=== PATIENT | male | born 1945 | race Caucasian/White ===

== ENCOUNTER 2017-01-08 05:03 | Inpatient (IN) | payer MEDICARE ==
[2017-01-08] MEDS ORDERED: ASPIRIN 81 MG PO STA (05:11)
[2017-01-08] MEDS ORDERED: NITROGLYCERIN OINT 1 INCH/GM PACKET TOPICAL STA (05:11)
--- NOTE | 2017-01-08 05:19 | ED ---
General Adult HPI - General Chief complaint: Chest Pain Stated complaint: chest pain Time Seen by Provider: 01/08/17 05:07 Source: patient, family, RN notes reviewed Mode of arrival: EMS Limitations: no limitations - History of Present Illness Initial comments: Patient is a pleasant 71-year-old male presenting to the emergency department complaining of chest discomfort. Onset was a couple of hours ago while asleep. Discomfort felt like pressure with some mild radiation towards the neck. Patient was nauseated earlier. No diaphoresis or dyspnea. No history of similar symptoms previously. Discomfort was severe however is now gone following aspirin and nitroglycerin by EMS. - Related Data Allergies Allergy/AdvReac Type Severity Reaction Status Date / Time No Known Allergies Allergy Verified 01/08/17 05:17 Review of Systems ROS Statement: Those systems with pertinent positive or pertinent negative responses have been documented in the HPI. ROS Other: All systems not noted in ROS Statement are negative. Constitutional: Denies: fever Eyes: Denies: eye pain ENT: Denies: ear pain Respiratory: Denies: cough, dyspnea Cardiovascular: Reports: chest pain Endocrine: Denies: fatigue Gastrointestinal: Reports: nausea. Denies: abdominal pain Genitourinary: Denies: urgency Musculoskeletal: Denies: back pain Skin: Denies: rash Neurological: Denies: weakness Past Medical History Past Medical History: No Reported History Additional Past Medical History / Comment(s): tooth infection. History of Any Multi-Drug Resistant Organisms: None Reported Past Surgical History: Hernia Repair Past Psychological History: No Psychological Hx Reported Smoking Status: Never smoker Past Alcohol Use History: Occasional Past Drug Use History: None Reported General Exam Limitations: no limitations General appearance: alert, in no apparent distress Head exam: Present: atraumatic Eye exam: Present: normal appearance, PERRL ENT exam: Present: normal oropharynx Neck exam: Present: normal inspection Respiratory exam: Present: normal lung sounds bilaterally. Absent: chest wall tenderness Cardiovascular Exam: Present: regular rate, normal rhythm Expanded Peripheral pulses: 2+: Radial (R), Radial (L), Dorsalis Pedis (R), Dorsalis Pedis (L) GI/Abdominal exam: Present: soft. Absent: tenderness Extremities exam: Present: normal inspection. Absent: pedal edema, calf tenderness Neurological exam: Present: alert Psychiatric exam: Present: normal affect, normal mood Skin exam: Present: normal color Course Vital Signs 01/08/17 01/08/17 05:06 06:35 Temperature 97.8 F Pulse Rate 78 78 Respiratory 16 16 Rate Blood Pressure 121/79 127/84 O2 Sat by Pulse 95 98 Oximetry EKG Findings - EKG Comments: EKG Findings:: Normal sinus rhythm 75. NC 160. QRS 80. QT 404. QTC 451. Normal axis. Normal QRS. Normal ST-T. Medical Decision Making - Medical Decision Making Patient reevaluated and resting comfortably in bed. Patient and family updated on results and plan. Case was discussed in detail with Dr. sosa, who will admit for Dr. Santos. - Lab Data Result diagrams: 01/08/17 05:20 01/08/17 05:20 Lab Results 01/08/17 01/08/17 01/08/17 Range/Units 05:20 05:20 05:20 WBC 6.6 (3.8-10.6) k/uL RBC 4.44 (4.30-5.90) m/uL Hgb 14.0 (13.0-17.5) gm/dL Hct 42.1 (39.0-53.0) % MCV 94.7 (80.0-100.0) fL MCH 31.6 (25.0-35.0) pg MCHC 33.4 (31.0-37.0) g/dL RDW 13.5 (11.5-15.5) % Plt Count 185 (150-450) k/uL Neutrophils % 68 % Lymphocytes % 17 % Monocytes % 6 % Eosinophils % 6 % Basophils % 1 % Neutrophils # 4.4 (1.3-7.7) k/uL Lymphocytes # 1.1 (1.0-4.8) k/uL Monocytes # 0.4 (0-1.0) k/uL Eosinophils # 0.4 (0-0.7) k/uL Basophils # 0.0 (0-0.2) k/uL PT (9.0-12.0) sec INR (<1.2) APTT (22.0-30.0) sec Sodium 137 (137-145) mmol/L Potassium 3.9 (3.5-5.1) mmol/L Chloride 104 (98-107) mmol/L Carbon Dioxide 22 (22-30) mmol/L Anion Gap 11 mmol/L BUN 18 (9-20) mg/dL Creatinine 1.10 (0.66-1.25) mg/dL Est GFR (MDRD) Af Amer >60 (>60 ml/min/1.73 sqM) Est GFR (MDRD) Non-Af >60 (>60 ml/min/1.73 sqM) Glucose 118 H (74-99) mg/dL Calcium 9.3 (8.4-10.2) mg/dL Magnesium 2.0 (1.6-2.3) mg/dL Total Bilirubin 0.8 (0.2-1.3) mg/dL AST 24 (17-59) U/L ALT 41 (21-72) U/L Alkaline Phosphatase 78 (38-126) U/L Total Creatine Kinase 24 L (55-170) U/L CK-MB (CK-2) 0.6 (0.0-2.4) ng/mL CK-MB (CK-2) Rel Index 2.5 Troponin I <0.012 (0.000-0.034) ng/mL Total Protein 6.9 (6.3-8.2) g/dL Albumin 3.8 (3.5-5.0) g/dL 01/08/17 Range/Units 05:20 WBC (3.8-10.6) k/uL RBC (4.30-5.90) m/uL Hgb (13.0-17.5) gm/dL Hct (39.0-53.0) % MCV (80.0-100.0) fL MCH (25.0-35.0) pg MCHC (31.0-37.0) g/dL RDW (11.5-15.5) % Plt Count (150-450) k/uL Neutrophils % % Lymphocytes % % Monocytes % % Eosinophils % % Basophils % % Neutrophils # (1.3-7.7) k/uL Lymphocytes # (1.0-4.8) k/uL Monocytes # (0-1.0) k/uL Eosinophils # (0-0.7) k/uL Basophils # (0-0.2) k/uL PT 11.6 (9.0-12.0) sec INR 1.2 H (<1.2) APTT 24.2 (22.0-30.0) sec Sodium (137-145) mmol/L Potassium (3.5-5.1) mmol/L Chloride (98-107) mmol/L Carbon Dioxide (22-30) mmol/L Anion Gap mmol/L BUN (9-20) mg/dL Creatinine (0.66-1.25) mg/dL Est GFR (MDRD) Af Amer (>60 ml/min/1.73 sqM) Est GFR (MDRD) Non-Af (>60 ml/min/1.73 sqM) Glucose (74-99) mg/dL Calcium (8.4-10.2) mg/dL Magnesium (1.6-2.3) mg/dL Total Bilirubin (0.2-1.3) mg/dL AST (17-59) U/L ALT (21-72) U/L Alkaline Phosphatase (38-126) U/L Total Creatine Kinase (55-170) U/L CK-MB (CK-2) (0.0-2.4) ng/mL CK-MB (CK-2) Rel Index Troponin I (0.000-0.034) ng/mL Total Protein (6.3-8.2) g/dL Albumin (3.5-5.0) g/dL - Radiology Data Radiology results: image reviewed (Chest x-ray shows no acute process) Critical Care Time Critical Care Time: Yes Total Critical Care Time: 31 Disposition Clinical Impression: Unstable angina pectoris Disposition: ADMITTED IP TO THIS [facility] Referrals: Leonardo Santos MD [Primary Care Provider] - 1-2 days Decision Time: 06:52
[2017-01-08 05:54] LABS: Basophils % (A) 1 %; CH 32.5; CHCM 34.5; Eosinophils # (A) 0.4 k/uL (0-0.7); Eosinophils % (A) 6 %; HCT 42.1 % (39.0-53.0); HDW 2.51; Luc % (Auto) 3; Lymphocytes # (A) 1.1 k/uL (1.0-4.8); Lymphocytes % (A) 17 %; MCH 31.6 pg (25.0-35.0); MCHC 33.4 g/dL (31.0-37.0); MCV 94.7 fL (80.0-100.0); Mean Platelet Volume 6.8; Monocytes # (A) 0.4 k/uL (0-1.0); Monocytes % (A) 6 %; Neutrophils # (A) 4.4 k/uL (1.3-7.7); Neutrophils % (A) 68 %; RBC 4.44 m/uL (4.30-5.90); RDW 13.5 % (11.5-15.5); WBC 6.6 k/uL (3.8-10.6); WBC (Perox) 6.31
[2017-01-08 06:02] LABS: ALT 41 U/L (21-72); AST 24 U/L (17-59); Alkaline Phosphatase 78 U/L (38-126); Anion Gap 11 mmol/L; Blood Urea Nitrogen 18 mg/dL (9-20); Calcium 9.3 mg/dL (8.4-10.2); Carbon Dioxide 22 mmol/L (22-30); Chloride 104 mmol/L (98-107); Glucose 118 mg/dL (74-99); Non-African American GFR(MDRD) >60 (>60 ml/min/1.73 sqM); Potassium 3.9 mmol/L (3.5-5.1); Sodium 137 mmol/L (137-145); Total Bilirubin 0.8 mg/dL (0.2-1.3); Total Protein 6.9 g/dL (6.3-8.2)
[2017-01-08 06:17] LABS: Creatine Kinase 24 U/L (55-170)
--- NOTE | 2017-01-08 06:17 | XR ---
EXAM: XR Chest, 1 View. CLINICAL HISTORY: Reason: chest pain TECHNIQUE: Frontal view of the chest. COMPARISON: No relevant prior studies available. FINDINGS: Lungs: Unremarkable. No consolidation. Pleural spaces: Unremarkable. No pneumothorax. Heart: Unremarkable. No cardiomegaly. Mediastinum: Unremarkable. Bones: Unremarkable. No acute fracture. IMPRESSION: No evidence of active cardiopulmonary abnormality..
[2017-01-08 06:21] LABS: INR 1.2 (<1.2); Partial Thromboplastin Time 24.2 sec (22.0-30.0); Prothrombin Time 11.6 sec (9.0-12.0)
[2017-01-08 06:30] LABS: Creatine Kinase MB 0.6 ng/mL (0.0-2.4); Troponin I <0.012 ng/mL (0.000-0.034)
[2017-01-08] MEDS ORDERED: HEPARIN SODIUM,PORCINE 5,000 UNIT/ML 1 ML VIAL IV PRN (06:52)
[2017-01-08] MEDS ORDERED: HEPARIN SODIUM,PORCINE 5,000 UNIT/ML 1 ML VIAL IV ONE (06:52)
[2017-01-08] MEDS: HEPARIN SODIUM,PORCINE/D5W PMX 25,000 UNIT in DEXTROSE/WATER 1 500ML.BAG IV SCH (07:28)
--- NOTE | 2017-01-08 12:20 | P.CRDCN ---
History of Present Illness Consult date: 01/08/17 History of present illness: This is 71-year-old gentleman with no Sigmund past medical history has been having intermittent chest discomfort and a gas-like feeling in the chest, mostly at night. Usually he drinks Coke and then he could burp to get relief. However, last night patient had a similar episode that did not go away. Finally patient came to the emergency room. The symptoms are mostly at rest. During the daytime and patient doesn't express any pain. He denies any acid reflux. No history of any previous microinfarction or angina. Patient does smoke a long time ago. No history of hypertension or diabetes. So far his cardiac enzymes are negative. EKG did not reveal any acute changes. We'll follow further cardiac enzyme studies and get an echocardiogram. Patient is also considering have hip surgery. We'll make consider doing a is a dobutamine or Lexiscan stress test to rule out underlying ischemic heart disease Review of Systems As per the chart Past Medical History Past Medical History: No Reported History Additional Past Medical History / Comment(s): Current R hand index finger wound- being tx with ABX. History of Any Multi-Drug Resistant Organisms: None Reported Past Surgical History: Hernia Repair Additional Past Surgical History / Comment(s): L inguinal hernia repair, implanted teeth, colonoscopy-normal Past Anesthesia/Blood Transfusion Reactions: No Reported Reaction Smoking Status: Former smoker - Past Family History Father Family Medical History: Cancer Additional Family Medical History / Comment(s): Father of colon cancer at the age of 48yrs. Mother Family Medical History: Musculoskeletal Disorder, Neurologic Disorder Additional Family Medical History / Comment(s): Mother of complications related to MS at the age of about 68yrs. Medications and Allergies Home Medications Medication Instructions Recorded Confirmed Type Aspirin 325 mg PO ONCE 01/08/17 01/08/17 History Mupirocin Calcium [Bactroban 2% 1 applic TOPICAL TID PRN 01/08/17 01/08/17 History Cream] Sulfamethox-Tmp 800-160Mg [Bactrim 1 tab PO Q12HR 01/08/17 01/08/17 History DS 800-160 mg] guaiFENesin [Mucinex] 1,200 mg PO Q12H PRN 01/08/17 01/08/17 History Allergies Allergy/AdvReac Type Severity Reaction Status Date / Time No Known Allergies Allergy Verified 01/08/17 07:11 Physical Exam Vitals: Vital Signs Temp Pulse Pulse Resp BP BP Pulse Ox 01/08/17 09:00 98.6 F 67 18 120/68 97 01/08/17 08:37 98.9 F 75 18 127/76 97 01/08/17 06:35 78 16 127/84 98 01/08/17 05:06 97.8 F 78 16 121/79 95 Intake and Output 01/07/17 01/08/17 01/08/17 22:59 06:59 14:59 Other: Weight 104.326 kg GENERAL EXAM: Patient is alert and oriented and doesn't appear to be in any acute distress HEENT: Normocephalic. Normal reaction of pupils, equal size, normal range of extraocular motion. No erythema or exudates in the throat. NECK: No masses, no nuchal rigidity. CHEST: No chest wall deformity. LUNGS: Equal air entry with no crackles or wheeze. HEART: S1 and S2 normal with no audible mumurs or gallops. Regular rhythm, femorals equal on both sides.. ABDOMEN: No hepatosplenomegaly, normal bowel sounds, no guarding or rigidity. SKIN: No rashes CENTRAL NERVOUS SYSTEM: No focal deficits. EXTREMITIES: No cyanosis, clubbing or edema. Results 01/08/17 05:20 01/08/17 05:20 Cardiac Enzymes 01/08/17 01/08/17 Range/Units 05:20 05:20 AST 24 (17-59) U/L CK-MB (CK-2) 0.6 (0.0-2.4) ng/mL Troponin I <0.012 (0.000-0.034) ng/mL Coagulation 01/08/17 Range/Units 05:20 PT 11.6 (9.0-12.0) sec APTT 24.2 (22.0-30.0) sec CBC 01/08/17 Range/Units 05:20 WBC 6.6 (3.8-10.6) k/uL RBC 4.44 (4.30-5.90) m/uL Hgb 14.0 (13.0-17.5) gm/dL Hct 42.1 (39.0-53.0) % Plt Count 185 (150-450) k/uL Comprehensive Metabolic Panel 01/08/17 Range/Units 05:20 Sodium 137 (137-145) mmol/L Potassium 3.9 (3.5-5.1) mmol/L Chloride 104 (98-107) mmol/L Carbon Dioxide 22 (22-30) mmol/L BUN 18 (9-20) mg/dL Creatinine 1.10 (0.66-1.25) mg/dL Glucose 118 H (74-99) mg/dL Calcium 9.3 (8.4-10.2) mg/dL AST 24 (17-59) U/L ALT 41 (21-72) U/L Alkaline Phosphatase 78 (38-126) U/L Total Protein 6.9 (6.3-8.2) g/dL Albumin 3.8 (3.5-5.0) g/dL Current Medications Generic Name Dose Route Start Last Admin Trade Name Freq PRN Reason Stop Dose Admin Aspirin 325 mg 01/09/17 09:00 Aspirin PO DAILY [facility] Heparin Sodium (Porcine) 0 unit 01/08/17 06:52 Heparin IV Q6HR PRN Low PTT Protocol Heparin Sodium/Dextrose 25,000 500 mls @ 20 mls/hr 01/08/17 07:00 01/08/17 07 :28 unit/ IV Solution IV 9.586 units/kg/hr .Q24H VENU 20 mls/hr Protocol Administration 9.586 UNITS/KG/HR Nitroglycerin 1 inch 01/08/17 12:00 Nitro-Bid Oint TOPICAL Q6HR [facility] Nitroglycerin 0.4 mg 01/08/17 06:52 Nitrostat SUBLINGUAL Q5M PRN Chest Pain Intake and Output 01/07/17 01/08/17 01/08/17 22:59 06:59 14:59 Other: Weight 104.326 kg 01/08/17 05:20 01/08/17 05:20 EKG Interpretations (text) Sinus rhythm Assessment and Plan (1) Chest pain Status: Acute Plan: Patient doesn't have any significant risk factors, however angina symptoms cannot be excluded. We'll follow his cardiac enzymes studies. If they're negative, may proceed with a dobutamine or Lexiscan stress test and if that test is negative for ischemia, GI pathology and etiology to be considered.
[2017-01-08 13:09] LABS: Creatine Kinase MB 0.9 ng/mL (0.0-2.4)
[2017-01-08 13:23] LABS: Troponin I 0.045 ng/mL (0.000-0.034)
[2017-01-08] MEDS ORDERED: SODIUM CHLORIDE 0.9% 1,000 ML in EMPTY BAG 1 BAG IV ONE (13:49)
[2017-01-08] MEDS ORDERED: ALPRAZolam 0.5 MG TAB PO PRN (13:49)
[2017-01-08] MEDS ORDERED: ATORVASTATIN 80 MG TAB PO STA (13:49)
[2017-01-08] MEDS ORDERED: ALPRAZolam 0.25 MG TAB PO PRN (13:49)
--- NOTE | 2017-01-08 14:26 | P.HPIM ---
History of Present Illness H&P Date: 01/08/17 Chief Complaint: Chest pain History of presenting complaint: This is a very pleasant 71-year-old patient of Dr. Santos. Patient's only significant history is that of arthritis especially of the left hip pending surgery. Patient woke up with chest pain from sleep and was a heavy sensation in the chest there was no shortness of breath no perspiration or dizziness though patient really felt tired and rundown. Concerned and this is a cardiac event she decided to come and admitted for unstable angina. Denies any prior cardiac history. Patient otherwise rather fairly active. GEN.: Tired EYES: None HEENT: None NECK: None RESPIRATORY: None CARDIOVASCULAR: As above GASTROINTESTINAL: None GENITOURINARY: None MUSCULOSKELETAL: Pain in the joints patient left hip LYMPHATICS: None HEMATOLOGICAL: None PSYCHIATRY: None NEUROLOGICAL: None Past medical history: Arthritis left hip, being treated for right index finger infection with Bactrim by his PCP Past surgical history: Left inguinal hernia repair Home medications: Reviewed in the computer including ciprofloxacin ALLERGIES: None Social history does smoke in the remote past. Alcohol occasionally. 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 . VITAL SIGNS: 97.8, 78, 16, 121/79, 95% room air GENERAL: Average built, laying in a bed to a bit anxious appearing. EYES: Pupils equal. Conjunctiva normal. HEENT: External appearance of nose and ears normal, oral cavity grossly normal. NECK: JVD not raised; masses not palpable. HEART: First and second heart sounds are normal; no edema. LUNGS: Respiratory rate normal; clear to auscultation. ABDOMEN: Soft, nontender, liver spleen not palpable, no masses palpable. LYMPHATICS: No lymph nodes palpable in the axilla and neck. PSYCH: Alert and oriented x3; mood and affect normal. NEUROLOGICAL: Cranial nerves grossly intact; no facial asymmetry, power and sensation grossly intact. Extremities: Dressing over the right index finger Investigations: Troponin less than 0.012, 0.045 EKG normal sinus rhythm Assessment: -Acute coronary syndrome, with troponin started to go up with the cardiac sounding presentation. -Obesity BMI 33.0 -Primary osteoarthritis of left hip pending outpatient surgery -Acute cellulitis of the right index finger proximal part being treated with ciprofloxacin from outpatient -IV heparin monitoring Plan: Patient is on aspirin IV heparin Nitropaste. Collagen was consulted. I spoke to the patient and questions were answered. Past Medical History Past Medical History: No Reported History Additional Past Medical History / Comment(s): Current R hand index finger wound- being tx with ABX. History of Any Multi-Drug Resistant Organisms: None Reported Past Surgical History: Hernia Repair Additional Past Surgical History / Comment(s): L inguinal hernia repair, implanted teeth, colonoscopy-normal Past Anesthesia/Blood Transfusion Reactions: No Reported Reaction Smoking Status: Former smoker - Past Family History Father Family Medical History: Cancer Additional Family Medical History / Comment(s): Father of colon cancer at the age of 48yrs. Mother Family Medical History: Musculoskeletal Disorder, Neurologic Disorder Additional Family Medical History / Comment(s): Mother of complications related to MS at the age of about 68yrs. Medications and Allergies Home Medications Medication Instructions Recorded Confirmed Type Aspirin 325 mg PO ONCE 01/08/17 01/08/17 History Ciprofloxacin HCl [Cipro] 500 mg PO Q12HR 01/08/17 01/08/17 History Mupirocin Calcium [Bactroban 2% 1 applic TOPICAL TID PRN 01/08/17 01/08/17 History Cream] guaiFENesin [Mucinex] 1,200 mg PO Q12H PRN 01/08/17 01/08/17 History Allergies Allergy/AdvReac Type Severity Reaction Status Date / Time No Known Allergies Allergy Verified 01/08/17 07:11 Results CBC & Chem 7: 01/08/17 05:20 01/08/17 05:20
[2017-01-08] MEDS: NITROGLYCERIN OINT 1 INCH/GM PACKET TOPICAL SCH ×2 (15:43→17:55)
[2017-01-08 18:29] LABS: Creatine Kinase MB 0.7 ng/mL (0.0-2.4)
[2017-01-08 18:36] LABS: Troponin I 0.047 ng/mL (0.000-0.034)
[2017-01-08] MEDS: NITROGLYCERIN SL TABS 0.4 MG TAB SUBLINGUAL PRN ×2 (19:46→20:03)
[2017-01-09] MEDS ORDERED: ATORVASTATIN 80 MG TAB PO ONE (05:00)
[2017-01-09 06:41] LABS: Mean Platelet Volume 6.9
[2017-01-09] MEDS: NITROGLYCERIN OINT 1 INCH/GM PACKET TOPICAL SCH ×4 (07:28→17:25)
[2017-01-09] MEDS: ASPIRIN 325 MG TAB PO SCH (07:32)
[2017-01-09] MEDS: HEPARIN SODIUM,PORCINE/D5W PMX 25,000 UNIT in DEXTROSE/WATER 1 500ML.BAG IV SCH ×2 (07:43→14:18)
[2017-01-09 08:27] LABS: Cholesterol 153 mg/dL (<200); HDL Cholesterol 33 mg/dL (40-60)
[2017-01-09] MEDS ORDERED: IV FLUID CONTINUATION 1,000 ML IV ONE (09:31)
[2017-01-09] MEDS ORDERED: fentaNYL (PF) 50 MCG/ML 2 ML AMP ONE (09:39)
[2017-01-09] MEDS ORDERED: LIDOCAINE 2% INJ 20 MG/ML (20 ML MDV) ONE (09:39)
[2017-01-09] MEDS ORDERED: MIDAZOLAM 2 MG/2 ML VIAL ONE (09:39)
[2017-01-09] MEDS ORDERED: VERAPAMIL 2.5 MG/ML 2 ML AMP ONE (09:39)
[2017-01-09] MEDS ORDERED: fentaNYL (PF) 50 MCG/ML 2 ML AMP IV ONE (09:43)
[2017-01-09] MEDS ORDERED: LIDOCAINE 2% INJ 20 MG/ML SQ ONE (09:44)
[2017-01-09] MEDS ORDERED: MIDAZOLAM 2 MG/2 ML VIAL IV ONE (09:44)
[2017-01-09] MEDS: VERAPAMIL SYRINGE (5 MG/10 ML) INTRAARTER ONE ×2 (09:47→10:02)
[2017-01-09] MEDS ORDERED: HEPARIN SODIUM 1,000 UN/ML (10ML VL) ONE (09:48)
[2017-01-09] MEDS ORDERED: NITROGLYCERIN 1000MCG/10ML SYRINGE INTRACORON ONE (09:56)
[2017-01-09] MEDS ORDERED: IOHEXOL 350 MG/ML 125ML BOTTLE INJ ONE (10:27)
--- NOTE | 2017-01-09 10:29 | P.PCN ---
Date of Procedure: 01/09/17 Preoperative Diagnosis: Unstable angina Postoperative Diagnosis: Triple-vessel disease Procedure(s) Performed: Left heart catheterization without left ventriculography Implants: Indications for Procedure: Operative Findings: Description of Procedure: HISTORY: Mr. Watters is a 71-year-old gentleman with no significant past medical history was admitted to the hospital with complaints of recurrent chest pain. His cardiac enzymes showed positive troponins. His EKGs were negative. Patient is advised to have a cardiac catheterization for definitive diagnosis. Patient and family were explained the risks and benefits of the procedure. CONSENT:I have discussed the risks, benefits and alternative therapies for the above-mentioned procedure and for both sedation/analgesia as well as necessary blood product administration, if indicated, as they pertain to this patient. The patient has indicated understanding and acceptance of the risks and procedures discussed. PROCEDURE: Patient was brought to the lab in a fasting state. Patient was given conscious IV sedation. The right wrist area is infiltrated with lidocaine and right radial artery was entered using Seldinger technique. A 6- Salvadorean catheter was left in place and selective coronary arteriography was performed. Patient tolerated the procedure well. We're waiting for Dr. Snow to evaluate the patient for possible intervention. If no intervention is planned, TR band was applied for hemostasis. No immediate complications were noted . Conscious Sedation: Versed 1 mg Fentanyl 50 g Duration 25 minutes HEMODYNAMICS: The aortic pressure is 130/70 SELECTIVE CORONARY ARTERIOGRAPHY: LEFT MAIN: Normal length and patent THE LEFT ANTERIOR DESCENDING CORONARY ARTERY: . This is a good caliber vessel with about 70% stenosis in the proximal portion. The diagonal branch about 80% stenosis. The distal LAD is free of any Sigmund occlusive disease THE LEFT CIRCUMFLEX AND IS CORONARY ARTERY: This is a good caliber vessel with about 50% ostial stenosis. The OM branch has about 70- 80% stenosis THE RIGHT CORONARY ARTERY: . This is a good caliber vessel with about 70-80% stenosis in the proximal portion LEFT VENTRICULOGRAPHY: . Not performed FINAL IMPRESSION: . Triple-vessel disease with critical lesion involving the RCA, OM branch and also moderate to severe disease in the LAD PLAN: Urgent aorto coronary bypass surgery. Films are reviewed with her doctor some and PROGNOSIS: Fair
[2017-01-09] MEDS ORDERED: RX INFO: IV CONTRAST WAS GIVEN 1 EACH MISC MISCELLANE PRN (10:37)
[2017-01-09] MEDS ORDERED: ATORVASTATIN 80 MG TAB PO SCH (11:23)
[2017-01-09] MEDS: SODIUM CHLORIDE 0.9% 1,000 ML IV SCH (12:14)
--- NOTE | 2017-01-09 12:45 | P.PN ---
<Yesi Jeffers - Last Filed: 01/09/17 11:57> Progress Note - Text DATE OF SERVICE: 01/09/2017 PRESENTING COMPLAINT: Chest pain INTERVAL HISTORY: 71-year-old male who woke up with chest pain associated heaviness no shortness of breath perspiration or dizziness although felt tired and rundown. First troponins, negative. Tentatively planning stress test and an echo. 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 Surgery is tentatively scheduled for Wednesday. Sitting up the bedside, eating his lunch, Pressure device noted to right radial artery. General questions answered. REVIEW OF SYSTEMS: Done for constitutional ,cardiovascular, GI, pulmonary with relevant findings as above. CURRENT MEDICATIONS Xanax, aspirin, Lipitor, heparin, Lopressor. PHYSICAL EXAM VITAL SIGNS: Temperature 97.0 pulse 63 respiratory rate 18 blood pressure 118/78 oxygen saturation 90% on 2 L. GENERAL APPEARANCE: Sitting up at the bedside, not in distress. EYES: Pupils equal. Conjunctiva normal. NECK: JVD not raised. Mass not palpable. RESPIRATORY: Respiratory effort normal. Lungs clear to auscultation. CARDIOVASCULAR: First and second sounds normal. No edema. Right radial pressure device noted, no bleeding no swelling. ABDOMEN: Soft. Liver and spleen not palpable. No tenderness. No mass palpable. PSYCHIATRY: Alert and oriented x3. Mood and affect normal. INVESTIGATIONS: Triglyceride 87, cholesterol 153, LDL cholesterol 103, HDL 33. ASSESSMENT: -Acute coronary syndrome, positive troponin. Status post cardiac catheterization, found to have triple-vessel disease and tenderness surgery scheduled for Wednesday -Obesity BMI 33.0 -Primary osteoarthritis of left hip pending outpatient surgery -Acute cellulitis of the right index finger proximal part being treated with ciprofloxacin from outpatient -IV heparin monitoring PLAN: Preop planning for surgery tentatively scheduled for Wednesday. Continue current medication and treatment plan. Plan of care discussed with the patient at the bedside questions answered, Patient in agreement with the plan TMR TEACHER statement: Patient was seen and examined by nurse practitioner Yesi Jeffers and all elements of the case discussed with attending Dr. Lundberg <Juan Antonio Lundberg - Last Filed: 01/09/17 17:31> Progress Note - Text Attending note. Date of service-01/09/2017 This patient was seen and examined by me . Discussed the patient with my nurse practitioner Ms. Jeffers. Admitted to possibly acute non-Q wave [place]. Had a cardiac cath this morning out of for the chest pain showing triple-vessel disease. Seen by Dr. Sales now with surgery scheduled for Wednesday. On examination: Lungs-clear, cardiovascular first seconds are normal Investigations: Cardiac cath results noted. Assessment and plan: Acute non-Q-wave myocardial infarction with cardiac cath showing triple-vessel coronary artery disease. IV heparin monitoring. Care discussed with patient and family the bedside. Continue current medication. Await bypass.
[2017-01-09] MEDS ORDERED: MD COMMUNICATION TO PHARMACY 1 EACH MISC PO ONE ×2 (13:57)
--- NOTE | 2017-01-09 14:12 | ECHOF ---
Referral Reason:PRE OP MEASUREMENTS -------- HEIGHT: 180.3 cm WEIGHT: 108.9 kg BP: 118/78 IVSd: 1.6 cm (0.6 - 1.1) LVIDd: 3.8 cm (3.9 - 5.3) LVPWd: 1.4 cm (0.6 - 1.1) IVSs: 2.2 cm LVIDs: 2.7 cm LVPWs: 1.8 cm Ao Diam: 3.1 cm (2.0 - 3.7) AV Cusp: 1.9 cm (1.5 - 2.6) LA Diam: 3.5 cm (2.7 - 3.8) MV EXCURSION: 17.354 mm (> 18.000) MV EF SLOPE: 85 mm/s (70 - 150) EPSS: 0.5 cm MV E Nestor: 0.73 m/s MV DecT: 197 ms MV A Nestor: 0.83 m/s MV E/A Ratio: 0.88 RAP: 5.00 mmHg RVSP: 29.09 mmHg FINDINGS -------- Sinus rhythm. This was a technically good study. There is moderate concentric left ventricular hypertrophy. Overall left ventricular systolic function is normal with, an EF between 55 - 60 %. The right ventricle is normal in size and function. The left atrium is normal in size. The right atrium is normal in size. The aortic valve is trileaflet, and appears structurally normal. No aortic stenosis or regurgitation. There is trace mitral regurgitation. Trace tricuspid regurgitation present. The right ventricular systolic pressure, as measured by Doppler, is 29.09mmHg. Pulmonic valve appears structurally normal. The aortic root size is normal. The pericardium is normal. CONCLUSIONS -------- 1. Sinus rhythm. 2. Trace tricuspid regurgitation present. 3. The right ventricular systolic pressure, as measured by Doppler, is 29.09mmHg. 4. Pulmonic valve appears structurally normal. 5. The aortic root size is normal. 6. The pericardium is normal. 7. This was a technically good study. 8. There is moderate concentric left ventricular hypertrophy. 9. Overall left ventricular systolic function is normal with, an EF between 55 - 60 %. 10. The right ventricle is normal in size and function. 11. The left atrium is normal in size. 12. The right atrium is normal in size. 13. The aortic valve is trileaflet, and appears structurally normal. No aortic stenosis or regurgitation. 14. There is trace mitral regurgitation. EAR MUFF ASSEMBLER: Kayla Escobar RDCS
[2017-01-09] MEDS: METOPROLOL TARTRATE 25 MG TAB PO SCH ×2 (14:17→21:24)
--- NOTE | 2017-01-09 14:54 | P.GSCN ---
History of Present Illness Consult date: 01/09/17 Reason for Consult: Non-STEMI, coronary artery disease. Requesting physician: Apurva Sher History of present illness: This is 71-year-old gentleman who is followed by Dr. Leonardo Santos on an outpatient basis. He has a past medical history consistent with osteoarthritis to his left hip, recent bee stings to his right lower leg, and infection to his right index finger and a history of an infection to his right leg and left shoulder area. On 01/08/2017 the patient was woken up from a sleep around 3:00 in the morning with complaints of chest pain and nausea. He denies any complaints of shortness of breath or diaphoresis at that time. The pain was radiating to his neck. He tried to relieve the pain by drinking a can of Coke as he thought the pain was associated with gas. EMS was called around 4 AM and the patient was brought via EMS to the emergency department here at [facility]. The patient reports a history of similar chest pain about 20 years ago and was ruled out for myocardial infarction in [place] at that time. The patient did have serial troponins drawn 3 and 2 of the troponins were elevated as high as 0.045 and 0.047. He also underwent a 12-lead EKG which did not show any significant acute changes. He was subsequently seen by Dr. Sher from cardiology and a heart catheterization was recommended. Patient subsequently underwent a heart catheterization which demonstrated a 70- 80% stenosis to his proximal left anterior descending coronary artery, and 80% stenosis to a diagonal branch, a 50% stenosis to his ostial circumflex coronary artery, a 70-80% stenosis to his obtuse marginal branch, and a 70-80% stenosis to his proximal portion of his right coronary artery. Patient also underwent a 2-D echocardiogram which showed trace tricuspid valve regurgitation, trace mitral valve regurgitation, moderate concentric left ventricular hypertrophy, and an overall left ventricular systolic function to be normal with an ejection fraction between 55 and 60%. Due to the patient's admitting symptoms, positive troponins and heart catheterization results Dr. Truong Sales from cardiothoracic surgery was asked to evaluate the patient for possible coronary artery bypass grafting surgery. Review of Systems A 14 point review of systems was completed and was negative except as mentioned in the HPI. Past Medical History Past Medical History: Hyperlipidemia, Osteoarthritis (OA) (He was scheduled for a left hip replacement by Dr. Borges on 01/25/2017. ) Additional Past Medical History / Comment(s): Current right hand index finger wound-being tx with ciprofloxacin. History of recent multiple bee stings to his right lower leg. History of Any Multi-Drug Resistant Organisms: None Reported Past Surgical History: Hernia Repair Additional Past Surgical History / Comment(s): L inguinal hernia repair, implanted teeth, colonoscopy-normal Past Anesthesia/Blood Transfusion Reactions: No Reported Reaction Smoking Status: Former smoker (Quit smoking in the 1980s, he smoked for 15 years 1 pack per day.) Past Alcohol Use History: Occasional (He reports that he drinks about 7-8 beers per week.) Past Drug Use History: None Reported - Past Family History Father Family Medical History: Cancer Additional Family Medical History / Comment(s): Father of colon cancer at the age of 48yrs. Mother Family Medical History: Musculoskeletal Disorder, Neurologic Disorder Additional Family Medical History / Comment(s): Mother of complications related to MS at the age of about 68yrs. Brother(s) Family Medical History: CVA/TIA, Hypertension Additional Family Medical History / Comment(s): He has 4 brothers one of which has had a CVA/hypertension. Sister(s) Family Medical History: No Reported History Son(s) Family Medical History: Osteoarthritis (OA) (He has 2 sons 1 of which has had a hip replacement.) Medications and Allergies Home Medications Medication Instructions Recorded Confirmed Type Aspirin 325 mg PO ONCE 01/08/17 01/08/17 History Ciprofloxacin HCl [Cipro] 500 mg PO Q12HR 01/08/17 01/08/17 History Mupirocin Calcium [Bactroban 2% 1 applic TOPICAL TID PRN 01/08/17 01/08/17 History Cream] guaiFENesin [Mucinex] 1,200 mg PO Q12H PRN 01/08/17 01/08/17 History Allergies Allergy/AdvReac Type Severity Reaction Status Date / Time No Known Allergies Allergy Verified 01/08/17 07:11 Surgical - Exam Vital Signs Temp Pulse Resp BP Pulse Ox 97.8 F 78 16 121/79 95 01/08/17 05:06 01/08/17 05:06 01/08/17 05:06 01/08/17 05:06 01/08/17 05:06 - General well developed, well nourished, no distress, no pain, obese - Eyes PERRL, normal ocular movement - ENT normal pinna, normal nares, normal mucosa, no hearing loss, no congestion - Neck No lymphadenopathy. no masses, no bruits, trachea midline, no venous distension - Respiratory Lungs are essentially clear throughout. Respirations are symmetrical and unlabored. - Cardiovascular Regular rhythm and rate. S1 and S2 present, negative for S3, gallop or murmur. No edema present. Remote telemetry showing normal sinus rhythm heart rate 76. - Abdomen No guarding, no organomegaly. Abdomen: soft, non tender, bowel sounds (Positive palpable abdominal quadrants.) - Genitourinary Deferred - Rectum Deferred - Integumentary Opened wound to his right hand index finger. Dry scabbed areas to his right lower anterior leg post bee stings. no rash, no growths, no abnormal pigmentation - Neurologic normal coordination, normal sensation - Musculoskeletal normal gait, normal posture - Psychiatric oriented to time, oriented to person, oriented to place, speech is normal, memory intact Results - Labs 01/09/17 06:15 01/08/17 05:20 Abnormal Lab Results - Last 24 Hours (Table) 01/08/17 01/08/17 01/09/17 Range/Units 17:38 20:25 00:38 APTT 37.5 H 45.0 H (22.0-30.0) sec Total Creatine Kinase 25 L (55-170) U/L Troponin I 0.047 H* (0.000-0.034) ng/mL LDL Cholesterol, Calc (0-99) mg/dL HDL Cholesterol (40-60) mg/dL 01/09/17 Range/Units 06:15 APTT (22.0-30.0) sec Total Creatine Kinase (55-170) U/L Troponin I (0.000-0.034) ng/mL LDL Cholesterol, Calc 103 H (0-99) mg/dL HDL Cholesterol 33 L (40-60) mg/dL Diabetes panel 01/09/17 Range/Units 06:15 Triglycerides 87 (<150) mg/dL HDL Cholesterol 33 L (40-60) mg/dL - Imaging Comments: 2-D echocardiogram report reviewed and video reviewed, heart catheterization report and films reviewed with Dr. Sales. Chest x-ray: report reviewed, image reviewed Assessment and Plan (1) Non-STEMI (non-ST elevated myocardial infarction) Status: Acute (2) Elevated troponin I measurement Status: Acute (3) Coronary artery disease Status: Acute (4) Hyperlipidemia Status: Acute (5) Open wound of right hand Status: Acute (6) Chest pain Status: Acute (7) Unstable angina pectoris Status: Acute Plan: The patient was seen and examined with Dr. Sales. His chart and diagnostics were reviewed with Dr. Sales. Preoperative testing was initiated. Preoperative teaching was initiated and all questions answered. STS database risk score was discussed with the patient by Dr. Sales. The patient will be scheduled for coronary artery bypass grafting surgery 3-4 vessels with BROWN, endoscopic vein harvesting, intraoperative transesophageal echocardiogram, and epi-aortic scanning for 01/12/[address] Reza. Thank you Dr. Sher for the consult and we look forward to working with you in the care of your patient. Time with Patient: Greater than 30
[2017-01-09 15:55] LABS: INR 1.2 (<1.2); Prothrombin Time 12.3 sec (9.0-12.0)
[2017-01-09 16:00] LABS: Basophils % (A) 1 %; CH 31.4; Eosinophils # (A) 0.3 k/uL (0-0.7); Eosinophils % (A) 5 %; HCT 38.5 % (39.0-53.0); HDW 2.54; HGB 12.9 gm/dL (13.0-17.5); Luc # (Auto) 0.14; Luc % (Auto) 2; Lymphocytes # (A) 1.1 k/uL (1.0-4.8); Lymphocytes % (A) 19 %; MCH 31.1 pg (25.0-35.0); MCHC 33.6 g/dL (31.0-37.0); MCV 92.7 fL (80.0-100.0); Mean Platelet Volume 6.3; Monocytes # (A) 0.4 k/uL (0-1.0); Monocytes % (A) 7 %; Neutrophils % (A) 67 %; RBC 4.15 m/uL (4.30-5.90); RDW 12.7 % (11.5-15.5); WBC 5.9 k/uL (3.8-10.6); WBC (Perox) 5.95
[2017-01-09 16:01] LABS: ALT 46 U/L (21-72); AST 24 U/L (17-59); Alkaline Phosphatase 77 U/L (38-126); Anion Gap 8 mmol/L; Blood Urea Nitrogen 13 mg/dL (9-20); Calcium 8.9 mg/dL (8.4-10.2); Carbon Dioxide 27 mmol/L (22-30); Chloride 103 mmol/L (98-107); Glucose 110 mg/dL (74-99); Magnesium 2.2 mg/dL (1.6-2.3); Non-African American GFR(MDRD) >60 (>60 ml/min/1.73 sqM); Potassium 4.1 mmol/L (3.5-5.1); Sodium 138 mmol/L (137-145); Total Bilirubin 0.6 mg/dL (0.2-1.3); Total Protein 6.6 g/dL (6.3-8.2)
--- NOTE | 2017-01-09 17:14 | US ---
EXAMINATION TYPE: US carotid duplex BILAT DATE OF EXAM: 01/09/2017 COMPARISON: NONE CLINICAL HISTORY: PreOp Cardiac Surgery. EXAM MEASUREMENTS: RIGHT: Peak Systolic Velocity (PSV) cm/sec ----- Right CCA: 69.1 ----- Right ICA: 61.2 ----- Right ECA: 88.6 ICA/CCA ratio: 0.9 RIGHT: End Diastole cm/sec ----- Right CCA: 27.4 ----- Right ICA: 30.4 ----- Right ECA: 13.4 LEFT: Peak Systolic Velocity (PSV) cm/sec ----- Left CCA: 53.7 ----- Left ICA: 75.2 ----- Left ECA: 65.9 ICA/CCA ratio: 1.4 LEFT: End Diastole cm/sec ----- Left CCA: 18.3 ----- Left ICA: 40.9 ----- Left ECA: 10.7 VERTEBRALS (direction of flow): Right Vertebral: Antegrade Left Vertebral: Antegrade Mild plaque, no significant velocity elevations. Some intimal thickening is evident. IMPRESSION: 1. No significant flow-limiting stenosis. Criteria for Assigning % of Stenosis / Diameter reduction (Estimation based on the indirect measurements of the internal carotid artery velocities (ICA PSV). 1. Normal (no stenosis)=ICA PSV < 125 cm/s: ratio < 2.0: ICA EDV<40 cm/s. 2. Less than 50% stenosis=ICA PSV < 125 cm/s: ratio < 2.0: ICA EDV<40 cm/s. 3. 50 to 69% stenosis=ICA PSV of 125 to 230 cm/s: ration 2.0 ? 4.0: ICA EDV 40-100 cm/s. 4. Greater than 70% stenosis to near occlusion= ICA PSV > 230 cm/s: ratio > 4.0: ICA EDV > 100 cm/s. 5. Near occlusion= ICA PSV velocities may be low or undetectable: variable ratio and ICA EDV. 6. Total occlusion=unable to detect flow.
[2017-01-09 17:17] LABS: Hepatitis B Surface Ag Index 0.05
[2017-01-09 17:23] LABS: Hepatitis B Core IgM Index 0.01
[2017-01-09 17:35] LABS: Hepatitis C Virus IgG Ab Negative (Negative); Hepatitis C Virus IgG Index 0.04
[2017-01-09] MEDS: MUPIROCIN 2% OINT 22 GM TUBE NASAL SCH (21:39)
[2017-01-09 21:53] LABS: Hemoglobin A1C 5.8 % (4.2-6.1)
[2017-01-10 02:53] LABS: Appearance,Urine Clear (Clear); Bilirubin,Urine Negative (Negative); Glucose,Urine (UA) Negative (Negative); Ketones,Urine Negative (Negative); Leukocyte Esterase,Urine Negative (Negative); Nitrite,Urine Negative (Negative); PH, Urine 5.5 (5.0-8.0); Protein,Urine Negative (Negative); Specific Gravity,Urine 1.011 (1.001-1.035); UA Billing (MACRO vs. MICRO) CHEM; Urobilinogen,Urine <2.0 mg/dL (<2.0)
[2017-01-10 06:46] LABS: Basophils % (A) 1 %; CH 31.9; CHCM 33.5; Eosinophils # (A) 0.3 k/uL (0-0.7); Eosinophils % (A) 5 %; HDW 2.52; HGB 12.3 gm/dL (13.0-17.5); Luc # (Auto) 0.13; Luc % (Auto) 2; Lymphocytes # (A) 1.1 k/uL (1.0-4.8); Lymphocytes % (A) 17 %; MCH 30.9 pg (25.0-35.0); MCHC 32.3 g/dL (31.0-37.0); MCV 95.7 fL (80.0-100.0); Mean Platelet Volume 6.9; Monocytes # (A) 0.4 k/uL (0-1.0); Monocytes % (A) 6 %; Neutrophils # (A) 4.7 k/uL (1.3-7.7); Neutrophils % (A) 71 %; RBC 3.98 m/uL (4.30-5.90); RDW 13.2 % (11.5-15.5); WBC 6.6 k/uL (3.8-10.6); WBC (Perox) 7.29
[2017-01-10] MEDS: SODIUM CHLORIDE 0.9% 1,000 ML IV SCH ×2 (07:07→13:34)
[2017-01-10 07:39] LABS: Anion Gap 8 mmol/L; Blood Urea Nitrogen 12 mg/dL (9-20); Calcium 8.9 mg/dL (8.4-10.2); Carbon Dioxide 25 mmol/L (22-30); Chloride 106 mmol/L (98-107); Glucose 108 mg/dL (74-99); Non-African American GFR(MDRD) >60 (>60 ml/min/1.73 sqM); Potassium 4.3 mmol/L (3.5-5.1); Sodium 139 mmol/L (137-145)
[2017-01-10] MEDS: NITROGLYCERIN OINT 1 INCH/GM PACKET TOPICAL SCH ×2 (07:53)
[2017-01-10] MEDS: ASPIRIN 325 MG TAB PO SCH (07:54)
[2017-01-10] MEDS: MUPIROCIN 2% OINT 22 GM TUBE NASAL SCH ×2 (07:54→22:54)
[2017-01-10] MEDS: METOPROLOL TARTRATE 25 MG TAB PO SCH (07:54)
[2017-01-10] MEDS: ATORVASTATIN 80 MG TAB PO SCH (07:54)
[2017-01-10] MEDS: NITROGLYCERIN SL TABS 0.4 MG TAB SUBLINGUAL PRN ×2 (07:55→08:06)
[2017-01-10] MEDS: NITROGLYCERIN-D5W PMX 50 MG in DEXTROSE/WATER 1 250ML.BAG IV SCH (08:40)
[2017-01-10] MEDS: METOPROLOL TARTRATE 50 MG TAB PO SCH ×2 (09:18→22:53)
[2017-01-10] MEDS: ACETAMINOPHEN TAB 325 MG TAB PO PRN (09:18)
--- NOTE | 2017-01-10 09:51 | P.PN ---
Subjective Principal diagnosis: Non-STEMI this admission, coronary artery disease, unstable angina, hyperlipidemia, open wound of the right hand index finger. This is 71-year-old gentleman who is followed by Dr. Leonardo Santos on an outpatient basis. He has a past medical history consistent with osteoarthritis to his left hip, recent bee stings to his right lower leg, and infection to his right index finger and a history of an infection to his right leg and left shoulder area. On 01/08/2017 the patient was woken up from a sleep around 3:00 in the morning with complaints of chest pain and nausea. He denies any complaints of shortness of breath or diaphoresis at that time. The pain was radiating to his neck. He tried to relieve the pain by drinking a can of Coke as he thought the pain was associated with gas. EMS was called around 4 AM and the patient was brought via EMS to the emergency department here at [facility]. The patient reports a history of similar chest pain about 20 years ago and was ruled out for myocardial infarction in [place] at that time. The patient did have serial troponins drawn 3 and 2 of the troponins were elevated as high as 0.045 and 0.047. He also underwent a 12-lead EKG which did not show any significant acute changes. He was subsequently seen by Dr. Sher from cardiology and a heart catheterization was recommended. Patient subsequently underwent a heart catheterization which demonstrated a 70- 80% stenosis to his proximal left anterior descending coronary artery, and 80% stenosis to a diagonal branch, a 50% stenosis to his ostial circumflex coronary artery, a 70-80% stenosis to his obtuse marginal branch, and a 70-80% stenosis to his proximal portion of his right coronary artery. Patient also underwent a 2-D echocardiogram which showed trace tricuspid valve regurgitation, trace mitral valve regurgitation, moderate concentric left ventricular hypertrophy, and an overall left ventricular systolic function to be normal with an ejection fraction between 55 and 60%. Due to the patient's admitting symptoms, positive troponins and heart catheterization results Dr. Truong Sales from cardiothoracic surgery was asked to evaluate the patient for possible coronary artery bypass grafting surgery. The patient is scheduled for open heart surgery CABG 3-4 vessels, with BROWN, endoscopic vein harvest, intraoperative transesophageal echocardiogram and epi- aortic scanning on 01/12/2017. The patient is sitting up on the edge of his bed and had complaints of chest pain which was radiating to his neck and right shoulder. He rated his pain 8 out of 10 on the pain scale and is diaphoretic. He has received 3 sublingual nitroglycerin and a fresh nitro paste patch. He was placed on oxygen 2 L nasal cannula. Since the nitroglycerin and oxygen he currently reports that his pain is 3 out of 10 on the pain scale. A 12-lead EKG was completed which did not demonstrate any ST changes. Objective - Vital Signs Vital signs: Vital Signs Temp 97.0 F L 01/10/17 08:18 Pulse 80 01/10/17 08:18 Resp 20 01/10/17 08:18 BP 142/88 01/10/17 08:18 Pulse Ox 98 01/10/17 08:18 Intake & Output 01/09/17 01/10/17 01/10/17 18:59 06:59 18:59 Intake Total 311 242.198 240 Output Total 850 400 Balance -539 -157.802 240 Weight 109.9 kg Intake: IV 75 Intake, IV Titration 242.198 Amount Heparin Sodium,Porcine/ 242.198 D5w Pmx 25,000 unit In Dextrose/Water 1 500ml. bag @ 9.586 UNITS/KG/HR 20 mls/hr IV .Q24H [facility] Rx #:[id number] Oral 236 240 Output: Urine 850 400 Other: Voiding Method Toilet Toilet Toilet # Voids 2 1 - Constitutional General appearance: Present: cooperative, mild distress (chest pain 3 out of 10 on the pain scale.), obese - EENT Eyes: Present: PERRLA, normal appearance ENT: Present: hearing grossly normal - Neck Details: No JVD, no lymphadenopathy. - Respiratory Details: Essentially clear throughout, diminished to his bilateral bases. Respirations are symmetrical and unlabored. Oxygen saturations are 100% on 2 L nasal cannula. He is achieving 2250 mL on his incentive spirometry. Bedside FEV1 was completed yesterday actual was 2.27/predicted was 3.30, 69% of predicted. - Cardiovascular Details: Regular rhythm and rate. S1 and S2 present, negative for S3, gallop or murmur. No edema present. Remote telemetry showing normal sinus rhythm heart rate 77. Sequential compression devices in place to his bilateral lower extremities. - Gastrointestinal Gastrointestinal Comment(s): Abdomen is soft, nontender, and nondistended. Active bowel sounds all 4 abdominal quadrants. - Genitourinary Genitourinary Comment(s): Urine output adequate, clear yellow urine. - Integumentary Integumentary Comment(s): Diaphoretic. Integumentary: Present: normal turgor - Neurologic Neurologic Comment(s): No focal deficits. Neurologic: Present: CNII-XII intact - Musculoskeletal Musculoskeletal: Present: strength equal bilaterally - Psychiatric Psychiatric: Present: A&O x's 3, appropriate affect, intact judgment & insight - Allied health notes Allied health notes reviewed: nursing - Labs CBC & Chem 7: 01/10/17 06:09 01/10/17 06:09 Labs: Abnormal Lab Results - Last 24 Hours (Table) 01/09/17 01/09/17 01/09/17 Range/Units 15:18 15:18 15:18 RBC 4.15 L (4.30-5.90) m/uL Hgb 12.9 L (13.0-17.5) gm/dL Hct 38.5 L (39.0-53.0) % PT 12.3 H (9.0-12.0) sec INR 1.2 H (<1.2) APTT (22.0-30.0) sec Glucose 110 H (74-99) mg/dL Crossmatch 01/09/17 01/09/17 01/10/17 Range/Units 15:18 20:28 06:09 RBC 3.98 L (4.30-5.90) m/uL Hgb 12.3 L (13.0-17.5) gm/dL Hct 38.0 L (39.0-53.0) % PT (9.0-12.0) sec INR (<1.2) APTT 42.3 H (22.0-30.0) sec Glucose (74-99) mg/dL Crossmatch See Detail 01/10/17 01/10/17 Range/Units 06:09 06:57 RBC (4.30-5.90) m/uL Hgb (13.0-17.5) gm/dL Hct (39.0-53.0) % PT (9.0-12.0) sec INR (<1.2) APTT 55.7 H (22.0-30.0) sec Glucose 108 H (74-99) mg/dL Crossmatch - Imaging and Cardiology Venous US: report reviewed (Carotid duplex study report reviewed.), image reviewed Assessment and Plan (1) Non-STEMI (non-ST elevated myocardial infarction) Status: Acute (2) Elevated troponin I measurement Status: Acute (3) Coronary artery disease Status: Acute (4) Hyperlipidemia Status: Acute (5) Open wound of right hand Status: Acute (6) Chest pain Status: Acute (7) Unstable angina pectoris Status: Acute Plan: 1. We will increase his metoprolol to 50 mg by mouth twice a day. 2. We will obtain radial artery studies. 3. Cardiology management per 's recommendations. 4. Medical management per Dr. Lundberg's recommendations. 5. Preoperative teaching reinforcement patient, all questions answered. 6. GI and DVT. Prophylaxis. 7. Encourage use of his incentive spirometry every hour while awake as tolerated. 8. He is scheduled for coronary artery bypass grafting surgery with BROWN, endoscopic vein harvest, intraoperative transesophageal echocardiogram and epi- aortic scanning on 01/12/2017. Time with Patient: Greater than 30
--- NOTE | 2017-01-10 11:11 | P.CNPUL ---
History of Present Illness Consult date: 01/10/17 Reason for consult: other Chief complaint: Anticipated bypass surgery History of present illness: Consult dated 01/10/2017 This is a 71-year-old male who presented to the emergency department complaining of chest discomfort. The patient apparently also had a pressure- like sensation which radiated up towards his neck. He had some nausea. No diaphoresis. No shortness of breath. He's had previous similar situations. The patient tells me he was evaluated by cardiology had a catheterization was found have coronary artery disease and apparently Dr. Reza is planning to do bypass surgery on Wednesday. The patient has no known history of any lung disease. He did have spirometry. Not been able to yet to find it. He did smoke for about 15 years at less than one pack a day. It's unlikely that that was his true smoking history, that he would have substantial chronic lung disease. Still waiting though to see the spirometry myself. He has no known ALLERGIES. He apparently has no past medical history. He did have a hernia repair in the past. He apparently was on no medications at home on a regular basis. Review of Systems A 12 point review of system is now negative. He's not having any additional chest pain or chest discomfort at this time. Past Medical History Past Medical History: Hyperlipidemia, Osteoarthritis (OA) (He was scheduled for a left hip replacement by Dr. Borges on 01/25/2017. ) Additional Past Medical History / Comment(s): Current right hand index finger wound-being tx with ciprofloxacin. History of recent multiple bee stings to his right lower leg. History of Any Multi-Drug Resistant Organisms: None Reported Past Surgical History: Hernia Repair Additional Past Surgical History / Comment(s): L inguinal hernia repair, implanted teeth, colonoscopy-normal Past Anesthesia/Blood Transfusion Reactions: No Reported Reaction Smoking Status: Former smoker (Quit smoking in the 1980s, he smoked for 15 years 1 pack per day.) Past Alcohol Use History: Occasional (He reports that he drinks about 7-8 beers per week.) Past Drug Use History: None Reported - Past Family History Father Family Medical History: Cancer Additional Family Medical History / Comment(s): Father of colon cancer at the age of 48yrs. Mother Family Medical History: Musculoskeletal Disorder, Neurologic Disorder Additional Family Medical History / Comment(s): Mother of complications related to MS at the age of about 68yrs. Brother(s) Family Medical History: CVA/TIA, Hypertension Additional Family Medical History / Comment(s): He has 4 brothers one of which has had a CVA/hypertension. Sister(s) Family Medical History: No Reported History Son(s) Family Medical History: Osteoarthritis (OA) (He has 2 sons 1 of which has had a hip replacement.) Medications and Allergies Home Medications Medication Instructions Recorded Confirmed Type Aspirin 325 mg PO ONCE 01/08/17 01/08/17 History Ciprofloxacin HCl [Cipro] 500 mg PO Q12HR 01/08/17 01/08/17 History Mupirocin Calcium [Bactroban 2% 1 applic TOPICAL TID PRN 01/08/17 01/08/17 History Cream] guaiFENesin [Mucinex] 1,200 mg PO Q12H PRN 01/08/17 01/08/17 History Allergies Allergy/AdvReac Type Severity Reaction Status Date / Time No Known Allergies Allergy Verified 01/08/17 07:11 Physical Exam Osteopathic Statement: *. No significant issues noted on an osteopathic structural exam other than those noted in the History and Physical/Consult. Vitals: Vital Signs Temp Pulse Resp BP Pulse Ox 01/10/17 08:18 97.0 F L 80 20 142/88 98 01/10/17 08:16 80 24 120/65 98 01/10/17 08:14 20 142/72 98 01/10/17 08:07 22 136/68 98 01/10/17 08:00 88 26 H 130/72 98 01/10/17 07:55 88 26 H 170/91 98 01/10/17 04:00 97.1 F L 65 18 113/71 65 L 01/10/17 00:00 97.9 F 65 18 113/64 95 01/09/17 23:00 97.1 F L 65 18 113/64 95 01/09/17 20:00 97.0 F L 71 18 128/61 94 L 01/09/17 16:00 97.1 F L 71 18 113/69 99 01/09/17 14:22 97.0 F L 74 18 127/67 98 01/09/17 13:22 97.1 F L 74 18 127/67 98 01/09/17 12:22 70 18 133/76 99 01/09/17 11:52 97.0 F L 68 18 119/69 98 01/09/17 11:29 97.0 F L 64 18 123/74 97 01/09/17 11:28 64 18 01/09/17 11:22 97.0 F L 64 18 123/74 98 01/09/17 11:07 97.1 F L 65 18 118/73 98 Intake and Output 01/09/17 01/10/17 01/10/17 22:59 06:59 14:59 Intake Total 478.198 240 Output Total 400 Balance 478.198 -400 240 Intake: Intake, IV Titration 242.198 Amount Heparin Sodium,Porcine/ 242.198 D5w Pmx 25,000 unit In Dextrose/Water 1 500ml. bag @ 9.586 UNITS/KG/HR 20 mls/hr IV .Q24H [facility] Rx #:[id number] Oral 236 240 Output: Urine 400 Other: Voiding Method Toilet Toilet Toilet # Voids 1 Weight 109.9 kg No acute distress, oriented 3. HEENT examination is grossly unremarkable. Mucous membranes are moist. No oral lesions. Neck supple. Full range of motion. No adenopathy or thyromegaly. Neck veins are flat. Cardiovascular examination reveals regular rhythm rate. S3-S4 or murmur. Lungs reveal clear breath sounds throughout. No wheezes or rhonchi. No crackles. Breath sounds are equal bilaterally. Abdomen soft bowel sounds are heard. No masses or tenderness.. Extremities are intact. Skin is without Rash. Neurologic examination is nonfocal. Results - Laboratory Findings CBC and BMP: 01/10/17 06:09 01/10/17 06:09 PT/INR, D-dimer PT 12.3 sec (9.0-12.0) H 01/09/17 15:18 INR 1.2 (<1.2) H 01/09/17 15:18 Abnormal lab findings: Abnormal Labs 01/08/17 01/08/17 01/08/17 05:20 05:20 05:20 RBC Hgb Hct PT INR 1.2 H APTT Glucose 118 H Total Creatine Kinase 24 L Troponin I LDL Cholesterol, Calc HDL Cholesterol Crossmatch 01/08/17 01/08/17 01/08/17 12:12 12:12 17:38 RBC Hgb Hct PT INR APTT 30.9 H Glucose Total Creatine Kinase 26 L 25 L Troponin I 0.045 H* 0.047 H* LDL Cholesterol, Calc HDL Cholesterol Crossmatch 01/08/17 01/09/17 01/09/17 20:25 00:38 06:15 RBC Hgb Hct PT INR APTT 37.5 H 45.0 H Glucose Total Creatine Kinase Troponin I LDL Cholesterol, Calc 103 H HDL Cholesterol 33 L Crossmatch 01/09/17 01/09/17 01/09/17 15:18 15:18 15:18 RBC 4.15 L Hgb 12.9 L Hct 38.5 L PT 12.3 H INR 1.2 H APTT Glucose 110 H Total Creatine Kinase Troponin I LDL Cholesterol, Calc HDL Cholesterol Crossmatch 01/09/17 01/09/17 01/10/17 15:18 20:28 06:09 RBC 3.98 L Hgb 12.3 L Hct 38.0 L PT INR APTT 42.3 H Glucose Total Creatine Kinase Troponin I LDL Cholesterol, Calc HDL Cholesterol Crossmatch See Detail 01/10/17 01/10/17 06:09 06:57 RBC Hgb Hct PT INR APTT 55.7 H Glucose 108 H Total Creatine Kinase Troponin I LDL Cholesterol, Calc HDL Cholesterol Crossmatch - Diagnostic Findings Chest x-ray: image reviewed (Labs x-rays a medications are all reviewed.) Assessment and Plan (1) Chest pain Status: Acute (2) Coronary artery disease Status: Acute (3) Elevated troponin I measurement Status: Acute (4) Hyperlipidemia Status: Acute (5) Non-STEMI (non-ST elevated myocardial infarction) Status: Acute (6) Unstable angina pectoris Status: Acute Plan: Plan dated 01/10/2017 The patient spirometry will be retrieved. Additional recommendations suggestions are forthcoming. We'll continue to follow closely. Anticipate surgery on Wednesday by Dr. Reaz. My partner Dr. Calderon will be main line station engineer this next week. He will end up seeing the patient. Time with Patient: Greater than 30
--- NOTE | 2017-01-10 11:34 | P.PN ---
Subjective Patient is doing well from a cardiac standpoint. He has not had any chest discomfort today. No dizziness lightheadedness He is afebrile 97F, pulse rate in the 80s, normal respirations, blood pressure 120/65 mmHg Breath sounds are reduced bilaterally no rhonchi no crackles Heart sounds S1 and S2 are soft no murmurs no gallops Abdomen is soft nontender Extremities are warm, no lower extremity edema Impression Tube was coronary artery disease awaiting coronary artery bypass grafting on Wednesday Plan Continue current medications and follow CT surgery plan Objective - Vital Signs Vital signs: Vital Signs Temp 97.0 F L 01/10/17 08:18 Pulse 80 01/10/17 08:18 Resp 20 01/10/17 08:18 BP 142/88 01/10/17 08:18 Pulse Ox 98 01/10/17 08:18 Intake & Output 01/09/17 01/10/17 01/10/17 18:59 06:59 18:59 Intake Total 311 242.198 240 Output Total 850 400 Balance -539 -157.802 240 Weight 109.9 kg Intake: IV 75 Intake, IV Titration 242.198 Amount Heparin Sodium,Porcine/ 242.198 D5w Pmx 25,000 unit In Dextrose/Water 1 500ml. bag @ 9.586 UNITS/KG/HR 20 mls/hr IV .Q24H [facility] Rx #:[id number] Oral 236 240 Output: Urine 850 400 Other: Voiding Method Toilet Toilet Toilet # Voids 2 1 - Labs CBC & Chem 7: 01/10/17 06:09 01/10/17 06:09 Labs: Abnormal Lab Results - Last 24 Hours (Table) 01/09/17 01/09/17 01/09/17 Range/Units 15:18 15:18 15:18 RBC 4.15 L (4.30-5.90) m/uL Hgb 12.9 L (13.0-17.5) gm/dL Hct 38.5 L (39.0-53.0) % PT 12.3 H (9.0-12.0) sec INR 1.2 H (<1.2) APTT (22.0-30.0) sec Glucose 110 H (74-99) mg/dL Crossmatch 01/09/17 01/09/17 01/10/17 Range/Units 15:18 20:28 06:09 RBC 3.98 L (4.30-5.90) m/uL Hgb 12.3 L (13.0-17.5) gm/dL Hct 38.0 L (39.0-53.0) % PT (9.0-12.0) sec INR (<1.2) APTT 42.3 H (22.0-30.0) sec Glucose (74-99) mg/dL Crossmatch See Detail 01/10/17 01/10/17 Range/Units 06:09 06:57 RBC (4.30-5.90) m/uL Hgb (13.0-17.5) gm/dL Hct (39.0-53.0) % PT (9.0-12.0) sec INR (<1.2) APTT 55.7 H (22.0-30.0) sec Glucose 108 H (74-99) mg/dL Crossmatch
--- NOTE | 2017-01-10 15:42 | P.PN ---
<Yesi Jeffers - Last Filed: 01/10/17 15:25> Progress Note - Text DATE OF SERVICE: 01/10/2017 PRESENTING COMPLAINT: Chest pain INTERVAL HISTORY: 71-year-old male who woke up with chest pain associated heaviness no shortness of breath perspiration or dizziness although felt tired and rundown. First troponins, negative. Subsequent troponins positive, secondary episode of chest pain, taken to the cardiac Clerical Assistant, found to have triple-vessel disease. 01/10/2017: Patient seen in follow-up, had another episode of chest pain today, nitro drip started. No chest pain at this time, nitro drip continues. Preop testing continues, patient will tentatively be scheduled for coronary artery bypass grafting surgery on Wednesday. Sitting up at the bedside, anxious appearing, voiced concerns about surgery, states he is afraid. Reassurance provided. Patient's tolerating his diet, ambulatory in the room and [facility] ways, last BM . 01/09/2017: Patient had an episode of chest pain overnight, troponins positive, was taken to the clinical lab technologist this morning, found to have triple-vessel disease. Surgery is tentatively scheduled for Wednesday. Sitting up the bedside, eating his lunch, Pressure device noted to right radial artery. General questions answered. REVIEW OF SYSTEMS: Done for constitutional ,cardiovascular, GI, pulmonary with relevant findings as above. CURRENT MEDICATIONS Xanax, aspirin, Lipitor, heparin, Lopressor, nitroglycerin drip PHYSICAL EXAM VITAL SIGNS: Temperature 97.0, pulse 80, respirations 20, blood pressure 142/88, oxygen saturation 98% on 2 L. GENERAL APPEARANCE: Sitting up at the bedside, anxious appearing. EYES: Pupils equal. Conjunctiva normal. NECK: JVD not raised. Mass not palpable. RESPIRATORY: Respiratory effort normal. Lungs clear to auscultation. CARDIOVASCULAR: First and second sounds normal. No edema. Right radial pressure device noted, no bleeding no swelling. ABDOMEN: Soft. Liver and spleen not palpable. No tenderness. No mass palpable. PSYCHIATRY: Alert and oriented x3. Mood and affect normal. INVESTIGATIONS: White blood cell count 6.6, hemoglobin 12.3, ASSESSMENT: -Acute on Q wave myocardial infarction with cardiac cath showing triple-vessel coronary artery disease. -Obesity BMI 33.0 -Primary osteoarthritis of left hip pending outpatient surgery -Acute cellulitis of the right index finger proximal part being treated with ciprofloxacin from outpatient -IV heparin monitoring PLAN: Scheduled for coronary artery bypass grafting on Wednesday, preop testing continues along with preop education by cardiothoracic surgery. Nitroglycerin drip initiated today for chest pain. Cardiology, pulmonology, and cardiothoracic surgery continue to follow this patient closely, we will continue with current medication and treatment plan. Plan of care discussed with the patient the bedside and he is in agreement. SUEDING MACHINE TENDER statement: Patient was seen and examined by nurse practitioner Yesi Jeffers and all elements of the case discussed with attending Dr. Lundberg <Juan Antonio Lundberg - Last Filed: 01/10/17 17:25> Progress Note - Text Attending note. Date of service-01/10/2017 This patient was seen and examined by me . Discussed the patient with my nurse practitioner Ms. Jeffers. Admitted with acute non-Q wave DC cardiac at showing triple-vessel disease pending bypass on coming Wednesday. Had more episodes of chest pain for which she is not IV nitroglycerin. On examination: Lungs-clear, cardiovascular first seconds are normal Investigations: Assessment and plan: Coronary artery disease with triple-vessel disease pending cardiac bypass including post-DC angina currently and IV nitro drip Continue with IV heparin and IV nitro drip. Care discussed with the patient and at the bedside
[2017-01-10] MEDS: HEPARIN SODIUM,PORCINE/D5W PMX 25,000 UNIT in DEXTROSE/WATER 1 500ML.BAG IV SCH (16:34)
[2017-01-11] MEDS: HEPARIN SODIUM,PORCINE/D5W PMX 25,000 UNIT in DEXTROSE/WATER 1 500ML.BAG IV SCH (04:46)
[2017-01-11] MEDS: SODIUM CHLORIDE 0.9% 1,000 ML IV SCH ×2 (06:57→16:36)
[2017-01-11 07:05] LABS: Basophils % (A) 0 %; CH 31.1; CHCM 33.5; Eosinophils # (A) 0.3 k/uL (0-0.7); Eosinophils % (A) 3 %; HCT 33.6 % (39.0-53.0); HDW 2.56; HGB 11.5 gm/dL (13.0-17.5); Luc # (Auto) 0.14; Luc % (Auto) 2; Lymphocytes # (A) 1.1 k/uL (1.0-4.8); Lymphocytes % (A) 13 %; MCH 31.7 pg (25.0-35.0); MCHC 34.1 g/dL (31.0-37.0); Mean Platelet Volume 6.5; Monocytes # (A) 0.4 k/uL (0-1.0); Monocytes % (A) 5 %; Neutrophils # (A) 6.4 k/uL (1.3-7.7); Neutrophils % (A) 78 %; RBC 3.62 m/uL (4.30-5.90); RDW 12.6 % (11.5-15.5); WBC 8.3 k/uL (3.8-10.6); WBC (Perox) 8.97
--- NOTE | 2017-01-11 07:59 | P.PN ---
<GiovannaKayla Main - Last Filed: 01/11/17 07:51> Subjective Principal diagnosis: Symptomatic coronary artery disease, non-STEMI. Hyperlipidemia. Osteoarthritis. Current right hand index finger wound. Previous tobacco dependence. The patient is currently sitting up in bed in no acute distress. Denies chest pain, shortness of breath. He anticipates bypass surgery tomorrow, no new questions at this time. Objective - Vital Signs Vital signs: Vital Signs Temp 98.2 F 01/11/17 04:00 Pulse 64 01/11/17 04:00 Resp 18 01/11/17 04:00 BP 131/59 01/11/17 04:00 Pulse Ox 96 01/11/17 04:00 Intake & Output 01/10/17 01/11/17 01/11/17 18:59 06:59 18:59 Intake Total 1694 1700 Output Total 850 2100 Balance 844 -400 Weight 109.2 kg Intake: Intake, IV Titration 918 1400 Amount Heparin Sodium,Porcine/ 500 D5w Pmx 25,000 unit In Dextrose/Water 1 500ml. bag @ 9.586 UNITS/KG/HR 20 mls/hr IV .Q24H [facility] Rx #:[id number] Nitroglycerin-D5w Pmx 50 18 0 mg In Dextrose/Water 1 250ml.bag @ 5 MCG/MIN 1.5 mls/hr IV .Q24H [facility] Rx#: [id number] Sodium Chloride 0.9% 1, 900 900 000 ml @ 75 mls/hr IV . [id number] [facility] Rx#:[id number] Oral 776 300 Output: Urine 850 2100 Other: Voiding Method Toilet Toilet # Voids 2 450 # Bowel Movements 1 1 - Constitutional General appearance: Present: cooperative, no acute distress - Respiratory Details: Lungs sounds diminished bilaterally. Respirations even, nonlabored. Currently on 2 L nasal cannula with oxygen saturation 96%. Effective cough. - Cardiovascular Details: S1, S2 present. Regular rate and rhythm, normal sinus rhythm on telemetry. Palpable pulses bilaterally. No edema present. - Gastrointestinal Gastrointestinal Comment(s): Abdomen soft, nontender, nondistended. Active bowel sounds 4 quadrants. Tolerating diet. - Genitourinary Genitourinary Comment(s): Continues to void clear, yellow urine. - Musculoskeletal Musculoskeletal: Present: gait normal, strength equal bilaterally - Psychiatric Psychiatric: Present: A&O x's 3, appropriate affect, intact judgment & insight - Allied health notes Allied health notes reviewed: nursing - Labs CBC & Chem 7: 01/11/17 06:40 01/10/17 06:09 Labs: Abnormal Lab Results - Last 24 Hours (Table) 01/11/17 01/11/17 Range/Units 06:40 06:40 RBC 3.62 L (4.30-5.90) m/uL Hgb 11.5 L (13.0-17.5) gm/dL Hct 33.6 L (39.0-53.0) % APTT 73.3 H (22.0-30.0) sec Microbiology - Last 24 Hours (Table) 01/10/17 02:38 Urine Culture - Preliminary Urine,Clean Catch - Imaging and Cardiology Chest x-ray: report reviewed, image reviewed Assessment and Plan (1) Osteoarthritis Status: Acute (2) Tobacco dependence in remission Status: Acute (3) Chest pain Status: Acute (4) Coronary artery disease Status: Acute (5) Hyperlipidemia Status: Acute (6) Non-STEMI (non-ST elevated myocardial infarction) Status: Acute (7) Open wound of right hand Status: Acute Plan: 1. Continue aspirin, Lipitor, beta mariaa, heparin drip, nitro drip. 2. Encourage incentive spirometer use. 3. Preoperative teaching continues. No new questions at this time. 4. Medical management per primary care service. 5. Anticipate coronary artery bypass graft surgery tomorrow morning. 6. More recommendations as patient progresses. Time with Patient: Greater than 30 <Parker Reza - Last Filed: 01/13/17 10:09> Objective - Vital Signs Vital signs: Vital Signs Temp 97.6 F 01/12/17 06:38 Pulse 83 01/13/17 10:00 Resp 27 H 01/13/17 10:00 BP 109/68 01/12/17 06:38 Pulse Ox 92 L 01/13/17 10:00 Intake & Output 01/12/17 01/13/17 01/13/17 18:59 06:59 18:59 Intake Total 8526.129 7949.265 299.5 Output Total 1625 1019 190 Balance -575.291 268.265 109.5 Weight 115.3 kg Intake: IV 984.5 1226.0 299.5 ACETAMINOPHEN IV (For NPO 100 100 ) 1,000 mg In Empty Bag 1 bag @ 400 mls/hr IVPB Q6HR [facility] Rx#:[id number] Albumin Human 5% 500 ml 500 In Empty Bag 1 bag @ 250 mls/hr IVPB ONCE PRN Rx#: [id number] Cardiac Output 40 300 30 Lactated Ringers 1,000 ml 150 600 150 @ 50 mls/hr IV .Q20H [facility] Rx#:[id number] Nitroglycerin-D5w Pmx 50 4.5 18.0 10.5 mg In Dextrose/Water 1 250ml.bag @ 5 MCG/MIN 1.5 mls/hr IV .Q24H PRN Rx#: [id number] Pressure Bag 27 108 9 ceFAZolin 2 gm In Sodium 100 100 100 Chloride 0.9% 100 ml @ 100 mls/hr IVPB Q8HR [facility]U Rx#:[id number] Intake, IV Titration 65.209 61.265 Amount Insulin Regular 100 unit 0.625 0.567 In Sodium Chloride 0.9% 100 ml @ Per Protocol IV .Q0M [facility] Rx#:[id number] Propofol 1,000 mg In 100 64.584 60.698 ml @ Titrate IV .Q0M [facility]U Rx#:[id number] Output: Chest Tube Drainage 151 241 30 Bilateral Mediastinal 121 178 25 Left Lateral Chest 30 63 5 Gastric Drainage 230 Urine 774 548 160 Stool 0 Estimated Blood Loss 700 Other: Voiding Method Indwelling Catheter Indwelling Catheter Indwelling Catheter ABP, PAP, CO, CI - Last Documented Arterial Blood Pressure 129/57 Pulmonary Artery Pressure 29/15 Cardiac Output 6.4 Cardiac Index 2.3 - Labs CBC & Chem 7: 01/13/17 04:32 01/13/17 04:32 Labs: Abnormal Lab Results - Last 24 Hours (Table) 01/09/17 01/12/17 01/12/17 Range/Units 15:18 08:40 10:16 RBC (4.30-5.90) m/uL Hgb (13.0-17.5) gm/dL Hct (39.0-53.0) % Plt Count (150-450) k/uL Lymphocytes # (1.0-4.8) k/uL PT (9.0-12.0) sec INR (<1.2) ABG pH (7.35-7.45) ABG pCO2 (35-45) mmHg ABG pO2 199 H (83-108) mmHg ABG HCO3 (21-25) mmol/L ABG Total CO2 25 H (19-24) mmol/L ABG O2 Saturation 99.7 H (94-97) % ABG Hematocrit 33 L (34.0-46.0) % ABG Potassium (3.4-4.5) mmol/L Sodium (137-145) mmol/L Glucose (74-99) mg/dL POC Glucose (mg/dL) 108 H (75-99) mg/dL Calcium (8.4-10.2) mg/dL Magnesium (1.6-2.3) mg/dL Total Protein (6.3-8.2) g/dL Albumin (3.5-5.0) g/dL Arterial Blood Potassium (3.4-4.5) mmol/L Crossmatch See Detail 01/12/17 01/12/17 01/12/17 Range/Units 10:16 11:13 11:13 RBC (4.30-5.90) m/uL Hgb (13.0-17.5) gm/dL Hct (39.0-53.0) % Plt Count (150-450) k/uL Lymphocytes # (1.0-4.8) k/uL PT (9.0-12.0) sec INR (<1.2) ABG pH (7.35-7.45) ABG pCO2 (35-45) mmHg ABG pO2 180 H 308 H (83-108) mmHg ABG HCO3 (21-25) mmol/L ABG Total CO2 25 H 27 H (19-24) mmol/L ABG O2 Saturation 99.6 H 99.9 H (94-97) % ABG Hematocrit 31 L 25 L (34.0-46.0) % ABG Potassium (3.4-4.5) mmol/L Sodium (137-145) mmol/L Glucose (74-99) mg/dL POC Glucose (mg/dL) 175 H (75-99) mg/dL Calcium (8.4-10.2) mg/dL Magnesium (1.6-2.3) mg/dL Total Protein (6.3-8.2) g/dL Albumin (3.5-5.0) g/dL Arterial Blood Potassium (3.4-4.5) mmol/L Crossmatch 01/12/17 01/12/17 01/12/17 Range/Units 11:44 11:45 12:17 RBC (4.30-5.90) m/uL Hgb (13.0-17.5) gm/dL Hct (39.0-53.0) % Plt Count (150-450) k/uL Lymphocytes # (1.0-4.8) k/uL PT (9.0-12.0) sec INR (<1.2) ABG pH 7.34 L (7.35-7.45) ABG pCO2 49 H (35-45) mmHg ABG pO2 210 H (83-108) mmHg ABG HCO3 26 H (21-25) mmol/L ABG Total CO2 28 H (19-24) mmol/L ABG O2 Saturation 99.7 H (94-97) % ABG Hematocrit 29 L (34.0-46.0) % ABG Potassium 5.0 H (3.4-4.5) mmol/L Sodium (137-145) mmol/L Glucose (74-99) mg/dL POC Glucose (mg/dL) 177 H 208 H (75-99) mg/dL Calcium (8.4-10.2) mg/dL Magnesium (1.6-2.3) mg/dL Total Protein (6.3-8.2) g/dL Albumin (3.5-5.0) g/dL Arterial Blood Potassium 5.0 H (3.4-4.5) mmol/L Crossmatch 01/12/17 01/12/17 01/12/17 Range/Units 12:17 12:53 12:53 RBC (4.30-5.90) m/uL Hgb (13.0-17.5) gm/dL Hct (39.0-53.0) % Plt Count (150-450) k/uL Lymphocytes # (1.0-4.8) k/uL PT (9.0-12.0) sec INR (<1.2) ABG pH 7.33 L (7.35-7.45) ABG pCO2 49 H (35-45) mmHg ABG pO2 249 H 275 H (83-108) mmHg ABG HCO3 (21-25) mmol/L ABG Total CO2 27 H 27 H (19-24) mmol/L ABG O2 Saturation 99.8 H 99.9 H (94-97) % ABG Hematocrit 31 L 31 L (34.0-46.0) % ABG Potassium 5.1 H 5.2 H (3.4-4.5) mmol/L Sodium (137-145) mmol/L Glucose (74-99) mg/dL POC Glucose (mg/dL) 224 H (75-99) mg/dL Calcium (8.4-10.2) mg/dL Magnesium (1.6-2.3) mg/dL Total Protein (6.3-8.2) g/dL Albumin (3.5-5.0) g/dL Arterial Blood Potassium 5.1 H 5.2 H (3.4-4.5) mmol/L Crossmatch 01/12/17 01/12/17 01/12/17 Range/Units 13:23 13:24 14:26 RBC (4.30-5.90) m/uL Hgb (13.0-17.5) gm/dL Hct (39.0-53.0) % Plt Count (150-450) k/uL Lymphocytes # (1.0-4.8) k/uL PT (9.0-12.0) sec INR (<1.2) ABG pH 7.32 L (7.35-7.45) ABG pCO2 50 H (35-45) mmHg ABG pO2 274 H (83-108) mmHg ABG HCO3 (21-25) mmol/L ABG Total CO2 27 H (19-24) mmol/L ABG O2 Saturation 99.9 H (94-97) % ABG Hematocrit 29 L (34.0-46.0) % ABG Potassium 4.9 H (3.4-4.5) mmol/L Sodium (137-145) mmol/L Glucose (74-99) mg/dL POC Glucose (mg/dL) 213 H 164 H (75-99) mg/dL Calcium (8.4-10.2) mg/dL Magnesium (1.6-2.3) mg/dL Total Protein (6.3-8.2) g/dL Albumin (3.5-5.0) g/dL Arterial Blood Potassium 4.9 H (3.4-4.5) mmol/L Crossmatch 01/12/17 01/12/17 01/12/17 Range/Units 14:26 15:49 16:00 RBC 2.84 L (4.30-5.90) m/uL Hgb 9.1 L D (13.0-17.5) gm/dL Hct 27.5 L (39.0-53.0) % Plt Count 102 L (150-450) k/uL Lymphocytes # (1.0-4.8) k/uL PT (9.0-12.0) sec INR (<1.2) ABG pH (7.35-7.45) ABG pCO2 (35-45) mmHg ABG pO2 (83-108) mmHg ABG HCO3 (21-25) mmol/L ABG Total CO2 (19-24) mmol/L ABG O2 Saturation 98.3 H (94-97) % ABG Hematocrit 33 L (34.0-46.0) % ABG Potassium (3.4-4.5) mmol/L Sodium (137-145) mmol/L Glucose (74-99) mg/dL POC Glucose (mg/dL) 123 H (75-99) mg/dL Calcium (8.4-10.2) mg/dL Magnesium (1.6-2.3) mg/dL Total Protein (6.3-8.2) g/dL Albumin (3.5-5.0) g/dL Arterial Blood Potassium (3.4-4.5) mmol/L Crossmatch 01/12/17 01/12/17 01/12/17 Range/Units 16:00 16:00 16:07 RBC (4.30-5.90) m/uL Hgb (13.0-17.5) gm/dL Hct (39.0-53.0) % Plt Count (150-450) k/uL Lymphocytes # (1.0-4.8) k/uL PT 13.2 H (9.0-12.0) sec INR 1.3 H (<1.2) ABG pH (7.35-7.45) ABG pCO2 46 H (35-45) mmHg ABG pO2 244 H (83-108) mmHg ABG HCO3 (21-25) mmol/L ABG Total CO2 26 H (19-24) mmol/L ABG O2 Saturation 100.0 H (94-97) % ABG Hematocrit (34.0-46.0) % ABG Potassium (3.4-4.5) mmol/L Sodium (137-145) mmol/L Glucose 109 H (74-99) mg/dL POC Glucose (mg/dL) (75-99) mg/dL Calcium 8.1 L (8.4-10.2) mg/dL Magnesium 2.6 H (1.6-2.3) mg/dL Total Protein 4.9 L (6.3-8.2) g/dL Albumin 2.7 L (3.5-5.0) g/dL Arterial Blood Potassium (3.4-4.5) mmol/L Crossmatch 01/12/17 01/12/17 01/12/17 Range/Units 16:28 17:10 18:12 RBC (4.30-5.90) m/uL Hgb (13.0-17.5) gm/dL Hct (39.0-53.0) % Plt Count (150-450) k/uL Lymphocytes # (1.0-4.8) k/uL PT (9.0-12.0) sec INR (<1.2) ABG pH (7.35-7.45) ABG pCO2 (35-45) mmHg ABG pO2 (83-108) mmHg ABG HCO3 (21-25) mmol/L ABG Total CO2 (19-24) mmol/L ABG O2 Saturation (94-97) % ABG Hematocrit (34.0-46.0) % ABG Potassium (3.4-4.5) mmol/L Sodium (137-145) mmol/L Glucose (74-99) mg/dL POC Glucose (mg/dL) 119 H 113 H 107 H (75-99) mg/dL Calcium (8.4-10.2) mg/dL Magnesium (1.6-2.3) mg/dL Total Protein (6.3-8.2) g/dL Albumin (3.5-5.0) g/dL Arterial Blood Potassium (3.4-4.5) mmol/L Crossmatch 01/12/17 01/12/17 01/12/17 Range/Units 18:15 19:05 20:13 RBC 3.05 L (4.30-5.90) m/uL Hgb 9.5 L (13.0-17.5) gm/dL Hct 29.4 L (39.0-53.0) % Plt Count 113 L (150-450) k/uL Lymphocytes # (1.0-4.8) k/uL PT (9.0-12.0) sec INR (<1.2) ABG pH (7.35-7.45) ABG pCO2 (35-45) mmHg ABG pO2 (83-108) mmHg ABG HCO3 (21-25) mmol/L ABG Total CO2 (19-24) mmol/L ABG O2 Saturation (94-97) % ABG Hematocrit (34.0-46.0) % ABG Potassium (3.4-4.5) mmol/L Sodium (137-145) mmol/L Glucose (74-99) mg/dL POC Glucose (mg/dL) 103 H 108 H (75-99) mg/dL Calcium (8.4-10.2) mg/dL Magnesium (1.6-2.3) mg/dL Total Protein (6.3-8.2) g/dL Albumin (3.5-5.0) g/dL Arterial Blood Potassium (3.4-4.5) mmol/L Crossmatch 01/12/17 01/12/17 01/12/17 Range/Units 20:55 20:55 20:55 RBC 2.52 L (4.30-5.90) m/uL Hgb 7.9 L D (13.0-17.5) gm/dL Hct 23.5 L (39.0-53.0) % Plt Count 97 L (150-450) k/uL Lymphocytes # 0.8 L (1.0-4.8) k/uL PT 12.5 H (9.0-12.0) sec INR 1.3 H (<1.2) ABG pH (7.35-7.45) ABG pCO2 (35-45) mmHg ABG pO2 (83-108) mmHg ABG HCO3 (21-25) mmol/L ABG Total CO2 (19-24) mmol/L ABG O2 Saturation (94-97) % ABG Hematocrit (34.0-46.0) % ABG Potassium (3.4-4.5) mmol/L Sodium 136 L (137-145) mmol/L Glucose (74-99) mg/dL POC Glucose (mg/dL) (75-99) mg/dL Calcium 8.1 L (8.4-10.2) mg/dL Magnesium (1.6-2.3) mg/dL Total Protein 5.3 L (6.3-8.2) g/dL Albumin 2.9 L (3.5-5.0) g/dL Arterial Blood Potassium (3.4-4.5) mmol/L Crossmatch 01/12/17 01/12/17 01/13/17 Range/Units 20:56 22:01 00:06 RBC (4.30-5.90) m/uL Hgb (13.0-17.5) gm/dL Hct (39.0-53.0) % Plt Count (150-450) k/uL Lymphocytes # (1.0-4.8) k/uL PT (9.0-12.0) sec INR (<1.2) ABG pH (7.35-7.45) ABG pCO2 (35-45) mmHg ABG pO2 (83-108) mmHg ABG HCO3 (21-25) mmol/L ABG Total CO2 (19-24) mmol/L ABG O2 Saturation (94-97) % ABG Hematocrit (34.0-46.0) % ABG Potassium (3.4-4.5) mmol/L Sodium (137-145) mmol/L Glucose (74-99) mg/dL POC Glucose (mg/dL) 102 H 113 H 104 H (75-99) mg/dL Calcium (8.4-10.2) mg/dL Magnesium (1.6-2.3) mg/dL Total Protein (6.3-8.2) g/dL Albumin (3.5-5.0) g/dL Arterial Blood Potassium (3.4-4.5) mmol/L Crossmatch 01/13/17 01/13/17 01/13/17 Range/Units 01:29 02:01 03:07 RBC (4.30-5.90) m/uL Hgb (13.0-17.5) gm/dL Hct (39.0-53.0) % Plt Count (150-450) k/uL Lymphocytes # (1.0-4.8) k/uL PT (9.0-12.0) sec INR (<1.2) ABG pH (7.35-7.45) ABG pCO2 (35-45) mmHg ABG pO2 (83-108) mmHg ABG HCO3 (21-25) mmol/L ABG Total CO2 (19-24) mmol/L ABG O2 Saturation (94-97) % ABG Hematocrit (34.0-46.0) % ABG Potassium (3.4-4.5) mmol/L Sodium (137-145) mmol/L Glucose (74-99) mg/dL POC Glucose (mg/dL) 118 H 128 H 129 H (75-99) mg/dL Calcium (8.4-10.2) mg/dL Magnesium (1.6-2.3) mg/dL Total Protein (6.3-8.2) g/dL Albumin (3.5-5.0) g/dL Arterial Blood Potassium (3.4-4.5) mmol/L Crossmatch 01/13/17 01/13/17 01/13/17 Range/Units 03:56 04:32 04:32 RBC 2.89 L (4.30-5.90) m/uL Hgb 9.0 L (13.0-17.5) gm/dL Hct 26.8 L (39.0-53.0) % Plt Count 124 L (150-450) k/uL Lymphocytes # (1.0-4.8) k/uL PT (9.0-12.0) sec INR (<1.2) ABG pH (7.35-7.45) ABG pCO2 (35-45) mmHg ABG pO2 (83-108) mmHg ABG HCO3 (21-25) mmol/L ABG Total CO2 (19-24) mmol/L ABG O2 Saturation (94-97) % ABG Hematocrit (34.0-46.0) % ABG Potassium (3.4-4.5) mmol/L Sodium (137-145) mmol/L Glucose 120 H (74-99) mg/dL POC Glucose (mg/dL) 131 H (75-99) mg/dL Calcium 7.9 L (8.4-10.2) mg/dL Magnesium (1.6-2.3) mg/dL Total Protein 5.1 L (6.3-8.2) g/dL Albumin 2.8 L (3.5-5.0) g/dL Arterial Blood Potassium (3.4-4.5) mmol/L Crossmatch 01/13/17 01/13/17 01/13/17 Range/Units 04:32 04:35 05:49 RBC (4.30-5.90) m/uL Hgb (13.0-17.5) gm/dL Hct (39.0-53.0) % Plt Count (150-450) k/uL Lymphocytes # (1.0-4.8) k/uL PT 13.1 H (9.0-12.0) sec INR 1.3 H (<1.2) ABG pH (7.35-7.45) ABG pCO2 (35-45) mmHg ABG pO2 73 L (83-108) mmHg ABG HCO3 (21-25) mmol/L ABG Total CO2 (19-24) mmol/L ABG O2 Saturation (94-97) % ABG Hematocrit (34.0-46.0) % ABG Potassium (3.4-4.5) mmol/L Sodium (137-145) mmol/L Glucose (74-99) mg/dL POC Glucose (mg/dL) 129 H (75-99) mg/dL Calcium (8.4-10.2) mg/dL Magnesium (1.6-2.3) mg/dL Total Protein (6.3-8.2) g/dL Albumin (3.5-5.0) g/dL Arterial Blood Potassium (3.4-4.5) mmol/L Crossmatch 01/13/17 01/13/17 01/13/17 Range/Units 07:04 07:55 08:28 RBC (4.30-5.90) m/uL Hgb (13.0-17.5) gm/dL Hct (39.0-53.0) % Plt Count (150-450) k/uL Lymphocytes # (1.0-4.8) k/uL PT (9.0-12.0) sec INR (<1.2) ABG pH (7.35-7.45) ABG pCO2 (35-45) mmHg ABG pO2 65 L (83-108) mmHg ABG HCO3 (21-25) mmol/L ABG Total CO2 (19-24) mmol/L ABG O2 Saturation (94-97) % ABG Hematocrit (34.0-46.0) % ABG Potassium (3.4-4.5) mmol/L Sodium (137-145) mmol/L Glucose (74-99) mg/dL POC Glucose (mg/dL) 122 H 126 H (75-99) mg/dL Calcium (8.4-10.2) mg/dL Magnesium (1.6-2.3) mg/dL Total Protein (6.3-8.2) g/dL Albumin (3.5-5.0) g/dL Arterial Blood Potassium (3.4-4.5) mmol/L Crossmatch 01/13/17 Range/Units 08:51 RBC (4.30-5.90) m/uL Hgb (13.0-17.5) gm/dL Hct (39.0-53.0) % Plt Count (150-450) k/uL Lymphocytes # (1.0-4.8) k/uL PT (9.0-12.0) sec INR (<1.2) ABG pH (7.35-7.45) ABG pCO2 (35-45) mmHg ABG pO2 (83-108) mmHg ABG HCO3 (21-25) mmol/L ABG Total CO2 (19-24) mmol/L ABG O2 Saturation (94-97) % ABG Hematocrit (34.0-46.0) % ABG Potassium (3.4-4.5) mmol/L Sodium (137-145) mmol/L Glucose (74-99) mg/dL POC Glucose (mg/dL) 125 H (75-99) mg/dL Calcium (8.4-10.2) mg/dL Magnesium (1.6-2.3) mg/dL Total Protein (6.3-8.2) g/dL Albumin (3.5-5.0) g/dL Arterial Blood Potassium (3.4-4.5) mmol/L Crossmatch Assessment and Plan Plan: The patient was seen and examined. I agree with the above assessment and plan. He is currently pain free on both IV heparin and IV nitro glycerin. The risks , benefits, and alternatives to coronary artery bypass surgery were discussed with the patient. All of his questions were answered. We will plan on performing his surgery tomorrow.
[2017-01-11] MEDS: ASPIRIN 325 MG TAB PO SCH (08:03)
[2017-01-11] MEDS: MUPIROCIN 2% OINT 22 GM TUBE NASAL SCH ×2 (08:03→22:00)
[2017-01-11] MEDS: NITROGLYCERIN-D5W PMX 50 MG in DEXTROSE/WATER 1 250ML.BAG IV SCH (08:04)
[2017-01-11] MEDS: ATORVASTATIN 80 MG TAB PO SCH (08:04)
[2017-01-11] MEDS: METOPROLOL TARTRATE 50 MG TAB PO SCH ×2 (08:04→22:00)
[2017-01-11] MEDS: ACETAMINOPHEN TAB 325 MG TAB PO PRN ×2 (08:05→22:04)
[2017-01-11 08:09] LABS: Anion Gap 8 mmol/L; Blood Urea Nitrogen 8 mg/dL (9-20); Calcium 8.5 mg/dL (8.4-10.2); Carbon Dioxide 24 mmol/L (22-30); Chloride 106 mmol/L (98-107); Glucose 108 mg/dL (74-99); Non-African American GFR(MDRD) >60 (>60 ml/min/1.73 sqM); Sodium 138 mmol/L (137-145)
--- NOTE | 2017-01-11 12:19 | P.PN ---
Subjective Principal diagnosis: CAD This is a 71-year-old gentleman who has a history of nicotine dependence in the past, no hypertension, no diabetes, no hyperlipidemia. Presented to the hospital with symptoms of chest discomfort. He was noted to have a mild rise in his troponins and for this reason was advised to undergo cardiac catheterization by Dr. Sher. Cardiac catheterization was performed which revealed triple vessel coronary artery disease with a critical lesion involving the RCA, OM branch, and moderate to severe disease in the LAD. He was seen by cardiothoracic surgery and is scheduled to undergo coronary artery bypass grafting surgery tomorrow. He was seen and examined this morning , denies any chest pain or difficulty in breathing. Up ambulating without any difficulty. Objective - Vital Signs Vital signs: Vital Signs Temp 98.1 F 01/11/17 08:00 Pulse 77 01/11/17 08:00 Resp 16 01/11/17 08:00 BP 116/64 01/11/17 08:00 Pulse Ox 95 01/11/17 08:00 Intake & Output 01/10/17 01/11/17 01/11/17 18:59 06:59 18:59 Intake Total 1694 1700 21.417 Output Total 850 2100 Balance 844 -400 21.417 Weight 109.2 kg Intake: Intake, IV Titration 918 1400 21.417 Amount Heparin Sodium,Porcine/ 500 D5w Pmx 25,000 unit In Dextrose/Water 1 500ml. bag @ 9.586 UNITS/KG/HR 20 mls/hr IV .Q24H VENU Rx #:[id number] Nitroglycerin-D5w Pmx 50 18 0 21.417 mg In Dextrose/Water 1 250ml.bag @ 5 MCG/MIN 1.5 mls/hr IV .Q24H VENU Rx#: [id number] Sodium Chloride 0.9% 1, 900 900 000 ml @ 75 mls/hr IV . [id number] VENU Rx#:[id number] Oral 776 300 Output: Urine 850 2100 Other: Voiding Method Toilet Toilet # Voids 2 450 # Bowel Movements 1 1 - Exam PHYSICAL EXAMINATION: HEENT: Head is atraumatic, normocephalic. Pupils equal, round. Neck is supple. There is no elevated jugular venous pressure. HEART EXAMINATION: Heart S1, S2 normal. No murmur or gallop heard. CHEST EXAMINATION: Lungs are clear to auscultation and precussion. No chest wall tenderness is noted on palpation or with deep breathing. ABDOMEN: Soft, nontender. Bowel sounds are heard. No organomegaly noted. EXTREMITIES: 2+ peripheral pulses with no evidence of peripheral edema and no calf tenderness noted. NEUROLOGIC patient is awake, alert and oriented -3. . - Labs CBC & Chem 7: 01/11/17 06:40 01/11/17 06:40 Labs: Abnormal Lab Results - Last 24 Hours (Table) 01/11/17 01/11/17 01/11/17 Range/Units 06:40 06:40 06:40 RBC 3.62 L (4.30-5.90) m/uL Hgb 11.5 L (13.0-17.5) gm/dL Hct 33.6 L (39.0-53.0) % APTT 73.3 H (22.0-30.0) sec BUN 8 L (9-20) mg/dL Glucose 108 H (74-99) mg/dL Microbiology - Last 24 Hours (Table) 01/10/17 02:38 Urine Culture - Preliminary Urine,Clean Catch Assessment and Plan (1) Triple vessel coronary artery disease Status: Acute (2) S/P cardiac cath Status: Acute (3) Chest pain Status: Acute (4) Coronary artery disease Status: Acute (5) Hyperlipidemia Status: Acute (6) Tobacco dependence in remission Status: Acute Plan: From cardiology's perspective, we'll continue with current medications. Patient is scheduled for coronary artery bypass grafting surgery tomorrow. DNP note has been reviewed, I agree with a documented findings and plan of care. Patient was seen and examined.
--- NOTE | 2017-01-11 15:45 | P.PN ---
Subjective This is a 71-year-old male who presented to the emergency department complaining of chest discomfort. The patient apparently also had a pressure- like sensation which radiated up towards his neck. He had some nausea. No diaphoresis. No shortness of breath. He's had previous similar situations. The patient tells me he was evaluated by cardiology had a catheterization was found have coronary artery disease and apparently Dr. Reza is planning to do bypass surgery on Wednesday. The patient has no known history of any lung disease. He did have spirometry. Not been able to yet to find it. He did smoke for about 15 years at less than one pack a day. It's unlikely that that was his true smoking history, that he would have substantial chronic lung disease. Still waiting though to see the spirometry myself. He has no known ALLERGIES. He apparently has no past medical history. He did have a hernia repair in the past. He apparently was on no medications at home on a regular basis. On 01/11/2017 the patient is resting comfortably in bed. No chest pain. No shortness of breath. No angina. Hemodynamically stable. The patient is awaiting cardiac bypass surgery to be done tomorrow. Meanwhile, he tells me that he is a nonsmoker. No respiratory distress at all prior to this cardiac event. He was able to climb a flight of stairs without any major difficulties. He does not utilize any form of respiratory medications or inhalers on outpatient basis. Most of any childhood asthma. No DVT. No pulmonate Confucianism. No sleep apnea. The chest x-ray showed no evidence of any cardiopulmonary abnormalities. Objective - Vital Signs Vital signs: Vital Signs Temp 98.1 F 01/11/17 08:00 Pulse 77 01/11/17 08:00 Resp 16 01/11/17 08:00 BP 116/64 01/11/17 08:00 Pulse Ox 95 01/11/17 08:00 Intake & Output 01/10/17 01/11/17 01/11/17 18:59 06:59 18:59 Intake Total 1694 1700 21.417 Output Total 850 2100 Balance 844 -400 21.417 Weight 109.2 kg Intake: Intake, IV Titration 918 1400 21.417 Amount Heparin Sodium,Porcine/ 500 D5w Pmx 25,000 unit In Dextrose/Water 1 500ml. bag @ 9.586 UNITS/KG/HR 20 mls/hr IV .Q24H VENU Rx #:[id number] Nitroglycerin-D5w Pmx 50 18 0 21.417 mg In Dextrose/Water 1 250ml.bag @ 5 MCG/MIN 1.5 mls/hr IV .Q24H VENU Rx#: [id number] Sodium Chloride 0.9% 1, 900 900 000 ml @ 75 mls/hr IV . [id number] VENU Rx#:[id number] Oral 776 300 Output: Urine 850 2100 Other: Voiding Method Toilet Toilet # Voids 2 450 # Bowel Movements 1 1 - Exam No acute distress, oriented 3. HEENT examination is grossly unremarkable. Mucous membranes are moist. No oral lesions. Neck supple. Full range of motion. No adenopathy or thyromegaly. Neck veins are flat. Cardiovascular examination reveals regular rhythm rate. S3-S4 or murmur. Lungs reveal clear breath sounds throughout. No wheezes or rhonchi. No crackles. Breath sounds are equal bilaterally. Abdomen soft bowel sounds are heard. No masses or tenderness.. Extremities are intact. Skin is without Rash. Neurologic examination is nonfocal. - Labs CBC & Chem 7: 01/11/17 06:40 01/11/17 06:40 Labs: Abnormal Lab Results - Last 24 Hours (Table) 01/11/17 01/11/17 01/11/17 Range/Units 06:40 06:40 06:40 RBC 3.62 L (4.30-5.90) m/uL Hgb 11.5 L (13.0-17.5) gm/dL Hct 33.6 L (39.0-53.0) % APTT 73.3 H (22.0-30.0) sec BUN 8 L (9-20) mg/dL Glucose 108 H (74-99) mg/dL Microbiology - Last 24 Hours (Table) 01/10/17 02:38 Urine Culture - Preliminary Urine,Clean Catch Assessment and Plan Plan: Assessment 1 multivessel coronary artery disease, awaiting coronary artery bypass surgery. The patient has triple-vessel disease with critical lesion involving the RCA, OM branch, moderate to severe disease in the LAD. 2 acute non-ST segment elevation myocardial infarction 3 obesity, BMI of 33 4 osteoarthritis 5 hyperlipidemia 6 right index finger infection/wound 7 preserved LV function with a ejection fraction of 55-60% Plan We'll proceed with cardiac bypass surgery in a.m. Encouraged use of incentive spirometer. The patient would have a bedside spirometry to measure his baseline FEV1. Chest x-rays clear. We will monitor this patient's progress and will manage the mechanical ventilator and will attend for any pulmonary needs postop. Meanwhile, the patient is still being treated for a right index finger wound infection no active drainage. The wound itself is improved.
--- NOTE | 2017-01-11 17:10 | P.PN ---
<Yesi Jeffers - Last Filed: 01/11/17 17:01> Progress Note - Text DATE OF SERVICE: 01/11/2017 PRESENTING COMPLAINT: Chest pain HISTORY OF PRESENT ILLNESS: 71-year-old male who woke up with chest pain associated heaviness no shortness of breath perspiration or dizziness although felt tired and rundown. First troponins, negative. Subsequent troponins positive, secondary episode of chest pain, taken to the cardiac [facility], found to have triple-vessel disease. INTERVAL HISTORY: 01/11/2017: Patient seen in follow-up, no further episodes of chest pain nitro drip continues. Preop testing completed coronary artery bypass grafting surgery tomorrow. at the bedside with patient. Patient is anxious appearing, tolerating his diet, ambulatory in the room and [address], utilizing his incentive spirometer. Last BM on 01/10/2017. 01/10/2017: Patient seen in follow-up, had another episode of chest pain today, nitro drip started. No chest pain at this time, nitro drip continues. Preop testing continues, patient will tentatively be scheduled for coronary artery bypass grafting surgery on Wednesday. Sitting up at the bedside, anxious appearing, voiced concerns about surgery, states he is afraid. Reassurance provided. Patient's tolerating his diet, ambulatory in the room and [address], last BM . 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 Surgery is tentatively scheduled for Wednesday. Sitting up the bedside, eating his lunch, Pressure device noted to right radial artery. General questions answered. REVIEW OF SYSTEMS: Done for constitutional ,cardiovascular, GI, pulmonary with relevant findings as above. CURRENT MEDICATIONS Xanax, aspirin, Lipitor, heparin, Lopressor, nitroglycerin drip PHYSICAL EXAM VITAL SIGNS: Temperature 98.0 pulse 78 respiratory rate 16 blood pressure 108/58, oxygen saturation 94% on room air. GENERAL APPEARANCE: Sitting up at the bedside, anxious appearing. EYES: Pupils equal. Conjunctiva normal. NECK: JVD not raised. Mass not palpable. RESPIRATORY: Respiratory effort normal. Lungs clear to auscultation. CARDIOVASCULAR: First and second sounds normal. No edema. Right radial pressure device noted, no bleeding no swelling. ABDOMEN: Soft. Liver and spleen not palpable. No tenderness. No mass palpable. PSYCHIATRY: Alert and oriented x3. Mood and affect somewhat anxious. INVESTIGATIONS: White blood cell count 8.3, hemoglobin 11.5. BUN 8, creatinine 0.80. ASSESSMENT: -Coronary artery disease with triple-vessel disease, including post-FL angina, pending coronary artery bypass grafting -Acute on Q wave myocardial infarction with cardiac cath showing triple-vessel coronary artery disease. -Obesity BMI 33.0 -Primary osteoarthritis of left hip pending outpatient surgery -Acute cellulitis of the right index finger proximal part being treated with ciprofloxacin from outpatient -IV heparin monitoring PLAN: Scheduled for coronary artery bypass grafting on Wednesday, preop education by cardiothoracic surgery. Nitroglycerin drip continues to alleviate chest pain. Cardiology, pulmonology, and cardiothoracic surgery continue to follow this patient closely, we will continue with current medication and treatment plan. Plan of care discussed with the patient the bedside and he is in agreement. UNDRAPED ARTIST MODEL statement: Patient was seen and examined by nurse practitioner Yesi Jeffers and all elements of the case discussed with attending Dr. Lundberg <Juan Antonio Lundberg - Last Filed: 01/12/17 17:30> Progress Note - Text Attending note. Date of service-01/11/2017 This patient was seen and examined by me . Discussed the patient with my nurse practitioner Ms. Jeffers. Pending CABG. Sitting up comfortable On examination: Lungs-fair entry, cardiovascular-first seconds are normal Investigations: Labs noted Assessment and plan: Triple-vessel disease-pending bypass. IV heparin monitoring Discussed with patient.
--- NOTE | 2017-01-11 19:31 | P.CONS ---
History of Present Illness - Reason for Consult Consult date: 01/11/17 - Chief Complaint Recurrent lesion on the right hand. - History of Present Illness This is a pleasant 71-year-old male who presented to Hospital with some atypical chest pain, it was not improving as it had in the past and consequently did present to the emergency center. Cardiac workup was in process and with evidence of positive troponins was taken to the cardiac catheterization lab. The procedure revealed evidence of significant three- vessel coronary artery disease and is being planned for a coronary artery bypass graft procedure. The patient over relates he's been having difficulties with the right hand with a waxing and waning lesion on the proximal phalanx on the dorsum of the hand. It comes and goes. Sometimes lasts for 10-14 days. Then a clears up. One is present it is crusty he has some drainage and it's a bit uncomfortable. He relates that it's burning and itchy at the start and like now it's generally cleared up does not give him any significant difficulties. It does not affect his day-to-day activities. It has not resulted in any fevers chills or rigors or sweats has never had any ascending infection of the arm. Review of Systems 71 yo male no chest pain curently HEENT:Denies headache or acute visual change. Denies sinus or mouth discomforts. Denies neck stiffness or pain. Denies significant oral cavity pain. Denies difficulty on swallowing. Lungs: Denies significant shortness of breath, cough, sputum production, or hemoptysis. Cardiovascular: Denies significant shortness of breath, chest wall pain, orthopnea, dyspnea on exertion, syncope Gastrointestinal:Denies nausea, vomiting, diarrhea, constipation, hematemesis, melena, hematochezia. No no significant change of bowel habit noticed. Musculoskeletal: denies significant myalgias or arthralgias. No new joint swelling. Denies new back pain. Skin: Denies new lesions. Chronic ulcer as per HPI Neuro: Denies headache or visual change. Denies any new onset weakness or difficulty with ambulation. Denies falls or seizures. Psychiatric:Denies anxiety or depression. Endocrine: Denies significant fatigue, denies significant weight loss or weight gain. Past Medical History Past Medical History: Hyperlipidemia, Osteoarthritis (OA) (He was scheduled for a left hip replacement by Dr. Borges on 01/25/2017. ) Additional Past Medical History / Comment(s): Current right hand index finger wound-being tx with ciprofloxacin. History of recent multiple bee stings to his right lower leg. History of Any Multi-Drug Resistant Organisms: None Reported Past Surgical History: Hernia Repair Additional Past Surgical History / Comment(s): L inguinal hernia repair, implanted teeth, colonoscopy-normal Past Anesthesia/Blood Transfusion Reactions: No Reported Reaction Additional Psychological History / Comment(s): . experience in [employer] was in [place]. No recent travel. Smoker stopped 30 years ago. No animal exposure Smoking Status: Former smoker (Quit smoking in the 1980s, he smoked for 15 years 1 pack per day.) Past Alcohol Use History: Occasional (He reports that he drinks about 7-8 beers per week.) Past Drug Use History: None Reported - Past Family History Father Family Medical History: Cancer Additional Family Medical History / Comment(s): Father of colon cancer at the age of 48yrs. Mother Family Medical History: Musculoskeletal Disorder, Neurologic Disorder Additional Family Medical History / Comment(s): Mother of complications related to MS at the age of about 68yrs. Brother(s) Family Medical History: CVA/TIA, Hypertension Additional Family Medical History / Comment(s): He has 4 brothers one of which has had a CVA/hypertension. Sister(s) Family Medical History: No Reported History Son(s) Family Medical History: Osteoarthritis (OA) (He has 2 sons 1 of which has had a hip replacement.) Medications and Allergies Home Medications and Allergies Comment(s): Current Medications Acetaminophen (Tylenol Tab) 650 mg PO Q6HR PRN PRN Reason: Fever and/ or Pain Last Admin: 01/11/17 08:05 Dose: 650 mg Alprazolam (Xanax) 0.25 mg PO Q6HR PRN PRN Reason: Mild Anxiety Alprazolam (Xanax) 0.5 mg PO Q6HR PRN PRN Reason: Moderate Anxiety Aminocaproic Acid (Amicar) 5,000 mg IV ONCE PRN PRN Reason: OPEN HEART Aspirin (Aspirin) 325 mg PO DAILY VENU Stop: 01/11/17 23:59 Last Admin: 01/11/17 08:03 Dose: 325 mg Aspirin (Aspirin) 325 mg PO ONCE ONE Stop: 01/12/17 05:01 Atorvastatin Calcium (Lipitor) 80 mg PO DAILY VENU Stop: 01/11/17 23:59 Last Admin: 01/11/17 08:04 Dose: 80 mg Atorvastatin Calcium (Lipitor) 10 mg PO ONCE ONE Stop: 01/12/17 05:01 Calcium Chloride (Calcium Chloride) 1,000 mg IVP ONCE PRN PRN Reason: OPEN HEART Chlorhexidine Gluconate (Peridex) 15 ml MUCOUS MEM ONCE PRN PRN Reason: OPEN HEART Heparin Sodium (Porcine) (Heparin Sodium (1,000 Unit/Ml)) 10,000 unit IV ONCE PRN PRN Reason: OPEN HEART Heparin Sodium (Porcine) (Heparin) 30,000 unit IV ONCE PRN PRN Reason: OPEN HEART Heparin Sodium (Porcine) (Heparin) 30,000 unit IV ONCE PRN PRN Reason: OPEN HEART Heparin Sodium (Porcine) (Heparin) 30,000 unit IV ONCE PRN PRN Reason: OPEN HEART Heparin Sodium/Dextrose 25,000 (unit/ IV Solution) 500 mls @ 20 mls/hr IV .Q24H VENU; 9.586 UNITS/KG/HR PRN Reason: Protocol Last Admin: 01/11/17 04:46 Dose: 20 units/kg/hr, 41.73 mls/hr Sodium Chloride (Saline 0.9%) 1,000 mls @ 75 mls/hr IV .[id number] [facility] Last Admin: 01/11/17 16:36 Dose: Not Given Albumin Human 50 ml/ IV (Solution) 50 mls @ 100 mls/hr IVPB ONCE PRN PRN Reason: OPEN HEART Albumin Human 50 ml/ IV (Solution) 50 mls @ 100 mls/hr IVPB ONCE PRN PRN Reason: OPEN HEART Albumin Human 500 ml/ IV (Solution) 500 mls @ 250 mls/hr IVPB ONCE PRN PRN Reason: OPEN HEART Albumin Human 500 ml/ IV (Solution) 500 mls @ 250 mls/hr IVPB ONCE PRN PRN Reason: OPEN HEART Albumin Human 500 ml/ IV (Solution) 500 mls @ 250 mls/hr IVPB ONCE PRN PRN Reason: OPEN HEART Albumin Human 500 ml/ IV (Solution) 500 mls @ 250 mls/hr IVPB ONCE PRN PRN Reason: OPEN HEART Albumin Human 500 ml/ IV (Solution) 500 mls @ 250 mls/hr IVPB ONCE PRN PRN Reason: OPEN HEART Albumin Human 500 ml/ IV (Solution) 500 mls @ 250 mls/hr IVPB ONCE PRN PRN Reason: OPEN HEART Aminocaproic Acid 5,000 mg/ (Dextrose/Water) 70 mls @ 200 mls/hr IV ONCE PRN PRN Reason: OPEN HEART Aminocaproic Acid 5,000 mg/ (Dextrose/Water) 70 mls @ 200 mls/hr IV ONCE PRN PRN Reason: OPEN HEART Potassium Chloride 110 meq/Magnesium Sulfate 16 meq/Sodium Bicarbonate 40 ml/ Lidocaine HCl 100 mg/ Dextrose /Water 1,109 mls @ 0 mls/hr IV .Q0M PRN; Per Protocol PRN Reason: OPEN HEART Potassium Chloride 25 meq/Sodium Chloride 27 meq/Magnesium Sulfate 16 meq/ Sodium Bicarbonate 40 ml/Lidocaine HCl 100 mg/ Dextrose /Water 1,073.25 mls @ 0 mls/hr IV .Q0M PRN; Per Protocol PRN Reason: OPEN HEART Cefazolin Sodium 2 gm/ Sodium (Chloride) 30 mls @ 60 mls/hr IVPB ONCE PRN PRN Reason: OPEN HEART Cefazolin Sodium 2,000 mg/ (Sodium Chloride) 30 mls @ 999 mls/hr IVPB ONCE PRN PRN Reason: OPEN HEART Cefazolin Sodium 1,000 mg/ (Sodium Chloride) 1,000 mls @ 999 mls/hr IRRIGATION ONCE PRN PRN Reason: OPEN HEART Clevidipine 25 mg/ IV Solution 50 mls @ 2 mls/hr IV .Q24H PRN; Protocol; 1 MG/ HR PRN Reason: OPEN HEART Heparin Sodium (Porcine) 5,000 (unit/ Sodium Chloride) 501 mls @ 0 mls/hr IV ONCE PRN; As Directed PRN Reason: OPEN HEART Insulin Human Regular 100 unit (/ Sodium Chloride) 101 mls @ 0 mls/hr IV .Q0M PRN; Titrate PRN Reason: OPEN HEART Nitroglycerin/Dextrose 50 mg/ (IV Solution) 250 mls @ 1.5 mls/hr IV .Q24H PRN; Protocol; 5 MCG/MIN PRN Reason: OPEN HEART Norepinephrine Bitartrate (Levophed-0.9% Nacl 4 Mg/250ml Pmx) 4 mg in 250 mls @ 0 mls/hr IV .Q0M PRN; Protocol; Titrate PRN Reason: OPEN HEART Papaverine HCl 360 mg/ Sodium (Chloride) 102 mls @ 0 mls/hr IV ONCE PRN; As Directed PRN Reason: OPEN HEART Phenylephrine HCl 40 mg/ (Sodium Chloride) 254 mls @ 0 mls/hr IV .Q0M PRN; Protocol; Per Protocol PRN Reason: OPEN HEART Propofol (Diprivan) 1,000 mg in 100 mls @ 0 mls/hr IV .Q0M PRN; Protocol; Titrate PRN Reason: OPEN HEART Protamine Sulfate 250 mg/ IV (Solution) 25 mls @ 0 mls/hr IV ONCE PRN; As Directed PRN Reason: OPEN HEART Nitroglycerin/Dextrose 50 mg/ (IV Solution) 250 mls @ 1.5 mls/hr IV .Q24H VENU; 5 MCG/MIN PRN Reason: Protocol Last Admin: 01/11/17 08:04 Dose: 8.33 mcg/min, 2.49 mls/hr Diltiazem HCl 125 mg/ Sodium (Chloride) 125 mls @ 5 mls/hr IV .Q24H ONE PRN Reason: 5 MG/HR Stop: 01/13/17 04:59 Magnesium Sulfate (Magnesium Sulfate Syg) 16.24 meq IV ONCE PRN PRN Reason: OPEN HEART Mannitol (Osmitrol 25%) 12.5 gm IV ONCE PRN PRN Reason: OPEN HEART Mannitol (Osmitrol 25%) 12.5 gm IV ONCE PRN PRN Reason: OPEN HEART Metoprolol Tartrate (Lopressor) 12.5 mg PO ONCE ONE Stop: 01/12/17 05:01 Metoprolol Tartrate (Lopressor) 50 mg PO BID [facility] Stop: 01/11/17 23:59 Last Admin: 01/11/17 08:04 Dose: 50 mg Mupirocin (Bactroban Oint) 1 applic NASAL BID [facility] Stop: 01/14/17 21:01 Last Admin: 01/11/17 08:03 Dose: 1 applic Mupirocin (Bactroban Oint) 1 applic TOPICAL BID [facility] Nitroglycerin (Nitrostat) 0.4 mg SUBLINGUAL Q5M PRN PRN Reason: Chest Pain Last Admin: 01/10/17 08:06 Dose: 0.4 mg Nitroglycerin/Dextrose (Nitro Drip 25 Mg/250 Ml In D5w Pmx) 1 mg IV ONCE PRN PRN Reason: OPEN HEART Phenylephrine HCl (Davon-Synephrine Syringe) 1 mg IV ONCE PRN PRN Reason: OPEN HEART Phenylephrine HCl (Davon-Synephrine Syringe) 1 mg IV ONCE PRN PRN Reason: OPEN HEART Phenylephrine HCl (Davon-Synephrine Syringe) 1 mg IV ONCE PRN PRN Reason: OPEN HEART Phenylephrine HCl (Davon-Synephrine Syringe) 1 mg IV ONCE PRN PRN Reason: OPEN HEART Protamine Sulfate (Protamine Sulfate) 250 mg IV ONCE PRN PRN Reason: OPEN HEART Home Medications Medication Instructions Recorded Confirmed Type Aspirin 325 mg PO ONCE 01/08/17 01/08/17 History Ciprofloxacin HCl [Cipro] 500 mg PO Q12HR 01/08/17 01/08/17 History Mupirocin Calcium [Bactroban 2% 1 applic TOPICAL TID PRN 01/08/17 01/08/17 History Cream] guaiFENesin [Mucinex] 1,200 mg PO Q12H PRN 01/08/17 01/08/17 History Allergies Allergy/AdvReac Type Severity Reaction Status Date / Time No Known Allergies Allergy Verified 01/08/17 07:11 Physical Exam Vitals: Vital Signs Temp Pulse Resp BP Pulse Ox 01/11/17 16:00 97.9 F 76 16 107/57 96 01/11/17 12:00 98 F 78 16 108/58 94 L 01/11/17 08:00 98.1 F 77 16 116/64 95 01/11/17 04:00 98.2 F 64 18 131/59 96 01/11/17 00:00 98.3 F 83 18 131/57 94 L 01/10/17 20:00 98.2 F 82 18 118/58 95 Intake and Output 01/11/17 01/11/17 01/11/17 06:59 14:59 22:59 Intake Total 1700 21.417 125 Output Total 2100 Balance -400 21.417 125 Intake: Intake, IV Titration 1400 21.417 Amount Heparin Sodium,Porcine/ 500 D5w Pmx 25,000 unit In Dextrose/Water 1 500ml. bag @ 9.586 UNITS/KG/HR 20 mls/hr IV .Q24H VENU Rx #:[id number] Nitroglycerin-D5w Pmx 50 0 21.417 mg In Dextrose/Water 1 250ml.bag @ 5 MCG/MIN 1.5 mls/hr IV .Q24H VENU Rx#: [id number] Sodium Chloride 0.9% 1, 900 000 ml @ 75 mls/hr IV . [id number] VENU Rx#:[id number] Oral 300 125 Output: Urine 2100 Other: Voiding Method Toilet # Voids 450 # Bowel Movements 1 Weight 109.2 kg 71 year old male HEENT: Anicteric conjunctiva are pink and moist nasal mucosa grossly intact without significant lesions, there is no thrush. Neck: The neck is supple without significant lymphadenopathy or thyromegaly. Lungs: Good bilateral air entry without significant crackles few whezes. There is no significant bronchial sounds. There is no egophony or dullness. Heart: Regular rate and rhythm with an audible S1-S2, no S3 no S4. There is no significant murmur click or rub, PMI was nondisplaced. Abdomen: Positive bowel sounds soft and nontender without palpable masses or organomegaly. There was no guarding or rebound. Extremities: The upper extremities have excellent pulses they are symmetric, no significant petechiae or telangiectasia. No splinter hemorrhages were noted. The lower extremities are free from significant edema. The peripheral pulses were 2+ and symmetric. Neuro: Awake alert oriented to person place and time. There are no acute new gross focal sensory motor deficits. Results CBC & Chem 7: 01/11/17 06:40 01/11/17 06:40 Labs: Abnormal Lab Results - Last 24 Hours (Table) 01/09/17 01/11/17 01/11/17 Range/Units 15:18 06:40 06:40 RBC 3.62 L (4.30-5.90) m/uL Hgb 11.5 L (13.0-17.5) gm/dL Hct 33.6 L (39.0-53.0) % APTT (22.0-30.0) sec BUN 8 L (9-20) mg/dL Glucose 108 H (74-99) mg/dL Crossmatch See Detail 01/11/17 Range/Units 06:40 RBC (4.30-5.90) m/uL Hgb (13.0-17.5) gm/dL Hct (39.0-53.0) % APTT 73.3 H (22.0-30.0) sec BUN (9-20) mg/dL Glucose (74-99) mg/dL Crossmatch Microbiology - Last 24 Hours (Table) 01/10/17 02:38 Urine Culture - Final Urine,Clean Catch Laboratory Results WBC 8.3 k/uL (3.8-10.6) 01/11/17 06:40 RBC 3.62 m/uL (4.30-5.90) L 01/11/17 06:40 Hgb 11.5 gm/dL (13.0-17.5) L 01/11/17 06:40 Hct 33.6 % (39.0-53.0) L 01/11/17 06:40 MCV 93.0 fL (80.0-100.0) 01/11/17 06:40 MCH 31.7 pg (25.0-35.0) 01/11/17 06:40 MCHC 34.1 g/dL (31.0-37.0) 01/11/17 06:40 RDW 12.6 % (11.5-15.5) 01/11/17 06:40 Plt Count 166 k/uL (150-450) 01/11/17 06:40 Neutrophils % 78 % 01/11/17 06:40 Lymphocytes % 13 % 01/11/17 06:40 Monocytes % 5 % 01/11/17 06:40 Eosinophils % 3 % 01/11/17 06:40 Basophils % 0 % 01/11/17 06:40 Neutrophils # 6.4 k/uL (1.3-7.7) 01/11/17 06:40 Lymphocytes # 1.1 k/uL (1.0-4.8) 01/11/17 06:40 Monocytes # 0.4 k/uL (0-1.0) 01/11/17 06:40 Eosinophils # 0.3 k/uL (0-0.7) 01/11/17 06:40 Basophils # 0.0 k/uL (0-0.2) 01/11/17 06:40 PT 12.3 sec (9.0-12.0) H 01/09/17 15:18 INR 1.2 (<1.2) H 01/09/17 15:18 APTT 73.3 sec (22.0-30.0) H 01/11/17 06:40 Sodium 138 mmol/L (137-145) 01/11/17 06:40 Potassium 4.0 mmol/L (3.5-5.1) 01/11/17 06:40 Chloride 106 mmol/L (98-107) 01/11/17 06:40 Carbon Dioxide 24 mmol/L (22-30) 01/11/17 06:40 Anion Gap 8 mmol/L 01/11/17 06:40 BUN 8 mg/dL (9-20) L 01/11/17 06:40 Creatinine 0.80 mg/dL (0.66-1.25) 01/11/17 06:40 Est GFR (MDRD) Af Amer >60 (>60 ml/min/1.73 sqM) 01/11/17 06:40 Est GFR (MDRD) Non-Af >60 (>60 ml/min/1.73 sqM) 01/11/17 06:40 Glucose 108 mg/dL (74-99) H 01/11/17 06:[address] Glu mg/dL 120 mg/dL 01/09/17 15:18 Hemoglobin A1c 5.8 % (4.2-6.1) 01/09/17 15:18 Calcium 8.5 mg/dL (8.4-10.2) 01/11/17 06:40 Magnesium 2.2 mg/dL (1.6-2.3) 01/09/17 15:18 Total Bilirubin 0.6 mg/dL (0.2-1.3) 01/09/17 15:18 AST 24 U/L (17-59) 01/09/17 15:18 ALT 46 U/L (21-72) 01/09/17 15:18 Alkaline Phosphatase 77 U/L (38-126) 01/09/17 15:18 Total Creatine Kinase 25 U/L (55-170) L 01/08/17 17:38 CK-MB (CK-2) 0.7 ng/mL (0.0-2.4) 01/08/17 17:38 CK-MB (CK-2) Rel Index 2.8 01/08/17 17:38 Troponin I 0.047 ng/mL (0.000-0.034) H* 01/08/17 17:38 NT-Pro-B Natriuret Pep 322 pg/mL 01/09/17 15:18 Total Protein 6.6 g/dL (6.3-8.2) 01/09/17 15:18 Albumin 3.6 g/dL (3.5-5.0) 01/09/17 15:18 Triglycerides 87 mg/dL (<150) 01/09/17 06:15 Cholesterol 153 mg/dL (<200) 01/09/17 06:15 LDL Cholesterol, Calc 103 mg/dL (0-99) H 01/09/17 06:15 HDL Cholesterol 33 mg/dL (40-60) L 01/09/17 06:15 TSH 1.550 mIU/L (0.465-4.680) 01/09/17 15:18 Urine Color Yellow 01/10/17 02:38 Urine Appearance Clear (Clear) 01/10/17 02:38 Urine pH 5.5 (5.0-8.0) 01/10/17 02:38 Ur Specific [place] 1.011 (1.001-1.035) 01/10/17 02:38 Urine Protein Negative (Negative) 01/10/17 02:38 Urine Glucose (UA) Negative (Negative) 01/10/17 02:38 Urine Ketones Negative (Negative) 01/10/17 02:38 Urine Blood Negative (Negative) 01/10/17 02:38 Urine Nitrite Negative (Negative) 01/10/17 02:38 Urine Bilirubin Negative (Negative) 01/10/17 02:38 Urine Urobilinogen <2.0 mg/dL (<2.0) 01/10/17 02:38 Ur Leukocyte Esterase Negative (Negative) 01/10/17 02:38 Hepatitis A IgM Ab NEGATIVE 01/09/17 15:18 Hep Bs Antigen Negative 01/09/17 15:18 Hep B Core IgM Ab NEGATIVE 01/09/17 15:18 Hep C IgG Ab Negative (Negative) 01/09/17 15:18 Blood Type A Positive 01/09/17 15:18 Blood Type Confirm A Positive 01/09/17 20:28 Blood Type Recheck CABO Indicated 08/26/17 15:18 Antibody Screen NEGATIVE 01/09/17 15:18 Crossmatch See Detail 01/09/17 15:18 Transfuse Platelets 01/12/17 01/09/17 15:18 Spec Expiration Date 01/12/17231701/09/17 15:18 Microbiology 01/10/17 02:38 Urine,Clean Catch Urine Culture - Final Assessment and Plan (1) Non-STEMI (non-ST elevated myocardial infarction) Status: Acute (2) Hand dermatitis Narrative/Plan: 71 year old male with hsitory of chest pain which changed in character and so prsented to ER and was admitted. 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 In consequently has been seen by cardiac thoracic surgery will be taken to the operating room for his coronary artery bypass grafting procedure tomorrow. There is evidence of an area of dermatitis on his right hand dorsum. This is coming on over the last multiple months. When it presents it's a bit itchy and burning when it first starts and then becomes crusted and eventually clears up until it recurs. An outpatient culture revealed evidence of Staphylococcus epidermidis. This is a skin colonization and not a pathogen. There is no notation of MRSA. The patient will go for CABG tomorrow with routine antibiotic prophylaxis. Topical therapy to the fingers given. At this point in time given the recurrent nature this could be related to a herpetic lucina, or because of his fair skin nature this could actually be an underlying malignancy as the skin. He may require a biopsy in the future to further evaluate this site. At the next occurrence if a herpes simplex 1 and 2 and varicella-zoster PCR to be obtained from the fluid this would help evaluate for the possibility of herpetic lucina. Status: Acute
[2017-01-11] MEDS: MUPIROCIN 2% OINT 22 GM TUBE TOPICAL SCH (22:00)
[2017-01-12] MEDS ORDERED: DEXTROSE 5% IN WATER 1,000 ML with POTASSIUM CHLORIDE 25 MEQ, SODIUM CHLORIDE 4MEQ/ML V... IV PRN ×6 (05:00)
[2017-01-12] MEDS ORDERED: CALCIUM CHLORIDE 100 MG/ML 10 ML SYRINGE IVP PRN (05:00)
[2017-01-12] MEDS ORDERED: CLEVIDIPINE BUTYRATE 25 MG in EMPTY BAG 1 BAG IV PRN (05:00)
[2017-01-12] MEDS ORDERED: ceFAZolin 2 GM in SODIUM CHLORIDE 0.9% 30 ML IVPB PRN (05:00)
[2017-01-12] MEDS ORDERED: AMINOCAPROIC ACID 5,000 MG in DEXTROSE 5% IN WATER 50 ML IV PRN ×4 (05:00)
[2017-01-12] MEDS ORDERED: CHLORHEXIDINE GLUCONATE 15 ML CUP MUCOUS MEM PRN (05:00)
[2017-01-12] MEDS ORDERED: INSULIN REGULAR 100 UNIT in SODIUM CHLORIDE 0.9% 100 ML IV PRN (05:00)
[2017-01-12] MEDS ORDERED: AMINOCAPROIC ACID 250 MG/ML 20 ML VIAL IV PRN (05:00)
[2017-01-12] MEDS ORDERED: NITROGLYCERIN-D5W PMX 25 MG/250 ML BTL IV PRN (05:00)
[2017-01-12] MEDS ORDERED: METOPROLOL TARTRATE 12.5 MG TAB PO ONE (05:00)
[2017-01-12] MEDS ORDERED: PROTAMINE SULFATE 250 MG in EMPTY BAG 1 BAG IV PRN (05:00)
[2017-01-12] MEDS ORDERED: ceFAZolin 1,000 MG in SODIUM CHLORIDE 0.9% IRRIGATIO 1,000 ML IRRIGATION PRN (05:00)
[2017-01-12] MEDS ORDERED: MAGNESIUM SULFATE SYG 4.06 MEQ/ML SYRINGE IV PRN (05:00)
[2017-01-12] MEDS ORDERED: ATORVASTATIN 10 MG TAB PO ONE (05:00)
[2017-01-12] MEDS ORDERED: ALBUMIN HUMAN 25% 50 ML in EMPTY BAG 1 BAG IVPB PRN (05:00)
[2017-01-12] MEDS ORDERED: NITROGLYCERIN-D5W PMX 50 MG in DEXTROSE/WATER 1 250ML.BAG IV PRN (05:00)
[2017-01-12] MEDS ORDERED: DEXTROSE 5% IN WATER 1,000 ML with POTASSIUM CHLORIDE 110 MEQ, MAGNESIUM SULFATE 16 MEQ... IV PRN ×5 (05:00)
[2017-01-12] MEDS ORDERED: ALBUMIN HUMAN 5% 500 ML in EMPTY BAG 1 BAG IVPB PRN ×6 (05:00)
[2017-01-12] MEDS ORDERED: HEPARIN SODIUM,PORCINE 5,000 UNIT in SODIUM CHLORIDE 0.9% 500 ML IV PRN (05:00)
[2017-01-12] MEDS ORDERED: ceFAZolin 2,000 MG in SODIUM CHLORIDE 0.9% 30 ML IVPB PRN (05:00)
[2017-01-12] MEDS ORDERED: HEPARIN SODIUM 1,000 UN/ML (10ML VL) IV PRN (05:00)
[2017-01-12] MEDS ORDERED: MANNITOL 25% 12.5 GM/50 ML VIAL IV PRN ×2 (05:00)
[2017-01-12] MEDS ORDERED: PROTAMINE SULFATE 10 MG/ML 25 ML VIAL IV PRN (05:00)
[2017-01-12] MEDS ORDERED: ASPIRIN 325 MG TAB PO ONE (05:00)
[2017-01-12] MEDS ORDERED: PAPAVERINE 360 MG in SODIUM CHLORIDE 0.9% 90 ML IV PRN (05:00)
[2017-01-12] MEDS ORDERED: PROPOFOL 1,000 MG/100 ML VIAL IV PRN (05:00)
[2017-01-12] MEDS ORDERED: PHENYLEPHRINE-0.9% NACL SYG 1 MG/10 ML SYRINGE IV PRN ×4 (05:00)
[2017-01-12] MEDS ORDERED: NOREPINEPHRIN 4 MG-0.9% NS PMX 4 MG/250 ML ML IV PRN (05:00)
[2017-01-12] MEDS ORDERED: PHENYLEPHRINE 40 MG in SODIUM CHLORIDE 0.9% 250 ML IV PRN (05:00)
[2017-01-12] MEDS ORDERED: DILTIAZEM 125 MG in SODIUM CHLORIDE 0.9% 100 ML IV ONE (05:00)
[2017-01-12] MEDS: SODIUM CHLORIDE 0.9% 1,000 ML IV SCH (05:12)
[2017-01-12] MEDS ORDERED: IV FLUID CONTINUATION 1,000 ML IV ONE (06:32)
[2017-01-12] MEDS ORDERED: LIDOCAINE 2% SYG (PF) 100 MG/5 ML ONE (08:02)
[2017-01-12] MEDS ORDERED: ELECTROLYTE-R (PH 7.4) 1,000 ML IV.SOLN IV ONE (08:02)
[2017-01-12] MEDS ORDERED: SUCCINYLCHOLINE CHLORIDE 100 MG/5 ML SYR IV ONE (08:02)
[2017-01-12] MEDS ORDERED: SODIUM CHLORIDE 0.9% IRRIG 1,000 ML BTL IRRIGATION ONE (08:02)
[2017-01-12] MEDS ORDERED: PROTAMINE SULFATE 10 MG/ML 25 ML VIAL IV ONE (08:02)
[2017-01-12] MEDS ORDERED: VECURONIUM 10 MG VIAL IV ONE (08:02)
[2017-01-12] MEDS ORDERED: MAGNESIUM SULFATE 4 MEQ/ML 2 ML VIAL ONE (08:02)
[2017-01-12] MEDS ORDERED: CALCIUM CHLORIDE 100 MG/ML 10 ML SYRINGE ONE (08:02)
[2017-01-12] MEDS ORDERED: HEPARIN SODIUM,PORCINE 10,000 UNIT/ML 1 ML VIAL ONE (08:02)
[2017-01-12] MEDS ORDERED: MIDAZOLAM 2 MG/2 ML VIAL ONE (08:02)
[2017-01-12] MEDS ORDERED: PROPOFOL 10 MG/ML 20 ML VIAL IV ONE (08:02)
[2017-01-12] MEDS ORDERED: HEPARIN SODIUM,PORCINE 5,000 UNIT/ML 1 ML VIAL ONE (08:02)
[2017-01-12] MEDS ORDERED: fentaNYL (PF) 50 MCG/ML 2 ML AMP ONE (08:02)
[2017-01-12] MEDS ORDERED: fentaNYL (PF) 50 MCG/ML 50 ML VIAL ONE (08:02)
[2017-01-12] MEDS ORDERED: ALBUMIN HUMAN 5% 500 ML VIAL IVPB ONE (08:02)
[2017-01-12] MEDS ORDERED: PHENYLEPHRINE-0.9% NACL SYG 1 MG/10 ML SYRINGE ONE (08:02)
[2017-01-12 08:57] LABS: Glucose,Whole Blood 108 mg/dL (75-99)
[2017-01-12 10:19] LABS: Glucose,Whole Blood 108 mg/dL (75-99)
[2017-01-12 11:27] LABS: Glucose,Whole Blood 175 mg/dL (75-99)
[2017-01-12] MEDS: NITROGLYCERIN-D5W PMX 50 MG in DEXTROSE/WATER 1 250ML.BAG IV SCH ×2 (11:56→15:40)
[2017-01-12] MEDS: MUPIROCIN 2% OINT 22 GM TUBE NASAL SCH ×2 (11:56→22:03)
[2017-01-12] MEDS: MUPIROCIN 2% OINT 22 GM TUBE TOPICAL SCH (11:56)
[2017-01-12 11:58] LABS: Glucose,Whole Blood 177 mg/dL (75-99)
[2017-01-12 12:30] LABS: Glucose,Whole Blood 208 mg/dL (75-99)
[2017-01-12 12:56] LABS: Glucose,Whole Blood 224 mg/dL (75-99)
[2017-01-12 13:39] LABS: Glucose,Whole Blood 213 mg/dL (75-99)
[2017-01-12 14:27] LABS: Glucose,Whole Blood 164 mg/dL (75-99)
[2017-01-12] MEDS ORDERED: CALCIUM GLUCONATE 2,000 MG in SODIUM CHLORIDE 0.9% 100 ML IVPB PRN (15:03)
[2017-01-12] MEDS ORDERED: INSULIN REGULAR 100 UNIT in SODIUM CHLORIDE 0.9% 100 ML IV SCH (15:03)
[2017-01-12] MEDS ORDERED: BENZOCAINE/MENTHOL LOZENG 1 EACH LOZENGE MUCOUS MEM PRN (15:03)
[2017-01-12] MEDS ORDERED: Potassium Replacement Protocol 1 EACH MISC MISCELLANE PRN (15:03)
[2017-01-12] MEDS ORDERED: METOCLOPRAMIDE 5 MG/ML 2 ML VIAL IVP PRN (15:03)
[2017-01-12] MEDS ORDERED: ALBUMIN HUMAN 5% 250 ML in EMPTY BAG 1 BAG IVPB PRN (15:03)
[2017-01-12] MEDS ORDERED: Phosphorus Replacement Protoco 1 EACH MISC MISCELLANE PRN (15:03)
[2017-01-12] MEDS ORDERED: ONDANSETRON 4 MG/2 ML VIAL IVP PRN (15:03)
[2017-01-12] MEDS ORDERED: Magnesium Replacement Protocol 1 EACH MISC MISCELLANE PRN (15:03)
[2017-01-12] MEDS: LACTATED RINGERS 1,000 ML IV SCH (15:38)
[2017-01-12] MEDS: PROPOFOL 1,000 MG/100 ML VIAL IV SCH ×2 (15:45→22:40)
[2017-01-12 15:51] LABS: Glucose,Whole Blood 123 mg/dL (75-99)
[2017-01-12] MEDS: IPRATROPIUM-ALBUTEROL 3 ML NEB INHALATION SCH ×2 (15:53→20:06)
[2017-01-12] MEDS: ceFAZolin 2 GM in SODIUM CHLORIDE 0.9% 100 ML IVPB SCH (16:13)
[2017-01-12 16:14] LABS: Basophils % (A) 0 %; CH 32.3; CHCM 33.5; Eosinophils # (A) 0.1 k/uL (0-0.7); Eosinophils % (A) 1 %; HCT 27.5 % (39.0-53.0); HDW 2.55; Luc # (Auto) 0.09; Luc % (Auto) 1; Lymphocytes # (A) 1.4 k/uL (1.0-4.8); Lymphocytes % (A) 18 %; MCHC 33.1 g/dL (31.0-37.0); MCV 96.8 fL (80.0-100.0); Mean Platelet Volume 7.4; Monocytes # (A) 0.3 k/uL (0-1.0); Monocytes % (A) 3 %; Neutrophils # (A) 5.9 k/uL (1.3-7.7); Neutrophils % (A) 77 %; RBC 2.84 m/uL (4.30-5.90); RDW 13.5 % (11.5-15.5); WBC 7.7 k/uL (3.8-10.6)
[2017-01-12 16:16] LABS: ABG HCO3 25 mmol/L (21-25); ABG PCO2 46 mmHg (35-45); ABG PH 7.35 (7.35-7.45); ABG PO2 244 mmHg (83-108); ABG TCO2 26 mmol/L (19-24)
[2017-01-12 16:17] LABS: ABG Base Excess -0.4 mmol/L
[2017-01-12 16:20] LABS: HGB 9.1 gm/dL (13.0-17.5)
[2017-01-12 16:22] LABS: INR 1.3 (<1.2); Partial Thromboplastin Time 27.1 sec (22.0-30.0); Prothrombin Time 13.2 sec (9.0-12.0)
[2017-01-12 16:25] LABS: ALT 45 U/L (21-72); AST 35 U/L (17-59); Alkaline Phosphatase 43 U/L (38-126); Anion Gap 6 mmol/L; Blood Urea Nitrogen 9 mg/dL (9-20); Calcium 8.1 mg/dL (8.4-10.2); Carbon Dioxide 26 mmol/L (22-30); Chloride 105 mmol/L (98-107); Glucose 109 mg/dL (74-99); Magnesium 2.6 mg/dL (1.6-2.3); Non-African American GFR(MDRD) >60 (>60 ml/min/1.73 sqM); Potassium 4.3 mmol/L (3.5-5.1); Sodium 137 mmol/L (137-145); Total Bilirubin 0.7 mg/dL (0.2-1.3); Total Protein 4.9 g/dL (6.3-8.2)
[2017-01-12 16:30] LABS: Glucose,Whole Blood 119 mg/dL (75-99)
--- NOTE | 2017-01-12 16:32 | XR ---
EXAMINATION TYPE: XR chest 1V portable DATE OF EXAM: 01/12/2017 COMPARISON: 01/08/2017 HISTORY: Postop cardiac surgery TECHNIQUE: Single frontal view of the chest is obtained. FINDINGS: Scattered multifocal opacities may relate to postoperative atelectasis. Endotracheal tube is seen appropriately placed at the level of the thoracic cord. Intact midline sternotomy clips are s een as well as right [place]Rasheed catheter terminating in the pulmonary outflow tract. Enteric tube is a lso been inserted in the interim with the radiopaque fenestrated portion beyond the [id number] passed the gastroesophageal junction. Left thoracostomy tube terminates in the left upper lobe. C ardiomegaly is again redemonstrated with mediastinal clips. Midline mediastinal drain is seen. IMPRESSION: 1. Postoperative changes from cardiac surgery. 2. Appropriately placed enteric and endotracheal tubes as well as right [place]-Rasheed catheter with multi focal patchy opacities, new from the prior likely representing multifocal atelectasis.
[2017-01-12 16:46] LABS: Ionized Calcium 5.1 mg/dL (4.5-5.3)
--- NOTE | 2017-01-12 16:59 | P.PN ---
Subjective This is a 71-year-old male who presented to the emergency department complaining of chest discomfort. The patient apparently also had a pressure- like sensation which radiated up towards his neck. He had some nausea. No diaphoresis. No shortness of breath. He's had previous similar situations. The patient tells me he was evaluated by cardiology had a catheterization was found have coronary artery disease and apparently Dr. Reza is planning to do bypass surgery on Wednesday. The patient has no known history of any lung disease. He did have spirometry. Not been able to yet to find it. He did smoke for about 15 years at less than one pack a day. It's unlikely that that was his true smoking history, that he would have substantial chronic lung disease. Still waiting though to see the spirometry myself. He has no known ALLERGIES. He apparently has no past medical history. He did have a hernia repair in the past. He apparently was on no medications at home on a regular basis. On 01/11/2017 the patient is resting comfortably in bed. No chest pain. No shortness of breath. No angina. Hemodynamically stable. The patient is awaiting cardiac bypass surgery to be done tomorrow. Meanwhile, he tells me that he is a nonsmoker. No respiratory distress at all prior to this cardiac event. He was able to climb a flight of stairs without any major difficulties. He does not utilize any form of respiratory medications or inhalers on outpatient basis. Most of any childhood asthma. No DVT. No pulmonary embolism. No sleep apnea. The chest x-ray showed no evidence of any cardiopulmonary abnormalities. Seen again today 01/12/2017 in follow-up immediately postoperative following his open-heart surgery performed by Dr. Reza. He received a BROWN to the LAD, saphenous vein grafts to the OM, diagonal and PDA. He remains intubated and on the mechanical ventilator at settings of SIMV of 12, tidal volume 500, FiO2 100 % and PEEP of 5. Her blood gases reveal a pO2 of 244, pCO2 of 46 and a pH of 7.35. Chest x-ray reveals appropriately placed endotracheal and gastric tubes. There is some mild patchy atelectasis. He is sedated on propofol at 25 mcg/kg/ m. He is a nitroglycerin drip at 5 mcg/m, lactated Ringer's at 50 MLS per hour , insulin drip at 0.5 units per hour. He is currently in normal sinus rhythm. He has backup pacing at 80. Current blood pressure running in the 110's over the 50's, PA pressures 30s over the 20s with a mean of 30. Cardiac output 2.4 with cardiac index of 5.4. His sternal dressing is dry and intact. He has mediastinal split chest tubes 2 and a left pleural chest tube with minimal drainage. Urine output is adequate. Objective - Vital Signs Vital signs: Vital Signs Temp 97.6 F 01/12/17 06:38 Pulse 79 01/12/17 06:38 Resp 16 01/12/17 06:38 BP 109/68 01/12/17 06:38 Pulse Ox 95 01/12/17 06:38 Intake & Output 01/11/17 01/12/17 01/12/17 18:59 06:59 18:59 Intake Total 207.317 7337.4 63 Output Total 1100 1240 Balance 146.417 266.4 -1177 Weight 110.4 kg Intake: IV 1366.4 63 Heparin Sodium,Porcine/ 411.4 D5w Pmx 25,000 unit In Dextrose/Water 1 500ml. bag @ 9.586 UNITS/KG/HR 20 mls/hr IV .Q24H VENU Rx #:[id number] Nitroglycerin-D5w Pmx 50 30 mg In Dextrose/Water 1 250ml.bag @ 5 MCG/MIN 1.5 mls/hr IV .Q24H PRN Rx#: [id number] Sodium Chloride 0.9% 1, 900 000 ml @ 75 mls/hr IV . [id number] VENU Rx#:[id number] Intake, IV Titration 21.417 Amount Nitroglycerin-D5w Pmx 50 21.417 mg In Dextrose/Water 1 250ml.bag @ 5 MCG/MIN 1.5 mls/hr IV .Q24H VENU Rx#: [id number] Oral 125 Output: Urine 1100 540 Estimated Blood Loss 700 Other: Voiding Method Urinal # Voids 400 - Exam GENERAL EXAM: Sedated, intubated. HEAD: Normocephalic. EYES: Normal reaction of pupils, equal size. NOSE: Clear with pink turbinates. THROAT: Oral endotracheal and gastric tube secured in place.. NECK: Right-sided [place]-Rasheed catheter in place. No masses, no JVD. CHEST: Sternal dressing dry and intact. Split mediastinal chest tubes in place, left pleural chest tube. LUNGS: Equal air entry with no crackles, wheeze, rhonchi or dullness. CVS: S1 and S2 normal with no audible murmurs, regular rhythm. ABDOMEN: No hepatosplenomegaly, bowel sounds, no guarding or rigidity. SPINE: No scoliosis or deformity SKIN: No rashes CENTRAL NERVOUS SYSTEM: Sedated, intubated. Extremities: There is trace peripheral edema. There is VERO wrapped bilateral lower extremities was sequential compression devices in place. Peripheral pulses are intact. - Labs CBC & Chem 7: 01/12/17 16:00 01/12/17 16:00 Labs: Abnormal Lab Results - Last 24 Hours (Table) 01/09/17 01/11/17 01/12/17 Range/Units 15:18 22:05 08:42 RBC (4.30-5.90) m/uL Hgb (13.0-17.5) gm/dL Hct (39.0-53.0) % Plt Count (150-450) k/uL PT (9.0-12.0) sec INR (<1.2) APTT 62.4 H (22.0-30.0) sec ABG pCO2 (35-45) mmHg ABG pO2 (83-108) mmHg ABG Total CO2 (19-24) mmol/L ABG O2 Saturation (94-97) % Glucose (74-99) mg/dL POC Glucose (mg/dL) 108 H (75-99) mg/dL Calcium (8.4-10.2) mg/dL Magnesium (1.6-2.3) mg/dL Total Protein (6.3-8.2) g/dL Albumin (3.5-5.0) g/dL Crossmatch See Detail 01/12/17 01/12/17 01/12/17 Range/Units 10:16 11:13 11:44 RBC (4.30-5.90) m/uL Hgb (13.0-17.5) gm/dL Hct (39.0-53.0) % Plt Count (150-450) k/uL PT (9.0-12.0) sec INR (<1.2) APTT (22.0-30.0) sec ABG pCO2 (35-45) mmHg ABG pO2 (83-108) mmHg ABG Total CO2 (19-24) mmol/L ABG O2 Saturation (94-97) % Glucose (74-99) mg/dL POC Glucose (mg/dL) 108 H 175 H 177 H (75-99) mg/dL Calcium (8.4-10.2) mg/dL Magnesium (1.6-2.3) mg/dL Total Protein (6.3-8.2) g/dL Albumin (3.5-5.0) g/dL Crossmatch 01/12/17 01/12/17 01/12/17 Range/Units 12:17 12:53 13:24 RBC (4.30-5.90) m/uL Hgb (13.0-17.5) gm/dL Hct (39.0-53.0) % Plt Count (150-450) k/uL PT (9.0-12.0) sec INR (<1.2) APTT (22.0-30.0) sec ABG pCO2 (35-45) mmHg ABG pO2 (83-108) mmHg ABG Total CO2 (19-24) mmol/L ABG O2 Saturation (94-97) % Glucose (74-99) mg/dL POC Glucose (mg/dL) 208 H 224 H 213 H (75-99) mg/dL Calcium (8.4-10.2) mg/dL Magnesium (1.6-2.3) mg/dL Total Protein (6.3-8.2) g/dL Albumin (3.5-5.0) g/dL Crossmatch 01/12/17 01/12/17 01/12/17 Range/Units 14:26 15:49 16:00 RBC 2.84 L (4.30-5.90) m/uL Hgb 9.1 L D (13.0-17.5) gm/dL Hct 27.5 L (39.0-53.0) % Plt Count 102 L (150-450) k/uL PT (9.0-12.0) sec INR (<1.2) APTT (22.0-30.0) sec ABG pCO2 (35-45) mmHg ABG pO2 (83-108) mmHg ABG Total CO2 (19-24) mmol/L ABG O2 Saturation (94-97) % Glucose (74-99) mg/dL POC Glucose (mg/dL) 164 H 123 H (75-99) mg/dL Calcium (8.4-10.2) mg/dL Magnesium (1.6-2.3) mg/dL Total Protein (6.3-8.2) g/dL Albumin (3.5-5.0) g/dL Crossmatch 01/12/17 01/12/17 01/12/17 Range/Units 16:00 16:00 16:07 RBC (4.30-5.90) m/uL Hgb (13.0-17.5) gm/dL Hct (39.0-53.0) % Plt Count (150-450) k/uL PT 13.2 H (9.0-12.0) sec INR 1.3 H (<1.2) APTT (22.0-30.0) sec ABG pCO2 46 H (35-45) mmHg ABG pO2 244 H (83-108) mmHg ABG Total CO2 26 H (19-24) mmol/L ABG O2 Saturation 100.0 H (94-97) % Glucose 109 H (74-99) mg/dL POC Glucose (mg/dL) (75-99) mg/dL Calcium 8.1 L (8.4-10.2) mg/dL Magnesium 2.6 H (1.6-2.3) mg/dL Total Protein 4.9 L (6.3-8.2) g/dL Albumin 2.7 L (3.5-5.0) g/dL Crossmatch Microbiology - Last 24 Hours (Table) 01/10/17 02:38 Urine Culture - Final Urine,Clean Catch Assessment and Plan Plan: Impression: #1 Multiple vessel coronary artery disease status post coronary artery bypass grafting utilizing a BROWN to the LAD, saphenous vein grafts to the OM, diagonal and PDA. This is postoperative day #0. #2 Mechanical ventilatory support as and expected outcome of thoracotomy #3 Acute non-ST segment elevation myocardial infarction. Preserved left ventricular systolic function with estimated ejection fraction 55-60%. #4 Obesity, BMI 33. #5 Osteoarthritis. #6 Hyperlipidemia. #7 Right index finger infection/wound. Plan: The patient was seen and evaluated by Dr. Calderon. His chest x-ray, ABGs and labs were all reviewed. We will continue with the rapid extubation protocol. His FiO2 is dropped to 40%. Will continue with bronchodilators every 4 hours. He remains on cefazolin 2 g every 8 hours. He is on heparin subcutaneous and SCDs for DVT prophylaxis. Protonix for GI prophylaxis. We will repeat his chest x-ray and labs in the a.m. We will continue to follow and make further recommendations based on his clinical status. Critical care time 36 minutes.
[2017-01-12 17:12] LABS: Glucose,Whole Blood 113 mg/dL (75-99)
[2017-01-12] MEDS: CLEVIDIPINE BUTYRATE 25 MG in EMPTY BAG 1 BAG IV SCH (17:55)
[2017-01-12] MEDS: ACETAMINOPHEN IV (For NPO) 1,000 MG in EMPTY BAG 1 BAG IVPB SCH ×2 (18:05→18:43)
[2017-01-12 18:14] LABS: Glucose,Whole Blood 107 mg/dL (75-99)
[2017-01-12 18:24] LABS: Basophils % (A) 0 %; CH 32.3; CHCM 33.7; Eosinophils # (A) 0.1 k/uL (0-0.7); Eosinophils % (A) 1 %; HCT 29.4 % (39.0-53.0); HDW 2.55; HGB 9.5 gm/dL (13.0-17.5); Luc % (Auto) 1; Lymphocytes # (A) 1.2 k/uL (1.0-4.8); Lymphocytes % (A) 17 %; MCHC 32.2 g/dL (31.0-37.0); MCV 96.2 fL (80.0-100.0); Mean Platelet Volume 7.4; Monocytes # (A) 0.3 k/uL (0-1.0); Monocytes % (A) 4 %; Neutrophils # (A) 5.6 k/uL (1.3-7.7); Neutrophils % (A) 77 %; RBC 3.05 m/uL (4.30-5.90); RDW 13.1 % (11.5-15.5); WBC 7.3 k/uL (3.8-10.6); WBC (Perox) 7.19
[2017-01-12 19:25] LABS: Glucose,Whole Blood 103 mg/dL (75-99)
[2017-01-12 20:16] LABS: Glucose,Whole Blood 108 mg/dL (75-99)
--- NOTE | 2017-01-12 20:34 | P.PN ---
Progress Note - Text DATE OF SERVICE: 01/12/2017 PRESENTING COMPLAINT: Chest pain HISTORY OF PRESENT ILLNESS: 71-year-old male who woke up with chest pain associated heaviness no shortness of breath perspiration or dizziness although felt tired and rundown. First troponins, negative. Subsequent troponins positive, secondary episode of chest pain, taken to the cardiac Supply Controller, found to have triple-vessel disease. Now status post coronary artery bypass grafting 4 with a BROWN to the LAD, saphenous vein graft to the OM, diagonal and PDA. INTERVAL HISTORY: 01/12/2017: Patient seen in follow-up in the ICU from open heart surgery, CABG 4 as above. Remains intubated on the mechanical ventilator on assist control volume control rate of 18 tidal volume of 500 FiO2 of 35%. Drips include nitroglycerin at 5 g a minute, lactated Ringer's at 50 mils liters an hour propofol at 35 mcg/kg/min, insulin at 0.5 units per hour, normal sinus rhythm on the monitor, back up pacing at 80. Chest tubes in place with mediastinal split chest tube 2 and a left pleural chest tube both with minimal drainage. Baez catheter in place with urine output beginning to dwindle. 01/11/2017: Patient seen in follow-up, no further episodes of chest pain nitro drip continues. Preop testing completed coronary artery bypass grafting surgery tomorrow. at the bedside with patient. Patient is anxious appearing, tolerating his diet, ambulatory in the room and davison ways, utilizing his incentive spirometer. Last BM on 01/10/2017. 01/10/2017: Patient seen in follow-up, had another episode of chest pain today, nitro drip started. No chest pain at this time, nitro drip continues. Preop testing continues, patient will tentatively be scheduled for coronary artery bypass grafting surgery on Wednesday. Sitting up at the bedside, anxious appearing, voiced concerns about surgery, states he is afraid. Reassurance provided. Patient's tolerating his diet, ambulatory in the room and davison ways, last BM . 01/09/2017: Patient had an episode of chest pain overnight, troponins positive, was taken to the prosthetic lab technician this morning, found to have triple-vessel disease. Surgery is tentatively scheduled for Wednesday. Sitting up the bedside, eating his lunch, Pressure device noted to right radial artery. General questions answered. REVIEW OF SYSTEMS: Unable to complete due to patient's current condition, sedated and intubated. CURRENT MEDICATIONS Calcium chloride, ceftezole, Xanax, clevidipine, diltiazem, heparin, Bactroban nitroglycerin IV, Levophed, phenylephrine, propofol, nitroglycerin PHYSICAL EXAM VITAL SIGNS: Pulse 92, respiratory rate 18, arterial blood pressure 117/61, PA pressures 40/ 27 oxygen saturation 98% on mechanical ventilation and FiO2 of 35% GENERAL APPEARANCE: Lying in the bed, on mechanical ventilation appears comfortable, beginning to wake up EYES: Pupils equal. Conjunctiva normal. NECK: JVD unable to assess Mass not palpable. Right internal jugular pulmonary artery catheter in place, 2 mediastinal chest tubes and a left pleural chest tube in place minimal drainage RESPIRATORY: ET tube in place per chest x-ray. Mechanical ventilation settings as above Lungs clear to auscultation. CARDIOVASCULAR: First and second sounds normal. No edema. ABDOMEN: Soft. Liver and spleen not palpable. No tenderness. No guarding or rigidity No mass palpable. GENITOURINARY: Baez catheter in place during clear yellow urine PSYCHIATRY: Unable to assess patient is currently sedated. INTEGUMENT: Midline chest wall incision with surgical dressing in place INVESTIGATIONS: Hemoglobin 9.5, PT 1.3, arterial blood gas: 7.35/46/244/26. Base excess -4 ASSESSMENT: -Coronary artery disease with triple-vessel disease, including post-NH angina, status post coronary artery bypass grafting 4 -Mechanically assisted ventilation as an expected outcome of thoracotomy secondary to coronary artery bypass grafting surgery -Acute blood loss anemia as expected from open heart surgery -Acute non- Q wave myocardial infarction with cardiac cath showing triple- vessel coronary artery disease. -Obesity BMI 33.0 -Hyperlipidemia -Primary osteoarthritis of left hip pending outpatient surgery -Acute cellulitis of the right index finger proximal part being treated with ciprofloxacin from outpatient PLAN: Patient is on the rapid extubation protocol will continue on bronchodilators and IV antibiotics and heparin subcutaneously for DVT prophylaxis. Protonix for GI prophylaxis. No family at the bedside deferred discussion of the plan of care. We will continue to monitor closely. ROLL FILLER statement: Patient was seen and examined by nurse practitioner Yesi Jeffers and all elements of the case discussed with attending Dr. Lundberg
[2017-01-12 21:03] LABS: Glucose,Whole Blood 102 mg/dL (75-99)
[2017-01-12 21:04] LABS: Basophils % (A) 0 %; CHCM 33.4; Eosinophils # (A) 0.1 k/uL (0-0.7); Eosinophils % (A) 1 %; HCT 23.5 % (39.0-53.0); HDW 2.69; Luc # (Auto) 0.09; Luc % (Auto) 2; Lymphocytes # (A) 0.8 k/uL (1.0-4.8); Lymphocytes % (A) 15 %; MCH 31.3 pg (25.0-35.0); MCHC 33.6 g/dL (31.0-37.0); MCV 93.2 fL (80.0-100.0); Mean Platelet Volume 6.9; Monocytes # (A) 0.2 k/uL (0-1.0); Monocytes % (A) 4 %; Neutrophils % (A) 78 %; RBC 2.52 m/uL (4.30-5.90); RDW 12.7 % (11.5-15.5); WBC 5.1 k/uL (3.8-10.6); WBC (Perox) 4.92
[2017-01-12 21:18] LABS: HGB 7.9 gm/dL (13.0-17.5)
[2017-01-12 21:20] LABS: ALT 51 U/L (21-72); AST 47 U/L (17-59); Alkaline Phosphatase 48 U/L (38-126); Anion Gap 7 mmol/L; Blood Urea Nitrogen 10 mg/dL (9-20); Calcium 8.1 mg/dL (8.4-10.2); Carbon Dioxide 24 mmol/L (22-30); Chloride 105 mmol/L (98-107); Glucose 98 mg/dL (74-99); INR 1.3 (<1.2); Magnesium 2.3 mg/dL (1.6-2.3); Non-African American GFR(MDRD) >60 (>60 ml/min/1.73 sqM); Partial Thromboplastin Time 26.8 sec (22.0-30.0); Potassium 4.6 mmol/L (3.5-5.1); Prothrombin Time 12.5 sec (9.0-12.0); Sodium 136 mmol/L (137-145); Total Bilirubin 0.7 mg/dL (0.2-1.3); Total Protein 5.3 g/dL (6.3-8.2)
[2017-01-12 21:40] LABS: Manual Review Performed; Polychromasia Present
[2017-01-12 21:41] LABS: Ovalocytes Present
[2017-01-12 22:04] LABS: Glucose,Whole Blood 113 mg/dL (75-99)
[2017-01-12] MEDS: HEPARIN SODIUM,PORCINE 5,000 UNIT/ML 1 ML VIAL SQ SCH (22:39)
[2017-01-12 23:05] LABS: Glucose,Whole Blood 95 mg/dL (75-99)
[2017-01-13] MEDS: ceFAZolin 2 GM in SODIUM CHLORIDE 0.9% 100 ML IVPB SCH ×2 (00:03→09:42)
[2017-01-13 00:07] LABS: Glucose,Whole Blood 104 mg/dL (75-99)
[2017-01-13] MEDS: IPRATROPIUM-ALBUTEROL 3 ML NEB INHALATION SCH ×3 (00:08→11:47)
[2017-01-13] MEDS ORDERED: ACETAMINOPHEN IV (For NPO) 1,000 MG in EMPTY BAG 1 BAG IVPB ONE (00:28)
[2017-01-13] MEDS: PROPOFOL 1,000 MG/100 ML VIAL IV SCH (00:29)
[2017-01-13 01:31] LABS: Glucose,Whole Blood 118 mg/dL (75-99)
[2017-01-13 02:02] LABS: Glucose,Whole Blood 128 mg/dL (75-99)
[2017-01-13 03:09] LABS: Glucose,Whole Blood 129 mg/dL (75-99)
[2017-01-13 03:58] LABS: Glucose,Whole Blood 131 mg/dL (75-99)
[2017-01-13 04:46] LABS: Basophils % (A) 0 %; CHCM 33.6; Eosinophils % (A) 0 %; HCT 26.8 % (39.0-53.0); HDW 2.62; Luc % (Auto) 1; Lymphocytes # (A) 1.2 k/uL (1.0-4.8); Lymphocytes % (A) 17 %; MCH 31.3 pg (25.0-35.0); MCHC 33.8 g/dL (31.0-37.0); MCV 92.7 fL (80.0-100.0); Mean Platelet Volume 7.2; Monocytes # (A) 0.3 k/uL (0-1.0); Monocytes % (A) 4 %; Neutrophils # (A) 5.4 k/uL (1.3-7.7); Neutrophils % (A) 78 %; RBC 2.89 m/uL (4.30-5.90); RDW 12.7 % (11.5-15.5); WBC (Perox) 6.93
[2017-01-13 05:05] LABS: ABG Base Excess -0.4 mmol/L; ABG HCO3 24 mmol/L (21-25); ABG PCO2 38 mmHg (35-45); ABG PH 7.41 (7.35-7.45); ABG PO2 73 mmHg (83-108)
[2017-01-13 05:10] LABS: Ionized Calcium 4.7 mg/dL (4.5-5.3)
[2017-01-13 05:19] LABS: ALT 44 U/L (21-72); AST 55 U/L (17-59); Alkaline Phosphatase 48 U/L (38-126); Anion Gap 9 mmol/L; Blood Urea Nitrogen 11 mg/dL (9-20); Calcium 7.9 mg/dL (8.4-10.2); Carbon Dioxide 24 mmol/L (22-30); Chloride 105 mmol/L (98-107); Glucose 120 mg/dL (74-99); Magnesium 2.1 mg/dL (1.6-2.3); Non-African American GFR(MDRD) >60 (>60 ml/min/1.73 sqM); Potassium 4.3 mmol/L (3.5-5.1); Sodium 138 mmol/L (137-145); Total Bilirubin 0.5 mg/dL (0.2-1.3); Total Protein 5.1 g/dL (6.3-8.2)
[2017-01-13 05:25] LABS: INR 1.3 (<1.2); Prothrombin Time 13.1 sec (9.0-12.0)
[2017-01-13 05:50] LABS: Glucose,Whole Blood 129 mg/dL (75-99)
[2017-01-13] MEDS: ACETAMINOPHEN IV (For NPO) 1,000 MG in EMPTY BAG 1 BAG IVPB SCH ×2 (06:06→11:22)
[2017-01-13 07:06] LABS: Glucose,Whole Blood 122 mg/dL (75-99)
--- NOTE | 2017-01-13 07:21 | XR ---
EXAMINATION TYPE: XR chest 1V portable DATE OF EXAM: 01/13/2017 COMPARISON: NONE HISTORY: Postoperative cardiac surgery. TECHNIQUE: Single frontal view of the chest is obtained. FINDINGS: There is improved aeration of both lungs in the interim. Endotracheal tube, [place]-Rasheed cath eter, mediastinal drains, enteric tube, and left thoracostomy tube are unchanged. Postoperative page es of the chest are redemonstrated. Right lung is well aerated with low lung volume. Few patchy opaci ties remain within the left lung most consolidated within the left lower lung along the left ventricu lar border. Costophrenic angles not well demarcated but may relate to overlying soft tissues and low lung volumes. Cardia mediastinal silhouette is unchanged. IMPRESSION: Improved aeration of both lungs, representing resolving multifocal atelectasis, with sta ble lines and tubes.
[2017-01-13 08:02] LABS: Glucose,Whole Blood 126 mg/dL (75-99)
[2017-01-13 08:39] LABS: ABG Base Excess 0.4 mmol/L; ABG HCO3 24 mmol/L (21-25); ABG Hematocrit 33 % (34.0-46.0); ABG Oxygen Saturation 99.7 % (94-97); ABG PCO2 37 mmHg (35-45); ABG PH 7.43 (7.35-7.45); ABG PO2 199 mmHg (83-108); ABG TCO2 25 mmol/L (19-24)
[2017-01-13 08:40] LABS: ABG Base Excess -0.5 mmol/L; ABG HCO3 24 mmol/L (21-25); ABG Hematocrit 31 % (34.0-46.0); ABG Oxygen Saturation 99.6 % (94-97); ABG PCO2 40 mmHg (35-45); ABG PO2 180 mmHg (83-108); ABG TCO2 25 mmol/L (19-24)
[2017-01-13 08:41] LABS: ABG Base Excess 1.6 mmol/L; ABG HCO3 25 mmol/L (21-25); ABG Hematocrit 25 % (34.0-46.0); ABG Oxygen Saturation 99.9 % (94-97); ABG PCO2 38 mmHg (35-45); ABG PH 7.44 (7.35-7.45); ABG PO2 308 mmHg (83-108); ABG TCO2 27 mmol/L (19-24)
[2017-01-13 08:42] LABS: ABG Base Excess 0.6 mmol/L; ABG HCO3 26 mmol/L (21-25); ABG Hematocrit 29 % (34.0-46.0); ABG Oxygen Saturation 99.7 % (94-97); ABG PCO2 49 mmHg (35-45); ABG PH 7.34 (7.35-7.45); ABG PO2 210 mmHg (83-108); ABG TCO2 28 mmol/L (19-24)
[2017-01-13 08:43] LABS: ABG Base Excess 0.2 mmol/L; ABG HCO3 25 mmol/L (21-25); ABG Hematocrit 31 % (34.0-46.0); ABG Oxygen Saturation 99.8 % (94-97); ABG PCO2 45 mmHg (35-45); ABG PH 7.36 (7.35-7.45); ABG PO2 249 mmHg (83-108); ABG TCO2 27 mmol/L (19-24)
[2017-01-13 08:44] LABS: ABG Base Excess -0.3 mmol/L; ABG HCO3 25 mmol/L (21-25); ABG Hematocrit 31 % (34.0-46.0); ABG Oxygen Saturation 99.9 % (94-97); ABG PCO2 49 mmHg (35-45); ABG PH 7.33 (7.35-7.45); ABG PO2 275 mmHg (83-108); ABG TCO2 27 mmol/L (19-24)
[2017-01-13 08:45] LABS: ABG Base Excess -0.7 mmol/L; ABG HCO3 25 mmol/L (21-25); ABG Hematocrit 29 % (34.0-46.0); ABG Oxygen Saturation 99.9 % (94-97); ABG PCO2 50 mmHg (35-45); ABG PH 7.32 (7.35-7.45); ABG PO2 274 mmHg (83-108); ABG TCO2 27 mmol/L (19-24)
[2017-01-13 08:46] LABS: ABG Base Excess -0.2 mmol/L; ABG HCO3 23 mmol/L (21-25); ABG PCO2 35 mmHg (35-45); ABG PH 7.43 (7.35-7.45); ABG PO2 105 mmHg (83-108); ABG TCO2 24 mmol/L (19-24)
[2017-01-13 08:47] LABS: ABG Hematocrit 33 % (34.0-46.0); ABG Oxygen Saturation 98.3 % (94-97)
[2017-01-13 08:53] LABS: Glucose,Whole Blood 125 mg/dL (75-99)
[2017-01-13 09:13] LABS: ABG HCO3 25 mmol/L (21-25); ABG PCO2 37 mmHg (35-45); ABG PH 7.44 (7.35-7.45); ABG PO2 65 mmHg (83-108)
[2017-01-13 09:14] LABS: ABG Oxygen Saturation 95.2 % (94-97)
[2017-01-13] MEDS: HEPARIN SODIUM,PORCINE 5,000 UNIT/ML 1 ML VIAL SQ SCH ×2 (09:27→16:41)
[2017-01-13] MEDS: PANTOPRAZOLE 40 MG/10 ML VIAL IVP SCH (09:30)
[2017-01-13] MEDS: MUPIROCIN 2% OINT 22 GM TUBE NASAL SCH ×2 (09:35→20:26)
[2017-01-13] MEDS: MORPHINE SULFATE 2 MG/ML SYRINGE IVP PRN ×3 (09:40→13:58)
--- NOTE | 2017-01-13 10:44 | P.PN ---
<Prashanth Rae - Last Filed: 01/13/17 10:25> Subjective Principal diagnosis: Non-STEMI this admission, coronary artery disease, unstable angina, hyperlipidemia, dermatitis right hand index finger. POD #1, urgent coronary artery bypass grafting 4, placement of his left internal mammary artery to his mid left anterior descending coronary artery, a reverse greater saphenous vein graft placed to his posterior descending coronary artery, a reverse greater saphenous vein graft placed to his diagonal coronary artery with a sequential T graft off the diagonal bypass placed to his obtuse marginal coronary artery. Sternal plating. Endoscopic vein harvest of his right greater saphenous vein, intraoperative transesophageal echocardiogram and epi-aortic scanning. The patient is awake and alert, remains intubated with mechanical ventilator support. Weaning trial in progress. All sedation is on hold at this time. He is following verbal commands and moving all 4 extremities appropriately. No acute distress. Objective - Vital Signs Vital signs: Vital Signs Temp 97.6 F 01/12/17 06:38 Pulse 83 01/13/17 10:00 Resp 27 H 01/13/17 10:00 BP 109/68 01/12/17 06:38 Pulse Ox 92 L 01/13/17 10:00 Intake & Output 01/12/17 01/13/17 01/13/17 18:59 06:59 18:59 Intake Total 3210.277 4461.265 299.5 Output Total 1625 1019 190 Balance -575.291 268.265 109.5 Weight 115.3 kg Intake: IV 984.5 1226.0 299.5 ACETAMINOPHEN IV (For NPO 100 100 ) 1,000 mg In Empty Bag 1 bag @ 400 mls/hr IVPB Q6HR VENU Rx#:[id number] Albumin Human 5% 500 ml 500 In Empty Bag 1 bag @ 250 mls/hr IVPB ONCE PRN Rx#: [id number] Cardiac Output 40 300 30 Lactated Ringers 1,000 ml 150 600 150 @ 50 mls/hr IV .Q20H VENU Rx#:[id number] Nitroglycerin-D5w Pmx 50 4.5 18.0 10.5 mg In Dextrose/Water 1 250ml.bag @ 5 MCG/MIN 1.5 mls/hr IV .Q24H PRN Rx#: [id number] Pressure Bag 27 108 9 ceFAZolin 2 gm In Sodium 100 100 100 Chloride 0.9% 100 ml @ 100 mls/hr IVPB Q8HR VENU Rx#:[id number] Intake, IV Titration 65.209 61.265 Amount Insulin Regular 100 unit 0.625 0.567 In Sodium Chloride 0.9% 100 ml @ Per Protocol IV .Q0M VENU Rx#:[id number] Propofol 1,000 mg In 100 64.584 60.698 ml @ Titrate IV .Q0M VENU Rx#:[id number] Output: Chest Tube Drainage 151 241 30 Bilateral Mediastinal 121 178 25 Left Lateral Chest 30 63 5 Gastric Drainage 230 Urine 774 548 160 Stool 0 Estimated Blood Loss 700 Other: Voiding Method Indwelling Catheter Indwelling Catheter Indwelling Catheter ABP, PAP, CO, CI - Last Documented Arterial Blood Pressure 129/57 Pulmonary Artery Pressure 29/15 Cardiac Output 6.4 Cardiac Index 2.3 - Constitutional General appearance: Present: cooperative, no acute distress, obese - EENT Eyes: Present: PERRLA, normal appearance ENT: Present: hearing grossly normal - Neck Details: No JVD, no lymphadenopathy. Right IJ Cordis with [place]-Rasheed catheter in place. Current cardiac output is 6.4, cardiac index 2.8, PA pressures are 32/20, CVP is 13. - Respiratory Details: Lungs sounds are essentially clear to his upper lobes, diminished to his bilateral bases. Respirations are symmetrical and and labored with mechanical and later support. Oxygen saturations are 95% with mechanical ventilator support. - Cardiovascular Details: Regular rhythm and rate. S1 and S2 present, negative for S3, gallop or murmur. No edema present. Bedside telemetry showing normal sinus rhythm heart rate 82. Heart hugger in place. Sternum is stable. Duane wraps in place from toes to thighs and sequential compression devices in place to his bilateral lower extremities. - Gastrointestinal Gastrointestinal Comment(s): Abdomen is soft, nontender and nondistended. Positive bowel sounds to all 4 abdominal quadrants. OG tube in place to low intermittent wall suction. - Genitourinary Genitourinary Comment(s): Adequate urine output clear yellow urine. Baez catheter for accurate I&O. - Integumentary Integumentary Comment(s): The sternal incision clean dry and well approximated. No drainage noted. Dermabond dressing dry and intact. Right leg EVH site clean dry and well approximated. No drainage noted. - Neurologic Neurologic Comment(s): No focal deficits. Neurologic: Present: CNII-XII intact - Musculoskeletal Musculoskeletal: Present: strength equal bilaterally - Psychiatric Psychiatric: Present: appropriate affect - Allied health notes Allied health notes reviewed: nursing - Labs CBC & Chem 7: 01/13/17 04:32 01/13/17 04:32 Labs: Abnormal Lab Results - Last 24 Hours (Table) 01/09/17 01/12/17 01/12/17 Range/Units 15:18 08:40 10:16 RBC (4.30-5.90) m/uL Hgb (13.0-17.5) gm/dL Hct (39.0-53.0) % Plt Count (150-450) k/uL Lymphocytes # (1.0-4.8) k/uL PT (9.0-12.0) sec INR (<1.2) ABG pH (7.35-7.45) ABG pCO2 (35-45) mmHg ABG pO2 199 H 180 H (83-108) mmHg ABG HCO3 (21-25) mmol/L ABG Total CO2 25 H 25 H (19-24) mmol/L ABG O2 Saturation 99.7 H 99.6 H (94-97) % ABG Hematocrit 33 L 31 L (34.0-46.0) % ABG Potassium (3.4-4.5) mmol/L Sodium (137-145) mmol/L Glucose (74-99) mg/dL POC Glucose (mg/dL) (75-99) mg/dL Calcium (8.4-10.2) mg/dL Magnesium (1.6-2.3) mg/dL Total Protein (6.3-8.2) g/dL Albumin (3.5-5.0) g/dL Arterial Blood Potassium (3.4-4.5) mmol/L Crossmatch See Detail 01/12/17 01/12/17 01/12/17 Range/Units 11:13 11:13 11:44 RBC (4.30-5.90) m/uL Hgb (13.0-17.5) gm/dL Hct (39.0-53.0) % Plt Count (150-450) k/uL Lymphocytes # (1.0-4.8) k/uL PT (9.0-12.0) sec INR (<1.2) ABG pH (7.35-7.45) ABG pCO2 (35-45) mmHg ABG pO2 308 H (83-108) mmHg ABG HCO3 (21-25) mmol/L ABG Total CO2 27 H (19-24) mmol/L ABG O2 Saturation 99.9 H (94-97) % ABG Hematocrit 25 L (34.0-46.0) % ABG Potassium (3.4-4.5) mmol/L Sodium (137-145) mmol/L Glucose (74-99) mg/dL POC Glucose (mg/dL) 175 H 177 H (75-99) mg/dL Calcium (8.4-10.2) mg/dL Magnesium (1.6-2.3) mg/dL Total Protein (6.3-8.2) g/dL Albumin (3.5-5.0) g/dL Arterial Blood Potassium (3.4-4.5) mmol/L Crossmatch 01/12/17 01/12/17 01/12/17 Range/Units 11:45 12:17 12:17 RBC (4.30-5.90) m/uL Hgb (13.0-17.5) gm/dL Hct (39.0-53.0) % Plt Count (150-450) k/uL Lymphocytes # (1.0-4.8) k/uL PT (9.0-12.0) sec INR (<1.2) ABG pH 7.34 L (7.35-7.45) ABG pCO2 49 H (35-45) mmHg ABG pO2 210 H 249 H (83-108) mmHg ABG HCO3 26 H (21-25) mmol/L ABG Total CO2 28 H 27 H (19-24) mmol/L ABG O2 Saturation 99.7 H 99.8 H (94-97) % ABG Hematocrit 29 L 31 L (34.0-46.0) % ABG Potassium 5.0 H 5.1 H (3.4-4.5) mmol/L Sodium (137-145) mmol/L Glucose (74-99) mg/dL POC Glucose (mg/dL) 208 H (75-99) mg/dL Calcium (8.4-10.2) mg/dL Magnesium (1.6-2.3) mg/dL Total Protein (6.3-8.2) g/dL Albumin (3.5-5.0) g/dL Arterial Blood Potassium 5.0 H 5.1 H (3.4-4.5) mmol/L Crossmatch 01/12/17 01/12/17 01/12/17 Range/Units 12:53 12:53 13:23 RBC (4.30-5.90) m/uL Hgb (13.0-17.5) gm/dL Hct (39.0-53.0) % Plt Count (150-450) k/uL Lymphocytes # (1.0-4.8) k/uL PT (9.0-12.0) sec INR (<1.2) ABG pH 7.33 L 7.32 L (7.35-7.45) ABG pCO2 49 H 50 H (35-45) mmHg ABG pO2 275 H 274 H (83-108) mmHg ABG HCO3 (21-25) mmol/L ABG Total CO2 27 H 27 H (19-24) mmol/L ABG O2 Saturation 99.9 H 99.9 H (94-97) % ABG Hematocrit 31 L 29 L (34.0-46.0) % ABG Potassium 5.2 H 4.9 H (3.4-4.5) mmol/L Sodium (137-145) mmol/L Glucose (74-99) mg/dL POC Glucose (mg/dL) 224 H (75-99) mg/dL Calcium (8.4-10.2) mg/dL Magnesium (1.6-2.3) mg/dL Total Protein (6.3-8.2) g/dL Albumin (3.5-5.0) g/dL Arterial Blood Potassium 5.2 H 4.9 H (3.4-4.5) mmol/L Crossmatch 01/12/17 01/12/17 01/12/17 Range/Units 13:24 14:26 14:26 RBC (4.30-5.90) m/uL Hgb (13.0-17.5) gm/dL Hct (39.0-53.0) % Plt Count (150-450) k/uL Lymphocytes # (1.0-4.8) k/uL PT (9.0-12.0) sec INR (<1.2) ABG pH (7.35-7.45) ABG pCO2 (35-45) mmHg ABG pO2 (83-108) mmHg ABG HCO3 (21-25) mmol/L ABG Total CO2 (19-24) mmol/L ABG O2 Saturation 98.3 H (94-97) % ABG Hematocrit 33 L (34.0-46.0) % ABG Potassium (3.4-4.5) mmol/L Sodium (137-145) mmol/L Glucose (74-99) mg/dL POC Glucose (mg/dL) 213 H 164 H (75-99) mg/dL Calcium (8.4-10.2) mg/dL Magnesium (1.6-2.3) mg/dL Total Protein (6.3-8.2) g/dL Albumin (3.5-5.0) g/dL Arterial Blood Potassium (3.4-4.5) mmol/L Crossmatch 01/12/17 01/12/17 01/12/17 Range/Units 15:49 16:00 16:00 RBC 2.84 L (4.30-5.90) m/uL Hgb 9.1 L D (13.0-17.5) gm/dL Hct 27.5 L (39.0-53.0) % Plt Count 102 L (150-450) k/uL Lymphocytes # (1.0-4.8) k/uL PT (9.0-12.0) sec INR (<1.2) ABG pH (7.35-7.45) ABG pCO2 (35-45) mmHg ABG pO2 (83-108) mmHg ABG HCO3 (21-25) mmol/L ABG Total CO2 (19-24) mmol/L ABG O2 Saturation (94-97) % ABG Hematocrit (34.0-46.0) % ABG Potassium (3.4-4.5) mmol/L Sodium (137-145) mmol/L Glucose 109 H (74-99) mg/dL POC Glucose (mg/dL) 123 H (75-99) mg/dL Calcium 8.1 L (8.4-10.2) mg/dL Magnesium 2.6 H (1.6-2.3) mg/dL Total Protein 4.9 L (6.3-8.2) g/dL Albumin 2.7 L (3.5-5.0) g/dL Arterial Blood Potassium (3.4-4.5) mmol/L Crossmatch 01/12/17 01/12/17 01/12/17 Range/Units 16:00 16:07 16:28 RBC (4.30-5.90) m/uL Hgb (13.0-17.5) gm/dL Hct (39.0-53.0) % Plt Count (150-450) k/uL Lymphocytes # (1.0-4.8) k/uL PT 13.2 H (9.0-12.0) sec INR 1.3 H (<1.2) ABG pH (7.35-7.45) ABG pCO2 46 H (35-45) mmHg ABG pO2 244 H (83-108) mmHg ABG HCO3 (21-25) mmol/L ABG Total CO2 26 H (19-24) mmol/L ABG O2 Saturation 100.0 H (94-97) % ABG Hematocrit (34.0-46.0) % ABG Potassium (3.4-4.5) mmol/L Sodium (137-145) mmol/L Glucose (74-99) mg/dL POC Glucose (mg/dL) 119 H (75-99) mg/dL Calcium (8.4-10.2) mg/dL Magnesium (1.6-2.3) mg/dL Total Protein (6.3-8.2) g/dL Albumin (3.5-5.0) g/dL Arterial Blood Potassium (3.4-4.5) mmol/L Crossmatch 01/12/17 01/12/17 01/12/17 Range/Units 17:10 18:12 18:15 RBC 3.05 L (4.30-5.90) m/uL Hgb 9.5 L (13.0-17.5) gm/dL Hct 29.4 L (39.0-53.0) % Plt Count 113 L (150-450) k/uL Lymphocytes # (1.0-4.8) k/uL PT (9.0-12.0) sec INR (<1.2) ABG pH (7.35-7.45) ABG pCO2 (35-45) mmHg ABG pO2 (83-108) mmHg ABG HCO3 (21-25) mmol/L ABG Total CO2 (19-24) mmol/L ABG O2 Saturation (94-97) % ABG Hematocrit (34.0-46.0) % ABG Potassium (3.4-4.5) mmol/L Sodium (137-145) mmol/L Glucose (74-99) mg/dL POC Glucose (mg/dL) 113 H 107 H (75-99) mg/dL Calcium (8.4-10.2) mg/dL Magnesium (1.6-2.3) mg/dL Total Protein (6.3-8.2) g/dL Albumin (3.5-5.0) g/dL Arterial Blood Potassium (3.4-4.5) mmol/L Crossmatch 01/12/17 01/12/17 01/12/17 Range/Units 19:05 20:13 20:55 RBC (4.30-5.90) m/uL Hgb (13.0-17.5) gm/dL Hct (39.0-53.0) % Plt Count (150-450) k/uL Lymphocytes # (1.0-4.8) k/uL PT 12.5 H (9.0-12.0) sec INR 1.3 H (<1.2) ABG pH (7.35-7.45) ABG pCO2 (35-45) mmHg ABG pO2 (83-108) mmHg ABG HCO3 (21-25) mmol/L ABG Total CO2 (19-24) mmol/L ABG O2 Saturation (94-97) % ABG Hematocrit (34.0-46.0) % ABG Potassium (3.4-4.5) mmol/L Sodium (137-145) mmol/L Glucose (74-99) mg/dL POC Glucose (mg/dL) 103 H 108 H (75-99) mg/dL Calcium (8.4-10.2) mg/dL Magnesium (1.6-2.3) mg/dL Total Protein (6.3-8.2) g/dL Albumin (3.5-5.0) g/dL Arterial Blood Potassium (3.4-4.5) mmol/L Crossmatch 01/12/17 01/12/17 01/12/17 Range/Units 20:55 20:55 20:56 RBC 2.52 L (4.30-5.90) m/uL Hgb 7.9 L D (13.0-17.5) gm/dL Hct 23.5 L (39.0-53.0) % Plt Count 97 L (150-450) k/uL Lymphocytes # 0.8 L (1.0-4.8) k/uL PT (9.0-12.0) sec INR (<1.2) ABG pH (7.35-7.45) ABG pCO2 (35-45) mmHg ABG pO2 (83-108) mmHg ABG HCO3 (21-25) mmol/L ABG Total CO2 (19-24) mmol/L ABG O2 Saturation (94-97) % ABG Hematocrit (34.0-46.0) % ABG Potassium (3.4-4.5) mmol/L Sodium 136 L (137-145) mmol/L Glucose (74-99) mg/dL POC Glucose (mg/dL) 102 H (75-99) mg/dL Calcium 8.1 L (8.4-10.2) mg/dL Magnesium (1.6-2.3) mg/dL Total Protein 5.3 L (6.3-8.2) g/dL Albumin 2.9 L (3.5-5.0) g/dL Arterial Blood Potassium (3.4-4.5) mmol/L Crossmatch 01/12/17 01/13/17 01/13/17 Range/Units 22:01 00:06 01:29 RBC (4.30-5.90) m/uL Hgb (13.0-17.5) gm/dL Hct (39.0-53.0) % Plt Count (150-450) k/uL Lymphocytes # (1.0-4.8) k/uL PT (9.0-12.0) sec INR (<1.2) ABG pH (7.35-7.45) ABG pCO2 (35-45) mmHg ABG pO2 (83-108) mmHg ABG HCO3 (21-25) mmol/L ABG Total CO2 (19-24) mmol/L ABG O2 Saturation (94-97) % ABG Hematocrit (34.0-46.0) % ABG Potassium (3.4-4.5) mmol/L Sodium (137-145) mmol/L Glucose (74-99) mg/dL POC Glucose (mg/dL) 113 H 104 H 118 H (75-99) mg/dL Calcium (8.4-10.2) mg/dL Magnesium (1.6-2.3) mg/dL Total Protein (6.3-8.2) g/dL Albumin (3.5-5.0) g/dL Arterial Blood Potassium (3.4-4.5) mmol/L Crossmatch 01/13/17 01/13/17 01/13/17 Range/Units 02:01 03:07 03:56 RBC (4.30-5.90) m/uL Hgb (13.0-17.5) gm/dL Hct (39.0-53.0) % Plt Count (150-450) k/uL Lymphocytes # (1.0-4.8) k/uL PT (9.0-12.0) sec INR (<1.2) ABG pH (7.35-7.45) ABG pCO2 (35-45) mmHg ABG pO2 (83-108) mmHg ABG HCO3 (21-25) mmol/L ABG Total CO2 (19-24) mmol/L ABG O2 Saturation (94-97) % ABG Hematocrit (34.0-46.0) % ABG Potassium (3.4-4.5) mmol/L Sodium (137-145) mmol/L Glucose (74-99) mg/dL POC Glucose (mg/dL) 128 H 129 H 131 H (75-99) mg/dL Calcium (8.4-10.2) mg/dL Magnesium (1.6-2.3) mg/dL Total Protein (6.3-8.2) g/dL Albumin (3.5-5.0) g/dL Arterial Blood Potassium (3.4-4.5) mmol/L Crossmatch 08/01/13/17 01/13/17 Range/Units 04:32 04:32 04:32 RBC 2.89 L (4.30-5.90) m/uL Hgb 9.0 L (13.0-17.5) gm/dL Hct 26.8 L (39.0-53.0) % Plt Count 124 L (150-450) k/uL Lymphocytes # (1.0-4.8) k/uL PT 13.1 H (9.0-12.0) sec INR 1.3 H (<1.2) ABG pH (7.35-7.45) ABG pCO2 (35-45) mmHg ABG pO2 (83-108) mmHg ABG HCO3 (21-25) mmol/L ABG Total CO2 (19-24) mmol/L ABG O2 Saturation (94-97) % ABG Hematocrit (34.0-46.0) % ABG Potassium (3.4-4.5) mmol/L Sodium (137-145) mmol/L Glucose 120 H (74-99) mg/dL POC Glucose (mg/dL) (75-99) mg/dL Calcium 7.9 L (8.4-10.2) mg/dL Magnesium (1.6-2.3) mg/dL Total Protein 5.1 L (6.3-8.2) g/dL Albumin 2.8 L (3.5-5.0) g/dL Arterial Blood Potassium (3.4-4.5) mmol/L Crossmatch 01/13/17 01/13/17 01/13/17 Range/Units 04:35 05:49 07:04 RBC (4.30-5.90) m/uL Hgb (13.0-17.5) gm/dL Hct (39.0-53.0) % Plt Count (150-450) k/uL Lymphocytes # (1.0-4.8) k/uL PT (9.0-12.0) sec INR (<1.2) ABG pH (7.35-7.45) ABG pCO2 (35-45) mmHg ABG pO2 73 L (83-108) mmHg ABG HCO3 (21-25) mmol/L ABG Total CO2 (19-24) mmol/L ABG O2 Saturation (94-97) % ABG Hematocrit (34.0-46.0) % ABG Potassium (3.4-4.5) mmol/L Sodium (137-145) mmol/L Glucose (74-99) mg/dL POC Glucose (mg/dL) 129 H 122 H (75-99) mg/dL Calcium (8.4-10.2) mg/dL Magnesium (1.6-2.3) mg/dL Total Protein (6.3-8.2) g/dL Albumin (3.5-5.0) g/dL Arterial Blood Potassium (3.4-4.5) mmol/L Crossmatch 01/13/17 01/13/17 01/13/17 Range/Units 07:55 08:28 08:51 RBC (4.30-5.90) m/uL Hgb (13.0-17.5) gm/dL Hct (39.0-53.0) % Plt Count (150-450) k/uL Lymphocytes # (1.0-4.8) k/uL PT (9.0-12.0) sec INR (<1.2) ABG pH (7.35-7.45) ABG pCO2 (35-45) mmHg ABG pO2 65 L (83-108) mmHg ABG HCO3 (21-25) mmol/L ABG Total CO2 (19-24) mmol/L ABG O2 Saturation (94-97) % ABG Hematocrit (34.0-46.0) % ABG Potassium (3.4-4.5) mmol/L Sodium (137-145) mmol/L Glucose (74-99) mg/dL POC Glucose (mg/dL) 126 H 125 H (75-99) mg/dL Calcium (8.4-10.2) mg/dL Magnesium (1.6-2.3) mg/dL Total Protein (6.3-8.2) g/dL Albumin (3.5-5.0) g/dL Arterial Blood Potassium (3.4-4.5) mmol/L Crossmatch - Imaging and Cardiology Chest x-ray: report reviewed, image reviewed Assessment and Plan (1) Non-STEMI (non-ST elevated myocardial infarction) Status: Acute (2) Elevated troponin I measurement Status: Acute (3) Coronary artery disease Status: Acute (4) Hyperlipidemia Status: Acute (5) Open wound of right hand Status: Acute (6) Chest pain Status: Acute (7) Unstable angina pectoris Status: Acute Plan: 1. Continue aspirin, Plavix, heparin subcu, and metoprolol. 2. Wean to extubate. 3. Once extubated encourage use of his incentive spirometry every hour while awake. 4. Physical therapy to evaluate and treat. Increase activity as tolerated once extubated. 5. Remove [place]-Rasheed catheter, and place a Cordis to continuous CVP monitoring. 6. DVT and GI prophylaxis in place. 7. Monitor daily labs and chest x-ray. 8. Pulmonary management recommendations per Dr. Calderon. 9. Medical management recommendations per Dr. Lundberg. 10. More recommendations as patient progresses. Time with Patient: Greater than 30 <Parker Reza - Last Filed: 01/13/17 10:51> Objective - Vital Signs Vital signs: Vital Signs Temp 97.6 F 01/12/17 06:38 Pulse 83 01/13/17 10:00 Resp 27 H 01/13/17 10:00 BP 109/68 01/12/17 06:38 Pulse Ox 92 L 01/13/17 10:00 Intake & Output 01/12/17 01/13/17 01/13/17 18:59 06:59 18:59 Intake Total 1055.028 6914.265 299.5 Output Total 1625 1019 190 Balance -575.291 268.265 109.5 Weight 115.3 kg Intake: IV 984.5 1226.0 299.5 ACETAMINOPHEN IV (For NPO 100 100 ) 1,000 mg In Empty Bag 1 bag @ 400 mls/hr IVPB Q6HR VENU Rx#:[id number] Albumin Human 5% 500 ml 500 In Empty Bag 1 bag @ 250 mls/hr IVPB ONCE PRN Rx#: [id number] Cardiac Output 40 300 30 Lactated Ringers 1,000 ml 150 600 150 @ 50 mls/hr IV .Q20H VENU Rx#:[id number] Nitroglycerin-D5w Pmx 50 4.5 18.0 10.5 mg In Dextrose/Water 1 250ml.bag @ 5 MCG/MIN 1.5 mls/hr IV .Q24H PRN Rx#: [id number] Pressure Bag 27 108 9 ceFAZolin 2 gm In Sodium 100 100 100 Chloride 0.9% 100 ml @ 100 mls/hr IVPB Q8HR VENU Rx#:[id number] Intake, IV Titration 65.209 61.265 Amount Insulin Regular 100 unit 0.625 0.567 In Sodium Chloride 0.9% 100 ml @ Per Protocol IV .Q0M VENU Rx#:[id number] Propofol 1,000 mg In 100 64.584 60.698 ml @ Titrate IV .Q0M VENU Rx#:[id number] Output: Chest Tube Drainage 151 241 30 Bilateral Mediastinal 121 178 25 Left Lateral Chest 30 63 5 Gastric Drainage 230 Urine 774 548 160 Stool 0 Estimated Blood Loss 700 Other: Voiding Method Indwelling Catheter Indwelling Catheter Indwelling Catheter ABP, PAP, CO, CI - Last Documented Arterial Blood Pressure 129/57 Pulmonary Artery Pressure 29/15 Cardiac Output 6.4 Cardiac Index 2.3 - Labs CBC & Chem 7: 01/13/17 04:32 01/13/17 04:32 Labs: Abnormal Lab Results - Last 24 Hours (Table) 01/09/17 01/12/17 01/12/17 Range/Units 15:18 08:40 10:16 RBC (4.30-5.90) m/uL Hgb (13.0-17.5) gm/dL Hct (39.0-53.0) % Plt Count (150-450) k/uL Lymphocytes # (1.0-4.8) k/uL PT (9.0-12.0) sec INR (<1.2) ABG pH (7.35-7.45) ABG pCO2 (35-45) mmHg ABG pO2 199 H 180 H (83-108) mmHg ABG HCO3 (21-25) mmol/L ABG Total CO2 25 H 25 H (19-24) mmol/L ABG O2 Saturation 99.7 H 99.6 H (94-97) % ABG Hematocrit 33 L 31 L (34.0-46.0) % ABG Potassium (3.4-4.5) mmol/L Sodium (137-145) mmol/L Glucose (74-99) mg/dL POC Glucose (mg/dL) (75-99) mg/dL Calcium (8.4-10.2) mg/dL Magnesium (1.6-2.3) mg/dL Total Protein (6.3-8.2) g/dL Albumin (3.5-5.0) g/dL Arterial Blood Potassium (3.4-4.5) mmol/L Crossmatch See Detail 01/12/17 01/12/17 01/12/17 Range/Units 11:13 11:13 11:44 RBC (4.30-5.90) m/uL Hgb (13.0-17.5) gm/dL Hct (39.0-53.0) % Plt Count (150-450) k/uL Lymphocytes # (1.0-4.8) k/uL PT (9.0-12.0) sec INR (<1.2) ABG pH (7.35-7.45) ABG pCO2 (35-45) mmHg ABG pO2 308 H (83-108) mmHg ABG HCO3 (21-25) mmol/L ABG Total CO2 27 H (19-24) mmol/L ABG O2 Saturation 99.9 H (94-97) % ABG Hematocrit 25 L (34.0-46.0) % ABG Potassium (3.4-4.5) mmol/L Sodium (137-145) mmol/L Glucose (74-99) mg/dL POC Glucose (mg/dL) 175 H 177 H (75-99) mg/dL Calcium (8.4-10.2) mg/dL Magnesium (1.6-2.3) mg/dL Total Protein (6.3-8.2) g/dL Albumin (3.5-5.0) g/dL Arterial Blood Potassium (3.4-4.5) mmol/L Crossmatch 01/12/17 01/12/17 01/12/17 Range/Units 11:45 12:17 12:17 RBC (4.30-5.90) m/uL Hgb (13.0-17.5) gm/dL Hct (39.0-53.0) % Plt Count (150-450) k/uL Lymphocytes # (1.0-4.8) k/uL PT (9.0-12.0) sec INR (<1.2) ABG pH 7.34 L (7.35-7.45) ABG pCO2 49 H (35-45) mmHg ABG pO2 210 H 249 H (83-108) mmHg ABG HCO3 26 H (21-25) mmol/L ABG Total CO2 28 H 27 H (19-24) mmol/L ABG O2 Saturation 99.7 H 99.8 H (94-97) % ABG Hematocrit 29 L 31 L (34.0-46.0) % ABG Potassium 5.0 H 5.1 H (3.4-4.5) mmol/L Sodium (137-145) mmol/L Glucose (74-99) mg/dL POC Glucose (mg/dL) 208 H (75-99) mg/dL Calcium (8.4-10.2) mg/dL Magnesium (1.6-2.3) mg/dL Total Protein (6.3-8.2) g/dL Albumin (3.5-5.0) g/dL Arterial Blood Potassium 5.0 H 5.1 H (3.4-4.5) mmol/L Crossmatch 01/12/17 01/12/17 01/12/17 Range/Units 12:53 12:53 13:23 RBC (4.30-5.90) m/uL Hgb (13.0-17.5) gm/dL Hct (39.0-53.0) % Plt Count (150-450) k/uL Lymphocytes # (1.0-4.8) k/uL PT (9.0-12.0) sec INR (<1.2) ABG pH 7.33 L 7.32 L (7.35-7.45) ABG pCO2 49 H 50 H (35-45) mmHg ABG pO2 275 H 274 H (83-108) mmHg ABG HCO3 (21-25) mmol/L ABG Total CO2 27 H 27 H (19-24) mmol/L ABG O2 Saturation 99.9 H 99.9 H (94-97) % ABG Hematocrit 31 L 29 L (34.0-46.0) % ABG Potassium 5.2 H 4.9 H (3.4-4.5) mmol/L Sodium (137-145) mmol/L Glucose (74-99) mg/dL POC Glucose (mg/dL) 224 H (75-99) mg/dL Calcium (8.4-10.2) mg/dL Magnesium (1.6-2.3) mg/dL Total Protein (6.3-8.2) g/dL Albumin (3.5-5.0) g/dL Arterial Blood Potassium 5.2 H 4.9 H (3.4-4.5) mmol/L Crossmatch 01/12/17 01/12/17 01/12/17 Range/Units 13:24 14:26 14:26 RBC (4.30-5.90) m/uL Hgb (13.0-17.5) gm/dL Hct (39.0-53.0) % Plt Count (150-450) k/uL Lymphocytes # (1.0-4.8) k/uL PT (9.0-12.0) sec INR (<1.2) ABG pH (7.35-7.45) ABG pCO2 (35-45) mmHg ABG pO2 (83-108) mmHg ABG HCO3 (21-25) mmol/L ABG Total CO2 (19-24) mmol/L ABG O2 Saturation 98.3 H (94-97) % ABG Hematocrit 33 L (34.0-46.0) % ABG Potassium (3.4-4.5) mmol/L Sodium (137-145) mmol/L Glucose (74-99) mg/dL POC Glucose (mg/dL) 213 H 164 H (75-99) mg/dL Calcium (8.4-10.2) mg/dL Magnesium (1.6-2.3) mg/dL Total Protein (6.3-8.2) g/dL Albumin (3.5-5.0) g/dL Arterial Blood Potassium (3.4-4.5) mmol/L Crossmatch 01/12/17 01/12/17 01/12/17 Range/Units 15:49 16:00 16:00 RBC 2.84 L (4.30-5.90) m/uL Hgb 9.1 L D (13.0-17.5) gm/dL Hct 27.5 L (39.0-53.0) % Plt Count 102 L (150-450) k/uL Lymphocytes # (1.0-4.8) k/uL PT (9.0-12.0) sec INR (<1.2) ABG pH (7.35-7.45) ABG pCO2 (35-45) mmHg ABG pO2 (83-108) mmHg ABG HCO3 (21-25) mmol/L ABG Total CO2 (19-24) mmol/L ABG O2 Saturation (94-97) % ABG Hematocrit (34.0-46.0) % ABG Potassium (3.4-4.5) mmol/L Sodium (137-145) mmol/L Glucose 109 H (74-99) mg/dL POC Glucose (mg/dL) 123 H (75-99) mg/dL Calcium 8.1 L (8.4-10.2) mg/dL Magnesium 2.6 H (1.6-2.3) mg/dL Total Protein 4.9 L (6.3-8.2) g/dL Albumin 2.7 L (3.5-5.0) g/dL Arterial Blood Potassium (3.4-4.5) mmol/L Crossmatch 01/12/17 01/12/17 01/12/17 Range/Units 16:00 16:07 16:28 RBC (4.30-5.90) m/uL Hgb (13.0-17.5) gm/dL Hct (39.0-53.0) % Plt Count (150-450) k/uL Lymphocytes # (1.0-4.8) k/uL PT 13.2 H (9.0-12.0) sec INR 1.3 H (<1.2) ABG pH (7.35-7.45) ABG pCO2 46 H (35-45) mmHg ABG pO2 244 H (83-108) mmHg ABG HCO3 (21-25) mmol/L ABG Total CO2 26 H (19-24) mmol/L ABG O2 Saturation 100.0 H (94-97) % ABG Hematocrit (34.0-46.0) % ABG Potassium (3.4-4.5) mmol/L Sodium (137-145) mmol/L Glucose (74-99) mg/dL POC Glucose (mg/dL) 119 H (75-99) mg/dL Calcium (8.4-10.2) mg/dL Magnesium (1.6-2.3) mg/dL Total Protein (6.3-8.2) g/dL Albumin (3.5-5.0) g/dL Arterial Blood Potassium (3.4-4.5) mmol/L Crossmatch 01/12/17 01/12/17 01/12/17 Range/Units 17:10 18:12 18:15 RBC 3.05 L (4.30-5.90) m/uL Hgb 9.5 L (13.0-17.5) gm/dL Hct 29.4 L (39.0-53.0) % Plt Count 113 L (150-450) k/uL Lymphocytes # (1.0-4.8) k/uL PT (9.0-12.0) sec INR (<1.2) ABG pH (7.35-7.45) ABG pCO2 (35-45) mmHg ABG pO2 (83-108) mmHg ABG HCO3 (21-25) mmol/L ABG Total CO2 (19-24) mmol/L ABG O2 Saturation (94-97) % ABG Hematocrit (34.0-46.0) % ABG Potassium (3.4-4.5) mmol/L Sodium (137-145) mmol/L Glucose (74-99) mg/dL POC Glucose (mg/dL) 113 H 107 H (75-99) mg/dL Calcium (8.4-10.2) mg/dL Magnesium (1.6-2.3) mg/dL Total Protein (6.3-8.2) g/dL Albumin (3.5-5.0) g/dL Arterial Blood Potassium (3.4-4.5) mmol/L Crossmatch 01/12/17 01/12/17 01/12/17 Range/Units 19:05 20:13 20:55 RBC (4.30-5.90) m/uL Hgb (13.0-17.5) gm/dL Hct (39.0-53.0) % Plt Count (150-450) k/uL Lymphocytes # (1.0-4.8) k/uL PT 12.5 H (9.0-12.0) sec INR 1.3 H (<1.2) ABG pH (7.35-7.45) ABG pCO2 (35-45) mmHg ABG pO2 (83-108) mmHg ABG HCO3 (21-25) mmol/L ABG Total CO2 (19-24) mmol/L ABG O2 Saturation (94-97) % ABG Hematocrit (34.0-46.0) % ABG Potassium (3.4-4.5) mmol/L Sodium (137-145) mmol/L Glucose (74-99) mg/dL POC Glucose (mg/dL) 103 H 108 H (75-99) mg/dL Calcium (8.4-10.2) mg/dL Magnesium (1.6-2.3) mg/dL Total Protein (6.3-8.2) g/dL Albumin (3.5-5.0) g/dL Arterial Blood Potassium (3.4-4.5) mmol/L Crossmatch 01/12/17 01/12/17 01/12/17 Range/Units 20:55 20:55 20:56 RBC 2.52 L (4.30-5.90) m/uL Hgb 7.9 L D (13.0-17.5) gm/dL Hct 23.5 L (39.0-53.0) % Plt Count 97 L (150-450) k/uL Lymphocytes # 0.8 L (1.0-4.8) k/uL PT (9.0-12.0) sec INR (<1.2) ABG pH (7.35-7.45) ABG pCO2 (35-45) mmHg ABG pO2 (83-108) mmHg ABG HCO3 (21-25) mmol/L ABG Total CO2 (19-24) mmol/L ABG O2 Saturation (94-97) % ABG Hematocrit (34.0-46.0) % ABG Potassium (3.4-4.5) mmol/L Sodium 136 L (137-145) mmol/L Glucose (74-99) mg/dL POC Glucose (mg/dL) 102 H (75-99) mg/dL Calcium 8.1 L (8.4-10.2) mg/dL Magnesium (1.6-2.3) mg/dL Total Protein 5.3 L (6.3-8.2) g/dL Albumin 2.9 L (3.5-5.0) g/dL Arterial Blood Potassium (3.4-4.5) mmol/L Crossmatch 01/12/17 01/13/17 01/13/17 Range/Units 22:01 00:06 01:29 RBC (4.30-5.90) m/uL Hgb (13.0-17.5) gm/dL Hct (39.0-53.0) % Plt Count (150-450) k/uL Lymphocytes # (1.0-4.8) k/uL PT (9.0-12.0) sec INR (<1.2) ABG pH (7.35-7.45) ABG pCO2 (35-45) mmHg ABG pO2 (83-108) mmHg ABG HCO3 (21-25) mmol/L ABG Total CO2 (19-24) mmol/L ABG O2 Saturation (94-97) % ABG Hematocrit (34.0-46.0) % ABG Potassium (3.4-4.5) mmol/L Sodium (137-145) mmol/L Glucose (74-99) mg/dL POC Glucose (mg/dL) 113 H 104 H 118 H (75-99) mg/dL Calcium (8.4-10.2) mg/dL Magnesium (1.6-2.3) mg/dL Total Protein (6.3-8.2) g/dL Albumin (3.5-5.0) g/dL Arterial Blood Potassium (3.4-4.5) mmol/L Crossmatch 01/13/17 01/13/17 01/13/17 Range/Units 02:01 03:07 03:56 RBC (4.30-5.90) m/uL Hgb (13.0-17.5) gm/dL Hct (39.0-53.0) % Plt Count (150-450) k/uL Lymphocytes # (1.0-4.8) k/uL PT (9.0-12.0) sec INR (<1.2) ABG pH (7.35-7.45) ABG pCO2 (35-45) mmHg ABG pO2 (83-108) mmHg ABG HCO3 (21-25) mmol/L ABG Total CO2 (19-24) mmol/L ABG O2 Saturation (94-97) % ABG Hematocrit (34.0-46.0) % ABG Potassium (3.4-4.5) mmol/L Sodium (137-145) mmol/L Glucose (74-99) mg/dL POC Glucose (mg/dL) 128 H 129 H 131 H (75-99) mg/dL Calcium (8.4-10.2) mg/dL Magnesium (1.6-2.3) mg/dL Total Protein (6.3-8.2) g/dL Albumin (3.5-5.0) g/dL Arterial Blood Potassium (3.4-4.5) mmol/L Crossmatch 01/13/17 01/13/17 01/13/17 Range/Units 04:32 04:32 04:32 RBC 2.89 L (4.30-5.90) m/uL Hgb 9.0 L (13.0-17.5) gm/dL Hct 26.8 L (39.0-53.0) % Plt Count 124 L (150-450) k/uL Lymphocytes # (1.0-4.8) k/uL PT 13.1 H (9.0-12.0) sec INR 1.3 H (<1.2) ABG pH (7.35-7.45) ABG pCO2 (35-45) mmHg ABG pO2 (83-108) mmHg ABG HCO3 (21-25) mmol/L ABG Total CO2 (19-24) mmol/L ABG O2 Saturation (94-97) % ABG Hematocrit (34.0-46.0) % ABG Potassium (3.4-4.5) mmol/L Sodium (137-145) mmol/L Glucose 120 H (74-99) mg/dL POC Glucose (mg/dL) (75-99) mg/dL Calcium 7.9 L (8.4-10.2) mg/dL Magnesium (1.6-2.3) mg/dL Total Protein 5.1 L (6.3-8.2) g/dL Albumin 2.8 L (3.5-5.0) g/dL Arterial Blood Potassium (3.4-4.5) mmol/L Crossmatch 01/13/17 01/13/17 01/13/17 Range/Units 04:35 05:49 07:04 RBC (4.30-5.90) m/uL Hgb (13.0-17.5) gm/dL Hct (39.0-53.0) % Plt Count (150-450) k/uL Lymphocytes # (1.0-4.8) k/uL PT (9.0-12.0) sec INR (<1.2) ABG pH (7.35-7.45) ABG pCO2 (35-45) mmHg ABG pO2 73 L (83-108) mmHg ABG HCO3 (21-25) mmol/L ABG Total CO2 (19-24) mmol/L ABG O2 Saturation (94-97) % ABG Hematocrit (34.0-46.0) % ABG Potassium (3.4-4.5) mmol/L Sodium (137-145) mmol/L Glucose (74-99) mg/dL POC Glucose (mg/dL) 129 H 122 H (75-99) mg/dL Calcium (8.4-10.2) mg/dL Magnesium (1.6-2.3) mg/dL Total Protein (6.3-8.2) g/dL Albumin (3.5-5.0) g/dL Arterial Blood Potassium (3.4-4.5) mmol/L Crossmatch 01/13/17 01/13/17 01/13/17 Range/Units 07:55 08:28 08:51 RBC (4.30-5.90) m/uL Hgb (13.0-17.5) gm/dL Hct (39.0-53.0) % Plt Count (150-450) k/uL Lymphocytes # (1.0-4.8) k/uL PT (9.0-12.0) sec INR (<1.2) ABG pH (7.35-7.45) ABG pCO2 (35-45) mmHg ABG pO2 65 L (83-108) mmHg ABG HCO3 (21-25) mmol/L ABG Total CO2 (19-24) mmol/L ABG O2 Saturation (94-97) % ABG Hematocrit (34.0-46.0) % ABG Potassium (3.4-4.5) mmol/L Sodium (137-145) mmol/L Glucose (74-99) mg/dL POC Glucose (mg/dL) 126 H 125 H (75-99) mg/dL Calcium (8.4-10.2) mg/dL Magnesium (1.6-2.3) mg/dL Total Protein (6.3-8.2) g/dL Albumin (3.5-5.0) g/dL Arterial Blood Potassium (3.4-4.5) mmol/L Crossmatch Assessment and Plan Plan: The patient was seen and examined. I agree with the above assessment and plan. Overall he looks good. He was extubated earlier this morning. He has had low output from his chest tubes. His laboratory studies appear to be okay. We will discontinue the [place] later this afternoon. He will be up in a chair and we will begin pulmonary toilet.
[2017-01-13] MEDS: LACTATED RINGERS 1,000 ML IV SCH ×2 (11:04→16:55)
[2017-01-13] MEDS ORDERED: METOPROLOL TARTRATE 5 MG/5 ML VIAL IVP ONE (12:00)
--- NOTE | 2017-01-13 12:47 | P.VSCSTY ---
Greater Saphenous Vein Mapping This is bilateral lower extremity greater saphenous vein mapping. Date of service 01/09/2017 Vein quality and ultrasound appearance normal. Vein size groin right 8.1 x 5.0 groin left 7.6 x 6.4 High thigh right 5.4 x 5.2 high thigh left 5.1 x 4.7 Mid thigh right 5.3 x 3.7 mid thigh left 6.1 x 4.9 Above-knee right 5.9 x 4.5 above- knee left 6.2 x 4.6 Below knee right 5.1 x 4.0 below-knee left 4.6 x 3.6 Mid calf right 4.2 x 3.0 mid calf left 3.7 x 3.1 Ankle right 4.6 x 3.5 ankle left 4.9 x 3.0 Impression usable bilateral greater saphenous vein.
--- NOTE | 2017-01-13 12:48 | P.ARTDOP ---
Arterial Doppler LOWER EXTREMITY ARTERIAL DOPPLER: DATE OF SERVICE: 01/09/2017 Reason for study: Pre-CABG. Doppler waveforms: Multiphasic bilaterally throughout. Pulse volume recording: []. Pressure gradients: None. Ankle-brachial indices: Greater than 1 bilaterally. Toe pressures: [] on the right, [] on the left Impression: Normal study.
--- NOTE | 2017-01-13 12:51 | P.ARTDOP ---
Arterial Doppler Bilateral radial artery study Date of service: 01/10/2017 There are no significant right to left or segmental pressure gradients on Doppler On digital plethysmography with radial artery compression, we see no evidence of a significant pressure change. Imaging shows excellent sized bilateral radial arteries from 3.3 x 3.7 mm to 3.6 x 3.9 mm on the right and 3.4 x 3.8-3.9 x 4.5 mm on the left Impression: Usable bilateral radial arteries with excellent size.
--- NOTE | 2017-01-13 13:32 | P.PN ---
Subjective Patient was just extubated this morning he did he is doing fairly okay. He denies any significant chest discomfort. Mild shortness of breath but is coming along pretty well. Pulse rate of 73 beats a minute respirations 22, blood pressure normal 126/55 mmHg Breath sounds are reduced bilaterally with conductive sounds from the chest tube Heart sounds are soft Impression Coronary artery disease multivessel, status post coronary artery bypass grafting and just extubated Plan Start oral beta blockers but may give a single dose of 5 mg of IV metoprolol at this time until he is able to swallow comfortably Continue aspirin and Plavix and statins Objective - Vital Signs Vital signs: Vital Signs Temp 97.6 F 01/12/17 06:38 Pulse 73 01/13/17 13:00 Resp 22 01/13/17 13:00 BP 109/68 01/12/17 06:38 Pulse Ox 97 01/13/17 13:00 Intake & Output 01/12/17 01/13/17 01/13/17 18:59 06:59 18:59 Intake Total 6880.430 9962.265 610.025 Output Total 1625 1019 422 Balance -575.291 268.265 188.025 Weight 115.3 kg Intake: IV 984.5 1226.0 461.5 ACETAMINOPHEN IV (For NPO 100 100 ) 1,000 mg In Empty Bag 1 bag @ 400 mls/hr IVPB Q6HR [facility] Rx#:[id number] Albumin Human 5% 500 ml 500 In Empty Bag 1 bag @ 250 mls/hr IVPB ONCE PRN Rx#: [id number] Cardiac Output 40 300 30 Lactated Ringers 1,000 ml 150 600 300 @ 50 mls/hr IV .Q20H [facility] Rx#:[id number] Nitroglycerin-D5w Pmx 50 4.5 18.0 22.5 mg In Dextrose/Water 1 250ml.bag @ 5 MCG/MIN 1.5 mls/hr IV .Q24H PRN Rx#: [id number] Pressure Bag 27 108 9 ceFAZolin 2 gm In Sodium 100 100 100 Chloride 0.9% 100 ml @ 100 mls/hr IVPB Q8HR [facility] Rx#:[id number] Intake, IV Titration 65.209 61.265 148.525 Amount ACETAMINOPHEN IV (For NPO 100 ) 1,000 mg In Empty Bag 1 bag @ 400 mls/hr IVPB ONCE ONE Rx#:[id number] Insulin Regular 100 unit 0.625 0.567 In Sodium Chloride 0.9% 100 ml @ Per Protocol IV .Q0M [facility] Rx#:[id number] Nitroglycerin-D5w Pmx 50 48.525 mg In Dextrose/Water 1 250ml.bag @ 5 MCG/MIN 1.5 mls/hr IV .Q24H [facility] Rx#: [id number] Propofol 1,000 mg In 100 64.584 60.698 ml @ Titrate IV .Q0M [facility] Rx#:[id number] Output: Chest Tube Drainage 151 241 92 Bilateral Mediastinal 121 178 45 Left Lateral Chest 30 63 47 Gastric Drainage 230 Urine 774 548 330 Stool 0 Estimated Blood Loss 700 Other: Voiding Method Indwelling Catheter Indwelling Catheter Indwelling Catheter ABP, PAP, CO, CI - Last Documented Arterial Blood Pressure 126/55 Pulmonary Artery Pressure 23/12 Cardiac Output 6.5 Cardiac Index 2.9 - Labs CBC & Chem 7: 01/13/17 04:32 01/13/17 04:32 Labs: Abnormal Lab Results - Last 24 Hours (Table) 01/09/17 01/12/17 01/12/17 Range/Units 15:18 08:40 10:16 RBC (4.30-5.90) m/uL Hgb (13.0-17.5) gm/dL Hct (39.0-53.0) % Plt Count (150-450) k/uL Lymphocytes # (1.0-4.8) k/uL PT (9.0-12.0) sec INR (<1.2) ABG pH (7.35-7.45) ABG pCO2 (35-45) mmHg ABG pO2 199 H 180 H (83-108) mmHg ABG HCO3 (21-25) mmol/L ABG Total CO2 25 H 25 H (19-24) mmol/L ABG O2 Saturation 99.7 H 99.6 H (94-97) % ABG Hematocrit 33 L 31 L (34.0-46.0) % ABG Potassium (3.4-4.5) mmol/L Sodium (137-145) mmol/L Glucose (74-99) mg/dL POC Glucose (mg/dL) (75-99) mg/dL Calcium (8.4-10.2) mg/dL Magnesium (1.6-2.3) mg/dL Total Protein (6.3-8.2) g/dL Albumin (3.5-5.0) g/dL Arterial Blood Potassium (3.4-4.5) mmol/L Crossmatch See Detail 01/12/17 01/12/17 01/12/17 Range/Units 11:13 11:45 12:17 RBC (4.30-5.90) m/uL Hgb (13.0-17.5) gm/dL Hct (39.0-53.0) % Plt Count (150-450) k/uL Lymphocytes # (1.0-4.8) k/uL PT (9.0-12.0) sec INR (<1.2) ABG pH 7.34 L (7.35-7.45) ABG pCO2 49 H (35-45) mmHg ABG pO2 308 H 210 H 249 H (83-108) mmHg ABG HCO3 26 H (21-25) mmol/L ABG Total CO2 27 H 28 H 27 H (19-24) mmol/L ABG O2 Saturation 99.9 H 99.7 H 99.8 H (94-97) % ABG Hematocrit 25 L 29 L 31 L (34.0-46.0) % ABG Potassium 5.0 H 5.1 H (3.4-4.5) mmol/L Sodium (137-145) mmol/L Glucose (74-99) mg/dL POC Glucose (mg/dL) (75-99) mg/dL Calcium (8.4-10.2) mg/dL Magnesium (1.6-2.3) mg/dL Total Protein (6.3-8.2) g/dL Albumin (3.5-5.0) g/dL Arterial Blood Potassium 5.0 H 5.1 H (3.4-4.5) mmol/L Crossmatch 01/12/17 01/12/17 01/12/17 Range/Units 12:53 13:23 13:24 RBC (4.30-5.90) m/uL Hgb (13.0-17.5) gm/dL Hct (39.0-53.0) % Plt Count (150-450) k/uL Lymphocytes # (1.0-4.8) k/uL PT (9.0-12.0) sec INR (<1.2) ABG pH 7.33 L 7.32 L (7.35-7.45) ABG pCO2 49 H 50 H (35-45) mmHg ABG pO2 275 H 274 H (83-108) mmHg ABG HCO3 (21-25) mmol/L ABG Total CO2 27 H 27 H (19-24) mmol/L ABG O2 Saturation 99.9 H 99.9 H (94-97) % ABG Hematocrit 31 L 29 L (34.0-46.0) % ABG Potassium 5.2 H 4.9 H (3.4-4.5) mmol/L Sodium (137-145) mmol/L Glucose (74-99) mg/dL POC Glucose (mg/dL) 213 H (75-99) mg/dL Calcium (8.4-10.2) mg/dL Magnesium (1.6-2.3) mg/dL Total Protein (6.3-8.2) g/dL Albumin (3.5-5.0) g/dL Arterial Blood Potassium 5.2 H 4.9 H (3.4-4.5) mmol/L Crossmatch 01/12/17 01/12/17 01/12/17 Range/Units 14:26 14:26 15:49 RBC (4.30-5.90) m/uL Hgb (13.0-17.5) gm/dL Hct (39.0-53.0) % Plt Count (150-450) k/uL Lymphocytes # (1.0-4.8) k/uL PT (9.0-12.0) sec INR (<1.2) ABG pH (7.35-7.45) ABG pCO2 (35-45) mmHg ABG pO2 (83-108) mmHg ABG HCO3 (21-25) mmol/L ABG Total CO2 (19-24) mmol/L ABG O2 Saturation 98.3 H (94-97) % ABG Hematocrit 33 L (34.0-46.0) % ABG Potassium (3.4-4.5) mmol/L Sodium (137-145) mmol/L Glucose (74-99) mg/dL POC Glucose (mg/dL) 164 H 123 H (75-99) mg/dL Calcium (8.4-10.2) mg/dL Magnesium (1.6-2.3) mg/dL Total Protein (6.3-8.2) g/dL Albumin (3.5-5.0) g/dL Arterial Blood Potassium (3.4-4.5) mmol/L Crossmatch 01/12/17 01/12/17 01/12/17 Range/Units 16:00 16:00 16:00 RBC 2.84 L (4.30-5.90) m/uL Hgb 9.1 L D (13.0-17.5) gm/dL Hct 27.5 L (39.0-53.0) % Plt Count 102 L (150-450) k/uL Lymphocytes # (1.0-4.8) k/uL PT 13.2 H (9.0-12.0) sec INR 1.3 H (<1.2) ABG pH (7.35-7.45) ABG pCO2 (35-45) mmHg ABG pO2 (83-108) mmHg ABG HCO3 (21-25) mmol/L ABG Total CO2 (19-24) mmol/L ABG O2 Saturation (94-97) % ABG Hematocrit (34.0-46.0) % ABG Potassium (3.4-4.5) mmol/L Sodium (137-145) mmol/L Glucose 109 H (74-99) mg/dL POC Glucose (mg/dL) (75-99) mg/dL Calcium 8.1 L (8.4-10.2) mg/dL Magnesium 2.6 H (1.6-2.3) mg/dL Total Protein 4.9 L (6.3-8.2) g/dL Albumin 2.7 L (3.5-5.0) g/dL Arterial Blood Potassium (3.4-4.5) mmol/L Crossmatch 01/12/17 01/12/17 01/12/17 Range/Units 16:07 16:28 17:10 RBC (4.30-5.90) m/uL Hgb (13.0-17.5) gm/dL Hct (39.0-53.0) % Plt Count (150-450) k/uL Lymphocytes # (1.0-4.8) k/uL PT (9.0-12.0) sec INR (<1.2) ABG pH (7.35-7.45) ABG pCO2 46 H (35-45) mmHg ABG pO2 244 H (83-108) mmHg ABG HCO3 (21-25) mmol/L ABG Total CO2 26 H (19-24) mmol/L ABG O2 Saturation 100.0 H (94-97) % ABG Hematocrit (34.0-46.0) % ABG Potassium (3.4-4.5) mmol/L Sodium (137-145) mmol/L Glucose (74-99) mg/dL POC Glucose (mg/dL) 119 H 113 H (75-99) mg/dL Calcium (8.4-10.2) mg/dL Magnesium (1.6-2.3) mg/dL Total Protein (6.3-8.2) g/dL Albumin (3.5-5.0) g/dL Arterial Blood Potassium (3.4-4.5) mmol/L Crossmatch 01/12/17 01/12/17 01/12/17 Range/Units 18:12 18:15 19:05 RBC 3.05 L (4.30-5.90) m/uL Hgb 9.5 L (13.0-17.5) gm/dL Hct 29.4 L (39.0-53.0) % Plt Count 113 L (150-450) k/uL Lymphocytes # (1.0-4.8) k/uL PT (9.0-12.0) sec INR (<1.2) ABG pH (7.35-7.45) ABG pCO2 (35-45) mmHg ABG pO2 (83-108) mmHg ABG HCO3 (21-25) mmol/L ABG Total CO2 (19-24) mmol/L ABG O2 Saturation (94-97) % ABG Hematocrit (34.0-46.0) % ABG Potassium (3.4-4.5) mmol/L Sodium (137-145) mmol/L Glucose (74-99) mg/dL POC Glucose (mg/dL) 107 H 103 H (75-99) mg/dL Calcium (8.4-10.2) mg/dL Magnesium (1.6-2.3) mg/dL Total Protein (6.3-8.2) g/dL Albumin (3.5-5.0) g/dL Arterial Blood Potassium (3.4-4.5) mmol/L Crossmatch 01/12/17 01/12/17 01/12/17 Range/Units 20:13 20:55 20:55 RBC (4.30-5.90) m/uL Hgb (13.0-17.5) gm/dL Hct (39.0-53.0) % Plt Count (150-450) k/uL Lymphocytes # (1.0-4.8) k/uL PT 12.5 H (9.0-12.0) sec INR 1.3 H (<1.2) ABG pH (7.35-7.45) ABG pCO2 (35-45) mmHg ABG pO2 (83-108) mmHg ABG HCO3 (21-25) mmol/L ABG Total CO2 (19-24) mmol/L ABG O2 Saturation (94-97) % ABG Hematocrit (34.0-46.0) % ABG Potassium (3.4-4.5) mmol/L Sodium 136 L (137-145) mmol/L Glucose (74-99) mg/dL POC Glucose (mg/dL) 108 H (75-99) mg/dL Calcium 8.1 L (8.4-10.2) mg/dL Magnesium (1.6-2.3) mg/dL Total Protein 5.3 L (6.3-8.2) g/dL Albumin 2.9 L (3.5-5.0) g/dL Arterial Blood Potassium (3.4-4.5) mmol/L Crossmatch 01/12/17 01/12/17 01/12/17 Range/Units 20:55 20:56 22:01 RBC 2.52 L (4.30-5.90) m/uL Hgb 7.9 L D (13.0-17.5) gm/dL Hct 23.5 L (39.0-53.0) % Plt Count 97 L (150-450) k/uL Lymphocytes # 0.8 L (1.0-4.8) k/uL PT (9.0-12.0) sec INR (<1.2) ABG pH (7.35-7.45) ABG pCO2 (35-45) mmHg ABG pO2 (83-108) mmHg ABG HCO3 (21-25) mmol/L ABG Total CO2 (19-24) mmol/L ABG O2 Saturation (94-97) % ABG Hematocrit (34.0-46.0) % ABG Potassium (3.4-4.5) mmol/L Sodium (137-145) mmol/L Glucose (74-99) mg/dL POC Glucose (mg/dL) 102 H 113 H (75-99) mg/dL Calcium (8.4-10.2) mg/dL Magnesium (1.6-2.3) mg/dL Total Protein (6.3-8.2) g/dL Albumin (3.5-5.0) g/dL Arterial Blood Potassium (3.4-4.5) mmol/L Crossmatch 01/13/17 01/13/17 01/13/17 Range/Units 00:06 01:29 02:01 RBC (4.30-5.90) m/uL Hgb (13.0-17.5) gm/dL Hct (39.0-53.0) % Plt Count (150-450) k/uL Lymphocytes # (1.0-4.8) k/uL PT (9.0-12.0) sec INR (<1.2) ABG pH (7.35-7.45) ABG pCO2 (35-45) mmHg ABG pO2 (83-108) mmHg ABG HCO3 (21-25) mmol/L ABG Total CO2 (19-24) mmol/L ABG O2 Saturation (94-97) % ABG Hematocrit (34.0-46.0) % ABG Potassium (3.4-4.5) mmol/L Sodium (137-145) mmol/L Glucose (74-99) mg/dL POC Glucose (mg/dL) 104 H 118 H 128 H (75-99) mg/dL Calcium (8.4-10.2) mg/dL Magnesium (1.6-2.3) mg/dL Total Protein (6.3-8.2) g/dL Albumin (3.5-5.0) g/dL Arterial Blood Potassium (3.4-4.5) mmol/L Crossmatch 01/13/17 01/13/17 01/13/17 Range/Units 03:07 03:56 04:32 RBC 2.89 L (4.30-5.90) m/uL Hgb 9.0 L (13.0-17.5) gm/dL Hct 26.8 L (39.0-53.0) % Plt Count 124 L (150-450) k/uL Lymphocytes # (1.0-4.8) k/uL PT (9.0-12.0) sec INR (<1.2) ABG pH (7.35-7.45) ABG pCO2 (35-45) mmHg ABG pO2 (83-108) mmHg ABG HCO3 (21-25) mmol/L ABG Total CO2 (19-24) mmol/L ABG O2 Saturation (94-97) % ABG Hematocrit (34.0-46.0) % ABG Potassium (3.4-4.5) mmol/L Sodium (137-145) mmol/L Glucose (74-99) mg/dL POC Glucose (mg/dL) 129 H 131 H (75-99) mg/dL Calcium (8.4-10.2) mg/dL Magnesium (1.6-2.3) mg/dL Total Protein (6.3-8.2) g/dL Albumin (3.5-5.0) g/dL Arterial Blood Potassium (3.4-4.5) mmol/L Crossmatch 01/13/17 01/13/17 01/13/17 Range/Units 04:32 04:32 04:35 RBC (4.30-5.90) m/uL Hgb (13.0-17.5) gm/dL Hct (39.0-53.0) % Plt Count (150-450) k/uL Lymphocytes # (1.0-4.8) k/uL PT 13.1 H (9.0-12.0) sec INR 1.3 H (<1.2) ABG pH (7.35-7.45) ABG pCO2 (35-45) mmHg ABG pO2 73 L (83-108) mmHg ABG HCO3 (21-25) mmol/L ABG Total CO2 (19-24) mmol/L ABG O2 Saturation (94-97) % ABG Hematocrit (34.0-46.0) % ABG Potassium (3.4-4.5) mmol/L Sodium (137-145) mmol/L Glucose 120 H (74-99) mg/dL POC Glucose (mg/dL) (75-99) mg/dL Calcium 7.9 L (8.4-10.2) mg/dL Magnesium (1.6-2.3) mg/dL Total Protein 5.1 L (6.3-8.2) g/dL Albumin 2.8 L (3.5-5.0) g/dL Arterial Blood Potassium (3.4-4.5) mmol/L Crossmatch 01/13/17 01/13/17 01/13/17 Range/Units 05:49 07:04 07:55 RBC (4.30-5.90) m/uL Hgb (13.0-17.5) gm/dL Hct (39.0-53.0) % Plt Count (150-450) k/uL Lymphocytes # (1.0-4.8) k/uL PT (9.0-12.0) sec INR (<1.2) ABG pH (7.35-7.45) ABG pCO2 (35-45) mmHg ABG pO2 (83-108) mmHg ABG HCO3 (21-25) mmol/L ABG Total CO2 (19-24) mmol/L ABG O2 Saturation (94-97) % ABG Hematocrit (34.0-46.0) % ABG Potassium (3.4-4.5) mmol/L Sodium (137-145) mmol/L Glucose (74-99) mg/dL POC Glucose (mg/dL) 129 H 122 H 126 H (75-99) mg/dL Calcium (8.4-10.2) mg/dL Magnesium (1.6-2.3) mg/dL Total Protein (6.3-8.2) g/dL Albumin (3.5-5.0) g/dL Arterial Blood Potassium (3.4-4.5) mmol/L Crossmatch 01/13/17 01/13/17 Range/Units 08:28 08:51 RBC (4.30-5.90) m/uL Hgb (13.0-17.5) gm/dL Hct (39.0-53.0) % Plt Count (150-450) k/uL Lymphocytes # (1.0-4.8) k/uL PT (9.0-12.0) sec INR (<1.2) ABG pH (7.35-7.45) ABG pCO2 (35-45) mmHg ABG pO2 65 L (83-108) mmHg ABG HCO3 (21-25) mmol/L ABG Total CO2 (19-24) mmol/L ABG O2 Saturation (94-97) % ABG Hematocrit (34.0-46.0) % ABG Potassium (3.4-4.5) mmol/L Sodium (137-145) mmol/L Glucose (74-99) mg/dL POC Glucose (mg/dL) 125 H (75-99) mg/dL Calcium (8.4-10.2) mg/dL Magnesium (1.6-2.3) mg/dL Total Protein (6.3-8.2) g/dL Albumin (3.5-5.0) g/dL Arterial Blood Potassium (3.4-4.5) mmol/L Crossmatch
[2017-01-13 14:06] LABS: Glucose,Whole Blood 133 mg/dL (75-99)
[2017-01-13 14:06] LABS: Glucose,Whole Blood 125 mg/dL (75-99)
[2017-01-13 14:07] LABS: Glucose,Whole Blood 136 mg/dL (75-99)
[2017-01-13 14:08] LABS: Glucose,Whole Blood 124 mg/dL (75-99)
[2017-01-13 14:08] LABS: Glucose,Whole Blood 122 mg/dL (75-99)
--- NOTE | 2017-01-13 14:38 | P.PN ---
Subjective This is a 71-year-old male who presented to the emergency department complaining of chest discomfort. The patient apparently also had a pressure- like sensation which radiated up towards his neck. He had some nausea. No diaphoresis. No shortness of breath. He's had previous similar situations. The patient tells me he was evaluated by cardiology had a catheterization was found have coronary artery disease and apparently Dr. Reza is planning to do bypass surgery on Wednesday. The patient has no known history of any lung disease. He did have spirometry. Not been able to yet to find it. He did smoke for about 15 years at less than one pack a day. It's unlikely that that was his true smoking history, that he would have substantial chronic lung disease. Still waiting though to see the spirometry myself. He has no known ALLERGIES. He apparently has no past medical history. He did have a hernia repair in the past. He apparently was on no medications at home on a regular basis. On 01/11/2017 the patient is resting comfortably in bed. No chest pain. No shortness of breath. No angina. Hemodynamically stable. The patient is awaiting cardiac bypass surgery to be done tomorrow. Meanwhile, he tells me that he is a nonsmoker. No respiratory distress at all prior to this cardiac event. He was able to climb a flight of stairs without any major difficulties. He does not utilize any form of respiratory medications or inhalers on outpatient basis. Most of any childhood asthma. No DVT. No pulmonary embolism. No sleep apnea. The chest x-ray showed no evidence of any cardiopulmonary abnormalities. Seen again today 01/12/2017 in follow-up immediately postoperative following his open-heart surgery performed by Dr. Reza. He received a BROWN to the LAD, saphenous vein grafts to the OM, diagonal and PDA. He remains intubated and on the mechanical ventilator at settings of SIMV of 12, tidal volume 500, FiO2 100 % and PEEP of 5. Her blood gases reveal a pO2 of 244, pCO2 of 46 and a pH of 7.35. Chest x-ray reveals appropriately placed endotracheal and gastric tubes. There is some mild patchy atelectasis. He is sedated on propofol at 25 mcg/kg/ m. He is a nitroglycerin drip at 5 mcg/m, lactated Ringer's at 50 MLS per hour , insulin drip at 0.5 units per hour. He is currently in normal sinus rhythm. He has backup pacing at 80. Current blood pressure running in the 110's over the 50's, PA pressures 30s over the 20s with a mean of 30. Cardiac output 2.4 with cardiac index of 5.4. His sternal dressing is dry and intact. He has mediastinal split chest tubes 2 and a left pleural chest tube with minimal drainage. Urine output is adequate. On 01/13/2017, the patient is being seen in follow-up. The patient underwent his coronary bypass surgery yesterday. Overnight he was kept intubated on mechanical ventilator. Today's postop day #1. The necessary vent changes were done and earlier this morning the patient was taken off sedation and he woke up appropriately. Weaning parameters were checked and following that the patient was placed on a spontaneous breathing trial with a pressure support of 5 and a PEEP of 5. Following 30 minutes the blood gases were obtained and the pH was 7.44 with a pCO2 of 37 and pO2 of 65. Chest x-ray earlier this morning showed no acute abnormalities and was essentially consistent with postsurgical changes. The patient was weaned off and extubated without any major difficulties. Currently currently the patient is on 3 L of oxygen nasal cannula and his saturations around 97%. No chest pain. No change in mental status. Hemodynamically stable on no pressors. On insulin drip for blood sugar control. Chest tubes are still in place and the total amount of output from the chest tube was 2 99 mL from the mediastinal and 93 mL from the left pleural chest tube for yesterday, 102 mL from the mediastinum and 45 mL from the left lateral chest tube this morning. The patient is producing adequate amount of urine output. Hemodynamically stable. [place]-Rasheed catheter still in place. PA pressures /12. Cardiac output is adequate. Neurologically intact and stable and awake. Objective - Vital Signs Vital signs: Vital Signs Temp 97.6 F 01/12/17 06:38 Pulse 76 01/13/17 14:30 Resp 23 01/13/17 14:30 BP 109/68 01/12/17 06:38 Pulse Ox 97 01/13/17 14:30 Intake & Output 01/12/17 01/13/17 01/13/17 18:59 06:59 18:59 Intake Total 4089.381 7581.265 660.025 Output Total 1625 1019 472 Balance -575.291 268.265 188.025 Weight 115.3 kg Intake: IV 984.5 1226.0 511.5 ACETAMINOPHEN IV (For NPO 100 100 ) 1,000 mg In Empty Bag 1 bag @ 400 mls/hr IVPB Q6HR VENU Rx#:[id number] Albumin Human 5% 500 ml 500 In Empty Bag 1 bag @ 250 mls/hr IVPB ONCE PRN Rx#: [id number] Cardiac Output 40 300 30 Lactated Ringers 1,000 ml 150 600 350 @ 50 mls/hr IV .Q20H VENU Rx#:[id number] Nitroglycerin-D5w Pmx 50 4.5 18.0 22.5 mg In Dextrose/Water 1 250ml.bag @ 5 MCG/MIN 1.5 mls/hr IV .Q24H PRN Rx#: [id number] Pressure Bag 27 108 9 ceFAZolin 2 gm In Sodium 100 100 100 Chloride 0.9% 100 ml @ 100 mls/hr IVPB Q8HR VENU Rx#:[id number] Intake, IV Titration 65.209 61.265 148.525 Amount ACETAMINOPHEN IV (For NPO 100 ) 1,000 mg In Empty Bag 1 bag @ 400 mls/hr IVPB ONCE ONE Rx#:[id number] Insulin Regular 100 unit 0.625 0.567 In Sodium Chloride 0.9% 100 ml @ Per Protocol IV .Q0M VENU Rx#:[id number] Nitroglycerin-D5w Pmx 50 48.525 mg In Dextrose/Water 1 250ml.bag @ 5 MCG/MIN 1.5 mls/hr IV .Q24H VENU Rx#: [id number] Propofol 1,000 mg In 100 64.584 60.698 ml @ Titrate IV .Q0M VENU Rx#:[id number] Output: Chest Tube Drainage 151 241 102 Bilateral Mediastinal 121 178 45 Left Lateral Chest 30 63 57 Gastric Drainage 230 Urine 774 548 370 Stool 0 Estimated Blood Loss 700 Other: Voiding Method Indwelling Catheter Indwelling Catheter Indwelling Catheter ABP, PAP, CO, CI - Last Documented Arterial Blood Pressure 121/57 Pulmonary Artery Pressure 23/12 Cardiac Output 6.5 Cardiac Index 2.9 - Exam Head is atraumatic normocephalic. Neck was supple and without jugular venous distension, thyromegaly, or carotid bruits. Carotids were easily palpable bilaterally. There was no adenopathy. The patient has a right IJ Cordis and [place]-Rasheed catheter is also in place. Lung sounds are diminished bilaterally. Sternum stable clean and intact. The patient has a mediastinal chest tube in the left pleural chest tube in place. Heart sounds are irregular, possible sinus stool, no symptoms rubs or murmurs appreciated.Abdominal exam revealed normal bowel sounds. The abdomen was soft, non-tender, and without masses, organomegaly, or appreciable enlargement of the abdominal aorta.Examination of the extremities revealed easily palpable radial, femoral and pedal pulses. There was no cyanosis, clubbing or edema. Neurologically the patient is awake and alert and following commands and answering questions appropriately. - Labs CBC & Chem 7: 01/13/17 04:32 01/13/17 04:32 Labs: Abnormal Lab Results - Last 24 Hours (Table) 01/09/17 01/12/17 01/12/17 Range/Units 15:18 08:40 10:16 RBC (4.30-5.90) m/uL Hgb (13.0-17.5) gm/dL Hct (39.0-53.0) % Plt Count (150-450) k/uL Lymphocytes # (1.0-4.8) k/uL PT (9.0-12.0) sec INR (<1.2) ABG pH (7.35-7.45) ABG pCO2 (35-45) mmHg ABG pO2 199 H 180 H (83-108) mmHg ABG HCO3 (21-25) mmol/L ABG Total CO2 25 H 25 H (19-24) mmol/L ABG O2 Saturation 99.7 H 99.6 H (94-97) % ABG Hematocrit 33 L 31 L (34.0-46.0) % ABG Potassium (3.4-4.5) mmol/L Sodium (137-145) mmol/L Glucose (74-99) mg/dL POC Glucose (mg/dL) (75-99) mg/dL Calcium (8.4-10.2) mg/dL Magnesium (1.6-2.3) mg/dL Total Protein (6.3-8.2) g/dL Albumin (3.5-5.0) g/dL Arterial Blood Potassium (3.4-4.5) mmol/L Crossmatch See Detail 01/12/17 01/12/17 01/12/17 Range/Units 11:13 11:45 12:17 RBC (4.30-5.90) m/uL Hgb (13.0-17.5) gm/dL Hct (39.0-53.0) % Plt Count (150-450) k/uL Lymphocytes # (1.0-4.8) k/uL PT (9.0-12.0) sec INR (<1.2) ABG pH 7.34 L (7.35-7.45) ABG pCO2 49 H (35-45) mmHg ABG pO2 308 H 210 H 249 H (83-108) mmHg ABG HCO3 26 H (21-25) mmol/L ABG Total CO2 27 H 28 H 27 H (19-24) mmol/L ABG O2 Saturation 99.9 H 99.7 H 99.8 H (94-97) % ABG Hematocrit 25 L 29 L 31 L (34.0-46.0) % ABG Potassium 5.0 H 5.1 H (3.4-4.5) mmol/L Sodium (137-145) mmol/L Glucose (74-99) mg/dL POC Glucose (mg/dL) (75-99) mg/dL Calcium (8.4-10.2) mg/dL Magnesium (1.6-2.3) mg/dL Total Protein (6.3-8.2) g/dL Albumin (3.5-5.0) g/dL Arterial Blood Potassium 5.0 H 5.1 H (3.4-4.5) mmol/L Crossmatch 01/12/17 01/12/17 01/12/17 Range/Units 12:53 13:23 14:26 RBC (4.30-5.90) m/uL Hgb (13.0-17.5) gm/dL Hct (39.0-53.0) % Plt Count (150-450) k/uL Lymphocytes # (1.0-4.8) k/uL PT (9.0-12.0) sec INR (<1.2) ABG pH 7.33 L 7.32 L (7.35-7.45) ABG pCO2 49 H 50 H (35-45) mmHg ABG pO2 275 H 274 H (83-108) mmHg ABG HCO3 (21-25) mmol/L ABG Total CO2 27 H 27 H (19-24) mmol/L ABG O2 Saturation 99.9 H 99.9 H 98.3 H (94-97) % ABG Hematocrit 31 L 29 L 33 L (34.0-46.0) % ABG Potassium 5.2 H 4.9 H (3.4-4.5) mmol/L Sodium (137-145) mmol/L Glucose (74-99) mg/dL POC Glucose (mg/dL) (75-99) mg/dL Calcium (8.4-10.2) mg/dL Magnesium (1.6-2.3) mg/dL Total Protein (6.3-8.2) g/dL Albumin (3.5-5.0) g/dL Arterial Blood Potassium 5.2 H 4.9 H (3.4-4.5) mmol/L Crossmatch 01/12/17 01/12/17 01/12/17 Range/Units 15:49 16:00 16:00 RBC 2.84 L (4.30-5.90) m/uL Hgb 9.1 L D (13.0-17.5) gm/dL Hct 27.5 L (39.0-53.0) % Plt Count 102 L (150-450) k/uL Lymphocytes # (1.0-4.8) k/uL PT (9.0-12.0) sec INR (<1.2) ABG pH (7.35-7.45) ABG pCO2 (35-45) mmHg ABG pO2 (83-108) mmHg ABG HCO3 (21-25) mmol/L ABG Total CO2 (19-24) mmol/L ABG O2 Saturation (94-97) % ABG Hematocrit (34.0-46.0) % ABG Potassium (3.4-4.5) mmol/L Sodium (137-145) mmol/L Glucose 109 H (74-99) mg/dL POC Glucose (mg/dL) 123 H (75-99) mg/dL Calcium 8.1 L (8.4-10.2) mg/dL Magnesium 2.6 H (1.6-2.3) mg/dL Total Protein 4.9 L (6.3-8.2) g/dL Albumin 2.7 L (3.5-5.0) g/dL Arterial Blood Potassium (3.4-4.5) mmol/L Crossmatch 01/12/17 01/12/17 01/12/17 Range/Units 16:00 16:07 16:28 RBC (4.30-5.90) m/uL Hgb (13.0-17.5) gm/dL Hct (39.0-53.0) % Plt Count (150-450) k/uL Lymphocytes # (1.0-4.8) k/uL PT 13.2 H (9.0-12.0) sec INR 1.3 H (<1.2) ABG pH (7.35-7.45) ABG pCO2 46 H (35-45) mmHg ABG pO2 244 H (83-108) mmHg ABG HCO3 (21-25) mmol/L ABG Total CO2 26 H (19-24) mmol/L ABG O2 Saturation 100.0 H (94-97) % ABG Hematocrit (34.0-46.0) % ABG Potassium (3.4-4.5) mmol/L Sodium (137-145) mmol/L Glucose (74-99) mg/dL POC Glucose (mg/dL) 119 H (75-99) mg/dL Calcium (8.4-10.2) mg/dL Magnesium (1.6-2.3) mg/dL Total Protein (6.3-8.2) g/dL Albumin (3.5-5.0) g/dL Arterial Blood Potassium (3.4-4.5) mmol/L Crossmatch 01/12/17 01/12/17 01/12/17 Range/Units 17:10 18:12 18:15 RBC 3.05 L (4.30-5.90) m/uL Hgb 9.5 L (13.0-17.5) gm/dL Hct 29.4 L (39.0-53.0) % Plt Count 113 L (150-450) k/uL Lymphocytes # (1.0-4.8) k/uL PT (9.0-12.0) sec INR (<1.2) ABG pH (7.35-7.45) ABG pCO2 (35-45) mmHg ABG pO2 (83-108) mmHg ABG HCO3 (21-25) mmol/L ABG Total CO2 (19-24) mmol/L ABG O2 Saturation (94-97) % ABG Hematocrit (34.0-46.0) % ABG Potassium (3.4-4.5) mmol/L Sodium (137-145) mmol/L Glucose (74-99) mg/dL POC Glucose (mg/dL) 113 H 107 H (75-99) mg/dL Calcium (8.4-10.2) mg/dL Magnesium (1.6-2.3) mg/dL Total Protein (6.3-8.2) g/dL Albumin (3.5-5.0) g/dL Arterial Blood Potassium (3.4-4.5) mmol/L Crossmatch 01/12/17 01/12/17 01/12/17 Range/Units 19:05 20:13 20:55 RBC (4.30-5.90) m/uL Hgb (13.0-17.5) gm/dL Hct (39.0-53.0) % Plt Count (150-450) k/uL Lymphocytes # (1.0-4.8) k/uL PT 12.5 H (9.0-12.0) sec INR 1.3 H (<1.2) ABG pH (7.35-7.45) ABG pCO2 (35-45) mmHg ABG pO2 (83-108) mmHg ABG HCO3 (21-25) mmol/L ABG Total CO2 (19-24) mmol/L ABG O2 Saturation (94-97) % ABG Hematocrit (34.0-46.0) % ABG Potassium (3.4-4.5) mmol/L Sodium (137-145) mmol/L Glucose (74-99) mg/dL POC Glucose (mg/dL) 103 H 108 H (75-99) mg/dL Calcium (8.4-10.2) mg/dL Magnesium (1.6-2.3) mg/dL Total Protein (6.3-8.2) g/dL Albumin (3.5-5.0) g/dL Arterial Blood Potassium (3.4-4.5) mmol/L Crossmatch 01/12/17 01/12/17 01/12/17 Range/Units 20:55 20:55 20:56 RBC 2.52 L (4.30-5.90) m/uL Hgb 7.9 L D (13.0-17.5) gm/dL Hct 23.5 L (39.0-53.0) % Plt Count 97 L (150-450) k/uL Lymphocytes # 0.8 L (1.0-4.8) k/uL PT (9.0-12.0) sec INR (<1.2) ABG pH (7.35-7.45) ABG pCO2 (35-45) mmHg ABG pO2 (83-108) mmHg ABG HCO3 (21-25) mmol/L ABG Total CO2 (19-24) mmol/L ABG O2 Saturation (94-97) % ABG Hematocrit (34.0-46.0) % ABG Potassium (3.4-4.5) mmol/L Sodium 136 L (137-145) mmol/L Glucose (74-99) mg/dL POC Glucose (mg/dL) 102 H (75-99) mg/dL Calcium 8.1 L (8.4-10.2) mg/dL Magnesium (1.6-2.3) mg/dL Total Protein 5.3 L (6.3-8.2) g/dL Albumin 2.9 L (3.5-5.0) g/dL Arterial Blood Potassium (3.4-4.5) mmol/L Crossmatch 01/12/17 01/13/17 01/13/17 Range/Units 22:01 00:06 01:29 RBC (4.30-5.90) m/uL Hgb (13.0-17.5) gm/dL Hct (39.0-53.0) % Plt Count (150-450) k/uL Lymphocytes # (1.0-4.8) k/uL PT (9.0-12.0) sec INR (<1.2) ABG pH (7.35-7.45) ABG pCO2 (35-45) mmHg ABG pO2 (83-108) mmHg ABG HCO3 (21-25) mmol/L ABG Total CO2 (19-24) mmol/L ABG O2 Saturation (94-97) % ABG Hematocrit (34.0-46.0) % ABG Potassium (3.4-4.5) mmol/L Sodium (137-145) mmol/L Glucose (74-99) mg/dL POC Glucose (mg/dL) 113 H 104 H 118 H (75-99) mg/dL Calcium (8.4-10.2) mg/dL Magnesium (1.6-2.3) mg/dL Total Protein (6.3-8.2) g/dL Albumin (3.5-5.0) g/dL Arterial Blood Potassium (3.4-4.5) mmol/L Crossmatch 01/13/17 01/13/17 01/13/17 Range/Units 02:01 03:07 03:56 RBC (4.30-5.90) m/uL Hgb (13.0-17.5) gm/dL Hct (39.0-53.0) % Plt Count (150-450) k/uL Lymphocytes # (1.0-4.8) k/uL PT (9.0-12.0) sec INR (<1.2) ABG pH (7.35-7.45) ABG pCO2 (35-45) mmHg ABG pO2 (83-108) mmHg ABG HCO3 (21-25) mmol/L ABG Total CO2 (19-24) mmol/L ABG O2 Saturation (94-97) % ABG Hematocrit (34.0-46.0) % ABG Potassium (3.4-4.5) mmol/L Sodium (137-145) mmol/L Glucose (74-99) mg/dL POC Glucose (mg/dL) 128 H 129 H 131 H (75-99) mg/dL Calcium (8.4-10.2) mg/dL Magnesium (1.6-2.3) mg/dL Total Protein (6.3-8.2) g/dL Albumin (3.5-5.0) g/dL Arterial Blood Potassium (3.4-4.5) mmol/L Crossmatch 01/13/17 01/13/17 01/13/17 Range/Units 04:32 04:32 04:32 RBC 2.89 L (4.30-5.90) m/uL Hgb 9.0 L (13.0-17.5) gm/dL Hct 26.8 L (39.0-53.0) % Plt Count 124 L (150-450) k/uL Lymphocytes # (1.0-4.8) k/uL PT 13.1 H (9.0-12.0) sec INR 1.3 H (<1.2) ABG pH (7.35-7.45) ABG pCO2 (35-45) mmHg ABG pO2 (83-108) mmHg ABG HCO3 (21-25) mmol/L ABG Total CO2 (19-24) mmol/L ABG O2 Saturation (94-97) % ABG Hematocrit (34.0-46.0) % ABG Potassium (3.4-4.5) mmol/L Sodium (137-145) mmol/L Glucose 120 H (74-99) mg/dL POC Glucose (mg/dL) (75-99) mg/dL Calcium 7.9 L (8.4-10.2) mg/dL Magnesium (1.6-2.3) mg/dL Total Protein 5.1 L (6.3-8.2) g/dL Albumin 2.8 L (3.5-5.0) g/dL Arterial Blood Potassium (3.4-4.5) mmol/L Crossmatch 01/13/17 01/13/17 01/13/17 Range/Units 04:35 05:49 07:04 RBC (4.30-5.90) m/uL Hgb (13.0-17.5) gm/dL Hct (39.0-53.0) % Plt Count (150-450) k/uL Lymphocytes # (1.0-4.8) k/uL PT (9.0-12.0) sec INR (<1.2) ABG pH (7.35-7.45) ABG pCO2 (35-45) mmHg ABG pO2 73 L (83-108) mmHg ABG HCO3 (21-25) mmol/L ABG Total CO2 (19-24) mmol/L ABG O2 Saturation (94-97) % ABG Hematocrit (34.0-46.0) % ABG Potassium (3.4-4.5) mmol/L Sodium (137-145) mmol/L Glucose (74-99) mg/dL POC Glucose (mg/dL) 129 H 122 H (75-99) mg/dL Calcium (8.4-10.2) mg/dL Magnesium (1.6-2.3) mg/dL Total Protein (6.3-8.2) g/dL Albumin (3.5-5.0) g/dL Arterial Blood Potassium (3.4-4.5) mmol/L Crossmatch 01/13/17 01/13/17 01/13/17 Range/Units 07:55 08:28 08:51 RBC (4.30-5.90) m/uL Hgb (13.0-17.5) gm/dL Hct (39.0-53.0) % Plt Count (150-450) k/uL Lymphocytes # (1.0-4.8) k/uL PT (9.0-12.0) sec INR (<1.2) ABG pH (7.35-7.45) ABG pCO2 (35-45) mmHg ABG pO2 65 L (83-108) mmHg ABG HCO3 (21-25) mmol/L ABG Total CO2 (19-24) mmol/L ABG O2 Saturation (94-97) % ABG Hematocrit (34.0-46.0) % ABG Potassium (3.4-4.5) mmol/L Sodium (137-145) mmol/L Glucose (74-99) mg/dL POC Glucose (mg/dL) 126 H 125 H (75-99) mg/dL Calcium (8.4-10.2) mg/dL Magnesium (1.6-2.3) mg/dL Total Protein (6.3-8.2) g/dL Albumin (3.5-5.0) g/dL Arterial Blood Potassium (3.4-4.5) mmol/L Crossmatch 01/13/17 01/13/17 01/13/17 Range/Units 10:05 11:01 12:05 RBC (4.30-5.90) m/uL Hgb (13.0-17.5) gm/dL Hct (39.0-53.0) % Plt Count (150-450) k/uL Lymphocytes # (1.0-4.8) k/uL PT (9.0-12.0) sec INR (<1.2) ABG pH (7.35-7.45) ABG pCO2 (35-45) mmHg ABG pO2 (83-108) mmHg ABG HCO3 (21-25) mmol/L ABG Total CO2 (19-24) mmol/L ABG O2 Saturation (94-97) % ABG Hematocrit (34.0-46.0) % ABG Potassium (3.4-4.5) mmol/L Sodium (137-145) mmol/L Glucose (74-99) mg/dL POC Glucose (mg/dL) 125 H 133 H 136 H (75-99) mg/dL Calcium (8.4-10.2) mg/dL Magnesium (1.6-2.3) mg/dL Total Protein (6.3-8.2) g/dL Albumin (3.5-5.0) g/dL Arterial Blood Potassium (3.4-4.5) mmol/L Crossmatch 01/13/17 01/13/17 Range/Units 13:10 13:57 RBC (4.30-5.90) m/uL Hgb (13.0-17.5) gm/dL Hct (39.0-53.0) % Plt Count (150-450) k/uL Lymphocytes # (1.0-4.8) k/uL PT (9.0-12.0) sec INR (<1.2) ABG pH (7.35-7.45) ABG pCO2 (35-45) mmHg ABG pO2 (83-108) mmHg ABG HCO3 (21-25) mmol/L ABG Total CO2 (19-24) mmol/L ABG O2 Saturation (94-97) % ABG Hematocrit (34.0-46.0) % ABG Potassium (3.4-4.5) mmol/L Sodium (137-145) mmol/L Glucose (74-99) mg/dL POC Glucose (mg/dL) 122 H 124 H (75-99) mg/dL Calcium (8.4-10.2) mg/dL Magnesium (1.6-2.3) mg/dL Total Protein (6.3-8.2) g/dL Albumin (3.5-5.0) g/dL Arterial Blood Potassium (3.4-4.5) mmol/L Crossmatch Assessment and Plan Plan: Assessment 1 multivessel coronary artery disease, awaiting coronary artery bypass surgery. Patient underwent triple vessel bypass surgery and the patient is postop day # 1. The patient was weaned off the mechanical ventilator earlier this morning and was extubated without any major difficulties currently on fleets about 2 by nasal cannula. Hemodynamically stable. Chest tubes are in place. Brinkhaven-Rasheed catheter in place. Chest x-ray showing postsurgical changes. 2 acute non-ST segment elevation myocardial infarction 3 obesity, BMI of 33 4 osteoarthritis 5 hyperlipidemia 6 right index finger infection/wound 7 preserved LV function with a ejection fraction of 55-60% Plan Encouraged use of incentive spirometer. Monitor the output from the chest tubes. Patient is hemodynamically stable on no pressors. Nitroglycerin drip for blood sugar control. May be able to remove the Brink[place]-Rasheed catheter. Chest x -ray was reviewed. Keep the patient ICU for 24 hours. Recovery is reasonably well and the patient was extubated blood any major difficulties.
[2017-01-13] MEDS ORDERED: BISACODYL 10 MG SUPP RECTAL PRN (14:54)
[2017-01-13] MEDS ORDERED: IPRATROPIUM-ALBUTEROL 3 ML NEB INHALATION PRN (14:56)
[2017-01-13 14:58] LABS: Glucose,Whole Blood 105 mg/dL (75-99)
[2017-01-13] MEDS: METOPROLOL TARTRATE 12.5 MG TAB PO SCH ×2 (15:59→20:27)
[2017-01-13] MEDS: THIAMINE 100 MG TAB PO SCH (16:00)
[2017-01-13] MEDS: ASPIRIN 325 MG TAB PO SCH (16:00)
[2017-01-13] MEDS: CLOPIDOGREL 75 MG TAB PO SCH (16:00)
[2017-01-13] MEDS: ATORVASTATIN 40 MG TAB PO SCH (16:00)
[2017-01-13] MEDS: MULTIVITAMINS, THERA 1 EACH TAB PO SCH (16:00)
[2017-01-13] MEDS: HYDROcodone/APAP 5-325MG 1 EACH TAB PO PRN (16:37)
[2017-01-13] MEDS: CLEVIDIPINE BUTYRATE 25 MG in EMPTY BAG 1 BAG IV SCH (16:40)
[2017-01-13] MEDS: NITROGLYCERIN-D5W PMX 50 MG in DEXTROSE/WATER 1 250ML.BAG IV SCH (16:41)
--- NOTE | 2017-01-13 17:22 | OP ---
PREOPERATIVE DIAGNOSIS: Coronary artery disease. POSTOPERATIVE DIAGNOSIS: Coronary artery disease. PROCEDURE: 1. Urgent coronary artery bypass grafting times four vessels (left internal mammary artery to left anterior descending artery, saphenous vein graft to diagonal artery, saphenous vein graft to obtuse marginal artery, saphenous vein graft to posterior descending artery). 2. Endoscopic vein harvest right greater saphenous vein. 3. Epiaortic ultrasound. 4. Transesophageal echocardiogram. 5. Closure of complex sternal wound using Tritium titanium plating system. SURGEON: Parker Reza M.D. LIFE UNDERWRITER: 1. Ismael TEJADA 2. JOE Noel. 3. JOE Vazquez. ANESTHESIA: General anesthesia. SPECIMENS: None. COMPLICATIONS: None. INDICATIONS: The patient is a 71 -year-old male with a past medical history significant for hyperlipidemia and osteoarthritis who presented to the hospital with chest pain. Workup revealed multivessel coronary artery disease . Coronary artery bypass was recommended. The risks, benefits, and alternatives of the procedure were discussed with the patient. All questions were answered. Consent was obtained. FINDINGS: The left internal mammary artery was good conduit with brisk flow. The saphenous vein was an adequate conduit. The LAD contained diffuse disease and measured 1.3 mm. The diagonal artery measured 1.0 mm. The OM measured 1.3 mm. The PDA contained diffuse disease and measured 1.5 mm. PROCEDURE IN DETAIL: The patient was taken to the operating room and placed supine on the operating room table. After induction of general anesthesia, he was prepped and draped in the usual sterile fashion. Preoperative transesophageal echocardiogram revealed trivial mitral regurgitation with preserved ejection fraction. A median sternotomy was performed. The left internal mammary artery was harvested in the standard fashion taking care to clip all branches. Intravenous heparin was administered and the vessel was transected distally revealing brisk flow. Simultaneously, greater saphenous vein was harvested from the right lower extremity using endoscopic technique. All branches were tied. The vein was thin walled but an adequate conduit. A pericardial cradle was created. The ascending aorta was palpated and appeared to be soft and free of calcific disease. Epiaortic ultrasound was then performed of the ascending aorta. There was no significant plaque noted within the aorta. An arterial cannula was placed distally in the ascending aorta. The venous cannula was placed through the right atrial appendage and directed into the IVC. Both antegrade and retrograde catheters were placed as well. The patient was then placed on cardiopulmonary bypass with good decompression of the heart. The aorta cross clamp was applied. Cold blood potassium cardioplegia was delivered in both antegrade and retrograde fashion to achieve arrest of the heart. Of note, cardioplegia was delivered every 15-20 minutes while the patient remained under crossclamp. We began by inspecting the inferior wall. The posterior descending artery was identified. The distal right coronary artery was palpated and had significant disease. The PDA had diffuse soft plaque but a soft spot for bypass was noted. A small arteriotomy was created. This vessel accepted a 1.5 mm probe. Using saphenous vein in a reverse fashion, an end to side anastomosis was created. This was performed using running 7-0 Prolene suture. The graft was hemostatic and had great flow. Next, the lateral wall was inspected. The obtuse marginal artery was identified. It contained diffuse disease and was small diameter but I felt it was amenable to bypass. A small arteriotomy was created. This vessel accepted a 1 mm probe. Using saphenous vein in a reverse fashion, an end to side anastomosis was created. This was performed using running 7-0 Prolene suture. Finally the diagonal artery was identified. It too contained diffuse disease. It was small diameter but I felt it was adequate for bypass. A small arteriotomy was created. This vessel accepted a 1 mm probe both proximally and distally. Using saphenous vein done in reverse fashion, an end to side anastomosis was created. This was performed using running 7-0 Prolene suture. Next, the LAD was identified. It contained diffuse disease proximally. A soft spot for bypass was noticed distally. Using the left internal mammary artery, an end to side anastomosis was created. This was performed using running 8-0 Prolene suture. The graft was hemostatic. The mammary pedicle was then tacked down to the anterior surface of the heart. Attention was then turned to the proximal anastomoses. These were performed to the ascending aorta in an end to side fashion using running Prolene suture. Of note, the proximal anastomosis of the vein graft to the obtuse marginal artery was placed on the proximal portion of the vein graft to the diagonal artery. This resulted in an end-to-side elat-iu-rmsg anastomosis. One liter of warm blood was delivered in retrograde fashion. Lidocaine and magnesium were administered as well. The aortic cross clamp was removed. The grafts were de-aired in the standard fashion. The distal anastomoses were inspected and appeared to be hemostatic. The retrograde catheter was removed. The patient was then weaned off cardiopulmonary bypass. He without difficulty. The remaining cannulas were then removed. Follow-up transesophageal echocardiogram revealed preserved left ventricular ejection fraction with no change in valve pathology. The mediastinum was copiously irrigated with warm saline solution. All suture sites were inspected and appeared to be hemostatic. Reinforcement sutures were placed as needed. Soft tissue was then reapproximated over the ascending aorta as well as over the apex of the heart. A straight 32 Frisian chest tube was placed and directed into the left pleural space. Two additional straight 32 Frisian chest tubes were placed and directed into the mediastinum. These were all secured to the skin using sutures. Due to the patients obesity and body habitus, I chose to close the sternum using a plating system. Two cables were placed, one superiorly and one inferiorly. Three plates from the Tritium titanium plating system were then chosen and affixed using attaced wires and screws. At completion of the closure, the sternum was well approximated. The remainder of the wounds were then closed in layers. A sterile dressing was applied. The patient appeared to tolerate the procedure well. There were no immediate complications. He returned to the ICU in critical but stable condition. SUSY
[2017-01-13 17:25] LABS: Glucose,Whole Blood 110 mg/dL (75-99)
[2017-01-13] MEDS: INSULIN LISPRO (humaLOG) 300 UNIT/3 ML VIAL SQ SCH ×2 (17:26→20:37)
--- NOTE | 2017-01-13 17:27 | P.PN ---
<Yesi Jeffers Deena - Last Filed: 01/13/17 16:59> Progress Note - Text DATE OF SERVICE: 01/13/2017 PRESENTING COMPLAINT: Chest pain HISTORY OF PRESENT ILLNESS: 71-year-old male who woke up with chest pain associated heaviness no shortness of breath perspiration or dizziness although felt tired and rundown. First troponins, negative. Subsequent troponins positive, secondary episode of chest pain, taken to the cardiac Application Security Consultant, found to have triple-vessel disease. Now status post coronary artery bypass grafting 4 with a BROWN to the LAD, saphenous vein graft to the OM, diagonal and PDA. INTERVAL HISTORY: 01/13/2017: Patient seen in follow-up in the ICU from open heart surgery, CABG 4 as above. Was successfully extubated, currently on nasal cannula, sitting up in the bed appears comfortable at the bedside. Current drips include nitroglycerin at 5 g a minute, insulin drip. Had episode of atrial fibrillation for which he received IV metoprolol, rhythm is currently in normal sinus rate controlled. Chest tubes in place with mediastinal split chest tube 2 and a left pleural chest tube both with minimal drainage. Baez catheter in place with urine output appropriate. Diet advanced to a clear liquid diet, patient tolerating eating barely 30%, 01/12/2017: Patient seen in follow-up in the ICU from open heart surgery, CABG 4 as above. Remains intubated on the mechanical ventilator on assist control volume control rate of 18 tidal volume of 500 FiO2 of 35%. Drips include nitroglycerin at 5 g a minute, lactated Ringer's at 50 mils liters an hour propofol at 35 mcg/kg/min, insulin at 0.5 units per hour, normal sinus rhythm on the monitor, back up pacing at 80. Chest tubes in place with mediastinal split chest tube 2 and a left pleural chest tube both with minimal drainage. Baez catheter in place with urine output beginning to dwindle. 01/11/2017: Patient seen in follow-up, no further episodes of chest pain nitro drip continues. Preop testing completed coronary artery bypass grafting surgery tomorrow. at the bedside with patient. Patient is anxious appearing, tolerating his diet, ambulatory in the room and davison ways, utilizing his incentive spirometer. Last BM on 01/10/2017. 01/10/2017: Patient seen in follow-up, had another episode of chest pain today, nitro drip started. No chest pain at this time, nitro drip continues. Preop testing continues, patient will tentatively be scheduled for coronary artery bypass grafting surgery on Wednesday. Sitting up at the bedside, anxious appearing, voiced concerns about surgery, states he is afraid. Reassurance provided. Patient's tolerating his diet, ambulatory in the room and davison ways, last BM . 01/09/2017: Patient had an episode of chest pain overnight, troponins positive, was taken to the lab technologist this morning, found to have triple-vessel disease. Surgery is tentatively scheduled for Wednesday. Sitting up the bedside, eating his lunch, Pressure device noted to right radial artery. General questions answered. REVIEW OF SYSTEMS: Done for constitutional cardiovascular GI pulmonary, integument, with relevant findings as above. CURRENT MEDICATIONS Calcium chloride, ceftezole, Xanax, clevidipine, diltiazem, heparin, Bactroban nitroglycerin IV, nitroglycerin, insulin PHYSICAL EXAM VITAL SIGNS: Pulse 71, respiratory rate 20, blood pressure 121/54, PA pressure 23/12, oxygen saturation 95% on 3 L nasal cannula. GENERAL APPEARANCE: Lying in the bed, on nasal cannula appears anxious, EYES: Pupils equal. Conjunctiva normal. NECK: JVD unable to assess Mass not palpable. Right internal jugular pulmonary artery catheter in place, 2 mediastinal chest tubes and a left pleural chest tube in place minimal drainage RESPIRATORY: Effort normal, Lungs diminished to auscultation. CARDIOVASCULAR: First and second sounds normal. Mild edema. chest tubes patent. ABDOMEN: Soft. Liver and spleen not palpable. No tenderness. No guarding or rigidity No mass palpable. GENITOURINARY: Baez catheter in place during clear yellow urine PSYCHIATRY: Alert and oriented 3 somewhat anxious appearing INTEGUMENT: Midline chest wall incision with surgical dressing in place INVESTIGATIONS: White blood cell count 7.0 hemoglobin 9.0 INR 1.3, BMP unremarkable, Accu-Cheks noted. Chest x-ray: Improved aeration of both lungs resolving atelectasis tubes and lines stable. ASSESSMENT: -Coronary artery disease with triple-vessel disease, including post-DC angina, status post coronary artery bypass grafting 4, improving -Mechanically assisted ventilation as an expected outcome of thoracotomy secondary to coronary artery bypass grafting surgery, extubated -Acute blood loss anemia as expected from open heart surgery -Acute non- Q wave myocardial infarction with cardiac cath showing triple- vessel coronary artery disease. -Obesity BMI 33.0 -Hyperlipidemia -Primary osteoarthritis of left hip pending outpatient surgery -Acute cellulitis of the right index finger proximal part being treated with ciprofloxacin from outpatient PLAN: Continue CABG postsurgical protocols, if patient remains hemodynamically stable may be able to remove the [place]-Rasheed catheter tomorrow and patient may be eligible for transfer out of the ICU based on his condition. Continue to advance diet and activity as patient can tolerate. We will continue to follow closely plan of care discussed with patient and family at the bedside and they are in agreement. [employer] statement: Patient was seen and examined by nurse practitioner Yesi Jeffers and all elements of the case discussed with attending Dr. Lundberg <Juan Antonio Lundberg - Last Filed: 01/13/17 18:19> Progress Note - Text Attending note. Date of service-01/13/2017 This patient was seen and examined by me . Discussed the patient with my nurse practitioner Ms. Jeffers. Patient in the ICU. Status post CABG. Did receive IV Lopressor earlier for increased heart rate. On insulin drip. at the bedside. On examination: Lungs-decreased breath sounds, cardiovascular first seconds are normal, psych AO 3. Sitting up in her bed Investigations: Hemoglobin 9, platelets 124 Assessment and plan: -Status post CABG -Acute blood loss anemia as expected from surgery -Thrombocytopenia likely dilutional Care discussed with the patient and . Questions answered. Follow closely thank you
[2017-01-13] MEDS: SENNOSIDES-DOCUSATE SODIUM 1 EACH TAB PO SCH (20:26)
[2017-01-13 20:38] LABS: Glucose,Whole Blood 135 mg/dL (75-99)
[2017-01-14] MEDS: HEPARIN SODIUM,PORCINE 5,000 UNIT/ML 1 ML VIAL SQ SCH ×3 (00:18→16:22)
[2017-01-14] MEDS: HYDROcodone/APAP 5-325MG 1 EACH TAB PO PRN ×5 (03:44→22:44)
[2017-01-14 05:02] LABS: Glucose,Whole Blood 113 mg/dL (75-99)
[2017-01-14 05:09] LABS: Basophils % (A) 0 %; CH 32.1; CHCM 34.5; Eosinophils # (A) 0.2 k/uL (0-0.7); Eosinophils % (A) 2 %; HCT 26.7 % (39.0-53.0); HDW 2.67; HGB 9.3 gm/dL (13.0-17.5); Luc # (Auto) 0.11; Luc % (Auto) 1; Lymphocytes # (A) 1.6 k/uL (1.0-4.8); Lymphocytes % (A) 18 %; MCH 32.3 pg (25.0-35.0); MCHC 34.6 g/dL (31.0-37.0); MCV 93.4 fL (80.0-100.0); Mean Platelet Volume 7.2; Monocytes # (A) 0.4 k/uL (0-1.0); Monocytes % (A) 4 %; Neutrophils # (A) 6.6 k/uL (1.3-7.7); Neutrophils % (A) 74 %; RBC 2.86 m/uL (4.30-5.90); RDW 13.6 % (11.5-15.5); WBC 8.9 k/uL (3.8-10.6); WBC (Perox) 8.53
[2017-01-14 05:14] LABS: Ionized Calcium 4.9 mg/dL (4.5-5.3)
[2017-01-14 05:23] LABS: ALT 47 U/L (21-72); AST 42 U/L (17-59); Alkaline Phosphatase 51 U/L (38-126); Anion Gap 8 mmol/L; Blood Urea Nitrogen 11 mg/dL (9-20); Calcium 8.1 mg/dL (8.4-10.2); Carbon Dioxide 27 mmol/L (22-30); Chloride 102 mmol/L (98-107); Glucose 97 mg/dL (74-99); Magnesium 2.2 mg/dL (1.6-2.3); Non-African American GFR(MDRD) >60 (>60 ml/min/1.73 sqM); Potassium 3.9 mmol/L (3.5-5.1); Sodium 137 mmol/L (137-145); Total Bilirubin 0.6 mg/dL (0.2-1.3); Total Protein 5.2 g/dL (6.3-8.2)
[2017-01-14] MEDS ORDERED: POTASSIUM CHLORIDE ORAL LIQUID 40 MEQ/30 ML CUP PO ONE (05:58)
--- NOTE | 2017-01-14 07:16 | XR ---
EXAMINATION TYPE: XR chest 1V portable DATE OF EXAM: 01/14/2017 HISTORY: Post Operative Cardiac Surgery. REFERENCE: Previous study dated 01/13/2017. FINDINGS: The patient has been extubated. The patient is NG tube has been removed. [place]-Rasheed catheter is been removed. Left pleural and mediastinal drains remain in place. Multiple ECG leads project ove r the chest. Heart size remains prominent. There is widening of the vascular pedicle. There is left basilar airspa ce disease either representing atelectasis or pneumonia. There is a small left effusion. IMPRESSION: CONTINUING POSTSURGICAL CHANGE.
[2017-01-14 07:41] LABS: Glucose,Whole Blood 103 mg/dL (75-99)
[2017-01-14] MEDS: INSULIN LISPRO (humaLOG) 300 UNIT/3 ML VIAL SQ SCH ×4 (08:09→20:52)
[2017-01-14] MEDS: ASPIRIN 325 MG TAB PO SCH (08:31)
[2017-01-14] MEDS ORDERED: FUROSEMIDE 10 MG/ML 4 ML VIAL IV STA (08:31)
[2017-01-14] MEDS: ATORVASTATIN 40 MG TAB PO SCH (08:32)
[2017-01-14] MEDS: CLOPIDOGREL 75 MG TAB PO SCH (08:32)
[2017-01-14] MEDS: PANTOPRAZOLE 40 MG/10 ML VIAL IVP SCH (08:32)
[2017-01-14] MEDS: MUPIROCIN 2% OINT 22 GM TUBE NASAL SCH ×2 (08:32→20:55)
--- NOTE | 2017-01-14 09:04 | P.PN ---
Subjective Principal diagnosis: Symptomatic coronary artery disease, non-STEMI. Hyperlipidemia. Osteoarthritis. Current right hand index finger wound. Previous tobacco dependence. POD #2 urgent coronary artery bypass grafting 4 vessels with the left internal mammary artery to the left anterior descending artery, reverse saphenous vein graft to the diagonal artery, reverse saphenous vein graft to the obtuse marginal artery, reverse saphenous vein graft to the posterior descending artery. Endoscopic vein harvesting right greater saphenous vein. Epi-aortic ultrasound. Intraoperative transesophageal echocardiogram. Closure of complex sternal wound using Tritium titanium plating system. The patient is currently sitting up in in the chair in no acute distress. Denies chest pain, shortness of breath. He was extubated yesterday morning. Objective - Vital Signs Vital signs: Vital Signs Temp 98.3 F 01/14/17 08:00 Pulse 86 01/14/17 08:00 Resp 13 01/14/17 08:00 BP 143/76 01/14/17 08:00 Pulse Ox 95 01/14/17 08:00 Intake & Output 01/13/17 01/14/17 01/14/17 18:59 06:59 18:59 Intake Total 1520.025 666 112 Output Total 702 825 180 Balance 818.025 -159 -68 Weight 115 kg Intake: IV 711.5 666 112 Cardiac Output 30 Lactated Ringers 1,000 ml 550 600 100 @ 50 mls/hr IV .Q20H VENU Rx#:[id number] Nitroglycerin-D5w Pmx 50 22.5 mg In Dextrose/Water 1 250ml.bag @ 5 MCG/MIN 1.5 mls/hr IV .Q24H PRN Rx#: [id number] Pressure Bag 9 66 12 ceFAZolin 2 gm In Sodium 100 Chloride 0.9% 100 ml @ 100 mls/hr IVPB Q8HR VENU Rx#:[id number] Intake, IV Titration 148.525 Amount ACETAMINOPHEN IV (For NPO 100 ) 1,000 mg In Empty Bag 1 bag @ 400 mls/hr IVPB ONCE ONE Rx#:[id number] Nitroglycerin-D5w Pmx 50 48.525 mg In Dextrose/Water 1 250ml.bag @ 5 MCG/MIN 1.5 mls/hr IV .Q24H VENU Rx#: [id number] Oral 660 Output: Chest Tube Drainage 172 290 100 Bilateral Mediastinal 85 212 60 Left Lateral Chest 87 78 40 Urine 530 535 80 Stool 0 0 Other: Voiding Method Indwelling Catheter Indwelling Catheter ABP, PAP, CO, CI - Last Documented Arterial Blood Pressure 132/60 Pulmonary Artery Pressure 23/12 Cardiac Output 6.5 Cardiac Index 2.9 - Constitutional General appearance: Present: cooperative, no acute distress - Respiratory Details: Lungs sounds diminished bilaterally, fine coarse breath sounds in the bases. Respirations even, nonlabored. Currently on 3 L nasal cannula with oxygen saturations 95%. Able to achieve 750 mL on his incentive spirometry. Mediastinal chest tube to -20 cm wall suction, 80 mL serosanguineous drainage overnight, 200 mL last 24 hours. Left pleural chest tube to -20 cm wall suction , 45 mL serosanguineous drainage overnight, 140 mL in the last 24 hours. - Cardiovascular Details: S1, S2 present. Regular rate and rhythm, normal sinus rhythm on telemetry. Sternum stable. A/V epicardial pacemaker wires present, capped. Right radial arterial line, right internal jugular Cordis present. Heart hugger in place with patient demonstrating appropriate use. Teds/SCDs present. Trace up extremity edema present bilaterally. Palpable pulses bilaterally. - Gastrointestinal Gastrointestinal Comment(s): Abdomen soft, nontender, nondistended. Active bowel sounds 4 quadrants. Tolerating diet. Positive flatus. - Genitourinary Genitourinary Comment(s): Baez present draining clear, yellow urine. Output 30-50 mL per hour overnight. - Integumentary Integumentary Comment(s): Anterior chest incision well approximated and covered with dry intact dressing. Right lower extremity EVH site well approximated. - Neurologic Neurologic: Present: CNII-XII intact - Musculoskeletal Musculoskeletal: Present: gait normal, strength equal bilaterally - Psychiatric Psychiatric: Present: A&O x's 3, appropriate affect, intact judgment & insight - Allied health notes Allied health notes reviewed: nursing - Labs CBC & Chem 7: 01/14/17 04:50 01/14/17 04:50 Labs: Abnormal Lab Results - Last 24 Hours (Table) 01/13/17 01/13/17 01/13/17 Range/Units 08:28 10:05 11:01 RBC (4.30-5.90) m/uL Hgb (13.0-17.5) gm/dL Hct (39.0-53.0) % Plt Count (150-450) k/uL ABG pO2 65 L (83-108) mmHg POC Glucose (mg/dL) 125 H 133 H (75-99) mg/dL Calcium (8.4-10.2) mg/dL Total Protein (6.3-8.2) g/dL Albumin (3.5-5.0) g/dL 01/13/17 01/13/17 01/13/17 Range/Units 12:05 13:10 13:57 RBC (4.30-5.90) m/uL Hgb (13.0-17.5) gm/dL Hct (39.0-53.0) % Plt Count (150-450) k/uL ABG pO2 (83-108) mmHg POC Glucose (mg/dL) 136 H 122 H 124 H (75-99) mg/dL Calcium (8.4-10.2) mg/dL Total Protein (6.3-8.2) g/dL Albumin (3.5-5.0) g/dL 01/13/17 01/13/17 01/13/17 Range/Units 14:56 17:23 20:35 RBC (4.30-5.90) m/uL Hgb (13.0-17.5) gm/dL Hct (39.0-53.0) % Plt Count (150-450) k/uL ABG pO2 (83-108) mmHg POC Glucose (mg/dL) 105 H 110 H 135 H (75-99) mg/dL Calcium (8.4-10.2) mg/dL Total Protein (6.3-8.2) g/dL Albumin (3.5-5.0) g/dL 01/14/17 01/14/17 01/14/17 Range/Units 04:50 04:50 04:52 RBC 2.86 L (4.30-5.90) m/uL Hgb 9.3 L (13.0-17.5) gm/dL Hct 26.7 L (39.0-53.0) % Plt Count 147 L (150-450) k/uL ABG pO2 (83-108) mmHg POC Glucose (mg/dL) 113 H (75-99) mg/dL Calcium 8.1 L (8.4-10.2) mg/dL Total Protein 5.2 L (6.3-8.2) g/dL Albumin 2.7 L (3.5-5.0) g/dL 01/14/17 Range/Units 07:39 RBC (4.30-5.90) m/uL Hgb (13.0-17.5) gm/dL Hct (39.0-53.0) % Plt Count (150-450) k/uL ABG pO2 (83-108) mmHg POC Glucose (mg/dL) 103 H (75-99) mg/dL Calcium (8.4-10.2) mg/dL Total Protein (6.3-8.2) g/dL Albumin (3.5-5.0) g/dL - Imaging and Cardiology Chest x-ray: report reviewed, image reviewed Assessment and Plan (1) Osteoarthritis Status: Acute (2) Tobacco dependence in remission Status: Acute (3) Chest pain Status: Acute (4) Coronary artery disease Status: Acute (5) Hyperlipidemia Status: Acute (6) Non-STEMI (non-ST elevated myocardial infarction) Status: Acute (7) Open wound of right hand Status: Acute Plan: 1. Continue aspirin, Plavix, Lipitor, beta mariaa. Will maximize beta mariaa therapy as tolerated. 2. Wean O2 as tolerated. Encourage incentive spirometry use. 3. Increase activity, ambulate in hallway. Physical therapy to follow. 4. Will discontinue mediastinal chest tube, Baez catheter 5. Will give Lasix 40 mg IV push 1 dose today. 6. GI/DVT prophylaxis. 7. Will monitor daily labs and x-rays. 8. Will transfer out of ICU to E. selective care this afternoon. More recommendations as patient progresses. Time with Patient: Greater than 30
[2017-01-14] MEDS: METOPROLOL TARTRATE 25 MG TAB PO SCH ×2 (09:16→21:24)
[2017-01-14 12:15] LABS: Glucose,Whole Blood 120 mg/dL (75-99)
[2017-01-14 12:22] LABS: Glucose,Whole Blood 131 mg/dL (75-99)
[2017-01-14] MEDS: THIAMINE 100 MG TAB PO SCH (12:34)
[2017-01-14] MEDS: MULTIVITAMINS, THERA 1 EACH TAB PO SCH (12:34)
[2017-01-14] MEDS: LISINOPRIL 5 MG TAB PO SCH (12:35)
[2017-01-14] MEDS ORDERED: POTASSIUM CHLORIDE ER 20 MEQ TAB.ER PO ONE (13:30)
--- NOTE | 2017-01-14 13:54 | P.PN ---
Subjective This is a 71-year-old male who presented to the emergency department complaining of chest discomfort. The patient apparently also had a pressure- like sensation which radiated up towards his neck. He had some nausea. No diaphoresis. No shortness of breath. He's had previous similar situations. The patient tells me he was evaluated by cardiology had a catheterization was found have coronary artery disease and apparently Dr. Reza is planning to do bypass surgery on Wednesday. The patient has no known history of any lung disease. He did have spirometry. Not been able to yet to find it. He did smoke for about 15 years at less than one pack a day. It's unlikely that that was his true smoking history, that he would have substantial chronic lung disease. Still waiting though to see the spirometry myself. He has no known ALLERGIES. He apparently has no past medical history. He did have a hernia repair in the past. He apparently was on no medications at home on a regular basis. On 01/11/2017 the patient is resting comfortably in bed. No chest pain. No shortness of breath. No angina. Hemodynamically stable. The patient is awaiting cardiac bypass surgery to be done tomorrow. Meanwhile, he tells me that he is a nonsmoker. No respiratory distress at all prior to this cardiac event. He was able to climb a flight of stairs without any major difficulties. He does not utilize any form of respiratory medications or inhalers on outpatient basis. Most of any childhood asthma. No DVT. No pulmonary embolism. No sleep apnea. The chest x-ray showed no evidence of any cardiopulmonary abnormalities. Seen again today 01/12/2017 in follow-up immediately postoperative following his open-heart surgery performed by Dr. Reza. He received a BROWN to the LAD, saphenous vein grafts to the OM, diagonal and PDA. He remains intubated and on the mechanical ventilator at settings of SIMV of 12, tidal volume 500, FiO2 100 % and PEEP of 5. Her blood gases reveal a pO2 of 244, pCO2 of 46 and a pH of 7.35. Chest x-ray reveals appropriately placed endotracheal and gastric tubes. There is some mild patchy atelectasis. He is sedated on propofol at 25 mcg/kg/ m. He is a nitroglycerin drip at 5 mcg/m, lactated Ringer's at 50 MLS per hour , insulin drip at 0.5 units per hour. He is currently in normal sinus rhythm. He has backup pacing at 80. Current blood pressure running in the 110's over the 50's, PA pressures 30s over the 20s with a mean of 30. Cardiac output 2.4 with cardiac index of 5.4. His sternal dressing is dry and intact. He has mediastinal split chest tubes 2 and a left pleural chest tube with minimal drainage. Urine output is adequate. On 01/13/2017, the patient is being seen in follow-up. The patient underwent his coronary bypass surgery yesterday. Overnight he was kept intubated on mechanical ventilator. Today's postop day #1. The necessary vent changes were done and earlier this morning the patient was taken off sedation and he woke up appropriately. Weaning parameters were checked and following that the patient was placed on a spontaneous breathing trial with a pressure support of 5 and a PEEP of 5. Following 30 minutes the blood gases were obtained and the pH was 7.44 with a pCO2 of 37 and pO2 of 65. Chest x-ray earlier this morning showed no acute abnormalities and was essentially consistent with postsurgical changes. The patient was weaned off and extubated without any major difficulties. Currently currently the patient is on 3 L of oxygen nasal cannula and his saturations around 97%. No chest pain. No change in mental status. Hemodynamically stable on no pressors. On insulin drip for blood sugar control. Chest tubes are still in place and the total amount of output from the chest tube was 2 99 mL from the mediastinal and 93 mL from the left pleural chest tube for yesterday, 102 mL from the mediastinum and 45 mL from the left lateral chest tube this morning. The patient is producing adequate amount of urine output. Hemodynamically stable. [place]-Rasheed catheter still in place. PA pressures 23/12. Cardiac output is adequate. Neurologically intact and stable and awake. On 01/14/2017 the patient is postop day #2. The mediastinal chest tube has been removed. The [place]-Rasheed catheter was removed. He is awake alert and he is hemodynamically stable, comfortable denies having any complaints or significant issues. The patient has no chest pain. Sternum stable clean and intact. Cardiac rhythm remains sinus. Producing adequate amount of urine output. No change in mental status. No headaches. No shortness of breath. Chest x-ray from today shows postsurgical changes with a mediastinal left pleural chest tube in place. No fever. No other significant events overnight. Insulin drip has been also discontinued. Objective - Vital Signs Vital signs: Vital Signs Temp 98.3 F 01/14/17 12:00 Pulse 75 01/14/17 13:00 Resp 19 01/14/17 13:00 BP 149/86 01/14/17 13:00 Pulse Ox 97 01/14/17 13:00 Intake & Output 01/13/17 01/14/17 01/14/17 18:59 06:59 18:59 Intake Total 1520.025 666 524 Output Total 772 024 1320 Balance 819.851 -681 -2523 Weight 115 kg Intake: IV 711.5 666 299 Cardiac Output 30 Lactated Ringers 1,000 ml 550 600 260 @ 50 mls/hr IV .Q20H VENU Rx#:[id number] Nitroglycerin-D5w Pmx 50 22.5 mg In Dextrose/Water 1 250ml.bag @ 5 MCG/MIN 1.5 mls/hr IV .Q24H PRN Rx#: [id number] Pressure Bag 9 66 39 ceFAZolin 2 gm In Sodium 100 Chloride 0.9% 100 ml @ 100 mls/hr IVPB Q8HR VENU Rx#:[id number] Intake, IV Titration 148.525 Amount ACETAMINOPHEN IV (For NPO 100 ) 1,000 mg In Empty Bag 1 bag @ 400 mls/hr IVPB ONCE ONE Rx#:[id number] Nitroglycerin-D5w Pmx 50 48.525 mg In Dextrose/Water 1 250ml.bag @ 5 MCG/MIN 1.5 mls/hr IV .Q24H VENU Rx#: [id number] Oral 660 225 Output: Chest Tube Drainage 172 290 150 Bilateral Mediastinal 85 212 80 Left Lateral Chest 87 78 70 Urine 516 307 8238 Stool 0 0 Other: Voiding Method Indwelling Catheter Indwelling Catheter Indwelling Catheter ABP, PAP, CO, CI - Last Documented Arterial Blood Pressure 136/98 Pulmonary Artery Pressure 23/12 Cardiac Output 6.5 Cardiac Index 2.9 - Exam Head is atraumatic normocephalic. Neck was supple and without jugular venous distension, thyromegaly, or carotid bruits. Carotids were easily palpable bilaterally. There was no adenopathy. The patient has a right IJ Cordis. Lung sounds are diminished bilaterally. Sternum stable clean and intact. The patient has a left pleural chest tube in place. Heart sounds are irregular, possible sinus stool, no symptoms rubs or murmurs appreciated.Abdominal exam revealed normal bowel sounds. The abdomen was soft, non-tender, and without masses, organomegaly, or appreciable enlargement of the abdominal aorta.Examination of the extremities revealed easily palpable radial, femoral and pedal pulses. There was no cyanosis, clubbing or edema. Neurologically the patient is awake and alert and following commands and answering questions appropriately. - Labs CBC & Chem 7: 01/14/17 04:50 01/14/17 12:15 Labs: Abnormal Lab Results - Last 24 Hours (Table) 01/13/17 01/13/17 01/13/17 Range/Units 10:05 11:01 12:05 RBC (4.30-5.90) m/uL Hgb (13.0-17.5) gm/dL Hct (39.0-53.0) % Plt Count (150-450) k/uL POC Glucose (mg/dL) 125 H 133 H 136 H (75-99) mg/dL Calcium (8.4-10.2) mg/dL Total Protein (6.3-8.2) g/dL Albumin (3.5-5.0) g/dL 01/13/17 01/13/17 01/13/17 Range/Units 13:10 13:57 14:56 RBC (4.30-5.90) m/uL Hgb (13.0-17.5) gm/dL Hct (39.0-53.0) % Plt Count (150-450) k/uL POC Glucose (mg/dL) 122 H 124 H 105 H (75-99) mg/dL Calcium (8.4-10.2) mg/dL Total Protein (6.3-8.2) g/dL Albumin (3.5-5.0) g/dL 01/13/17 01/13/17 01/14/17 Range/Units 17:23 20:35 04:50 RBC (4.30-5.90) m/uL Hgb (13.0-17.5) gm/dL Hct (39.0-53.0) % Plt Count (150-450) k/uL POC Glucose (mg/dL) 110 H 135 H (75-99) mg/dL Calcium 8.1 L (8.4-10.2) mg/dL Total Protein 5.2 L (6.3-8.2) g/dL Albumin 2.7 L (3.5-5.0) g/dL 01/14/17 01/14/17 01/14/17 Range/Units 04:50 04:52 07:39 RBC 2.86 L (4.30-5.90) m/uL Hgb 9.3 L (13.0-17.5) gm/dL Hct 26.7 L (39.0-53.0) % Plt Count 147 L (150-450) k/uL POC Glucose (mg/dL) 113 H 103 H (75-99) mg/dL Calcium (8.4-10.2) mg/dL Total Protein (6.3-8.2) g/dL Albumin (3.5-5.0) g/dL 01/14/17 01/14/17 Range/Units 12:13 12:20 RBC (4.30-5.90) m/uL Hgb (13.0-17.5) gm/dL Hct (39.0-53.0) % Plt Count (150-450) k/uL POC Glucose (mg/dL) 120 H 131 H (75-99) mg/dL Calcium (8.4-10.2) mg/dL Total Protein (6.3-8.2) g/dL Albumin (3.5-5.0) g/dL Assessment and Plan Plan: Assessment 1 multivessel coronary artery disease, awaiting coronary artery bypass surgery. Patient underwent triple vessel bypass surgery and the patient is postop day # 2. The patient is recovered very well from the surgery. The mediastinal chest tube has been removed. The patient is still a left pleural chest tube in place. Chest x-ray findings are essentially stable. Hemodynamically stable. Off the insulin drip. On no pressors. 2 acute non-ST segment elevation myocardial infarction 3 obesity, BMI of 33 4 osteoarthritis 5 hyperlipidemia 6 right index finger infection/wound 7 preserved LV function with a ejection fraction of 55-60% Plan Encouraged use of incentive spirometer. Monitor the output from the chest tube. Patient is hemodynamically stable on no pressors. Insert the peripheral line and remove the cordis. The patient can be transferred to telemetry unit.
--- NOTE | 2017-01-14 14:49 | CDI ---
In responding to this query, please exercise your independent professional judgment. The [facility] Coding Staff and Clinical Documentation Specialists appreciate your assistance in clarifying documentation, maintaining compliance with coding guidelines, accurately documenting patients condition and capturing severity of illness. The fact that a question is asked does not imply that any particular answer is desired or expected. Communication forms are a method of clarifying documentation and are not made part of the Legal Health Record. Thank you in advance for your clarification. Last Revision, March 2015 Samina Flynn [address] [place] [address] Documentation Clarification Form Date: 01/14/2017 2:34:00 PM From: Azalia Oliva CCS, CCDS Admit Date: 01/09/2017 2:46:00 PM Patient Name: Eladio Jaramillo Visit Number: [id number] Discharge Date: Dr. Juan Antonio Lundberg: Atrial fibrillation is documented in the 01/13 progress note.: Had episode of atrial fibrillation for which he received IV metoprolol, rhythm is currently in normal sinus rate controlled. History/Risk Factors: CAD status post CABG x4 on 01/12 after being admitted with a NSTEMI. Clinical Indicators: VS: HR 70s - 80s Control Center Operator: Occasional PVCs noted on 01/14 Treatment: One dose of IV Metoprolol Tartrate 4 mg. In your professional opinion, can you please clarify the type of atrial fibrillation, if known: Chronic/Permanent Paroxysmal Persistent Other, please specify Unable to determine Also please document if this episode of Atrial Fibrillation was: An expected outcome of surgery An unexpected outcome of surgery Integral to the procedure Inherent to the procedure Other, please specify Unable to determine Please document in your progress notes and discharge summary in order to capture severity of illness and risk of mortality. Include clinical findings that support your diagnosis. FYI: Press F11 to launch patient chart MTDD
[2017-01-14 17:03] LABS: Glucose,Whole Blood 150 mg/dL (75-99)
--- NOTE | 2017-01-14 17:05 | P.PN ---
<Yesi Jeffers Deena - Last Filed: 01/14/17 16:44> Progress Note - Text DATE OF SERVICE: 01/14/2017 PRESENTING COMPLAINT: Chest pain HISTORY OF PRESENT ILLNESS: 71-year-old male who woke up with chest pain associated heaviness no shortness of breath perspiration or dizziness although felt tired and rundown. First troponins, negative. Subsequent troponins positive, secondary episode of chest pain, taken to the cardiac Field Marketing Specialist, found to have triple-vessel disease. Now status post coronary artery bypass grafting 4 with a BROWN to the LAD, saphenous vein graft to the OM, diagonal and PDA. INTERVAL HISTORY: 01/14/2017: Patient seen in follow-up in the ICU from open heart surgery CABG 4 as above. Sitting up in a chair at the bedside, looking a bit uncomfortable at the bedside Heart Hugger on, complains of the incisional pain and cough. Using incentive spirometer. IV fluids infusing as ordered. Chest tubes 3 and Baez catheter remain in place. No other drips. Tolerating his clear liquid diet ate 100% of his meal, ambulatory with assistance, no BM but is passing gas. 01/13/2017: Patient seen in follow-up in the ICU from open heart surgery, CABG 4 as above. Was successfully extubated, currently on nasal cannula, sitting up in the bed appears comfortable at the bedside. Current drips include nitroglycerin at 5 g a minute, insulin drip. Had episode of atrial fibrillation for which he received IV metoprolol, rhythm is currently in normal sinus rate controlled. Chest tubes in place with mediastinal split chest tube 2 and a left pleural chest tube both with minimal drainage. Baez catheter in place with urine output appropriate. Diet advanced to a clear liquid diet, patient tolerating eating barely 30%, 01/12/2017: Patient seen in follow-up in the ICU from open heart surgery, CABG 4 as above. Remains intubated on the mechanical ventilator on assist control volume control rate of 18 tidal volume of 500 FiO2 of 35%. Drips include nitroglycerin at 5 g a minute, lactated Ringer's at 50 mils liters an hour propofol at 35 mcg/kg/min, insulin at 0.5 units per hour, normal sinus rhythm on the monitor, back up pacing at 80. Chest tubes in place with mediastinal split chest tube 2 and a left pleural chest tube both with minimal drainage. Baez catheter in place with urine output beginning to dwindle. 01/11/2017: Patient seen in follow-up, no further episodes of chest pain nitro drip continues. Preop testing completed coronary artery bypass grafting surgery tomorrow. at the bedside with patient. Patient is anxious appearing, tolerating his diet, ambulatory in the room and [address] ways, utilizing his incentive spirometer. Last BM on 01/10/2017. 01/10/2017: Patient seen in follow-up, had another episode of chest pain today, nitro drip started. No chest pain at this time, nitro drip continues. Preop testing continues, patient will tentatively be scheduled for coronary artery bypass grafting surgery on Wednesday. Sitting up at the bedside, anxious appearing, voiced concerns about surgery, states he is afraid. Reassurance provided. Patient's tolerating his diet, ambulatory in the room and dav[address] ways, last BM . 01/09/2017: Patient had an episode of chest pain overnight, troponins positive, was taken to the feed mill lab technician this morning, found to have triple-vessel disease. Surgery is tentatively scheduled for Wednesday. Sitting up the bedside, eating his lunch, Pressure device noted to right radial artery. General questions answered. REVIEW OF SYSTEMS: Done for constitutional cardiovascular GI pulmonary, integument, with relevant findings as above. CURRENT MEDICATIONS Calcium chloride, ceftezole, Xanax, clevidipine, diltiazem, lisinopril, Lopressor Mountainair, heparin, Bactroban Protonix. PHYSICAL EXAM VITAL SIGNS: temperature 97.8, pulse 73, respirations 18, blood pressure 112/66, oxygen saturation 98% on 4 L GENERAL APPEARANCE: Sitting up in a chair at the bedside appears anxious, EYES: Pupils equal. Conjunctiva normal. NECK: JVD unable to assess Mass not palpable. Right internal jugular pulmonary artery catheter in place, RESPIRATORY: Effort normal, Lungs diminished to auscultation. CARDIOVASCULAR: First and second sounds normal. Mild edema. chest tubes patent. 2 mediastinal chest tubes and a left pleural chest tube in place minimal drainage ABDOMEN: Soft. Liver and spleen not palpable. No tenderness. No guarding or rigidity No mass palpable. GENITOURINARY: Baez catheter in place during clear yellow urine PSYCHIATRY: Alert and oriented 3 somewhat anxious appearing INTEGUMENT: Midline chest wall incision with surgical dressing in place INVESTIGATIONS: Hemoglobin 9.3, BMP unremarkable, Accu-Cheks noted. Chest x-ray: Left basilar airspace disease and small left pleural effusion ASSESSMENT: -Coronary artery disease with triple-vessel disease, including post-[place] angina, status post coronary artery bypass grafting 4, improving -Mechanically assisted ventilation as an expected outcome of thoracotomy secondary to coronary artery bypass grafting surgery, extubated -Thrombocytopenia likely delusional -Acute blood loss anemia as expected from open heart surgery -Acute non- Q wave myocardial infarction with cardiac cath showing triple- vessel coronary artery disease. -Obesity BMI 33.0 -Hyperlipidemia -Primary osteoarthritis of left hip pending outpatient surgery -Acute cellulitis of the right index finger proximal part being treated with ciprofloxacin from outpatient PLAN: Continue CABG postsurgical protocols, overall condition is improving and is stable for transfer to [address] [place] [address]. Continue to advance diet and activity as patient can tolerate. We will continue to follow closely plan of care discussed with patient and family at the bedside and they are in agreement. TRUCK DRIVER statement: Patient was seen and examined by nurse practitioner Yesi Jeffers and all elements of the case discussed with attending Dr. Lundberg <Juan Antonio Lundberg - Last Filed: 01/14/17 17:59> Progress Note - Text Attending note. Date of service-01/14/2017 This patient was seen and examined by me . Discussed the patient with my nurse practitioner Ms. Jeffers. Doing better. Had clear liquids this morning. Did walk a bit. Looks better. On examination: Lungs-decreased breath sounds, cardiovascular first seconds are normal, psych AAO 3 Investigations: Hemoglobin 9.3 Assessment and plan: Status post CABG. Doing better. Discussed with patient and . Continue current medications.
--- NOTE | 2017-01-14 19:17 | P.PN ---
Subjective Principal diagnosis: Recurrent lesion on the right hand. his is a pleasant 71-year-old male who presented to Hospital with some atypical chest pain, it was not improving as it had in the past and consequently did present to the emergency center. Cardiac workup was in process and with evidence of positive troponins was taken to the cardiac catheterization lab. The procedure revealed evidence of significant three- vessel coronary artery disease and is being planned for a coronary artery bypass graft procedure. The patient over relates he's been having difficulties with the right hand with a waxing and waning lesion on the proximal phalanx on the dorsum of the hand. It comes and goes. Sometimes lasts for 10-14 days. Then a clears up. One is present it is crusty he has some drainage and it's a bit uncomfortable. He relates that it's burning and itchy at the start and like now it's generally cleared up does not give him any significant difficulties. It does not affect his day-to-day activities. It has not resulted in any fevers chills or rigors or sweats has never had any ascending infection of the arm. Patient is now status post open heart surgery. He is recovering well. Likely move out of the ICU today. He continues to show improvement. He has no new complaints. No pain or discomfort to his hand. Objective - Vital Signs Vital signs: Vital Signs Temp 97.8 F 01/14/17 16:00 Pulse 79 01/14/17 19:00 Resp 19 01/14/17 19:00 BP 118/65 01/14/17 19:00 Pulse Ox 97 01/14/17 17:00 Intake & Output 01/14/17 01/14/17 01/15/17 06:59 18:59 06:59 Intake Total 666 997 Output Total 825 2485 Balance -159 -1488 Weight 115 kg Intake: IV 666 322 Lactated Ringers 1,000 ml 600 280 @ 50 mls/hr IV .Q20H [facility] Rx#:[id number] Pressure Bag 66 42 Oral 675 Output: Chest Tube Drainage 290 160 Bilateral Mediastinal 212 80 Left Lateral Chest 78 80 Urine 535 2325 Stool 0 Other: Voiding Method Indwelling Catheter Indwelling Catheter ABP, PAP, CO, CI - Last Documented Arterial Blood Pressure 136/98 Pulmonary Artery Pressure 23/12 Cardiac Output 6.5 Cardiac Index 2.9 - Exam 71 year old male HEENT: Anicteric conjunctiva are pink and moist nasal mucosa grossly intact without significant lesions, there is no thrush. Neck: The neck is supple without significant lymphadenopathy or thyromegaly. Lungs: Good bilateral air entry without significant crackles few whezes. There is no significant bronchial sounds. There is no egophony or dullness. Heart: Regular rate and rhythm with an audible S1-S2, no S3 no S4. There is no significant murmur click or rub, PMI was nondisplaced. There is evidence of the surgical wound to the sternum that is dry and intact with the specialty dressing in place. Abdomen: Positive bowel sounds soft and nontender without palpable masses or organomegaly. There was no guarding or rebound. Extremities: The upper extremities have excellent pulses they are symmetric, no significant petechiae or telangiectasia. No splinter hemorrhages were noted. The minimal chronic change to the dorsum of the index finger first phalanx is without drainage. Seems to be improved with the utilization of mupirocin. The lower extremities are free from significant edema. The peripheral pulses were 2+ and symmetric. Neuro: Awake alert oriented to person place and time. There are no acute new gross focal sensory motor deficits. - Labs CBC & Chem 7: 01/14/17 04:50 01/14/17 18:13 Labs: Abnormal Lab Results - Last 24 Hours (Table) 01/13/17 01/14/17 01/14/17 Range/Units 20:35 04:50 04:50 RBC 2.86 L (4.30-5.90) m/uL Hgb 9.3 L (13.0-17.5) gm/dL Hct 26.7 L (39.0-53.0) % Plt Count 147 L (150-450) k/uL POC Glucose (mg/dL) 135 H (75-99) mg/dL Calcium 8.1 L (8.4-10.2) mg/dL Total Protein 5.2 L (6.3-8.2) g/dL Albumin 2.7 L (3.5-5.0) g/dL 01/14/17 01/14/17 01/14/17 Range/Units 04:52 07:39 12:13 RBC (4.30-5.90) m/uL Hgb (13.0-17.5) gm/dL Hct (39.0-53.0) % Plt Count (150-450) k/uL POC Glucose (mg/dL) 113 H 103 H 120 H (75-99) mg/dL Calcium (8.4-10.2) mg/dL Total Protein (6.3-8.2) g/dL Albumin (3.5-5.0) g/dL 01/14/17 01/14/17 Range/Units 12:20 17:03 RBC (4.30-5.90) m/uL Hgb (13.0-17.5) gm/dL Hct (39.0-53.0) % Plt Count (150-450) k/uL POC Glucose (mg/dL) 131 H 150 H (75-99) mg/dL Calcium (8.4-10.2) mg/dL Total Protein (6.3-8.2) g/dL Albumin (3.5-5.0) g/dL Laboratory Results WBC 8.9 k/uL (3.8-10.6) 01/14/17 04:50 RBC 2.86 m/uL (4.30-5.90) L 01/14/17 04:50 Hgb 9.3 gm/dL (13.0-17.5) L 01/14/17 04:50 Hct 26.7 % (39.0-53.0) L 01/14/17 04:50 MCV 93.4 fL (80.0-100.0) 01/14/17 04:50 MCH 32.3 pg (25.0-35.0) 01/14/17 04:50 MCHC 34.6 g/dL (31.0-37.0) 01/14/17 04:50 RDW 13.6 % (11.5-15.5) 01/14/17 04:50 Plt Count 147 k/uL (150-450) L 01/14/17 04:50 Neutrophils % 74 % 01/14/17 04:50 Lymphocytes % 18 % 01/14/17 04:50 Monocytes % 4 % 01/14/17 04:50 Eosinophils % 2 % 01/14/17 04:50 Basophils % 0 % 01/14/17 04:50 Neutrophils # 6.6 k/uL (1.3-7.7) 01/14/17 04:50 Lymphocytes # 1.6 k/uL (1.0-4.8) 01/14/17 04:50 Monocytes # 0.4 k/uL (0-1.0) 01/14/17 04:50 Eosinophils # 0.2 k/uL (0-0.7) 01/14/17 04:50 Basophils # 0.0 k/uL (0-0.2) 01/14/17 04:50 Manual Slide Review Performed 01/12/17 20:55 Polychromasia Present 01/12/17 20:55 Ovalocytes Present 01/12/17 20:55 PT 13.1 sec (9.0-12.0) H 01/13/17 04:32 INR 1.3 (<1.2) H 01/13/17 04:32 APTT 26.8 sec (22.0-30.0) 01/12/17 20:55 Sample Site A-LINE 01/13/17 08:28 ABG pH 7.44 (7.35-7.45) 01/13/17 08:28 ABG pCO2 37 mmHg (35-45) 01/13/17 08:28 ABG pO2 65 mmHg (83-108) L 01/13/17 08:28 ABG HCO3 25 mmol/L (21-25) 01/13/17 08:28 ABG Total CO2 26 mmol/L (19-24) H 01/12/17 16:07 ABG O2 Saturation 95.2 % (94-97) 01/13/17 08:28 ABG Base Excess -0.4 mmol/L 01/13/17 04:35 ABG Hematocrit 33 % (34.0-46.0) L 01/12/17 14:26 ABG Sodium 139 mmol/L (135-146) 01/12/17 14:26 ABG Potassium 4.4 mmol/L (3.4-4.5) 01/12/17 14:26 FiO2 35 % 01/13/17 08:28 Sodium 137 mmol/L (137-145) 01/14/17 04:50 Potassium 3.8 mmol/L (3.5-5.1) 01/14/17 18:13 Chloride 102 mmol/L (98-107) 01/14/17 04:50 Carbon Dioxide 27 mmol/L (22-30) 01/14/17 04:50 Anion Gap 8 mmol/L 01/14/17 04:50 BUN 11 mg/dL (9-20) 01/14/17 04:50 Creatinine 0.67 mg/dL (0.66-1.25) 01/14/17 04:50 Est GFR (MDRD) Af Amer >60 (>60 ml/min/1.73 sqM) 01/14/17 04:50 Est GFR (MDRD) Non-Af >60 (>60 ml/min/1.73 sqM) 01/14/17 04:50 Glucose 97 mg/dL (74-99) 01/14/17 04:50 POC Glucose (mg/dL) 150 mg/dL (75-99) H 01/14/17 17:03 POC Glu Maintenance Foreman ID Nataliia Oliver 01/14/17 17:[address] Glu mg/dL 120 mg/dL 01/09/17 15:18 Hemoglobin A1c 5.8 % (4.2-6.1) 01/09/17 15:18 Calcium 8.1 mg/dL (8.4-10.2) L 01/14/17 04:50 Ionized Calcium Michelle 4.9 mg/dL (4.5-5.3) 01/14/17 04:50 Magnesium 2.2 mg/dL (1.6-2.3) 01/14/17 04:50 Total Bilirubin 0.6 mg/dL (0.2-1.3) 01/14/17 04:50 AST 42 U/L (17-59) 01/14/17 04:50 ALT 47 U/L (21-72) 01/14/17 04:50 Alkaline Phosphatase 51 U/L (38-126) 01/14/17 04:50 Total Creatine Kinase 25 U/L (55-170) L 01/08/17 17:38 CK-MB (CK-2) 0.7 ng/mL (0.0-2.4) 01/08/17 17:38 CK-MB (CK-2) Rel Index 2.8 01/08/17 17:38 Troponin I 0.047 ng/mL (0.000-0.034) H* 01/08/17 17:38 NT-Pro-B Natriuret Pep 322 pg/mL 01/09/17 15:18 Total Protein 5.2 g/dL (6.3-8.2) L 01/14/17 04:50 Albumin 2.7 g/dL (3.5-5.0) L 01/14/17 04:50 Triglycerides 87 mg/dL (<150) 01/09/17 06:15 Cholesterol 153 mg/dL (<200) 01/09/17 06:15 LDL Cholesterol, Calc 103 mg/dL (0-99) H 01/09/17 06:15 HDL Cholesterol 33 mg/dL (40-60) L 01/09/17 06:15 TSH 1.550 mIU/L (0.465-4.680) 01/09/17 15:18 Arterial Blood Potassium 4.4 mmol/L (3.4-4.5) 01/12/17 14:26 Urine Color Yellow 01/10/17 02:38 Urine Appearance Clear (Clear) 01/10/17 02:38 Urine pH 5.5 (5.0-8.0) 01/10/17 02:38 Ur Specific [place] 1.011 (1.001-1.035) 01/10/17 02:38 Urine Protein Negative (Negative) 01/10/17 02:38 Urine Glucose (UA) Negative (Negative) 01/10/17 02:38 Urine Ketones Negative (Negative) 01/10/17 02:38 Urine Blood Negative (Negative) 01/10/17 02:38 Urine Nitrite Negative (Negative) 01/10/17 02:38 Urine Bilirubin Negative (Negative) 01/10/17 02:38 Urine Urobilinogen <2.0 mg/dL (<2.0) 01/10/17 02:38 Ur Leukocyte Esterase Negative (Negative) 01/10/17 02:38 Hepatitis A IgM Ab NEGATIVE 01/09/17 15:18 Hep Bs Antigen Negative 01/09/17 15:18 Hep B Core IgM Ab NEGATIVE 01/09/17 15:18 Hep C IgG Ab Negative (Negative) 01/09/17 15:18 Blood Type A Positive 01/09/17 15:18 Blood Type Confirm A Positive 01/09/17 20:28 Blood Type Recheck CABO Indicated 01/09/17 15:18 Antibody Screen NEGATIVE 01/09/17 15:18 Crossmatch See Detail 01/09/17 15:18 Transfuse Platelets 01/12/17 01/09/17 15:18 Spec Expiration Date 01/12/17231701/09/17 15:18 Microbiology 01/10/17 02:38 Urine,Clean Catch Urine Culture - Final Assessment and Plan (1) Non-STEMI (non-ST elevated myocardial infarction) Status: Acute (2) Hand dermatitis Narrative/Plan: 71 year old male with hsitory of chest pain which changed in character and so prsented to ER and was admitted. With elevated cardiac enzymes was taken to photonic laboratory technician and found to have multivessel coronary artery disease. In consequently has been seen by cardiac thoracic surgery will be taken to the operating room for his coronary artery bypass grafting procedure tomorrow. There is evidence of an area of dermatitis on his right hand dorsum. This is coming on over the last multiple months. When it presents it's a bit itchy and burning when it first starts and then becomes crusted and eventually clears up until it recurs. An outpatient culture revealed evidence of Staphylococcus epidermidis. This is a skin colonization and not a pathogen. There is no notation of MRSA. The patient has had his CABG and is doing well. Topical therapy to the fingers given. At this point in time given the recurrent nature this could be related to a herpetic lucina, or because of his fair skin nature this could actually be an underlying malignancy as the skin. He may require a biopsy in the future to further evaluate this site. At the next occurrence if a herpes simplex 1 and 2 and varicella-zoster PCR to be obtained from the fluid this would help evaluate for the possibility of herpetic lucina. Status: Acute
[2017-01-14] MEDS ORDERED: POTASSIUM CHLORIDE ER 20 MEQ TAB.ER PO SCH (20:00)
[2017-01-14 20:54] LABS: Glucose,Whole Blood 124 mg/dL (75-99)
[2017-01-14] MEDS: SENNOSIDES-DOCUSATE SODIUM 1 EACH TAB PO SCH (20:57)
[2017-01-15] MEDS: HEPARIN SODIUM,PORCINE 5,000 UNIT/ML 1 ML VIAL SQ SCH ×4 (00:20→23:27)
[2017-01-15] MEDS: HYDROcodone/APAP 5-325MG 1 EACH TAB PO PRN (05:04)
[2017-01-15 05:27] LABS: CH 32.2; CHCM 34.2; HCT 27.9 % (39.0-53.0); HGB 9.5 gm/dL (13.0-17.5); MCH 32.1 pg (25.0-35.0); MCHC 33.9 g/dL (31.0-37.0); MCV 94.5 fL (80.0-100.0); Mean Platelet Volume 7.3; RBC 2.95 m/uL (4.30-5.90); RDW 13.7 % (11.5-15.5); WBC 9.4 k/uL (3.8-10.6)
[2017-01-15 05:41] LABS: ALT 46 U/L (21-72); AST 36 U/L (17-59); Alkaline Phosphatase 61 U/L (38-126); Anion Gap 6 mmol/L; Blood Urea Nitrogen 14 mg/dL (9-20); Calcium 8.6 mg/dL (8.4-10.2); Carbon Dioxide 31 mmol/L (22-30); Chloride 98 mmol/L (98-107); Glucose 99 mg/dL (74-99); Non-African American GFR(MDRD) >60 (>60 ml/min/1.73 sqM); Potassium 3.9 mmol/L (3.5-5.1); Sodium 135 mmol/L (137-145); Total Bilirubin 0.5 mg/dL (0.2-1.3); Total Protein 5.5 g/dL (6.3-8.2)
[2017-01-15] MEDS ORDERED: Potassium Replacement Protocol 1 EACH MISC MISCELLANE PRN (06:00)
[2017-01-15] MEDS ORDERED: POTASSIUM CHLORIDE ER 20 MEQ TAB.ER PO SCH ×3 (06:00→21:00)
[2017-01-15 07:33] LABS: Glucose,Whole Blood 108 mg/dL (75-99)
[2017-01-15] MEDS ORDERED: HYDROcodone/APAP 7.5-325MG 1 EACH TAB PO PRN (07:39)
[2017-01-15] MEDS: INSULIN LISPRO (humaLOG) 300 UNIT/3 ML VIAL SQ SCH ×4 (07:45→21:07)
[2017-01-15] MEDS: PANTOPRAZOLE 40 MG TABLET PO SCH (07:56)
[2017-01-15] MEDS: KETOROLAC 30 MG/ML 1 ML VIAL IVP SCH ×3 (07:57→19:57)
[2017-01-15] MEDS: CLOPIDOGREL 75 MG TAB PO SCH (08:01)
[2017-01-15] MEDS: METOPROLOL TARTRATE 25 MG TAB PO SCH (08:01)
[2017-01-15] MEDS: ASPIRIN 325 MG TAB PO SCH (08:01)
[2017-01-15] MEDS: ATORVASTATIN 40 MG TAB PO SCH (08:01)
[2017-01-15] MEDS: MUPIROCIN 2% OINT 22 GM TUBE NASAL SCH ×2 (08:01→21:08)
--- NOTE | 2017-01-15 08:02 | XR ---
EXAMINATION TYPE: XR chest 1V portable DATE OF EXAM: 01/15/2017 COMPARISON: 01/14/2017 HISTORY: Postop TECHNIQUE: Single frontal view of the chest is obtained. FINDINGS: Postsurgical change noted with left-sided chest tube. No sizable pneumothorax. Bilateral t iny effusions and areas of subsegmental consolidation are stable. Heart is enlarged. IMPRESSION: 1. Postoperative change with suspected postoperative atelectasis and tiny effusions.
--- NOTE | 2017-01-15 09:00 | P.PN ---
Subjective Principal diagnosis: Symptomatic coronary artery disease, non-STEMI. Hyperlipidemia. Osteoarthritis. Current right hand index finger wound. Previous tobacco dependence. POD #3 urgent coronary artery bypass grafting 4 vessels with the left internal mammary artery to the left anterior descending artery, reverse saphenous vein graft to the diagonal artery, reverse saphenous vein graft to the obtuse marginal artery, reverse saphenous vein graft to the posterior descending artery. Endoscopic vein harvesting right greater saphenous vein. Epi-aortic ultrasound. Intraoperative transesophageal echocardiogram. Closure of complex sternal wound using Tritium titanium plating system. The patient is currently sitting up in in the chair in no acute distress. Denies chest pain, shortness of breath. States he is feeling well. Orders placed to transfer to [facility]. selective care yesterday, no bed available. Objective - Vital Signs Vital signs: Vital Signs Temp 98.5 F 01/15/17 04:00 Pulse 69 01/15/17 04:00 Resp 13 01/15/17 04:00 BP 116/73 01/15/17 04:00 Pulse Ox 97 01/15/17 04:00 Intake & Output 01/14/17 01/15/17 01/15/17 18:59 06:59 18:59 Intake Total 997 150 Output Total 2485 720 Balance -1488 -570 Weight 116.6 kg Intake: IV 322 Lactated Ringers 1,000 ml 280 @ 50 mls/hr IV .Q20H [facility] Rx#:[id number] Pressure Bag 42 Oral 675 150 Output: Chest Tube Drainage 160 120 Bilateral Mediastinal 80 Left Lateral Chest 80 120 Urine 2325 600 Other: Voiding Method Indwelling Catheter Urinal # Voids 0 ABP, PAP, CO, CI - Last Documented Arterial Blood Pressure 136/98 Pulmonary Artery Pressure 23/12 Cardiac Output 6.5 Cardiac Index 2.9 - Constitutional General appearance: Present: cooperative, no acute distress - Respiratory Details: Lungs sounds diminished bilaterally. Respirations even, nonlabored. Currently on 3 L nasal cannula with oxygen saturation 94%. Able to achieve 750 mL on his incentive spirometry. Left pleural chest tube to -20 cm wall suction, 110 mL serous drainage overnight, 140 mL the last 24 hours. No air leak present. - Cardiovascular Details: S1, S2 present. Regular rate and rhythm, normal sinus rhythm on telemetry. Sternum stable. Heart hugger in place with patient able to demonstrate appropriate use. A/V epicardial pacemaker wires present, capped. Palpable pulses bilaterally. No edema present. Teds/SCDs present. - Gastrointestinal Gastrointestinal Comment(s): Abdomen soft, nontender, nondistended. Active bowel sounds 4 quadrants. Tolerating diet. - Genitourinary Genitourinary Comment(s): Baez discontinued yesterday. Voiding clear, yellow urine per urinal. - Integumentary Integumentary Comment(s): Anterior chest incision well approximated and covered with dry intact dressing. Right lower extremity EVH site well approximated. - Neurologic Neurologic: Present: CNII-XII intact - Musculoskeletal Musculoskeletal: Present: gait normal, strength equal bilaterally - Psychiatric Psychiatric: Present: A&O x's 3, appropriate affect, intact judgment & insight - Allied health notes Allied health notes reviewed: nursing - Labs CBC & Chem 7: 01/15/17 04:55 01/15/17 04:55 Labs: Abnormal Lab Results - Last 24 Hours (Table) 01/14/17 01/14/17 01/14/17 Range/Units 12:13 12:20 17:03 RBC (4.30-5.90) m/uL Hgb (13.0-17.5) gm/dL Hct (39.0-53.0) % Sodium (137-145) mmol/L Carbon Dioxide (22-30) mmol/L POC Glucose (mg/dL) 120 H 131 H 150 H (75-99) mg/dL Total Protein (6.3-8.2) g/dL Albumin (3.5-5.0) g/dL 01/14/17 01/15/17 01/15/17 Range/Units 20:51 04:55 04:55 RBC 2.95 L (4.30-5.90) m/uL Hgb 9.5 L (13.0-17.5) gm/dL Hct 27.9 L (39.0-53.0) % Sodium 135 L (137-145) mmol/L Carbon Dioxide 31 H (22-30) mmol/L POC Glucose (mg/dL) 124 H (75-99) mg/dL Total Protein 5.5 L (6.3-8.2) g/dL Albumin 2.8 L (3.5-5.0) g/dL 01/15/17 Range/Units 07:31 RBC (4.30-5.90) m/uL Hgb (13.0-17.5) gm/dL Hct (39.0-53.0) % Sodium (137-145) mmol/L Carbon Dioxide (22-30) mmol/L POC Glucose (mg/dL) 108 H (75-99) mg/dL Total Protein (6.3-8.2) g/dL Albumin (3.5-5.0) g/dL - Imaging and Cardiology Chest x-ray: report reviewed, image reviewed Assessment and Plan (1) Osteoarthritis Status: Acute (2) Tobacco dependence in remission Status: Acute (3) Chest pain Status: Acute (4) Coronary artery disease Status: Acute (5) Hyperlipidemia Status: Acute (6) Non-STEMI (non-ST elevated myocardial infarction) Status: Acute (7) Open wound of right hand Status: Acute Plan: 1. Continue aspirin, Plavix, Lipitor, beta mariaa. Will maximize beta mariaa therapy as tolerated. VERO inhibitor added yesterday. 2. Wean O2 as tolerated. Encourage incentive spirometry use. 3. Increase activity, ambulate in hallway. Physical therapy to follow. 4. Will discontinue pleural chest tube. 5. GI/DVT prophylaxis. 6. Will monitor daily labs and x-rays. 7. Will transfer out of ICU to 6 E. selective care when bed available. 8. More recommendations as patient progresses. Anticipate discharge to home with home care this weekend. Time with Patient: Greater than 30
[2017-01-15] MEDS: HYDROcodone/APAP 7.5-325MG 1 EACH TAB PO PRN ×3 (09:05→17:04)
[2017-01-15] MEDS: MAGNESIUM HYDROXIDE 2,400 MG/10 ML CUP PO PRN (12:07)
[2017-01-15] MEDS: MULTIVITAMINS, THERA 1 EACH TAB PO SCH (12:07)
[2017-01-15] MEDS: THIAMINE 100 MG TAB PO SCH (12:07)
[2017-01-15 12:24] LABS: Glucose,Whole Blood 117 mg/dL (75-99)
[2017-01-15] MEDS: LISINOPRIL 5 MG TAB PO SCH (12:27)
--- NOTE | 2017-01-15 14:02 | P.PN ---
Subjective Patient is doing well. He is sitting up in bed eating lunch. His chest wall discomfort is better. He is breathing better today blood pressure is normal on 123 systolic heart rate 75 beats a minute sinus rhythm he has had no arrhythmias. Breath sounds are reduced bilaterally reduced breath sounds only the bases heart sounds are soft and distant Abdomen soft nontender Extremities are warm no edema Impression Multivessel coronary artery disease Status post coronary artery bypass grafting Plan Discussed with CT surgery nurse practitioner Recommend increasing metoprolol to 50 mg twice daily Objective - Vital Signs Vital signs: Vital Signs Temp 97.9 F 01/15/17 12:00 Pulse 73 01/15/17 12:00 Resp 16 01/15/17 12:00 BP 125/79 01/15/17 12:00 Pulse Ox 95 01/15/17 12:00 Intake & Output 01/14/17 01/15/17 01/15/17 18:59 06:59 18:59 Intake Total 997 150 250 Output Total 2485 720 0 Balance -1488 -570 250 Weight 116.6 kg Intake: IV 322 Lactated Ringers 1,000 ml 280 @ 50 mls/hr IV .Q20H [facility] Rx#:[id number] Pressure Bag 42 Oral 675 150 250 Output: Chest Tube Drainage 160 120 0 Bilateral Mediastinal 80 Left Lateral Chest 80 120 0 Urine 2325 600 Other: Voiding Method Indwelling Catheter Urinal Urinal # Voids 0 ABP, PAP, CO, CI - Last Documented Arterial Blood Pressure 136/98 Pulmonary Artery Pressure 23/12 Cardiac Output 6.5 Cardiac Index 2.9 - Labs CBC & Chem 7: 01/15/17 04:55 01/15/17 10:51 Labs: Abnormal Lab Results - Last 24 Hours (Table) 01/14/17 01/14/17 01/15/17 Range/Units 17:03 20:51 04:55 RBC (4.30-5.90) m/uL Hgb (13.0-17.5) gm/dL Hct (39.0-53.0) % Sodium 135 L (137-145) mmol/L Carbon Dioxide 31 H (22-30) mmol/L POC Glucose (mg/dL) 150 H 124 H (75-99) mg/dL Total Protein 5.5 L (6.3-8.2) g/dL Albumin 2.8 L (3.5-5.0) g/dL 01/15/17 01/15/17 01/15/17 Range/Units 04:55 07:31 12:23 RBC 2.95 L (4.30-5.90) m/uL Hgb 9.5 L (13.0-17.5) gm/dL Hct 27.9 L (39.0-53.0) % Sodium (137-145) mmol/L Carbon Dioxide (22-30) mmol/L POC Glucose (mg/dL) 108 H 117 H (75-99) mg/dL Total Protein (6.3-8.2) g/dL Albumin (3.5-5.0) g/dL
[2017-01-15 15:41] VITALS: BMI 36.8
[2017-01-15 16:46] LABS: Glucose,Whole Blood 106 mg/dL (75-99)
--- NOTE | 2017-01-15 17:17 | P.PN ---
Subjective This is a 71-year-old male who presented to the emergency department complaining of chest discomfort. The patient apparently also had a pressure- like sensation which radiated up towards his neck. He had some nausea. No diaphoresis. No shortness of breath. He's had previous similar situations. The patient tells me he was evaluated by cardiology had a catheterization was found have coronary artery disease and apparently Dr. Reza is planning to do bypass surgery on Wednesday. The patient has no known history of any lung disease. He did have spirometry. Not been able to yet to find it. He did smoke for about 15 years at less than one pack a day. It's unlikely that that was his true smoking history, that he would have substantial chronic lung disease. Still waiting though to see the spirometry myself. He has no known ALLERGIES. He apparently has no past medical history. He did have a hernia repair in the past. He apparently was on no medications at home on a regular basis. On 01/11/2017 the patient is resting comfortably in bed. No chest pain. No shortness of breath. No angina. Hemodynamically stable. The patient is awaiting cardiac bypass surgery to be done tomorrow. Meanwhile, he tells me that he is a nonsmoker. No respiratory distress at all prior to this cardiac event. He was able to climb a flight of stairs without any major difficulties. He does not utilize any form of respiratory medications or inhalers on outpatient basis. Most of any childhood asthma. No DVT. No pulmonary embolism. No sleep apnea. The chest x-ray showed no evidence of any cardiopulmonary abnormalities. Seen again today 01/12/2017 in follow-up immediately postoperative following his open-heart surgery performed by Dr. Reza. He received a BROWN to the LAD, saphenous vein grafts to the OM, diagonal and PDA. He remains intubated and on the mechanical ventilator at settings of SIMV of 12, tidal volume 500, FiO2 100 % and PEEP of 5. Her blood gases reveal a pO2 of 244, pCO2 of 46 and a pH of 7.35. Chest x-ray reveals appropriately placed endotracheal and gastric tubes. There is some mild patchy atelectasis. He is sedated on propofol at 25 mcg/kg/ m. He is a nitroglycerin drip at 5 mcg/m, lactated Ringer's at 50 MLS per hour , insulin drip at 0.5 units per hour. He is currently in normal sinus rhythm. He has backup pacing at 80. Current blood pressure running in the 110's over the 50's, PA pressures 30s over the 20s with a mean of 30. Cardiac output 2.4 with cardiac index of 5.4. His sternal dressing is dry and intact. He has mediastinal split chest tubes 2 and a left pleural chest tube with minimal drainage. Urine output is adequate. On 01/13/2017, the patient is being seen in follow-up. The patient underwent his coronary bypass surgery yesterday. Overnight he was kept intubated on mechanical ventilator. Today's postop day #1. The necessary vent changes were done and earlier this morning the patient was taken off sedation and he woke up appropriately. Weaning parameters were checked and following that the patient was placed on a spontaneous breathing trial with a pressure support of 5 and a PEEP of 5. Following 30 minutes the blood gases were obtained and the pH was 7.44 with a pCO2 of 37 and pO2 of 65. Chest x-ray earlier this morning showed no acute abnormalities and was essentially consistent with postsurgical changes. The patient was weaned off and extubated without any major difficulties. Currently currently the patient is on 3 L of oxygen nasal cannula and his saturations around 97%. No chest pain. No change in mental status. Hemodynamically stable on no pressors. On insulin drip for blood sugar control. Chest tubes are still in place and the total amount of output from the chest tube was 2 99 mL from the mediastinal and 93 mL from the left pleural chest tube for yesterday, 102 mL from the mediastinum and 45 mL from the left lateral chest tube this morning. The patient is producing adequate amount of urine output. Hemodynamically stable. Dix-Rasheed catheter still in place. PA pressures 23/12. Cardiac output is adequate. Neurologically intact and stable and awake. On 01/14/2017 the patient is postop day #2. The mediastinal chest tube has been removed. The Dix-Rasheed catheter was removed. He is awake alert and he is hemodynamically stable, comfortable denies having any complaints or significant issues. The patient has no chest pain. Sternum stable clean and intact. Cardiac rhythm remains sinus. Producing adequate amount of urine output. No change in mental status. No headaches. No shortness of breath. Chest x-ray from today shows postsurgical changes with a mediastinal left pleural chest tube in place. No fever. No other significant events overnight. Insulin drip has been also discontinued. The patient is seen again today 01/15/2017 in follow-up in the intensive care unit. This is postoperative day #3. He is currently sitting up in a chair at the bedside. He is awake and alert in no acute distress. He denies any worsening shortness of breath, cough or congestion. He is doing well with the incentive spirometer. Today's chest x-ray shows some postoperative atelectasis and tiny effusions. He is maintaining good O2 saturations in the mid 90s on 2 L /m per nasal cannula. He has been hemodynamically stable. Objective - Vital Signs Vital signs: Vital Signs Temp 96.8 F L 01/15/17 15:28 Pulse 71 01/15/17 15:28 Resp 18 01/15/17 15:28 BP 132/81 01/15/17 15:28 Pulse Ox 95 01/15/17 15:28 Intake & Output 01/14/17 01/15/17 01/15/17 18:59 06:59 18:59 Intake Total 997 150 250 Output Total 2485 720 0 Balance -1488 -570 250 Weight 116.6 kg 116.6 kg Intake: IV 322 Lactated Ringers 1,000 ml 280 @ 50 mls/hr IV .Q20H VENU Rx#:[id number] Pressure Bag 42 Oral 675 150 250 Output: Chest Tube Drainage 160 120 0 Bilateral Mediastinal 80 Left Lateral Chest 80 120 0 Urine 2325 600 Other: Voiding Method Indwelling Catheter Urinal Urinal # Voids 0 0 ABP, PAP, CO, CI - Last Documented Arterial Blood Pressure 136/98 Pulmonary Artery Pressure 23/12 Cardiac Output 6.5 Cardiac Index 2.9 - Exam GENERAL EXAM: Awake alert in no acute distress. HEAD: Normocephalic. EYES: Normal reaction of pupils, equal size. NOSE: Clear with pink turbinates. THROAT: No erythema. NECK: No masses, no JVD. CHEST: Sternal dressing dry and intact. LUNGS: Equal air entry with no crackles, wheeze, rhonchi or dullness. CVS: S1 and S2 normal with no audible murmurs, regular rhythm. ABDOMEN: No hepatosplenomegaly, bowel sounds, no guarding or rigidity. SPINE: No scoliosis or deformity SKIN: No rashes CENTRAL NERVOUS SYSTEM: Sedated, intubated. Extremities: There is trace peripheral edema. There is VERO wrapped bilateral lower extremities was sequential compression devices in place. Peripheral pulses are intact. - Labs CBC & Chem 7: 01/15/17 04:55 01/15/17 10:51 Labs: Abnormal Lab Results - Last 24 Hours (Table) 01/14/17 01/15/17 01/15/17 Range/Units 20:51 04:55 04:55 RBC 2.95 L (4.30-5.90) m/uL Hgb 9.5 L (13.0-17.5) gm/dL Hct 27.9 L (39.0-53.0) % Sodium 135 L (137-145) mmol/L Carbon Dioxide 31 H (22-30) mmol/L POC Glucose (mg/dL) 124 H (75-99) mg/dL Total Protein 5.5 L (6.3-8.2) g/dL Albumin 2.8 L (3.5-5.0) g/dL 01/15/17 01/15/17 01/15/17 Range/Units 07:31 12:23 16:27 RBC (4.30-5.90) m/uL Hgb (13.0-17.5) gm/dL Hct (39.0-53.0) % Sodium (137-145) mmol/L Carbon Dioxide (22-30) mmol/L POC Glucose (mg/dL) 108 H 117 H 106 H (75-99) mg/dL Total Protein (6.3-8.2) g/dL Albumin (3.5-5.0) g/dL Assessment and Plan Plan: Impression: #1 Multiple vessel coronary artery disease status post coronary artery bypass grafting utilizing a BROWN to the LAD, saphenous vein grafts to the OM, diagonal and PDA. This is postoperative day #3. #2 Mechanical ventilatory support as and expected outcome of thoracotomy #3 Acute non-ST segment elevation myocardial infarction. Preserved left ventricular systolic function with estimated ejection fraction 55-60%. #4 Obesity, BMI 33. #5 Osteoarthritis. #6 Hyperlipidemia. #7 Right index finger infection/wound. Plan: The patient was seen and evaluated by Dr. Calderon. His chest x-ray and labs were all reviewed. He is doing very well from the pulmonary and critical care standpoint. He'll be transferred out of the ICU to the selective care unit today. We will increase his activity as tolerated. He'll continue to work with the incentive spirometer. We'll continue to follow.
--- NOTE | 2017-01-15 18:38 | P.PN ---
<TravisbrittanyMarinasamuel Shaffer - Last Filed: 01/15/17 18:26> Progress Note - Text DATE OF SERVICE: 01/15/2017 PRESENTING COMPLAINT: Chest pain HISTORY OF PRESENT ILLNESS: 71-year-old male who woke up with chest pain associated heaviness no shortness of breath perspiration or dizziness although felt tired and rundown. First troponins, negative. Subsequent troponins positive, secondary episode of chest pain, taken to the cardiac [facility], found to have triple-vessel disease. Now status post coronary artery bypass grafting 4 with a BROWN to the LAD, saphenous vein graft to the OM, diagonal and PDA. INTERVAL HISTORY: 01/15/2017: Seen in follow-up on 60 selective status post open heart surgery CABG 4 as above. Sitting in the bed visiting with family looks comfortable. Heart Hugger on. Pain well controlled. Using incentive spirometer. Left pleural chest tube with serous sanguinous drainage. Tolerating his diet 800% of his meal, ambulatory with assistance, continues to pass gas, no BM yet 01/14/2017: Patient seen in follow-up in the ICU from open heart surgery CABG 4 as above. Sitting up in a chair at the bedside, looking a bit uncomfortable at the bedside Heart Hugger on, complains of the incisional pain and cough. Using incentive spirometer. IV fluids infusing as ordered. Chest tubes 3 and Baez catheter remain in place. No other drips. Tolerating his clear liquid diet ate 100% of his meal, ambulatory with assistance, no BM but is passing gas. 01/13/2017: Patient seen in follow-up in the ICU from open heart surgery, CABG 4 as above. Was successfully extubated, currently on nasal cannula, sitting up in the bed appears comfortable at the bedside. Current drips include nitroglycerin at 5 g a minute, insulin drip. Had episode of atrial fibrillation for which he received IV metoprolol, rhythm is currently in normal sinus rate controlled. Chest tubes in place with mediastinal split chest tube 2 and a left pleural chest tube both with minimal drainage. Baez catheter in place with urine output appropriate. Diet advanced to a clear liquid diet, patient tolerating eating barely 30%, 01/12/2017: Patient seen in follow-up in the ICU from open heart surgery, CABG 4 as above. Remains intubated on the mechanical ventilator on assist control volume control rate of 18 tidal volume of 500 FiO2 of 35%. Drips include nitroglycerin at 5 g a minute, lactated Ringer's at 50 mils liters an hour propofol at 35 mcg/kg/min, insulin at 0.5 units per hour, normal sinus rhythm on the monitor, back up pacing at 80. Chest tubes in place with mediastinal split chest tube 2 and a left pleural chest tube both with minimal drainage. Baez catheter in place with urine output beginning to dwindle. 01/11/2017: Patient seen in follow-up, no further episodes of chest pain nitro drip continues. Preop testing completed coronary artery bypass grafting surgery tomorrow. at the bedside with patient. Patient is anxious appearing, tolerating his diet, ambulatory in the room and [address], utilizing his incentive spirometer. Last BM on 01/10/2017. 01/10/2017: Patient seen in follow-up, had another episode of chest pain today, nitro drip started. No chest pain at this time, nitro drip continues. Preop testing continues, patient will tentatively be scheduled for coronary artery bypass grafting surgery on Wednesday. Sitting up at the bedside, anxious appearing, voiced concerns about surgery, states he is afraid. Reassurance provided. Patient's tolerating his diet, ambulatory in the room and [address], last BM . 01/09/2017: Patient had an episode of chest pain overnight, troponins positive, was taken to the [facility] this morning, found to have triple-vessel disease. Surgery is tentatively scheduled for Wednesday. Sitting up the bedside, eating his lunch, Pressure device noted to right radial artery. General questions answered. REVIEW OF SYSTEMS: Done for constitutional cardiovascular GI pulmonary, integument, with relevant findings as above. CURRENT MEDICATIONS Calcium chloride, ceftezole, Xanax, diltiazem, lisinopril, Lopressor [place], heparin, Bactroban Protonix. PHYSICAL EXAM VITAL SIGNS: Temperature 97.9, pulse 73, respirations 16, blood pressure 125 or 79, oxygen saturation 95% liters GENERAL APPEARANCE: Sitting up in bed appears comfortable, EYES: Pupils equal. Conjunctiva normal. NECK: JVD unable to assess Mass not palpable. RESPIRATORY: Effort normal, Lungs diminished to auscultation. CARDIOVASCULAR: First and second sounds normal. Mild edema. chest tubes patent. 1 left pleural chest tube in place minimal drainage, Heart Hugger in place ABDOMEN: Soft. Liver and spleen not palpable. No tenderness. No guarding or rigidity No mass palpable. PSYCHIATRY: Alert and oriented 3 mood and affect normal INTEGUMENT: Midline chest wall incision with surgical dressing in place INVESTIGATIONS: Hemoglobin 9.5, sodium 135, Accu-Cheks noted. Chest x-ray: Postoperative changes with suspected postoperative atelectasis and tiny effusions. ASSESSMENT: -Coronary artery disease with triple-vessel disease, including post-VA angina, status post coronary artery bypass grafting 4, improving -Mechanically assisted ventilation as an expected outcome of thoracotomy secondary to coronary artery bypass grafting surgery, extubated -Thrombocytopenia likely delusional -Acute blood loss anemia as expected from open heart surgery -Acute non- Q wave myocardial infarction with cardiac cath showing triple- vessel coronary artery disease. -Obesity BMI 33.0 -Hyperlipidemia -Primary osteoarthritis of left hip pending outpatient surgery -Acute cellulitis of the right index finger proximal part being treated with ciprofloxacin from outpatient PLAN: Continue CABG postsurgical protocols, overall condition is improving and is stable for transfer to [address] [place] [address]. Continue to advance diet and activity as patient can tolerate. We will continue to follow closely plan of care discussed with patient and family at the bedside and they are in agreement. CAN WASHER statement: Patient was seen and examined by nurse practitioner Yesi Jeffers and all elements of the case discussed with attending Dr. Lundberg <Juan Antonio Lundberg - Last Filed: 01/15/17 21:54> Progress Note - Text Attending note. Date of service-01/16/2000 This patient was seen and examined by me . Discussed the patient with my nurse practitioner Ms. Jeffers. Patient moved out of the ICU. Has been out of bed. Did tolerate his meal. Breathing better. Family the bedside. On examination: Lungs-decreased breath sounds, cardiovascular first seconds are normal Investigations: Hemoglobin 9.5, potassium 3.9 Assessment and plan: Improving. Status post code bypass. Conjunctiva current medication treatment plan.
[2017-01-15 20:49] LABS: Glucose,Whole Blood 114 mg/dL (75-99)
[2017-01-15] MEDS: METOPROLOL TARTRATE 50 MG TAB PO SCH (21:08)
[2017-01-15] MEDS: SENNOSIDES-DOCUSATE SODIUM 1 EACH TAB PO SCH (21:12)
[2017-01-16] MEDS: KETOROLAC 30 MG/ML 1 ML VIAL IVP SCH ×5 (02:04→20:24)
[2017-01-16 02:08] LABS: Glucose,Whole Blood 114 mg/dL (75-99)
[2017-01-16] MEDS: HYDROcodone/APAP 7.5-325MG 1 EACH TAB PO PRN ×3 (02:20→15:42)
[2017-01-16 05:54] LABS: Glucose,Whole Blood 95 mg/dL (75-99)
[2017-01-16 05:54] LABS: CH 32.2; CHCM 34.2; HCT 27.5 % (39.0-53.0); HDW 2.93; HGB 9.2 gm/dL (13.0-17.5); MCH 31.8 pg (25.0-35.0); MCHC 33.6 g/dL (31.0-37.0); MCV 94.7 fL (80.0-100.0); Mean Platelet Volume 7.2; RBC 2.91 m/uL (4.30-5.90); RDW 13.8 % (11.5-15.5); WBC 7.8 k/uL (3.8-10.6)
[2017-01-16 06:10] LABS: ALT 51 U/L (21-72); AST 40 U/L (17-59); Alkaline Phosphatase 54 U/L (38-126); Anion Gap 7 mmol/L; Blood Urea Nitrogen 21 mg/dL (9-20); Calcium 8.5 mg/dL (8.4-10.2); Carbon Dioxide 31 mmol/L (22-30); Chloride 97 mmol/L (98-107); Glucose 98 mg/dL (74-99); Non-African American GFR(MDRD) >60 (>60 ml/min/1.73 sqM); Potassium 4.2 mmol/L (3.5-5.1); Sodium 135 mmol/L (137-145); Total Bilirubin 0.5 mg/dL (0.2-1.3); Total Protein 5.4 g/dL (6.3-8.2)
[2017-01-16] MEDS: INSULIN LISPRO (humaLOG) 300 UNIT/3 ML VIAL SQ SCH ×4 (06:29→20:51)
[2017-01-16] MEDS: PANTOPRAZOLE 40 MG TABLET PO SCH (06:54)
--- NOTE | 2017-01-16 07:07 | XR ---
EXAMINATION TYPE: XR chest 2V DATE OF EXAM: 01/16/2017 COMPARISON: Chest x-ray from yesterday on older studies. HISTORY: Post open cardiac surgery progress study. Chest tube removal. TECHNIQUE: Frontal and lateral views of the chest are obtained. FINDINGS: Sternal wires are redemonstrated. There is interval removal of left-sided chest tube. Ther e is persistent left lung opacity consistent with infiltrate and/or atelectasis most prominent mid to lower aspect. Seen best on lateral view there are small bilateral pleural effusions. Cardiac silhoue tte size is stable and enlarged. No sizable pneumothorax is evident bilaterally. Osseous structures a re intact. IMPRESSION: Interval removal of left-sided chest tube without sizable pneumothorax. There is cardiom egaly with small bilateral pleural effusions and left mid to lower lung infiltrate and/or atelectasis all redemonstrated.
[2017-01-16] MEDS: HEPARIN SODIUM,PORCINE 5,000 UNIT/ML 1 ML VIAL SQ SCH ×3 (07:55→23:30)
[2017-01-16] MEDS: ASPIRIN 325 MG TAB PO SCH (07:56)
[2017-01-16] MEDS: CLOPIDOGREL 75 MG TAB PO SCH (07:57)
[2017-01-16] MEDS: MUPIROCIN 2% OINT 22 GM TUBE NASAL SCH ×2 (07:57→20:25)
[2017-01-16] MEDS: METOPROLOL TARTRATE 50 MG TAB PO SCH ×2 (07:57→20:25)
[2017-01-16] MEDS: ATORVASTATIN 40 MG TAB PO SCH (07:57)
--- NOTE | 2017-01-16 08:02 | P.PN ---
<Kayla Heredia - Last Filed: 01/16/17 07:57> Subjective Principal diagnosis: Symptomatic coronary artery disease, non-STEMI. Hyperlipidemia. Osteoarthritis. Current right hand index finger wound. Previous tobacco dependence. POD #4 urgent coronary artery bypass grafting 4 vessels with the left internal mammary artery to the left anterior descending artery, reverse saphenous vein graft to the diagonal artery, reverse saphenous vein graft to the obtuse marginal artery, reverse saphenous vein graft to the posterior descending artery. Endoscopic vein harvesting right greater saphenous vein. Epi-aortic ultrasound. Intraoperative transesophageal echocardiogram. Closure of complex sternal wound using Tritium titanium plating system. The patient is currently sitting up in in the chair in no acute distress. States his pain is better controlled. Denies shortness of breath. Transfer to [facility] the [facility]. Has been ambulating in the hallway. Objective - Vital Signs Vital signs: Vital Signs Temp 97.3 F L 01/16/17 04:00 Pulse 74 01/16/17 04:00 Resp 18 01/16/17 04:00 BP 132/71 01/16/17 04:00 Pulse Ox 98 01/16/17 04:00 Intake & Output 01/15/17 01/16/17 01/16/17 18:59 06:59 18:59 Intake Total 250 Output Total 0 600 Balance 250 -600 Weight 116.6 kg 113.2 kg Intake: Oral 250 Output: Chest Tube Drainage 0 Left Lateral Chest 0 Urine 600 Other: Voiding Method Urinal Urinal # Voids 0 1 ABP, PAP, CO, CI - Last Documented Arterial Blood Pressure 136/98 Pulmonary Artery Pressure 23/12 Cardiac Output 6.5 Cardiac Index 2.9 - Constitutional General appearance: Present: cooperative, no acute distress - Respiratory Details: Lungs sounds diminished bilaterally. Respirations even, nonlabored. Currently on 2 L nasal cannula suction saturation 98%. Able to achieve 750 mL on his incentive spirometry. - Cardiovascular Details: S1, S2 present. Regular rate and rhythm, normal sinus rhythm on telemetry. A/ V epicardial pacemaker wires present, capped. Sternum stable. Heart hugger placed patient demonstrating appropriate use. Palpable pulses bilaterally. No edema present. Teds/SCDs present. - Gastrointestinal Gastrointestinal Comment(s): Abdomen soft, nontender, nondistended. Active bowel sounds 4 quadrants. Tolerating diet. Positive flatus, negative BM since surgery. - Genitourinary Genitourinary Comment(s): Continues to void clear, yellow urine per urinal. - Integumentary Integumentary Comment(s): Anterior chest incision well approximated and covered with dry intact dressing. Right lower extremity EVH site well approximated. - Neurologic Neurologic: Present: CNII-XII intact - Musculoskeletal Musculoskeletal: Present: gait normal, strength equal bilaterally - Psychiatric Psychiatric: Present: A&O x's 3, appropriate affect, intact judgment & insight - Allied health notes Allied health notes reviewed: nursing - Labs CBC & Chem 7: 01/16/17 05:26 01/16/17 05:26 Labs: Abnormal Lab Results - Last 24 Hours (Table) 01/15/17 01/15/17 01/15/17 Range/Units 12:23 16:27 20:47 RBC (4.30-5.90) m/uL Hgb (13.0-17.5) gm/dL Hct (39.0-53.0) % Sodium (137-145) mmol/L Chloride (98-107) mmol/L Carbon Dioxide (22-30) mmol/L BUN (9-20) mg/dL POC Glucose (mg/dL) 117 H 106 H 114 H (75-99) mg/dL Total Protein (6.3-8.2) g/dL Albumin (3.5-5.0) g/dL 01/16/17 01/16/17 01/16/17 Range/Units 02:07 05:26 05:26 RBC 2.91 L (4.30-5.90) m/uL Hgb 9.2 L (13.0-17.5) gm/dL Hct 27.5 L (39.0-53.0) % Sodium 135 L (137-145) mmol/L Chloride 97 L (98-107) mmol/L Carbon Dioxide 31 H (22-30) mmol/L BUN 21 H (9-20) mg/dL POC Glucose (mg/dL) 114 H (75-99) mg/dL Total Protein 5.4 L (6.3-8.2) g/dL Albumin 2.7 L (3.5-5.0) g/dL - Imaging and Cardiology Chest x-ray: report reviewed, image reviewed Assessment and Plan (1) Osteoarthritis Status: Acute (2) Tobacco dependence in remission Status: Acute (3) Chest pain Status: Acute (4) Coronary artery disease Status: Acute (5) Hyperlipidemia Status: Acute (6) Non-STEMI (non-ST elevated myocardial infarction) Status: Acute (7) Open wound of right hand Status: Acute Plan: 1. Continue aspirin, Plavix, Lipitor, beta mariaa, VERO inhibitor. Will maximize beta mariaa therapy as tolerated. 2. Wean O2 as tolerated. Encourage incentive spirometry use. 3. Increase activity, ambulate in hallway. Physical therapy to follow. 4. Will discontinue epicardial pacemaker wires. 5. GI/DVT prophylaxis. 6. Will monitor daily labs and x-rays. 7. More recommendations as patient progresses. Likely was discharged to home with home care later this afternoon versus tomorrow morning. Time with Patient: Greater than 30 <Parker Reza - Last Filed: 01/16/17 10:14> Objective - Vital Signs Vital signs: Vital Signs Temp 96.9 F L 01/16/17 08:00 Pulse 76 01/16/17 08:00 Resp 20 01/16/17 08:20 BP 126/76 01/16/17 08:00 Pulse Ox 95 01/16/17 08:20 Intake & Output 01/15/17 01/16/17 01/16/17 18:59 06:59 18:59 Intake Total 250 240 Output Total 0 600 Balance 250 -600 240 Weight 116.6 kg 113.2 kg Intake: Oral 250 240 Output: Chest Tube Drainage 0 Left Lateral Chest 0 Urine 600 Other: Voiding Method Urinal Urinal Urinal # Voids 0 1 ABP, PAP, CO, CI - Last Documented Arterial Blood Pressure 136/98 Pulmonary Artery Pressure /12 Cardiac Output 6.5 Cardiac Index 2.9 - Labs CBC & Chem 7: 01/16/17 05:26 01/16/17 05:26 Labs: Abnormal Lab Results - Last 24 Hours (Table) 01/15/17 01/15/17 01/15/17 Range/Units 12:23 16:27 20:47 RBC (4.30-5.90) m/uL Hgb (13.0-17.5) gm/dL Hct (39.0-53.0) % Sodium (137-145) mmol/L Chloride (98-107) mmol/L Carbon Dioxide (22-30) mmol/L BUN (9-20) mg/dL POC Glucose (mg/dL) 117 H 106 H 114 H (75-99) mg/dL Total Protein (6.3-8.2) g/dL Albumin (3.5-5.0) g/dL 01/16/17 01/16/17 01/16/17 Range/Units 02:07 05:26 05:26 RBC 2.91 L (4.30-5.90) m/uL Hgb 9.2 L (13.0-17.5) gm/dL Hct 27.5 L (39.0-53.0) % Sodium 135 L (137-145) mmol/L Chloride 97 L (98-107) mmol/L Carbon Dioxide 31 H (22-30) mmol/L BUN 21 H (9-20) mg/dL POC Glucose (mg/dL) 114 H (75-99) mg/dL Total Protein 5.4 L (6.3-8.2) g/dL Albumin 2.7 L (3.5-5.0) g/dL Assessment and Plan Plan: The patient was seen and examined. I agree with the above assessment and plan. Overall he looks good. He is currently on 2 L nasal cannula. We will try to wean that off today. I have encouraged incentive spirometry. He will get a dose of Lasix. Otherwise we'll continue with ambulation. He needs to have a bowel movement. He will likely be discharged home tomorrow.
[2017-01-16] MEDS ORDERED: FUROSEMIDE 10 MG/ML 2 ML VIAL IV ONE (10:14)
[2017-01-16] MEDS: THIAMINE 100 MG TAB PO SCH (11:31)
[2017-01-16] MEDS: MULTIVITAMINS, THERA 1 EACH TAB PO SCH (11:31)
[2017-01-16] MEDS: LISINOPRIL 5 MG TAB PO SCH (11:31)
[2017-01-16 11:48] LABS: Glucose,Whole Blood 123 mg/dL (75-99)
--- NOTE | 2017-01-16 12:28 | P.PN ---
Subjective Patient is lying comfortably in bed he does not appear to be short of breath and his chest pain, incisional is better. Breath sounds are reduced but there is air entry at both bases. On examination his pulse rate is in the 70s blood pressures 132/71 mmHg he is afebrile pulse ox is normal Heart sounds S1 and S2 are soft Abdomen soft nontender Extremities warm no edema Impression Multivessel coronary artery disease Status post coronary artery bypass grafting Non-Q wave myocardial infarction on admission Hypertension Preserved LV systolic function preoperatively but with moderate left ventricular hypertrophy Plan Continue dual antiplatelet therapy along with 40 mg atorvastatin he received IV Lasix today continue Zestril continue metoprolol 50 mg twice daily Objective - Vital Signs Vital signs: Vital Signs Temp 96.9 F L 01/16/17 08:00 Pulse 76 01/16/17 08:00 Resp 20 01/16/17 08:20 BP 126/76 01/16/17 08:00 Pulse Ox 95 01/16/17 08:20 Intake & Output 01/15/17 01/16/17 01/16/17 18:59 06:59 18:59 Intake Total 250 240 Output Total 0 600 Balance 250 -600 240 Weight 116.6 kg 113.2 kg Intake: Oral 250 240 Output: Chest Tube Drainage 0 Left Lateral Chest 0 Urine 600 Other: Voiding Method Urinal Urinal Urinal # Voids 0 1 0 ABP, PAP, CO, CI - Last Documented Arterial Blood Pressure 136/98 Pulmonary Artery Pressure 23/12 Cardiac Output 6.5 Cardiac Index 2.9 - Labs CBC & Chem 7: 01/16/17 05:26 01/16/17 05:26 Labs: Abnormal Lab Results - Last 24 Hours (Table) 01/15/17 01/15/17 01/16/17 Range/Units 16:27 20:47 02:07 RBC (4.30-5.90) m/uL Hgb (13.0-17.5) gm/dL Hct (39.0-53.0) % Sodium (137-145) mmol/L Chloride (98-107) mmol/L Carbon Dioxide (22-30) mmol/L BUN (9-20) mg/dL POC Glucose (mg/dL) 106 H 114 H 114 H (75-99) mg/dL Total Protein (6.3-8.2) g/dL Albumin (3.5-5.0) g/dL 01/16/17 01/16/17 01/16/17 Range/Units 05:26 05:26 11:47 RBC 2.91 L (4.30-5.90) m/uL Hgb 9.2 L (13.0-17.5) gm/dL Hct 27.5 L (39.0-53.0) % Sodium 135 L (137-145) mmol/L Chloride 97 L (98-107) mmol/L Carbon Dioxide 31 H (22-30) mmol/L BUN 21 H (9-20) mg/dL POC Glucose (mg/dL) 123 H (75-99) mg/dL Total Protein 5.4 L (6.3-8.2) g/dL Albumin 2.7 L (3.5-5.0) g/dL
[2017-01-16 12:45] VITALS: RESP 18
--- NOTE | 2017-01-16 13:39 | P.PN ---
Subjective This is a 71-year-old male who presented to the emergency department complaining of chest discomfort. The patient apparently also had a pressure- like sensation which radiated up towards his neck. He had some nausea. No diaphoresis. No shortness of breath. He's had previous similar situations. The patient tells me he was evaluated by cardiology had a catheterization was found have coronary artery disease and apparently Dr. Reza is planning to do bypass surgery on Wednesday. The patient has no known history of any lung disease. He did have spirometry. Not been able to yet to find it. He did smoke for about 15 years at less than one pack a day. It's unlikely that that was his true smoking history, that he would have substantial chronic lung disease. Still waiting though to see the spirometry myself. He has no known ALLERGIES. He apparently has no past medical history. He did have a hernia repair in the past. He apparently was on no medications at home on a regular basis. On 01/11/2017 the patient is resting comfortably in bed. No chest pain. No shortness of breath. No angina. Hemodynamically stable. The patient is awaiting cardiac bypass surgery to be done tomorrow. Meanwhile, he tells me that he is a nonsmoker. No respiratory distress at all prior to this cardiac event. He was able to climb a flight of stairs without any major difficulties. He does not utilize any form of respiratory medications or inhalers on outpatient basis. Most of any childhood asthma. No DVT. No pulmonary embolism. No sleep apnea. The chest x-ray showed no evidence of any cardiopulmonary abnormalities. Seen again today 01/12/2017 in follow-up immediately postoperative following his open-heart surgery performed by Dr. Reza. He received a BROWN to the LAD, saphenous vein grafts to the OM, diagonal and PDA. He remains intubated and on the mechanical ventilator at settings of SIMV of 12, tidal volume 500, FiO2 100 % and PEEP of 5. Her blood gases reveal a pO2 of 244, pCO2 of 46 and a pH of 7.35. Chest x-ray reveals appropriately placed endotracheal and gastric tubes. There is some mild patchy atelectasis. He is sedated on propofol at 25 mcg/kg/ m. He is a nitroglycerin drip at 5 mcg/m, lactated Ringer's at 50 MLS per hour , insulin drip at 0.5 units per hour. He is currently in normal sinus rhythm. He has backup pacing at 80. Current blood pressure running in the 110's over the 50's, PA pressures 30s over the 20s with a mean of 30. Cardiac output 2.4 with cardiac index of 5.4. His sternal dressing is dry and intact. He has mediastinal split chest tubes 2 and a left pleural chest tube with minimal drainage. Urine output is adequate. On 01/13/2017, the patient is being seen in follow-up. The patient underwent his coronary bypass surgery yesterday. Overnight he was kept intubated on mechanical ventilator. Today's postop day #1. The necessary vent changes were done and earlier this morning the patient was taken off sedation and he woke up appropriately. Weaning parameters were checked and following that the patient was placed on a spontaneous breathing trial with a pressure support of 5 and a PEEP of 5. Following 30 minutes the blood gases were obtained and the pH was 7.44 with a pCO2 of 37 and pO2 of 65. Chest x-ray earlier this morning showed no acute abnormalities and was essentially consistent with postsurgical changes. The patient was weaned off and extubated without any major difficulties. Currently currently the patient is on 3 L of oxygen nasal cannula and his saturations around 97%. No chest pain. No change in mental status. Hemodynamically stable on no pressors. On insulin drip for blood sugar control. Chest tubes are still in place and the total amount of output from the chest tube was 2 99 mL from the mediastinal and 93 mL from the left pleural chest tube for yesterday, 102 mL from the mediastinum and 45 mL from the left lateral chest tube this morning. The patient is producing adequate amount of urine output. Hemodynamically stable. [place] catheter still in place. PA pressures 23/12. Cardiac output is adequate. Neurologically intact and stable and awake. On 01/14/2017 the patient is postop day #2. The mediastinal chest tube has been removed. The [place] catheter was removed. He is awake alert and he is hemodynamically stable, comfortable denies having any complaints or significant issues. The patient has no chest pain. Sternum stable clean and intact. Cardiac rhythm remains sinus. Producing adequate amount of urine output. No change in mental status. No headaches. No shortness of breath. Chest x-ray from today shows postsurgical changes with a mediastinal left pleural chest tube in place. No fever. No other significant events overnight. Insulin drip has been also discontinued. The patient is seen again today 01/15/2017 in follow-up in the intensive care unit. This is postoperative day #3. He is currently sitting up in a chair at the bedside. He is awake and alert in no acute distress. He denies any worsening shortness of breath, cough or congestion. He is doing well with the incentive spirometer. Today's chest x-ray shows some postoperative atelectasis and tiny effusions. He is maintaining good O2 saturations in the mid 90s on 2 L /m per nasal cannula. He has been hemodynamically stable. On 2016 the patient is still on oxygen at 2 L/m nasal cannula. His postop day #4. Chest tubes have been removed. Has no specific complaints. Ambulating in the hallway. Has some increased edema in the upper extremities. No change in mental status. No chest pain. Sternum stable clean and intact. No other significant events over the past 24 hours. The cardiac rhythm remains sinus. Chest x-ray from today shows small bibasilar pleural effusions and atelectasis. Objective - Vital Signs Vital signs: Vital Signs Temp 97.5 F L 01/16/17 12:00 Pulse 74 01/16/17 12:00 Resp 18 01/16/17 12:00 BP 126/75 01/16/17 12:00 Pulse Ox 95 01/16/17 12:00 Intake & Output 01/15/17 01/16/17 01/16/17 18:59 06:59 18:59 Intake Total 250 540 Output Total 0 600 575 Balance 250 -600 -35 Weight 116.6 kg 113.2 kg Intake: Oral 250 540 Output: Chest Tube Drainage 0 Left Lateral Chest 0 Urine 600 575 Other: Voiding Method Urinal Urinal Urinal # Voids 0 1 2 ABP, PAP, CO, CI - Last Documented Arterial Blood Pressure 136/98 Pulmonary Artery Pressure 23/12 Cardiac Output 6.5 Cardiac Index 2.9 - Exam Head is atraumatic normocephalic. Neck was supple and without jugular venous distension, thyromegaly, or carotid bruits. Carotids were easily palpable bilaterally. There was no adenopathy. Lungs were clear to auscultation and percussion, and with normal diaphragmatic excursion. No wheezes or rales were noted. Heart sounds are irregular, possible sinus stool, no symptoms rubs or murmurs appreciated.Abdominal exam revealed normal bowel sounds. The abdomen was soft, non-tender, and without masses, organomegaly, or appreciable enlargement of the abdominal aorta.Examination of the extremities revealed easily palpable radial, femoral and pedal pulses. There was no cyanosis, clubbing or edema. Neurologically the patient is awake and alert and following commands and answering questions appropriately. - Labs CBC & Chem 7: 01/16/17 05:26 01/16/17 05:26 Labs: Abnormal Lab Results - Last 24 Hours (Table) 01/15/17 01/15/17 01/16/17 Range/Units 16:27 20:47 02:07 RBC (4.30-5.90) m/uL Hgb (13.0-17.5) gm/dL Hct (39.0-53.0) % Sodium (137-145) mmol/L Chloride (98-107) mmol/L Carbon Dioxide (22-30) mmol/L BUN (9-20) mg/dL POC Glucose (mg/dL) 106 H 114 H 114 H (75-99) mg/dL Total Protein (6.3-8.2) g/dL Albumin (3.5-5.0) g/dL 01/16/17 01/16/17 01/16/17 Range/Units 05:26 05:26 11:47 RBC 2.91 L (4.30-5.90) m/uL Hgb 9.2 L (13.0-17.5) gm/dL Hct 27.5 L (39.0-53.0) % Sodium 135 L (137-145) mmol/L Chloride 97 L (98-107) mmol/L Carbon Dioxide 31 H (22-30) mmol/L BUN 21 H (9-20) mg/dL POC Glucose (mg/dL) 123 H (75-99) mg/dL Total Protein 5.4 L (6.3-8.2) g/dL Albumin 2.7 L (3.5-5.0) g/dL Assessment and Plan Plan: Assessment 1 multivessel coronary artery disease, awaiting coronary artery bypass surgery. Patient underwent triple vessel bypass surgery and the patient is postop day # 4. All of the chest tubes have been removed. The chest exit from today shows a stable postoperative small better pleural effusions. Sternum stable clean and intact. The patient is still on oxygen at 2 L/m nasal cannula. He is ambulating. He is hemodynamically stable. 2 acute non-ST segment elevation myocardial infarction 3 obesity, BMI of 33 4 osteoarthritis 5 hyperlipidemia 6 right index finger infection/wound 7 preserved LV function with a ejection fraction of 55-60% Plan Encouraged use of incentive spirometer. Ambulate. Wean off FiO2. We'll continue to follow. The patient on dual antiplatelet agent. He is on Lipitor. Lasix IV will be given today to optimize volume status. He is on metoprolol 50 mg twice a day in addition to Zestril.
--- NOTE | 2017-01-16 14:57 | P.PN ---
<Yesi Jeffers Deena - Last Filed: 01/16/17 14:56> Progress Note - Text DATE OF SERVICE: 01/16/2017 PRESENTING COMPLAINT: Chest pain HISTORY OF PRESENT ILLNESS: 71-year-old male who woke up with chest pain associated heaviness no shortness of breath perspiration or dizziness although felt tired and rundown. First troponins, negative. Subsequent troponins positive, secondary episode of chest pain, taken to the cardiac Counseling Services Manager, found to have triple-vessel disease. Now status post coronary artery bypass grafting 4 with a BROWN to the LAD, saphenous vein graft to the OM, diagonal and PDA. INTERVAL HISTORY: 01/16/2017: Seen in follow-up on 6 E. selective, status post open heart surgery CABG 4 as above. Lying in the bed visiting with family appears comfortable. Heart Hugger on. Pain well controlled, using incentive spirometer. All remaining tubes and lines are out, only peripheral IV remains. Eating 100% of his meals ambulatory with assistance, passing gas, no BM, MiraLAX and senna available as well as Dulcolax suppository. 01/15/2017: Seen in follow-up on 60 selective status post open heart surgery CABG 4 as above. Sitting in the bed visiting with family looks comfortable. Heart Hugger on. Pain well controlled. Using incentive spirometer. Left pleural chest tube with serous sanguinous drainage. Tolerating his diet 100% of his meal, ambulatory with assistance, continues to pass gas, no BM yet 01/14/2017: Patient seen in follow-up in the ICU from open heart surgery CABG 4 as above. Sitting up in a chair at the bedside, looking a bit uncomfortable at the bedside Heart Hugger on, complains of the incisional pain and cough. Using incentive spirometer. IV fluids infusing as ordered. Chest tubes 3 and Baez catheter remain in place. No other drips. Tolerating his clear liquid diet ate 100% of his meal, ambulatory with assistance, no BM but is passing gas. 01/13/2017: Patient seen in follow-up in the ICU from open heart surgery, CABG 4 as above. Was successfully extubated, currently on nasal cannula, sitting up in the bed appears comfortable at the bedside. Current drips include nitroglycerin at 5 g a minute, insulin drip. Had episode of atrial fibrillation for which he received IV metoprolol, rhythm is currently in normal sinus rate controlled. Chest tubes in place with mediastinal split chest tube 2 and a left pleural chest tube both with minimal drainage. Baez catheter in place with urine output appropriate. Diet advanced to a clear liquid diet, patient tolerating eating barely 30%, 01/12/2017: Patient seen in follow-up in the ICU from open heart surgery, CABG 4 as above. Remains intubated on the mechanical ventilator on assist control volume control rate of 18 tidal volume of 500 FiO2 of 35%. Drips include nitroglycerin at 5 g a minute, lactated Ringer's at 50 mils liters an hour propofol at 35 mcg/kg/min, insulin at 0.5 units per hour, normal sinus rhythm on the monitor, back up pacing at 80. Chest tubes in place with mediastinal split chest tube 2 and a left pleural chest tube both with minimal drainage. Baez catheter in place with urine output beginning to dwindle. 01/11/2017: Patient seen in follow-up, no further episodes of chest pain nitro drip continues. Preop testing completed coronary artery bypass grafting surgery tomorrow. at the bedside with patient. Patient is anxious appearing, tolerating his diet, ambulatory in the room and [place] ways, utilizing his incentive spirometer. Last BM on 01/10/2017. 01/10/2017: Patient seen in follow-up, had another episode of chest pain today, nitro drip started. No chest pain at this time, nitro drip continues. Preop testing continues, patient will tentatively be scheduled for coronary artery bypass grafting surgery on Wednesday. Sitting up at the bedside, anxious appearing, voiced concerns about surgery, states he is afraid. Reassurance provided. Patient's tolerating his diet, ambulatory in the room and dav[address] ways, last BM . 01/09/2017: Patient had an episode of chest pain overnight, troponins positive, was taken to the laborer shellfish processing this morning, found to have triple-vessel disease. Surgery is tentatively scheduled for Wednesday. Sitting up the bedside, eating his lunch, Pressure device noted to right radial artery. General questions answered. REVIEW OF SYSTEMS: Done for constitutional cardiovascular GI pulmonary, integument, with relevant findings as above. CURRENT MEDICATIONS Calcium chloride, ceftezole, Xanax, diltiazem, lisinopril, Lopressor [place], heparin, Bactroban Protonix. PHYSICAL EXAM VITAL SIGNS: Temperature 96.9, pulse 76, respiratory rate 20, blood pressure 126/76, oxygen saturation 98% on 2 L. GENERAL APPEARANCE: Sitting up in bed appears comfortable, EYES: Pupils equal. Conjunctiva normal. NECK: JVD unable to assess Mass not palpable. RESPIRATORY: Effort normal, Lungs diminished to auscultation. CARDIOVASCULAR: First and second sounds normal. Mild edema. Heart Hugger in place ABDOMEN: Soft. Liver and spleen not palpable. No tenderness. No guarding or rigidity No mass palpable. PSYCHIATRY: Alert and oriented 3 mood and affect normal INTEGUMENT: Midline chest wall incision with surgical dressing in place INVESTIGATIONS: Hemoglobin 9.2, sodium 135, potassium 4.2, BUN 21 creatinine 0.90 Accu-Cheks noted. ASSESSMENT: -Coronary artery disease with triple-vessel disease, including post-[place] angina, status post coronary artery bypass grafting 4, improving -Mechanically assisted ventilation as an expected outcome of thoracotomy secondary to coronary artery bypass grafting surgery, extubated -Thrombocytopenia likely delusional -Acute blood loss anemia as expected from open heart surgery -Acute non- Q wave myocardial infarction with cardiac cath showing triple- vessel coronary artery disease. -Obesity BMI 33.0 -Hyperlipidemia -Primary osteoarthritis of left hip pending outpatient surgery -Acute cellulitis of the right index finger proximal part being treated with ciprofloxacin from outpatient PLAN: Continue CABG postsurgical protocols, Continue to advance diet and activity as patient can tolerate. Per cardiothoracic surgery's note patient may be able to discharge home tomorrow. We will continue to follow closely plan of care discussed with patient and family at the bedside and they are in agreement. FOREIGN EXCHANGE STUDENT COORDINATOR statement: Patient was seen and examined by nurse practitioner Yesi Jeffers and all elements of the case discussed with attending Dr. Lundberg <Juan Antonio Lundberg - Last Filed: 01/16/17 21:33> Progress Note - Text Attending note. Date of service-01/16/2017 This patient was seen and examined by me . Discussed the patient with my nurse practitioner Ms. Jeffers. Doing better. Up in the hallway. Daughter . Positive status. Sitting up. Breathing improved. On examination: Lungs-decreased breath sounds, cardiovascular first seconds are normal, psych AO 3 Investigations: White count 7.8, hemoglobin 9.2, potassium 4.2 Assessment and plan: Status post CABG. Improving. Care discussed with the patient and at the bedside
[2017-01-16 16:33] LABS: Glucose,Whole Blood 110 mg/dL (75-99)
[2017-01-16] MEDS: SENNOSIDES-DOCUSATE SODIUM 1 EACH TAB PO SCH (20:26)
[2017-01-16 20:41] LABS: Glucose,Whole Blood 132 mg/dL (75-99)
[2017-01-17 02:07] LABS: Glucose,Whole Blood 100 mg/dL (75-99)
[2017-01-17] MEDS: KETOROLAC 30 MG/ML 1 ML VIAL IVP SCH ×3 (03:22→15:06)
[2017-01-17 06:08] LABS: Glucose,Whole Blood 104 mg/dL (75-99)
[2017-01-17] MEDS: HYDROcodone/APAP 7.5-325MG 1 EACH TAB PO PRN ×2 (06:09→15:53)
[2017-01-17] MEDS: PANTOPRAZOLE 40 MG TABLET PO SCH (06:33)
[2017-01-17] MEDS: INSULIN LISPRO (humaLOG) 300 UNIT/3 ML VIAL SQ SCH ×2 (06:34→13:56)
[2017-01-17 06:54] LABS: CH 32.1; CHCM 34.2; HCT 30.9 % (39.0-53.0); HDW 2.99; MCH 30.6 pg (25.0-35.0); MCHC 32.5 g/dL (31.0-37.0); MCV 94.2 fL (80.0-100.0); RBC 3.28 m/uL (4.30-5.90)
[2017-01-17 07:15] LABS: Anion Gap 10 mmol/L; Blood Urea Nitrogen 19 mg/dL (9-20); Calcium 8.9 mg/dL (8.4-10.2); Carbon Dioxide 31 mmol/L (22-30); Chloride 97 mmol/L (98-107); Glucose 98 mg/dL (74-99); Non-African American GFR(MDRD) >60 (>60 ml/min/1.73 sqM); Potassium 4.2 mmol/L (3.5-5.1); Sodium 138 mmol/L (137-145)
--- NOTE | 2017-01-17 07:28 | XR ---
EXAMINATION TYPE: XR chest 2V DATE OF EXAM: 01/17/2017 COMPARISON: Chest x-ray from yesterday HISTORY: Post open cardiac surgery. TECHNIQUE: Frontal and lateral views of the chest are obtained. FINDINGS: Sternal wires are redemonstrated. There is persistent left central and lower lung opacity consistent with infiltrate and/or atelectasis. Seen best on lateral view there are small bilateral pl eural effusions redemonstrated. Cardiac silhouette size is stable and enlarged with ectatic thoracic aorta. No sizable pneumothorax is evident bilaterally. Osseous structures are intact. IMPRESSION: Cardiomegaly with small bilateral pleural effusions and left mid to lower lung infiltrat e and/or atelectasis all redemonstrated.
[2017-01-17] MEDS: HEPARIN SODIUM,PORCINE 5,000 UNIT/ML 1 ML VIAL SQ SCH (07:43)
[2017-01-17] MEDS: ATORVASTATIN 40 MG TAB PO SCH (07:44)
[2017-01-17] MEDS: ASPIRIN 325 MG TAB PO SCH (07:44)
[2017-01-17] MEDS: METOPROLOL TARTRATE 50 MG TAB PO SCH (07:44)
[2017-01-17] MEDS: CLOPIDOGREL 75 MG TAB PO SCH (07:44)
[2017-01-17] MEDS: MUPIROCIN 2% OINT 22 GM TUBE NASAL SCH (07:45)
--- NOTE | 2017-01-17 08:03 | P.PN ---
Subjective Principal diagnosis: Symptomatic coronary artery disease, non-STEMI. Hyperlipidemia. Osteoarthritis. Current right hand index finger wound. Previous tobacco dependence. POD #5 urgent coronary artery bypass grafting 4 vessels with the left internal mammary artery to the left anterior descending artery, reverse saphenous vein graft to the diagonal artery, reverse saphenous vein graft to the obtuse marginal artery, reverse saphenous vein graft to the posterior descending artery. Endoscopic vein harvesting right greater saphenous vein. Epi-aortic ultrasound. Intraoperative transesophageal echocardiogram. Closure of complex sternal wound using Tritium titanium plating system. The patient is currently sitting up in in the chair in no acute distress. States his pain is better controlled. Denies shortness of breath. Has been ambulating in the hallway. He feels he is ready to go home. Objective - Vital Signs Vital signs: Vital Signs Temp 97.8 F 01/17/17 04:00 Pulse 76 01/17/17 04:00 Resp 18 01/17/17 04:00 BP 123/80 01/17/17 04:00 Pulse Ox 97 01/17/17 04:00 Intake & Output 01/16/17 01/17/17 01/17/17 18:59 06:59 18:59 Intake Total 780 Output Total 575 1225 Balance 205 -1225 Weight 97.9 kg Intake: Oral 780 Output: Urine 575 1225 Other: Voiding Method Urinal Urinal # Voids 2 ABP, PAP, CO, CI - Last Documented Arterial Blood Pressure 136/98 Pulmonary Artery Pressure 23/12 Cardiac Output 6.5 Cardiac Index 2.9 - Constitutional General appearance: Present: cooperative, no acute distress - Respiratory Details: Lungs sounds diminished bilaterally. Respirations even, nonlabored. Currently on 2 L nasal cannula with oxygen saturation 97%. Able to achieve 1000 mL on his incentive spirometer. - Cardiovascular Details: S1, S2 present. Regular rate and rhythm, normal sinus rhythm on telemetry. Sternum stable. Heart hugger placed patient demonstrating appropriate use. No edema present. Palpable pulses bilaterally. Teds/SCDs present. - Gastrointestinal Gastrointestinal Comment(s): Abdomen soft, nontender, nondistended. Active bowel sounds 4 quadrants. Tolerating diet. Positive flatus, still negative bowel movement. - Genitourinary Genitourinary Comment(s): Continues to void clear, yellow urine. - Integumentary Integumentary Comment(s): Anterior chest incision well approximated. Right lower extremity EVH site well approximated. - Neurologic Neurologic: Present: CNII-XII intact - Musculoskeletal Musculoskeletal: Present: gait normal, strength equal bilaterally - Psychiatric Psychiatric: Present: A&O x's 3, appropriate affect, intact judgment & insight - Allied health notes Allied health notes reviewed: nursing - Labs CBC & Chem 7: 01/17/17 06:28 01/17/17 06:28 Labs: Abnormal Lab Results - Last 24 Hours (Table) 01/16/17 01/16/17 01/16/17 Range/Units 11:47 16:32 20:40 RBC (4.30-5.90) m/uL Hgb (13.0-17.5) gm/dL Hct (39.0-53.0) % Chloride (98-107) mmol/L Carbon Dioxide (22-30) mmol/L POC Glucose (mg/dL) 123 H 110 H 132 H (75-99) mg/dL 01/17/17 01/17/17 01/17/17 Range/Units 02:06 06:07 06:28 RBC 3.28 L (4.30-5.90) m/uL Hgb 10.0 L (13.0-17.5) gm/dL Hct 30.9 L (39.0-53.0) % Chloride (98-107) mmol/L Carbon Dioxide (22-30) mmol/L POC Glucose (mg/dL) 100 H 104 H (75-99) mg/dL 01/17/17 Range/Units 06:28 RBC (4.30-5.90) m/uL Hgb (13.0-17.5) gm/dL Hct (39.0-53.0) % Chloride 97 L (98-107) mmol/L Carbon Dioxide 31 H (22-30) mmol/L POC Glucose (mg/dL) (75-99) mg/dL - Imaging and Cardiology Chest x-ray: report reviewed, image reviewed Assessment and Plan (1) Osteoarthritis Status: Acute (2) Tobacco dependence in remission Status: Acute (3) Chest pain Status: Acute (4) Coronary artery disease Status: Acute (5) Hyperlipidemia Status: Acute (6) Non-STEMI (non-ST elevated myocardial infarction) Status: Acute (7) Open wound of right hand Status: Acute Plan: 1. Continue aspirin, Plavix, Lipitor, beta mariaa, VERO inhibitor. Will maximize beta mariaa therapy as tolerated. 2. Wean O2 as tolerated. Encourage incentive spirometry use. 3. Increase activity, ambulate in hallway. Physical therapy following. 4. GI/DVT prophylaxis. Milk of magnesia/prune juice to be given, if no bowel movement by noon will give Dulcolax suppository. 5. Likely to be discharged to home with home care later this afternoon. Time with Patient: Greater than 30
[2017-01-17] MEDS: MAGNESIUM HYDROXIDE 2,400 MG/10 ML CUP PO PRN (08:56)
[2017-01-17] MEDS: MULTIVITAMINS, THERA 1 EACH TAB PO SCH (11:32)
[2017-01-17] MEDS: THIAMINE 100 MG TAB PO SCH (11:32)
[2017-01-17] MEDS: LISINOPRIL 5 MG TAB PO SCH (11:32)
[2017-01-17 11:46] VITALS: BP 121/69; PULSE 73; TEMP 97.2
[2017-01-17 12:14] LABS: Glucose,Whole Blood 105 mg/dL (75-99)
--- NOTE | 2017-01-17 14:35 | P.DS ---
Providers Date of admission: 01/09/17 14:46 Attending physician: Parker Reza Consults: 01/08/17 06:52 Consult Physician Urgent Consulting Provider: Deric Madsen Consult Reason/Comments: ua Do you want consulting provider notified?: Yes 01/09/17 11:23 Consult Physician Urgent Consulting Provider: Truong Sales Consult Reason/Comments: CABG Do you want consulting provider notified?: Already Contacted 01/09/17 13:58 Consult Anesthesia Routine Consulting Provider: Anesthesia,Services Consult Reason/Comments: Cardiac Surgery Pre-Op Consult Physician Routine Consulting Provider: Lazaro Peña Consult Reason/Comments: Pulmonary management Do you want consulting provider notified?: Yes, Notify in am 01/10/17 12:37 Consult Physician Routine Consulting Provider: Leonardo Hidalgo Consult Reason/Comments: EXISTING INFECTION Do you want consulting provider notified?: Yes 01/12/17 15:03 Consult Physician Routine Consulting Provider: Juan Antonio Lundberg Consult Reason/Comments: medical management Do you want consulting provider notified?: Already Contacted Primary care physician: Leonardo Figueroa Danielle - Discharge Diagnosis(es) (1) Osteoarthritis Current Visit: Yes Status: Acute (2) Tobacco dependence in remission Current Visit: Yes Status: Acute (3) Chest pain Current Visit: Yes Status: Acute (4) Coronary artery disease Current Visit: Yes Status: Acute (5) Hyperlipidemia Current Visit: Yes Status: Acute (6) Non-STEMI (non-ST elevated myocardial infarction) Current Visit: Yes Status: Acute (7) Open wound of right hand Current Visit: Yes Status: Acute Hospital Course: FINAL DIAGNOSIS: 1. Symptomatic coronary artery disease 2. Non-STEMI 3. Hyperlipidemia 4. Previous tobacco dependence 5. Osteoarthritis 6. Current right hand index finger wound. PRINCIPAL PROCEDURE: 1. Urgent coronary artery bypass grafting 4 vessels, left internal mammary artery to the left anterior descending artery, reverse saphenous vein graft to diagonal artery, reverse saphenous vein graft to the obtuse marginal artery, reverse saphenous vein graft to the posterior descending artery 2. Endoscopic vein harvest right greater saphenous vein 3. Epi-aortic ultrasound 4. Intraoperative transesophageal echocardiogram 5. Closure of complex sternal wound using Tritium titanium plating system HISTORY OF PRESENT ILLNESS: This 71-year-old gentleman presented to the emergency room with chest pain associated with nausea with radiation to his neck. Troponins were drawn which were mildly elevated, EKG was unremarkable. He was recommended to undergo heart catheterization which demonstrated 70-80% stenosis to his proximal left anterior descending artery, 80% stenosis to diagonal branch, 50% stenosis to his ostial circumflex artery, 70-80% stenosis to his obtuse marginal branch, and 870-80% stenosis to his proximal right coronary artery. He had an echocardiogram which demonstrated normal left ventricular systolic function with an ejection fraction of 55-60%, moderate concentric left ventricular hypertrophy, trace tricuspid regurgitation and trace mitral regurgitation. Dr. Sales from cardiothoracic surgery was consulted for the possibility of surgical revascularization. An extensive discussion was had with the patient and his family, risks and benefits were explained, and consent was obtained to proceed with surgery. HOSPITAL COURSE: On 09/03/2016, the patient was taken to the preoperative area, prepared in the usual fashion, and subsequently taken to the operating room where Dr. Reza performed an urgent coronary artery bypass grafting 4 vessels, left internal mammary artery to left anterior descending artery, reverse saphenous vein graft to diagonal artery, reverse saphenous vein graft to the obtuse marginal artery, reverse saphenous vein graft to the posterior descending artery, endoscopic vein harvesting of the right greater saphenous vein, epi-aortic ultrasound, intraoperative transesophageal echocardiogram with closure of complex sternal wound using tritium titanium plating system. Upon completion of surgery the patient was transferred to the cardiovascular intensive care unit where he was recovered, monitored hemodynamically, and where he progressed to cardiac rehabilitation phase 1. He was extubated, all lines, tubes, and drips were discontinued when appropriate, and he was transferred to [address] [place] [address] for further monitoring and rehabilitation. His oxygen was titrated down, he continued to work physical therapy, was ready to be discharged home on postoperative day #5 with [facility] to follow. He received written and verbal instruction regarding his medications, activity restrictions, signs and symptoms requiring physician notification, and follow-up appointments. COMPLICATIONS: The patient experienced no postoperative complications. DISCHARGE INSTRUCTIONS: 1. No driving for 4 weeks, or until physician gives their ok. 2. The patient should sleep in their own bed, no medical bed needed. 3. Stairs are not an issue. If the bedroom is upstairs, it is advised that the patient go up at night and down in the morning for the first week. Go slowly, using handrail and take 1 step at a time. 4. MERARI hose are to be worn for 30 days or until physician discontinues. 5. Heart hugger is to be worn 100% of the time until physician discontinues.( except when showering) 6. No lifting, pushing, or pulling more than 10 pounds for 12 weeks. The physician will advise of any restriction changes. 7. The patient is expected to continue the prescribed walking program. 8. Continue pain control per as needed orders. 9. Continue with incentive spirometry and splinting/heart hugger until otherwise directed by the physician. 10. Must shower daily using liquid antibacterial soap and a separate white washcloth for each individual incision. 11. Routine sternal incision care. No powders, lotions, ointments on incisions. 12. Please call surgeon/DIGITAL ASSOCIATE for temp greater than 101 F or purulent drainage from incisions. 13. All prescriptions given by surgeon for 30 days. Refills need to be filled through network designer/primary care physician. HOME HEALTH SERVICES TO PROVIDE: RN SKILLED HOME CARE SERVICES FOR POST-OP SURGICAL PATIENTS WITH THE FOLLOWING: Coronary Artery Bypass Surgery (CABG), Mitral Valve Replacement/ Repair ( MVR), Aortic Valve Replacement/Repair (AVR) RN TO CONTINUE EDUCATION FROM ``ROAD TO A HEALTH HEART PATIENT EDUCATION MANUAL (GIVEN TO PATIENT IN THE HOSPITAL) MEDICATION RECONCILIATION WITH EDUCATION NEEDED ON FIRST HOME VISIT EMPHASIZE IMPORTANCE OF WEARING BREAST SUPPORT/HEART HUGGER ENCOURAGE USE OF INCENTIVE SPIROMETER 10 X EVERY HOUR WHILE AWAKE ENCOURAGE UTILIZATION OF LOWER EXTREMITY COMPRESSION STOCKINGS/MERARI HOSE and ELEVATE LEGS ABOVE LEVEL OF HEART WHILE AT REST. ENCOURAGE AMBULATION 3-5x/day INCREASING TOLERATES, WHILE AVOID EXTREMES IN TEMPERATURE FREQUENCY: RN TO OPEN THE PATIENT WITHIN 24 HOURS OF DISCHARGE FROM THE HOSPITAL WITH [place]HEALTH [place] [facility] [place] TO VISIT 2-3 X A WEEK FOR 4 WEEKS ESTABLISHED BY PATIENT NEEDS. REMOVAL OF SUTURES: NURSING SERVICES TO REMOVE SUTURES TWO WEEKS POST SURGICAL DATE 01-26-17. If any questions regarding suture removal please call the office at [phone]. LABORATORY: CBC, CMP TO BE DRAWN ON THE THIRD DAY HOME, Wednesday01/20/2017 (RAN STAT ) FAX RESULTS TO [phone]. TELEHEALTH PARAMETERS: WEIGHT: NOTIFY MD OF WEIGHT GAIN OF 2 LBS IN 24 HOURS OR 5 LBS IN ONE WEEK HR: NOTIFY MD OF HR <55 BPM OR HR>100 BPM BP: NOTIFY MD IF BP <90/55 OR BP>140/100 O2 SAT: NOTIFY MD IF PO2<93% ON ROOM AIR SEND TELEHEALTH REPORT TO SQL SERVER ARCHITECT AND CARDIOVASCULAR SURGEON THE FIRST WEEK OF CARE AND THEN BI-WEEKLY. PLEASE ADDITIONALLY COMMUNICATE ANY ABNORMALS AND NEW FINDINGS TO THE SURGEONS OFFICE. A Red armband has been placed on the patient. It should be worn for 30 days post surgery and will be removed by the cardiac surgeons. If an ER visit is necessary, please make sure the number on the Red armband is called. Plan - Discharge Summary New Discharge Prescriptions: No Action Mupirocin Calcium [Bactroban 2% Cream] 1 applic TOPICAL TID PRN PRN Reason: on finger Aspirin 325 mg PO ONCE guaiFENesin [Mucinex] 1,200 mg PO Q12H PRN PRN Reason: Cough/Congestion Ciprofloxacin HCl [Cipro] 500 mg PO Q12HR Discharge Medication List Aspirin 325 mg PO ONCE 01/08/17 [History] Ciprofloxacin HCl [Cipro] 500 mg PO Q12HR 01/08/17 [History] Mupirocin Calcium [Bactroban 2% Cream] 1 applic TOPICAL TID PRN 01/08/17 [ History] guaiFENesin [Mucinex] 1,200 mg PO Q12H PRN 01/08/17 [History] Follow up Appointment(s)/Referral(s): Kayla Heredia NPC [Nurse Practitioner] - 01/21/17 12:00 pm Leonardo Santos MD [Primary Care Provider] - 01/28/17 10:00 am Lazaro Peña DO [Doctor of Osteopathic Medicine] - 02/09/17 10:00 am Parker Reza MD [STAFF PHYSICIAN] - 02/05/17 10:00 am Apurva Sher MD [STAFF PHYSICIAN] - 02/01/17 3:00 pm Ambulatory/Diagnostic Orders: Complete Blood Count w/diff [LAB.AMB] Time Frame: 3 Days, Location: Determined By Patient Comprehensive Metabolic Panel [LAB.AMB] Time Frame: 3 Days, Location: Determined By Patient Activity/Diet/Wound Care/Special Instructions: DISCHARGE INSTRUCTIONS: 1. No driving for 4 weeks, or until physician gives their ok. 2. The patient should sleep in their own bed, no medical bed needed. 3. Stairs are not an issue. If the bedroom is upstairs, it is advised that the patient go up at night and down in the morning for the first week. Go slowly, using handrail and take 1 step at a time. 4. MERARI hose are to be worn for 30 days or until physician discontinues. 5. Heart hugger is to be worn 100% of the time until physician discontinues.( except when showering) 6. No lifting, pushing, or pulling more than 10 pounds for 12 weeks. The physician will advise of any restriction changes. 7. The patient is expected to continue the prescribed walking program. 8. Continue pain control per as needed orders. 9. Continue with incentive spirometry and splinting/heart hugger until otherwise directed by the physician. 10. Must shower daily using liquid antibacterial soap and a separate white washcloth for each individual incision. 11. Routine sternal incision care. No powders, lotions, ointments on incisions. 12. Please call surgeon/DIGITAL ASSOCIATE for temp greater than 101 F or purulent drainage from incisions. 13. All prescriptions given by surgeon for 30 days. Refills need to be filled through network designer/primary care physician. HOME HEALTH SERVICES TO PROVIDE: RN SKILLED HOME CARE SERVICES FOR POST-OP SURGICAL PATIENTS WITH THE FOLLOWING: Coronary Artery Bypass Surgery (CABG), Mitral Valve Replacement/ Repair ( MVR), Aortic Valve Replacement/Repair (AVR) RN TO CONTINUE EDUCATION FROM ``ROAD TO A HEALTH HEART PATIENT EDUCATION MANUAL (GIVEN TO PATIENT IN THE HOSPITAL) MEDICATION RECONCILIATION WITH EDUCATION NEEDED ON FIRST HOME VISIT EMPHASIZE IMPORTANCE OF WEARING BREAST SUPPORT/HEART HUGGER ENCOURAGE USE OF INCENTIVE SPIROMETER 10 X EVERY HOUR WHILE AWAKE ENCOURAGE UTILIZATION OF LOWER EXTREMITY COMPRESSION STOCKINGS/MERARI HOSE and ELEVATE LEGS ABOVE LEVEL OF HEART WHILE AT REST. ENCOURAGE AMBULATION 3-5x/day INCREASING TOLERATES, WHILE AVOID EXTREMES IN TEMPERATURE FREQUENCY: RN TO OPEN THE PATIENT WITHIN 24 HOURS OF DISCHARGE FROM THE HOSPITAL WITH TELEHEALTH [place] [facility] [place] TO VISIT 2-3 X A WEEK FOR 4 WEEKS ESTABLISHED BY PATIENT NEEDS. REMOVAL OF SUTURES: NURSING SERVICES TO REMOVE SUTURES TWO WEEKS POST SURGICAL DATE 01-26-17. If any questions regarding suture removal please call the office at [phone]. LABORATORY: CBC, CMP TO BE DRAWN ON THE THIRD DAY HOME, Wednesday01/20/2017 (RAN STAT ) FAX RESULTS TO [phone]. TELEHEALTH PARAMETERS: WEIGHT: NOTIFY MD OF WEIGHT GAIN OF 2 LBS IN 24 HOURS OR 5 LBS IN ONE WEEK HR: NOTIFY MD OF HR <55 BPM OR HR>100 BPM BP: NOTIFY MD IF BP <90/55 OR BP>140/100 O2 SAT: NOTIFY MD IF PO2<93% ON ROOM AIR SEND TELEHEALTH REPORT TO SQL SERVER ARCHITECT AND CARDIOVASCULAR SURGEON THE FIRST WEEK OF CARE AND THEN BI-WEEKLY. PLEASE ADDITIONALLY COMMUNICATE ANY ABNORMALS AND NEW FINDINGS TO THE SURGEONS OFFICE. A Red armband has been placed on the patient. It should be worn for 30 days post surgery and will be removed by the cardiac surgeons. If an ER visit is necessary, please make sure the number on the Red armband is called. Discharge Disposition: HOME WITH HOME HEALTH SERVICES
--- NOTE | 2017-01-17 14:56 | P.PN ---
Subjective This is a 71-year-old male who presented to the emergency department complaining of chest discomfort. The patient apparently also had a pressure- like sensation which radiated up towards his neck. He had some nausea. No diaphoresis. No shortness of breath. He's had previous similar situations. The patient tells me he was evaluated by cardiology had a catheterization was found have coronary artery disease and apparently Dr. Reza is planning to do bypass surgery on Wednesday. The patient has no known history of any lung disease. He did have spirometry. Not been able to yet to find it. He did smoke for about 15 years at less than one pack a day. It's unlikely that that was his true smoking history, that he would have substantial chronic lung disease. Still waiting though to see the spirometry myself. He has no known ALLERGIES. He apparently has no past medical history. He did have a hernia repair in the past. He apparently was on no medications at home on a regular basis. On 01/11/2017 the patient is resting comfortably in bed. No chest pain. No shortness of breath. No angina. Hemodynamically stable. The patient is awaiting cardiac bypass surgery to be done tomorrow. Meanwhile, he tells me that he is a nonsmoker. No respiratory distress at all prior to this cardiac event. He was able to climb a flight of stairs without any major difficulties. He does not utilize any form of respiratory medications or inhalers on outpatient basis. Most of any childhood asthma. No DVT. No pulmonary embolism. No sleep apnea. The chest x-ray showed no evidence of any cardiopulmonary abnormalities. Seen again today 01/12/2017 in follow-up immediately postoperative following his open-heart surgery performed by Dr. Reza. He received a BROWN to the LAD, saphenous vein grafts to the OM, diagonal and PDA. He remains intubated and on the mechanical ventilator at settings of SIMV of 12, tidal volume 500, FiO2 100 % and PEEP of 5. Her blood gases reveal a pO2 of 244, pCO2 of 46 and a pH of 7.35. Chest x-ray reveals appropriately placed endotracheal and gastric tubes. There is some mild patchy atelectasis. He is sedated on propofol at 25 mcg/kg/ m. He is a nitroglycerin drip at 5 mcg/m, lactated Ringer's at 50 MLS per hour , insulin drip at 0.5 units per hour. He is currently in normal sinus rhythm. He has backup pacing at 80. Current blood pressure running in the 110's over the 50's, PA pressures 30s over the 20s with a mean of 30. Cardiac output 2.4 with cardiac index of 5.4. His sternal dressing is dry and intact. He has mediastinal split chest tubes 2 and a left pleural chest tube with minimal drainage. Urine output is adequate. On 01/13/2017, the patient is being seen in follow-up. The patient underwent his coronary bypass surgery yesterday. Overnight he was kept intubated on mechanical ventilator. Today's postop day #1. The necessary vent changes were done and earlier this morning the patient was taken off sedation and he woke up appropriately. Weaning parameters were checked and following that the patient was placed on a spontaneous breathing trial with a pressure support of 5 and a PEEP of 5. Following 30 minutes the blood gases were obtained and the pH was 7.44 with a pCO2 of 37 and pO2 of 65. Chest x-ray earlier this morning showed no acute abnormalities and was essentially consistent with postsurgical changes. The patient was weaned off and extubated without any major difficulties. Currently currently the patient is on 3 L of oxygen nasal cannula and his saturations around 97%. No chest pain. No change in mental status. Hemodynamically stable on no pressors. On insulin drip for blood sugar control. Chest tubes are still in place and the total amount of output from the chest tube was 2 99 mL from the mediastinal and 93 mL from the left pleural chest tube for yesterday, 102 mL from the mediastinum and 45 mL from the left lateral chest tube this morning. The patient is producing adequate amount of urine output. Hemodynamically stable. [place] catheter still in place. PA pressures 23/12. Cardiac output is adequate. Neurologically intact and stable and awake. On 01/14/2017 the patient is postop day #2. The mediastinal chest tube has been removed. The [place] catheter was removed. He is awake alert and he is hemodynamically stable, comfortable denies having any complaints or significant issues. The patient has no chest pain. Sternum stable clean and intact. Cardiac rhythm remains sinus. Producing adequate amount of urine output. No change in mental status. No headaches. No shortness of breath. Chest x-ray from today shows postsurgical changes with a mediastinal left pleural chest tube in place. No fever. No other significant events overnight. Insulin drip has been also discontinued. The patient is seen again today 01/15/2017 in follow-up in the intensive care unit. This is postoperative day #3. He is currently sitting up in a chair at the bedside. He is awake and alert in no acute distress. He denies any worsening shortness of breath, cough or congestion. He is doing well with the incentive spirometer. Today's chest x-ray shows some postoperative atelectasis and tiny effusions. He is maintaining good O2 saturations in the mid 90s on 2 L /m per nasal cannula. He has been hemodynamically stable. On 01/16/2017 the patient is still on oxygen at 2 L/m nasal cannula. His postop day #4. Chest tubes have been removed. Has no specific complaints. Ambulating in the hallway. Has some increased edema in the upper extremities. No change in mental status. No chest pain. Sternum stable clean and intact. No other significant events over the past 24 hours. The cardiac rhythm remains sinus. Chest x-ray from today shows small bibasilar pleural effusions and atelectasis. On 01/17/2017 the patient is doing well. He is on room air. His postop day # 5. Chest x-ray today shows some effect ectatic changes in the left lung. His pulse ox on room air was 94%. He has no specific complaints. He is hemodynamically stable. He'll be discharged home today to be followed up on outpatient basis. Awaiting evaluation by cardiothoracic surgery discharged to his discharge. Objective - Vital Signs Vital signs: Vital Signs Temp 97.2 F L 01/17/17 11:30 Pulse 73 01/17/17 11:49 Resp 18 01/17/17 11:49 BP 121/69 01/17/17 11:30 Pulse Ox 94 L 01/17/17 11:30 Intake & Output 01/16/17 01/17/17 01/17/17 18:59 06:59 18:59 Intake Total 780 2760 Output Total 575 1225 Balance 205 -1225 2760 Weight 97.9 kg Intake: Oral 780 2760 Output: Urine 575 1225 Other: Voiding Method Urinal Urinal Urinal # Voids 2 ABP, PAP, CO, CI - Last Documented Arterial Blood Pressure 136/98 Pulmonary Artery Pressure 23/12 Cardiac Output 6.5 Cardiac Index 2.9 - Exam Head is atraumatic normocephalic. Neck was supple and without jugular venous distension, thyromegaly, or carotid bruits. Carotids were easily palpable bilaterally. There was no adenopathy. Lungs were clear to auscultation and percussion, and with normal diaphragmatic excursion. No wheezes or rales were noted. Heart sounds are irregular, possible sinus stool, no symptoms rubs or murmurs appreciated.Abdominal exam revealed normal bowel sounds. The abdomen was soft, non-tender, and without masses, organomegaly, or appreciable enlargement of the abdominal aorta.Examination of the extremities revealed easily palpable radial, femoral and pedal pulses. There was no cyanosis, clubbing or edema. Neurologically the patient is awake and alert and following commands and answering questions appropriately. - Labs CBC & Chem 7: 01/17/17 06:28 01/17/17 06:28 Labs: Abnormal Lab Results - Last 24 Hours (Table) 01/16/17 01/16/17 01/17/17 Range/Units 16:32 20:40 02:06 RBC (4.30-5.90) m/uL Hgb (13.0-17.5) gm/dL Hct (39.0-53.0) % Chloride (98-107) mmol/L Carbon Dioxide (22-30) mmol/L POC Glucose (mg/dL) 110 H 132 H 100 H (75-99) mg/dL 01/17/17 01/17/17 01/17/17 Range/Units 06:07 06:28 06:28 RBC 3.28 L (4.30-5.90) m/uL Hgb 10.0 L (13.0-17.5) gm/dL Hct 30.9 L (39.0-53.0) % Chloride 97 L (98-107) mmol/L Carbon Dioxide 31 H (22-30) mmol/L POC Glucose (mg/dL) 104 H (75-99) mg/dL 01/17/17 Range/Units 11:41 RBC (4.30-5.90) m/uL Hgb (13.0-17.5) gm/dL Hct (39.0-53.0) % Chloride (98-107) mmol/L Carbon Dioxide (22-30) mmol/L POC Glucose (mg/dL) 105 H (75-99) mg/dL Microbiology - Last 24 Hours (Table) 01/16/17 11:20 Sputum Culture - Preliminary Sputum Assessment and Plan Plan: Assessment 1 multivessel coronary artery disease, awaiting coronary artery bypass surgery. Patient underwent triple vessel bypass surgery and the patient is postop day # 5. The patient has limited atelectatic changes in the left lung related to surgery/thoracotomy. Otherwise his induction a taking well. He is ambulating. His sternum is clean and intact. The patient will be discharged home today. 2 acute non-ST segment elevation myocardial infarction 3 obesity, BMI of 33 4 osteoarthritis 5 hyperlipidemia 6 right index finger infection/wound 7 preserved LV function with a ejection fraction of 55-60% Plan Encouraged use of incentive spirometer. Ambulate. Agree on discharging this patient home on aspirin, Plavix, Lipitor, metoprolol and Zestril. He'll continue using incentive spirometer. He will see us in the office in a few weeks time for a follow-up.
--- NOTE | 2017-01-17 15:01 | P.PN ---
Subjective Patient is doing very well. He is improving every day. He looks very comfortable. He states he had a good night's rest. He has very mild incisional chest discomfort or shortness of breath or cough On examination Blood pressures in the 121/69 mmHg pulse rate in the 70s he is afebrile 97.2F Breath sounds are equal bilaterally no rhonchi no crackles Heart sounds S1 and S2 are soft and distant abdomen is soft Extremities warm no edema impression Multivessel coronary artery disease status post coronary artery bypass grafting and progressing very well Plan Continue current medications without any changes Discharge planning Objective - Vital Signs Vital signs: Vital Signs Temp 97.2 F L 01/17/17 11:30 Pulse 73 01/17/17 11:49 Resp 18 01/17/17 11:49 BP 121/69 01/17/17 11:30 Pulse Ox 94 L 01/17/17 11:30 Intake & Output 01/16/17 01/17/17 01/17/17 18:59 06:59 18:59 Intake Total 780 2760 Output Total 575 1225 Balance 205 -1225 2760 Weight 97.9 kg Intake: Oral 780 2760 Output: Urine 575 1225 Other: Voiding Method Urinal Urinal Urinal # Voids 2 ABP, PAP, CO, CI - Last Documented Arterial Blood Pressure 136/98 Pulmonary Artery Pressure 23/12 Cardiac Output 6.5 Cardiac Index 2.9 - Labs CBC & Chem 7: 01/17/17 06:28 01/17/17 06:28 Labs: Abnormal Lab Results - Last 24 Hours (Table) 01/16/17 01/16/17 01/17/17 Range/Units 16:32 20:40 02:06 RBC (4.30-5.90) m/uL Hgb (13.0-17.5) gm/dL Hct (39.0-53.0) % Chloride (98-107) mmol/L Carbon Dioxide (22-30) mmol/L POC Glucose (mg/dL) 110 H 132 H 100 H (75-99) mg/dL 01/17/17 01/17/17 01/17/17 Range/Units 06:07 06:28 06:28 RBC 3.28 L (4.30-5.90) m/uL Hgb 10.0 L (13.0-17.5) gm/dL Hct 30.9 L (39.0-53.0) % Chloride 97 L (98-107) mmol/L Carbon Dioxide 31 H (22-30) mmol/L POC Glucose (mg/dL) 104 H (75-99) mg/dL 01/17/17 Range/Units 11:41 RBC (4.30-5.90) m/uL Hgb (13.0-17.5) gm/dL Hct (39.0-53.0) % Chloride (98-107) mmol/L Carbon Dioxide (22-30) mmol/L POC Glucose (mg/dL) 105 H (75-99) mg/dL Microbiology - Last 24 Hours (Table) 01/16/17 11:20 Sputum Culture - Preliminary Sputum
--- NOTE | 2017-01-17 17:41 | P.PN ---
<TravisbrittanyYesi Deena - Last Filed: 01/17/17 17:33> Progress Note - Text DATE OF SERVICE: 01/17/2017 PRESENTING COMPLAINT: Chest pain HISTORY OF PRESENT ILLNESS: 71-year-old male who woke up with chest pain associated heaviness no shortness of breath perspiration or dizziness although felt tired and rundown. First troponins, negative. Subsequent troponins positive, secondary episode of chest pain, taken to the cardiac Alterations Workroom Clerk, found to have triple-vessel disease. Now status post coronary artery bypass grafting 4 with a BROWN to the LAD, saphenous vein graft to the OM, diagonal and PDA. INTERVAL HISTORY: 01/17/2017: Seen in follow-up on 6 E., selective care unit, status post open heart surgery, CABG 4 as above. Sitting in a chair at the bedside. Still has not had a BM. Cardio thoracic surgery made a prune juice, milk of magnesia preparation to assist. Patient states he feels good ready to go home, ambulating well in the hallway, tolerating his diet. 01/16/2017: Seen in follow-up on 6 E. selective, status post open heart surgery CABG 4 as above. Lying in the bed visiting with family appears comfortable. Heart Hugger on. Pain well controlled, using incentive spirometer. All remaining tubes and lines are out, only peripheral IV remains. Eating 100% of his meals ambulatory with assistance, passing gas, no BM, MiraLAX and senna available as well as Dulcolax suppository. 01/15/2017: Seen in follow-up on 60 selective status post open heart surgery CABG 4 as above. Sitting in the bed visiting with family looks comfortable. Heart Hugger on. Pain well controlled. Using incentive spirometer. Left pleural chest tube with serous sanguinous drainage. Tolerating his diet 100% of his meal, ambulatory with assistance, continues to pass gas, no BM yet 01/14/2017: Patient seen in follow-up in the ICU from open heart surgery CABG 4 as above. Sitting up in a chair at the bedside, looking a bit uncomfortable at the bedside Heart Hugger on, complains of the incisional pain and cough. Using incentive spirometer. IV fluids infusing as ordered. Chest tubes 3 and Baez catheter remain in place. No other drips. Tolerating his clear liquid diet ate 100% of his meal, ambulatory with assistance, no BM but is passing gas. 01/13/2017: Patient seen in follow-up in the ICU from open heart surgery, CABG 4 as above. Was successfully extubated, currently on nasal cannula, sitting up in the bed appears comfortable at the bedside. Current drips include nitroglycerin at 5 g a minute, insulin drip. Had episode of atrial fibrillation for which he received IV metoprolol, rhythm is currently in normal sinus rate controlled. Chest tubes in place with mediastinal split chest tube 2 and a left pleural chest tube both with minimal drainage. Baez catheter in place with urine output appropriate. Diet advanced to a clear liquid diet, patient tolerating eating barely 30%, 01/12/2017: Patient seen in follow-up in the ICU from open heart surgery, CABG 4 as above. Remains intubated on the mechanical ventilator on assist control volume control rate of 18 tidal volume of 500 FiO2 of 35%. Drips include nitroglycerin at 5 g a minute, lactated Ringer's at 50 mils liters an hour propofol at 35 mcg/kg/min, insulin at 0.5 units per hour, normal sinus rhythm on the monitor, back up pacing at 80. Chest tubes in place with mediastinal split chest tube 2 and a left pleural chest tube both with minimal drainage. Baez catheter in place with urine output beginning to dwindle. 01/11/2017: Patient seen in follow-up, no further episodes of chest pain nitro drip continues. Preop testing completed coronary artery bypass grafting surgery tomorrow. at the bedside with patient. Patient is anxious appearing, tolerating his diet, ambulatory in the room and davison ways, utilizing his incentive spirometer. Last BM on 01/10/2017. 01/10/2017: Patient seen in follow-up, had another episode of chest pain today, nitro drip started. No chest pain at this time, nitro drip continues. Preop testing continues, patient will tentatively be scheduled for coronary artery bypass grafting surgery on Wednesday. Sitting up at the bedside, anxious appearing, voiced concerns about surgery, states he is afraid. Reassurance provided. Patient's tolerating his diet, ambulatory in the room and davison ways, last BM . 01/09/2017: Patient had an episode of chest pain overnight, troponins positive, was taken to the electroplating laborer this morning, found to have triple-vessel disease. Surgery is tentatively scheduled for Wednesday. Sitting up the bedside, eating his lunch, Pressure device noted to right radial artery. General questions answered. REVIEW OF SYSTEMS: Done for constitutional cardiovascular GI pulmonary, integument, with relevant findings as above. CURRENT MEDICATIONS Calcium chloride, ceftezole, Xanax, diltiazem, lisinopril, Lopressor [place], heparin, Bactroban Protonix. PHYSICAL EXAM VITAL SIGNS: Temperature 96.9, pulse 76, respiratory rate 20, blood pressure 126/76, oxygen saturation 98% on 2 L. GENERAL APPEARANCE: Sitting up in bed appears comfortable, EYES: Pupils equal. Conjunctiva normal. NECK: JVD unable to assess Mass not palpable. RESPIRATORY: Effort normal, Lungs diminished to auscultation. CARDIOVASCULAR: First and second sounds normal. Mild edema. Heart Hugger in place ABDOMEN: Soft. Liver and spleen not palpable. No tenderness. No guarding or rigidity No mass palpable. PSYCHIATRY: Alert and oriented 3 mood and affect normal INTEGUMENT: Midline chest wall incision with surgical dressing in place INVESTIGATIONS: Hemoglobin 9.2, sodium 135, potassium 4.2, BUN 21 creatinine 0.90 Accu-Cheks noted. ASSESSMENT: -Coronary artery disease with triple-vessel disease, including post-VA angina, status post coronary artery bypass grafting 4, improving -Mechanically assisted ventilation as an expected outcome of thoracotomy secondary to coronary artery bypass grafting surgery, extubated -Thrombocytopenia likely delusional -Acute blood loss anemia as expected from open heart surgery -Acute non- Q wave myocardial infarction with cardiac cath showing triple- vessel coronary artery disease. -Obesity BMI 33.0 -Hyperlipidemia -Primary osteoarthritis of left hip pending outpatient surgery -Acute cellulitis of the right index finger proximal part being treated with ciprofloxacin from outpatient PLAN: From a medical standpoint patient is doing well, waiting for patient to have a BM but otherwise stable for discharge. CABLE MECHANIC statement: Patient was seen and examined by nurse practitioner Yesi Jeffers and all elements of the case discussed with attending Dr. Lundberg <Juan Antonio Lundberg - Last Filed: 01/17/17 19:55> Progress Note - Text Attending note. Date of service-01/17/2017 This patient was seen and examined by me . Discussed the patient with my nurse practitioner Ms. Jeffers. Feeling well. Up and about. No chest pain no shortness of breath. On examination: Lungs-slight decreased but clear, cardiovascular-first seconds are normal Investigations: Assessment and plan: Status post bypass/coronary. Stable. good to go home. discussed with patient and
--- NOTE | 2017-01-19 10:11 | CDI ---
In responding to this query, please exercise your independent professional judgment. The [facility] Coding Staff and Clinical Documentation Specialists appreciate your assistance in clarifying documentation, maintaining compliance with coding guidelines, accurately documenting patients condition and capturing severity of illness. The fact that a question is asked does not imply that any particular answer is desired or expected. Communication forms are a method of clarifying documentation and are not made part of the Legal Health Record. Thank you in advance for your clarification. Last Revision, Jun 2016 Samina Flynn [address] [place] [address] Documentation Clarification Form Date: 01/19/2017 9:46:00 AM From: Azalia Oliva CCS, CCDS Admit Date: 01/09/2017 2:46:00 PM Patient Name: Eladio Jaramillo Visit Number: [id number] Discharge Date: 01/17/2017 Dr. Luiz Calderon: Per the 01/12 pulmonary progress note: "there is some mild patchy atelectasis". Per the 01/15 pulmonary progress note: "Today's chest x-ray shows some postoperative atelectasis and tiny effusions". Patients Admitting Diagnosis: Non STEMI with symptomatic CAD. Procedure performed: CABG x4, Endoscopic vein harvest right greater saphenous vein. Left heart catheterization w/o left ventriculography. History/Risk Factors: CAD, Hyperlipidemia, Former smoker. Clinical Indicators: Postop VS: RR 27-29, PO 92-93 3Lnc RAD: CXR 01/14 Atelectasis or pneumonia with small left effusion. CXR 01/15: Postop change with suspected postoperative atelectasis & tiny effusions. 01/16 CXR : LLL infiltrate and/or atelectasis. Treatment: Postoperative care: daily CXRs, O2, Albuterol INH, routine postoperative chest tube management. Consults: Pulmonary/Critical Care, In order to accurately reflect this patients severity of illness, please clarify if the post-operative diagnosis of atelectasis: An expected post-procedural or post-surgical condition Integral to the procedure Inherent to the procedure An unexpected post-procedural or post-surgical condition, related to surgical care Other, please specify Unable to determine Please document in your progress notes and discharge summary in order to capture severity of illness and risk of mortality. Include clinical findings that support your diagnosis. FYI: Press F11 to launch patient chart MTDD
--- NOTE | 2017-01-19 10:20 | CDI ---
In responding to this query, please exercise your independent professional judgment. The [facility] Coding Staff and Clinical Documentation Specialists appreciate your assistance in clarifying documentation, maintaining compliance with coding guidelines, accurately documenting patients condition and capturing severity of illness. The fact that a question is asked does not imply that any particular answer is desired or expected. Communication forms are a method of clarifying documentation and are not made part of the Legal Health Record. Thank you in advance for your clarification. Last Revision, March 2015 Samina Flynn [address] [facility] [place] [address] Documentation Clarification Form Date: 01/14/2017 2:34:00 PM Resubmitted 01/19/2017 10:18 AM From: Azalia Oliva Admit Date: 01/09/2017 2:46:00 PM Patient Name: Eladio Jaramillo Visit Number: [id number] Discharge Date: 01/17/2017 Dr. Juan Antonio Lundberg: Atrial fibrillation is documented in the 01/13 progress note.: Had episode of atrial fibrillation for which he received IV metoprolol, rhythm is currently in normal sinus rate controlled. History/Risk Factors: CAD status post CABG x4 on 01/12 after being admitted with a NSTEMI. Clinical Indicators: VS: HR 70s - 80s Electron Microprobe Operator: Occasional PVCs noted on 01/14 Treatment: One dose of IV Metoprolol Tartrate 4 mg. In your professional opinion, can you please clarify the type of atrial fibrillation, if known: Chronic/Permanent Paroxysmal Persistent Other, please specifyPlease see 01/13 progress note for correction. Unable to determine Also please document if this episode of Atrial Fibrillation was: An expected outcome of surgery An unexpected outcome of surgery Integral to the procedure Inherent to the procedure Other, please specify Unable to determine Please document in your progress notes and discharge summary in order to capture severity of illness and risk of mortality. Include clinical findings that support your diagnosis. FYI: Press F11 to launch patient chart MTDD
== END 2017-01-17 17:01 | disposition home health service (06) | DRG 234 ==
LOC: EC 05:03 → 3OBS 06:52 → 6SEL 13:33 → OBSVTOIN 01-09 14:46 → 6ICU 01-12 07:07 → 6SEL 01-15 14:44
PROVIDERS: ADMIT Hospitalist; ATTEND Surgery
PROC: 4A023N7 Measurement of Cardiac Sampling and Pressure, Left Heart, Percutaneous Approach (ICD-10-PCS; 2017-01-09)
PROC: B2111ZZ Fluoroscopy of Multiple Coronary Arteries using Low Osmolar Contrast (ICD-10-PCS; 2017-01-09)
PROC: B44HZZZ Ultrasonography of Bilateral Lower Extremity Arteries (ICD-10-PCS; 2017-01-09)
PROC: 021209W Bypass Coronary Artery, Three Arteries from Aorta with Autologous Venous Tissue, Open Approach (ICD-10-PCS; 2017-01-12)
PROC: 06BP4ZZ Excision of Right Saphenous Vein, Percutaneous Endoscopic Approach (ICD-10-PCS; 2017-01-12)
PROC: B24BZZ4 Ultrasonography of Heart with Aorta, Transesophageal (ICD-10-PCS; 2017-01-12)
PROC: 5A1221Z Performance of Cardiac Output, Continuous (ICD-10-PCS; 2017-01-12)
PROC: 0D9670Z Drainage of Stomach with Drainage Device, Via Natural or Artificial Opening (ICD-10-PCS; 2017-01-12)
PROC: 02100Z9 Bypass Coronary Artery, One Artery from Left Internal Mammary, Open Approach (ICD-10-PCS; principal; 2017-01-12 08:00)
DX: I21.4 Non-ST elevation (NSTEMI) myocardial infarction (principal); D69.6 Thrombocytopenia, unspecified; I48.0 Paroxysmal atrial fibrillation; D62 Acute posthemorrhagic anemia; J98.11 Atelectasis; E78.5 Hyperlipidemia, unspecified; E66.9 Obesity, unspecified; I25.110 Atherosclerotic heart disease of native coronary artery with unstable angina pectoris; L03.011 Cellulitis of right finger; M16.12 Unilateral primary osteoarthritis, left hip; L30.9 Dermatitis, unspecified; I10 Essential (primary) hypertension; J45.909 Unspecified asthma, uncomplicated; Z68.33 Body mass index [BMI] 33.0-33.9, adult; Z79.82 Long term (current) use of aspirin; Z79.899 Other long term (current) drug therapy; Z87.891 Personal history of nicotine dependence; Z82.49 Family history of ischemic heart disease and other diseases of the circulatory system
CPT/HCPCS: 36415; 36620; 71010; 71020; 80048; 80053; 80061; 80074; 81003; 82330; 82550; 82553; 82805; 83036; 83735; 83880; 84132; 84443; 84484; 85025; 85027; 85049; 85520; 85610; 85730; 86850; 86891; 86900; 86901; 86920; 87070; 87086; 87205; 93005; 93306; 93454; 93880; 93922; 93923; 93930; 93970; 94002; 94003; 94150; 94640; 94760; 96365; 96376; 99291

== ENCOUNTER 2017-11-08 06:24 | Day surgery (SDC) | payer MEDICARE ==
[~2017-11-08 06:24] MED LIST: ALPRAZolam 0.25 MG TAB PO PRN; ALPRAZolam 0.5 MG TAB PO PRN; ASPIRIN 325 MG TAB PO STA; ATORVASTATIN 80 MG TAB PO STA; NITROGLYCERIN SL TABS 0.4 MG TAB SUBLINGUAL PRN; SODIUM CHLORIDE 0.9% 1,000 ML in EMPTY BAG 1 BAG IV ONE
[2017-11-08 07:14] LABS: Basophils % (A) 1 %; Eosinophils # (A) 0.3 k/uL (0-0.7); Eosinophils % (A) 4 %; HCT 40.2 % (39.0-53.0); HGB 13.8 gm/dL (13.0-17.5); Lymphocytes # (A) 1.9 k/uL (1.0-4.8); Lymphocytes % (A) 32 %; MCHC 34.3 g/dL (31.0-37.0); MCV 93.5 fL (80.0-100.0); Mean Platelet Volume 6.3; Monocytes # (A) 0.3 k/uL (0-1.0); Monocytes % (A) 5 %; Neutrophils # (A) 3.3 k/uL (1.3-7.7); Neutrophils % (A) 56 %; Platelet Count 160 k/uL (150-450); RDW 13.3 % (11.5-15.5); WBC 5.9 k/uL (3.8-10.6)
[2017-11-08 07:23] LABS: Anion Gap 10 mmol/L; Blood Urea Nitrogen 19 mg/dL (9-20); Calcium 9.1 mg/dL (8.4-10.2); Carbon Dioxide 25 mmol/L (22-30); Chloride 107 mmol/L (98-107); Glucose 110 mg/dL (74-99); Potassium 4.4 mmol/L (3.5-5.1); Sodium 142 mmol/L (137-145)
[2017-11-08] MEDS ORDERED: HEPARIN SODIUM,PORCINE 30 ML 30 ML ONE (07:34)
[2017-11-08] MEDS ORDERED: LIDOCAINE 1% INJ 10MG/ML (20 ML MDV) ONE (07:34)
[2017-11-08] MEDS ORDERED: fentaNYL (PF) 50 MCG/ML 2 ML AMP ONE (07:35)
[2017-11-08] MEDS ORDERED: MIDAZOLAM 2 MG/2 ML VIAL ONE (07:41)
[2017-11-08] MEDS: fentaNYL (PF) 50 MCG/ML 2 ML AMP IVP ONE ×2 (07:53→09:13)
[2017-11-08] MEDS ORDERED: MIDAZOLAM 2 MG/2 ML VIAL IVP ONE (07:54)
[2017-11-08] MEDS ORDERED: LIDOCAINE 1% INJ 10MG/ML (20 ML MDV) SQ ONE (07:56)
[2017-11-08] MEDS ORDERED: IOPAMIDOL-300 50ML BTL INJ ONE (08:28)
[2017-11-08] MEDS ORDERED: BIVALIRUDIN BOLUS 250 MG/50 ML IV ONE (09:00)
[2017-11-08] MEDS ORDERED: BIVALIRUDIN 250 MG in SODIUM CHLORIDE 0.9% 50 ML IV ONE (09:01)
[2017-11-08] MEDS ORDERED: IOPAMIDOL-370 125ML BTL INJ ONE (09:07)
--- NOTE | 2017-11-08 09:08 | P.CARDCATH ---
Date of Procedure: 11/08/17 Preoperative Diagnosis: Progressive angina and positive stress test Postoperative Diagnosis: Severe triple-vessel disease with a total occlusion of the 3 vein grafts. Patent BROWN graft Procedure(s) Performed: Left heart catheterization with aortic root injection. No LV gram Description of Procedure: HISTORY: This is a 71-year-old gentleman with history of ischemic heart disease who underwent bypass surgery in December of last year with the BROWN graft to the LAD, vein graft to the diagonal, vein graft to the OM branch and also vein graft to the PDA. Patient has been having intermittent chest pain and a stress test showed ischemia in the apical lateral wall. Patient is advised to have a cardiac catheterization for definitive diagnosis. CONSENT:I have discussed the risks, benefits and alternative therapies for the above-mentioned procedure and for both sedation/analgesia as well as necessary blood product administration, if indicated, as they pertain to this patient. The patient has indicated understanding and acceptance of the risks and procedures discussed. PROCEDURE: Patient was brought to the lab in a fasting state. Patient was given some IV sedation. The right groin is infiltrated with lidocaine and right femoral artery was entered using Seldinger technique. A 6-Lux[place]bourgish catheter was left in place and selective coronary arteriography and selective injection of the 3 vein grafts and the BROWN graft was performed. Aortic root injection was also performed. Patient tolerated the procedure well. Femoral angiogram was Performed. Patient went on to have stent placement of the RCA by Dr. Quevedo, with the intention of stages stent placement of the OM branch and circumflex. No immediate complications were noted . Conscious Sedation: Versed 1mg Fentanyl 50 g Duration 36minutes HEMODYNAMICS: The aortic pressure is about 120/70. Left ankle end-diastolic pressure is about 8-12. There was no gradient across the aortic valve. SELECTIVE CORONARY ARTERIOGRAPHY: LEFT MAIN: Normal length and free of any significant occlusive disease. THE LEFT ANTERIOR DESCENDING CORONARY ARTERY: This is a moderate caliber vessel with intermediate disease in the proximal portion and total occlusion of the diagonal branch. Distal LAD is seen by flow from the BROWN graft. THE LEFT CIRCUMFLEX AND IS CORONARY ARTERY: This is a moderate caliber vessel giving rise to good-sized OM branch. The OM branch has ostial 80-90% stenosis with moderate diffuse disease in the midportion of the OM. There is also intermediate disease of the ostial circumflex. THE RIGHT CORONARY ARTERY: This is a large dominant vessel with eccentric 80% stenosis proximally. It gives rise good-sized PLV and moderate caliber PDA. The PDA has about 70% stenosis in the body. THE BROWN GRAFT TO THE LAD: This is patent at the proximal and distal anastomosis and throat its length. Beyond the insertion site, The LAD appears to be good in caliber but seems to be limited distribution. THE VEIN GRAFT TO THE DIOGONAL,SVG TO OM AND SVG TO PDA are all 100% occluded. LEFT VENTRICULOGRAPHY: Not performed. AORTIC ROOT INJECTION: This was performed in the left anterior oblique projection. This revealed normal-sized aortic root with mild trace regurgitation. Could not find any patent bypass grafts. FINAL IMPRESSION: Total occlusion of the all 3 vein grafts with patent BROWN graft to the LAD. Significant lesion involving the proximal RCA with a moderate to severe disease in the PDA. There is also severe disease involving the OM branch in the proximal portion. There is also moderate to severe disease involving the diagonal and the proximal LAD. PLAN: Stent placement of the RCA and PDA Today.Stages stent placement of the OM branch. If patient is asymptomatic, the lesion in the diagonal could be left alone and patient could be treated with medications. PROGNOSIS: Guarded
[2017-11-08] MEDS: NITROGLYCERIN 1000MCG/10ML SYRINGE INTRACORON ONE ×2 (09:12→09:21)
[2017-11-08] MEDS ORDERED: CLOPIDOGREL 75 MG TAB ONE (09:21)
[2017-11-08] MEDS ORDERED: CLOPIDOGREL 75 MG TAB PO ONE (09:27)
[2017-11-08] MEDS ORDERED: IOPAMIDOL-370 100ML BTL INJ ONE (09:32)
[2017-11-08] MEDS ORDERED: ZOLPIDEM 5 MG TAB PO PRN (09:49)
[2017-11-08] MEDS ORDERED: MAG HYDROX/AL HYDROX/SIMETH 30 ML CUP PO PRN (09:49)
[2017-11-08] MEDS ORDERED: ATROPINE SULFATE 0.1 MG/ML 10ML SYRINGE IV PRN (09:49)
[2017-11-08] MEDS ORDERED: RX INFO: IV CONTRAST WAS GIVEN 1 EACH MISC MISCELLANE PRN (09:49)
[2017-11-08] MEDS ORDERED: NITROGLYCERIN SL TABS 0.4 MG TAB SUBLINGUAL PRN (09:49)
[2017-11-08] MEDS ORDERED: SODIUM CHLORIDE 0.9% 1,000 ML IV SCH (10:00)
[2017-11-09 06:20] LABS: Basophils % (A) 1 %; Eosinophils # (A) 0.2 k/uL (0-0.7); Eosinophils % (A) 3 %; HCT 41.7 % (39.0-53.0); HGB 13.7 gm/dL (13.0-17.5); Lymphocytes # (A) 0.8 k/uL (1.0-4.8); Lymphocytes % (A) 10 %; MCH 30.9 pg (25.0-35.0); MCHC 32.8 g/dL (31.0-37.0); MCV 94.1 fL (80.0-100.0); Mean Platelet Volume 6.4; Monocytes # (A) 0.4 k/uL (0-1.0); Monocytes % (A) 5 %; Neutrophils % (A) 80 %; Platelet Count 143 k/uL (150-450); RBC 4.43 m/uL (4.30-5.90); RDW 13.3 % (11.5-15.5); WBC 7.5 k/uL (3.8-10.6)
[2017-11-09 06:27] LABS: Anion Gap 10 mmol/L; Blood Urea Nitrogen 16 mg/dL (9-20); Calcium 9.4 mg/dL (8.4-10.2); Carbon Dioxide 27 mmol/L (22-30); Chloride 104 mmol/L (98-107); Glucose 107 mg/dL (74-99); Potassium 4.3 mmol/L (3.5-5.1); Sodium 141 mmol/L (137-145)
[2017-11-09 07:50] VITALS: RESP 18
[2017-11-09] MEDS ORDERED: LISINOPRIL 5 MG TAB PO SCH (09:00)
[2017-11-09] MEDS ORDERED: ASPIRIN 325 MG TAB PO SCH ×2 (09:00)
[2017-11-09] MEDS ORDERED: CLOPIDOGREL 75 MG TAB PO SCH (09:00)
[2017-11-09] MEDS ORDERED: METOPROLOL TARTRATE 25 MG TAB PO SCH (09:00)
[2017-11-09 10:17] VITALS: BMI 34.7
[2017-11-09 11:28] VITALS: BP 147/80; PULSE 62; TEMP 97.6
--- NOTE | 2017-11-09 11:52 | P.DS ---
Providers Date of admission: 11/08/2017 Attending physician: Apurva Sher Consults: 11/08/17 09:50 Consult Physician Routine Consulting Provider: [facility] Consult Reason/Comments: Post Interventional patient Do you want consulting provider notified?: Already Contacted Primary care physician: Leonardo Santos - Discharge Diagnosis(es) (1) Chest pain Current Visit: No Status: Acute (2) Coronary artery disease Current Visit: No Status: Acute (3) Hyperlipidemia Current Visit: No Status: Acute (4) Triple vessel coronary artery disease Current Visit: No Status: Acute (5) Status post placement of stent in right coronary artery Current Visit: Yes Status: Acute (6) History of coronary artery bypass graft Current Visit: Yes Status: Acute Hospital Course: This patient was admitted to the hospital with chest pain and positive stress test. Patient has history of coronary bypass surgery in December of last year. Cardiac catheterization showed that the BROWN graft to the LAD is patent and the rest of the 3 vein grafts are totally occluded. Patient had significant lesion in the RCA and also circumflex and proximal LAD. Patient had stent placement of the proximal RCA and also PDA branch by Dr. Quevedo. Stated stent placement of the circumflex is being planned. Patient is feeling better. He did not express any chest pain. He is also feeling that is less short of breath. He is being discharged home on aspirin and Plavix along with beta blockers, VERO inhibitor and lipid-lowering agent. Patient is advised not to do any heavy lifting, pushing or pulling for 1 week. Follow-up in the office in one week. Plan - Discharge Summary New Discharge Prescriptions: New Atorvastatin [Lipitor] 40 mg PO HS #30 tab Clopidogrel [Plavix] 75 mg PO DAILY #30 tab Lisinopril [Zestril] 5 mg PO DAILY #30 tab Metoprolol Tartrate [Lopressor] 25 mg PO BID #60 tab Nitroglycerin Sl Tabs [Nitrostat] 0.4 mg SUBLINGUAL Q5M PRN #100 tab PRN Reason: Chest Pain Continue Lisinopril [Zestril] 5 mg PO DAILY@1200 #30 tab Cetirizine HCl 10 mg PO QAM PRN PRN Reason: Allergic Reaction Isosorbide Mononitrate [Isosorbide Mononitrate ER] 30 mg PO QAM Multivitamins, Thera [Multivitamin (formulary)] 1 each PO QAM Metoprolol Tartrate [Lopressor] 25 mg PO BID Atorvastatin [Lipitor] 40 mg PO HS Aspirin 325 mg PO QAM Discharge Medication List Lisinopril [Zestril] 5 mg PO DAILY@1200 #30 tab 01/17/17 [Rx] Aspirin 325 mg PO QAM 11/05/17 [History] Atorvastatin [Lipitor] 40 mg PO HS 11/05/17 [History] Cetirizine HCl 10 mg PO QAM PRN 11/05/17 [History] Isosorbide Mononitrate [Isosorbide Mononitrate ER] 30 mg PO QAM 11/05/17 [ History] Metoprolol Tartrate [Lopressor] 25 mg PO BID 11/05/17 [History] Multivitamins, Thera [Multivitamin (formulary)] 1 each PO QAM 11/05/17 [History] Atorvastatin [Lipitor] 40 mg PO HS #30 tab 11/09/17 [Rx] Clopidogrel [Plavix] 75 mg PO DAILY #30 tab 11/09/17 [Rx] Lisinopril [Zestril] 5 mg PO DAILY #30 tab 11/09/17 [Rx] Metoprolol Tartrate [Lopressor] 25 mg PO BID #60 tab 11/09/17 [Rx] Nitroglycerin Sl Tabs [Nitrostat] 0.4 mg SUBLINGUAL Q5M PRN #100 tab 11/09/17 [ Rx] Follow up Appointment(s)/Referral(s): Apurva Sher MD [STAFF PHYSICIAN] - 11/16/17 10:15 am Patient Instructions/Handouts: *Surgery [facility] - After Heart Catheterization - Launching Pad Mechanic Instructions, Heart Healthy Diet (DC), Coronary Intravascular Stent Placement (DC) Discharge Disposition: HOME SELF-CARE
[2017-11-09] MEDS ORDERED: ATORVASTATIN 40 MG TAB PO SCH (21:00)
--- NOTE | 2017-11-24 10:23 | PTCA ---
PERCUTANEOUSTRANS CORORONARY ANGIOGRAPHY PERCUTANEOUS CORONARY INTERVENTION: DATE OF SERVICE: 11/08/2017 PERFORMING PHYSICIAN: Deric Madsen MD, Auto Service Mechanic. PROCEDURE PERFORMED: 1. Successful stenting of the PDA branch of the RCA using 2.5 x 15 mm Xience AYANNA with good angiographic results. 2. Successful stenting of the mid RCA using 3.25 x 18 and 3.0 x 12 mm Xience AYANNA with good angiographic results. INDICATION: This is a pleasant 71-year-old gentleman who sees Dr. Sher in the office as an outpatient with known history of coronary artery disease and prior coronary artery bypass grafting. Recently, where he received 4 bypasses with BROWN to LAD, SVG to RCA, SVG to left circumflex, SVG to diagonal was experiencing chest discomfort concerning for angina. He underwent heart catheterization by Dr. Sher and he was found to have the occlusion of all vein grafts with patent BROWN to LAD. The decision was made towards percutaneous coronary intervention of the RCA. APPROACH: Right common femoral artery. COMPLICATION: None. LEVEL OF SEDATION: Moderate with a sedation length of 32 minutes. PROCEDURE DESCRIPTION: After diagnostic heart catheterization was performed by Dr. Sher and after reviewing the angiogram, we decided to pursue with intervention on the RCA. Anticoagulation was initiated using Angiomax. Subsequently, I took JR4 guide and the RCA was engaged. A whisper wire was used to wire the PDA branch of the RCA. Subsequently, I did balloon angioplasty of the PDA using 2.5 x 12 mm balloon and after that I deployed in the PDA, 2.5 x 15 mm Xience AYANNA where the stent was positioned under fluoroscopy guidance and deployed under its nominal pressure. The following angiogram showed good angiographic results and the procedure at that point from the PDA was performed without any complication. After that, I did balloon angioplasty of the RCA in the midportion using the same 2.5 mm balloon before I deployed 3.25 x 18 mm Xience AYANNA where the stent again was positioned under fluoroscopy guidance and deployed under 16 atmospheres for 20 seconds with the following angiogram showed non flow limiting distal H dissection of the RCA stent which I decided to cover with 3.0 x 12 mm stent. The stent was again positioned under fluoroscopy guidance and deployed under its nominal pressure with the following angiogram showed excellent angiographic results and the procedure was completed without any complication. POSTPROCEDURE MANAGEMENT: 1. Dual anti-platelet therapy. 2. Risk factors modifications. 3. Follow up with the patient. MMODL / IJN: [id number] /
== END 2017-11-09 12:49 | disposition home or self-care (01) ==
LOC: CATHCVL 06:24 → 6SEL 09:30 → CATHCVL 11-09 12:49
PROVIDERS: ATTEND Internal Medicine Cardiovascular Disease
DX: I25.118 Atherosclerotic heart disease of native coronary artery with other forms of angina pectoris (principal); I25.718 Atherosclerosis of autologous vein coronary artery bypass graft(s) with other forms of angina pectoris; I25.82 Chronic total occlusion of coronary artery; I10 Essential (primary) hypertension; Z95.1 Presence of aortocoronary bypass graft; Z87.891 Personal history of nicotine dependence; E78.2 Mixed hyperlipidemia; Z79.82 Long term (current) use of aspirin; Z79.899 Other long term (current) drug therapy
CPT/HCPCS: 93459; 93567; 80048 ×2; 85025 ×2; C9600; C9601; C1769 ×3; C1887; C1725; C1894; C1874; J2250; J2001; J3010; J0583; Q9967 ×3

== ENCOUNTER 2017-11-19 16:39 | Inpatient (IN) | payer MEDICARE ==
[2017-11-19 16:59] LABS: Basophils % (A) 0 %; Eosinophils # (A) 0.1 k/uL (0-0.7); Eosinophils % (A) 2 %; HCT 41.7 % (39.0-53.0); HGB 14.3 gm/dL (13.0-17.5); Lymphocytes # (A) 1.5 k/uL (1.0-4.8); Lymphocytes % (A) 21 %; MCH 31.3 pg (25.0-35.0); MCHC 34.3 g/dL (31.0-37.0); MCV 91.3 fL (80.0-100.0); Mean Platelet Volume 6.6; Monocytes # (A) 0.5 k/uL (0-1.0); Monocytes % (A) 7 %; Neutrophils # (A) 5.1 k/uL (1.3-7.7); Neutrophils % (A) 69 %; Platelet Count 180 k/uL (150-450); RBC 4.57 m/uL (4.30-5.90); RDW 12.8 % (11.5-15.5); WBC 7.4 k/uL (3.8-10.6)
[2017-11-19 17:08] LABS: INR 1.2 (<1.2); Partial Thromboplastin Time 22.7 sec (22.0-30.0); Prothrombin Time 11.4 sec (9.0-12.0)
[2017-11-19 17:11] LABS: Albumin 4.6 g/dL (3.5-5.0); Calcium 9.8 mg/dL (8.4-10.2); Magnesium 2.2 mg/dL (1.6-2.3); Potassium 4.1 mmol/L (3.5-5.1); Total Bilirubin 0.9 mg/dL (0.2-1.3); Total Protein 7.5 g/dL (6.3-8.2)
[2017-11-19 17:17] LABS: Creatine Kinase 33 U/L (55-170)
--- NOTE | 2017-11-19 17:17 | XR ---
EXAMINATION TYPE: XR chest 2V DATE OF EXAM: 11/19/2017 COMPARISON: 01/17/2017 HISTORY: Chest pain TECHNIQUE: Frontal and lateral views of the chest are obtained. FINDINGS: Heart is normal. Lungs are clear of consolidation. There is blunting of left costophrenic angle. There are sternal wires. There are chest leads. There is some pleural thickening and increased density in the lingula left upper lobe. IMPRESSION: No heart failure. There is decreased left pleural fluid compared to last exam. There is some pleural reaction or infiltrate in the lingula left upper lobe that is probably improved.
[2017-11-19 17:30] LABS: Creatine Kinase MB 0.4 ng/mL (0.0-2.4); Troponin I <0.012 ng/mL (0.000-0.034)
[2017-11-19] MEDS ORDERED: NALOXONE 0.4 MG/ML 1 ML VIAL IV PRN (18:43)
[2017-11-19] MEDS: SODIUM CHLORIDE 0.9% 500 ML IV STA ×2 (18:46→18:49)
[2017-11-19] MEDS ORDERED: ASPIRIN 81 MG PO STA (18:50)
--- NOTE | 2017-11-19 19:11 | ED ---
Chest Pain HPI - General Chief Complaint: Chest Pain Stated Complaint: Chest Pain Source: patient Mode of arrival: wheelchair Limitations: no limitations - History of Present Illness Initial Comments: Dictation was produced using [employer] dictation software. please excuse any grammatical, word or spelling errors. Chief Complaint: 71-year-old male with extensive history of coronary artery disease status post CABG presents with chest pain. History of Present Illness: Patient is 71-year-old male who began experiencing chest pain while at home today. Patient had a CABG performed in December of last year. He has been managed outpatient by his information assistant. There was plans to perform a catheterization with likely stent placement on the of this month. He was instructed by his information assistant to come to the emergency department or seek medical attention should he develop chest pain. Patient states he is having chest pain to the upper chest. Denies any radiation to the shoulders or the neck. Patient denies any associated diaphoresis. Patient took 2 nitroglycerin with improvement of symptoms. Feels a symptomatic at this time. Denies any constitutional symptoms. The ROS documented in this emergency department record has been reviewed and confirmed by me. Those systems with pertinent positive or negative responses have been documented in the HPI. All other systems are other negative and/or noncontributory. - Related Data Home Medications Medication Instructions Recorded Confirmed Aspirin 325 mg PO QAM 11/05/17 11/19/17 Cetirizine HCl 10 mg PO QAM PRN 11/05/17 11/19/17 Isosorbide Mononitrate [Isosorbide 30 mg PO QAM 11/05/17 11/19/17 Mononitrate ER] Multivitamins, Thera [Multivitamin 1 tab PO QAM 11/05/17 11/19/17 (formulary)] Previous Rx's Medication Instructions Recorded Atorvastatin [Lipitor] 40 mg PO HS #30 tab 11/09/17 Clopidogrel [Plavix] 75 mg PO DAILY #30 tab 11/09/17 Lisinopril [Zestril] 5 mg PO DAILY #30 tab 11/09/17 Metoprolol Tartrate [Lopressor] 25 mg PO BID #60 tab 11/09/17 Nitroglycerin Sl Tabs [Nitrostat] 0.4 mg SUBLINGUAL Q5M PRN #100 tab 06/26/18 Allergies Allergy/AdvReac Type Severity Reaction Status Date / Time No Known Allergies Allergy Verified 11/19/17 17:24 Review of Systems ROS Statement: Those systems with pertinent positive or pertinent negative responses have been documented in the HPI. ROS Other: All systems not noted in ROS Statement are negative. Past Medical History Past Medical History: Chest Pain / Angina, Hyperlipidemia, Myocardial Infarction ([place]), Osteoarthritis (OA) Additional Past Medical History / Comment(s): "Recent chest pain, stress test showed some blockage." See Dr Sher's H&P. Last Myocardial Infarction Date:: 12/2016 History of Any Multi-Drug Resistant Organisms: None Reported Past Surgical History: Coronary Bypass/CABG, Heart Catheterization With Stent, Hernia Repair Additional Past Surgical History / Comment(s): L inguinal hernia repair, implanted teeth, colonoscopy-normal, quadruple bypass. Past Anesthesia/Blood Transfusion Reactions: No Reported Reaction Past Psychological History: No Psychological Hx Reported Smoking Status: Former smoker Past Alcohol Use History: Rare Past Drug Use History: None Reported - Past Family History Father Family Medical History: Cancer Additional Family Medical History / Comment(s): Father of colon cancer at the age of 48yrs. Mother Family Medical History: Musculoskeletal Disorder, Neurologic Disorder Additional Family Medical History / Comment(s): Mother of complications related to MS at the age of about 68yrs. Brother(s) Family Medical History: CVA/TIA, Hypertension Additional Family Medical History / Comment(s): He has 4 brothers one of which has had a CVA/hypertension. Sister(s) Family Medical History: No Reported History Son(s) Family Medical History: Osteoarthritis (OA) General Exam - General Exam Comments Initial Comments: PHYSICAL EXAM: General Impression: Alert and oriented x3, not in acute distress HEENT: Normocephalic atraumatic, extra-ocular movements intact, pupils equal and reactive to light bilaterally, mucous membranes moist. Cardiovascular: Heart regular rate and rhythm, S1&S2 audible, no murmurs, rubs or gallops Chest: Lungs clear to auscultation bilaterally, no rhonchi, no wheeze, no rales Abdomen: Bowel sounds present, abdomen soft, non-tender, non-distended, no organomegaly Musculoskeletal: Pulses present and equal in all extremities, no peripheral edema Motor: Power 5/5 bilaterally, no focal deficits noted Neurological: CN II-XII grossly intact, no focal motor or sensory deficits noted Skin: Intact with no visualized rashes Psych: Normal affect and mood Limitations: no limitations Course Vital Signs 11/19/17 11/19/17 11/19/17 16:40 17:42 18:20 Temperature 97.6 F Pulse Rate 71 60 69 Respiratory 18 18 18 Rate Blood Pressure 124/81 99/66 123/81 O2 Sat by Pulse 98 98 98 Oximetry Chest Pain MDM - [facility] ED course: 71-year-old male with extensive history of coronary artery disease status post CABG last year. He is scheduled to have outpatient cardiac catheterization with likely stent placement. Patient had episode of chest pain today. He took 2 nitroglycerin with improvement of his symptoms. Patient feels a symptomatic at this time. EKG was obtained showing no findings of ST segment elevation [place] or cardiac ischemia. Vital signs upon arrival are within acceptable limits. Patient is not hypoxic. Laboratory evaluation was obtained. CBC is unremarkable. Coag panel unremarkable. Basic metabolic panel is unremarkable except for mild beyond elevation. Cardiac markers are within acceptable limits. Chest x-ray does not show an acute processes. Discussed patient case with information assistant who recommends patient be admitted to [facility]. Patient to be admitted to Dr. Lundberg. Cardiology to be on consult. Patient given 324 mg of aspirin. EKG Interpretation: A 12 lead EKG was obtained. It was interpreted by myself and attending physician. There is a P wave before every QRS complex. Rate is 68. Rhythm is normal sinus rhythm, NH interval 152, QRS 84, QTc 438. QT is not prolonged. No ST segment depression or elevation. Overall, this EKG is unremarkable Disposition Clinical Impression: Chest pain Disposition: ADMITTED IP TO THIS HOSP Condition: Fair Referrals: Leonardo Santos MD [Primary Care Provider] - 1-2 days Decision Time: 19:11
[2017-11-19] MEDS ORDERED: LORATADINE 10 MG TAB PO PRN (22:25)
[2017-11-19] MEDS ORDERED: NITROGLYCERIN SL TABS 0.4 MG TAB SUBLINGUAL PRN (22:25)
[2017-11-19] MEDS ORDERED: ATORVASTATIN 40 MG TAB PO SCH (22:30)
[2017-11-19] MEDS: METOPROLOL TARTRATE 25 MG TAB PO SCH (23:44)
[2017-11-19] MEDS: HEPARIN SODIUM,PORCINE 5,000 UNIT/ML 1 ML VIAL SQ SCH (23:49)
[2017-11-20] MEDS: MULTIVITAMINS, THERA 1 EACH TAB PO SCH (07:58)
[2017-11-20] MEDS: CLOPIDOGREL 75 MG TAB PO SCH (07:58)
[2017-11-20] MEDS: HEPARIN SODIUM,PORCINE 5,000 UNIT/ML 1 ML VIAL SQ SCH ×3 (07:58→22:54)
[2017-11-20] MEDS: METOPROLOL TARTRATE 25 MG TAB PO SCH ×2 (07:58→20:04)
[2017-11-20] MEDS: ISOSORBIDE MONONITRATE ER 30 MG TAB.ER.24H PO SCH (07:58)
[2017-11-20] MEDS: LISINOPRIL 5 MG TAB PO SCH (07:58)
[2017-11-20 08:06] VITALS: RESP 18
--- NOTE | 2017-11-20 10:15 | P.CRDCN ---
History of Present Illness Consult date: 11/20/17 Chief complaint: Chest discomfort History of present illness: This is a pleasant 71-year-old gentleman who sees Dr. Sher in the office as an outpatient with a known history of coronary artery disease and status post coronary artery bypass grafting as well as coronary artery stenting. The patient underwent coronary artery bypass grafting in December 2016 where the patient received 4 bypasses with BROWN to LAD, SVG to diagonal, SVG to OM, and SVG to RCA and lately he has been experiencing chest discomfort concerning for angina. He underwent a heart catheterization by Dr. Sher in October 2017 and that revealed the occlusion of all vein grafts with only patent BROWN to LAD. At that point the patient underwent successful stenting of the right coronary artery with a good results and without any complication. He is here because of chest discomfort. He was in his usual state of health yesterday when he was at home after he ate his dinner and started experiencing chest discomfort as a dull/a pressure in the mid of the chest without any radiation and without any associated symptoms. On the way to the emergency room he took nitroglycerin with partial relief in his symptoms. When he arrived emergency room he was pain-free and he was admitted to the hospital. He ate his dinner after he was admitted to the hospital yesterday and started experiencing chest discomfort again. The EKG showed sinus rhythm without any ischemic changes. The cardiac enzymes were checked and came in to be unremarkable. Past Medical History Past Medical History: Coronary Artery Disease (CAD), Chest Pain / Angina, Hyperlipidemia, Myocardial Infarction ([place]), Osteoarthritis (OA) Additional Past Medical History / Comment(s): "Recent chest pain, stress test showed some blockage." See Dr Sher's H&P. Last Myocardial Infarction Date:: 12/2016 History of Any Multi-Drug Resistant Organisms: None Reported Past Surgical History: Coronary Bypass/CABG, Heart Catheterization With Stent, Hernia Repair Additional Past Surgical History / Comment(s): L inguinal hernia repair, implanted teeth, colonoscopy-normal, quadruple bypass. PT STATED HE HAS 3 CARDIAC STENTS Past Anesthesia/Blood Transfusion Reactions: No Reported Reaction Date of Last Stent Placement:: 11/08/17 Smoking Status: Former smoker - Past Family History Father Family Medical History: Cancer Additional Family Medical History / Comment(s): Father of colon cancer at the age of 48yrs. Mother Family Medical History: Musculoskeletal Disorder, Neurologic Disorder Additional Family Medical History / Comment(s): Mother of complications related to MS at the age of about 68yrs. Brother(s) Family Medical History: CVA/TIA, Hypertension Additional Family Medical History / Comment(s): He has 4 brothers one of which has had a CVA/hypertension. Sister(s) Family Medical History: No Reported History Son(s) Family Medical History: Osteoarthritis (OA) Medications and Allergies Home Medications Medication Instructions Recorded Confirmed Type Aspirin 325 mg PO QAM 11/05/17 11/19/17 History Cetirizine HCl 10 mg PO QAM PRN 11/05/17 11/19/17 History Isosorbide Mononitrate [Isosorbide 30 mg PO QAM 11/05/17 11/19/17 History Mononitrate ER] Multivitamins, Thera [Multivitamin 1 tab PO QAM 11/05/17 11/19/17 History (formulary)] Atorvastatin [Lipitor] 40 mg PO HS #30 tab 11/09/17 11/19/17 Rx Clopidogrel [Plavix] 75 mg PO DAILY #30 tab 11/09/17 11/19/17 Rx Lisinopril [Zestril] 5 mg PO DAILY #30 tab 11/09/17 11/19/17 Rx Metoprolol Tartrate [Lopressor] 25 mg PO BID #60 tab 11/09/17 11/19/17 Rx Nitroglycerin Sl Tabs [Nitrostat] 0.4 mg SUBLINGUAL Q5M PRN #100 tab 11/09/17 Rx Allergies Allergy/AdvReac Type Severity Reaction Status Date / Time No Known Allergies Allergy Verified 11/19/17 17:24 Physical Exam Vitals: Vital Signs Temp Pulse Pulse Resp BP BP Pulse Ox 11/20/17 08:00 97 F L 65 18 116/70 98 11/20/17 04:00 97.2 F L 76 17 110/76 92 L 11/20/17 00:00 97.4 F L 78 18 111/67 95 11/19/17 20:43 105/66 11/19/17 20:41 98 F 67 18 98 11/19/17 19:10 65 18 111/72 98 11/19/17 18:20 69 18 123/81 98 11/19/17 17:42 60 18 99/66 98 11/19/17 16:40 97.6 F 71 18 124/81 98 Intake and Output 11/19/17 11/20/17 11/20/17 22:59 06:59 14:59 Intake Total 300 237 Balance 300 237 Intake: Oral 300 237 Other: Voiding Method Urinal # Voids 1 1 Weight 104.326 kg 106.5 kg - Constitutional General appearance: no acute distress - Respiratory Respiratory: bilateral: CTA - Cardiovascular Rhythm: regular Heart sounds: normal: S1, S2 Results 11/19/17 16:50 11/19/17 16:50 Cardiac Enzymes 11/19/17 11/19/17 11/20/17 Range/Units 16:50 16:50 03:22 AST 28 (17-59) U/L CK-MB (CK-2) 0.4 (0.0-2.4) ng/mL Troponin I <0.012 <0.012 (0.000-0.034) ng/mL Coagulation 11/19/17 Range/Units 16:50 PT 11.4 (9.0-12.0) sec APTT 22.7 (22.0-30.0) sec CBC 11/19/17 Range/Units 16:50 WBC 7.4 (3.8-10.6) k/uL RBC 4.57 (4.30-5.90) m/uL Hgb 14.3 (13.0-17.5) gm/dL Hct 41.7 (39.0-53.0) % Plt Count 180 (150-450) k/uL Comprehensive Metabolic Panel 11/19/17 Range/Units 16:50 Sodium 140 (137-145) mmol/L Potassium 4.1 (3.5-5.1) mmol/L Chloride 99 (98-107) mmol/L Carbon Dioxide 24 (22-30) mmol/L BUN 27 H (9-20) mg/dL Creatinine 1.08 (0.66-1.25) mg/dL Glucose 100 H (74-99) mg/dL Calcium 9.8 (8.4-10.2) mg/dL AST 28 (17-59) U/L ALT 45 (21-72) U/L Alkaline Phosphatase 81 (38-126) U/L Total Protein 7.5 (6.3-8.2) g/dL Albumin 4.6 (3.5-5.0) g/dL Current Medications Generic Name Dose Route Start Last Admin Trade Name Freq PRN Reason Stop Dose Admin Atorvastatin Calcium 40 mg 11/19/17 22:30 11/19/17 23:44 Lipitor PO 40 mg HS VEUN Administration Clopidogrel Bisulfate 75 mg 11/20/17 09:00 11/20/17 07:58 Plavix PO 75 mg DAILY VENU Administration Heparin Sodium (Porcine) 5,000 unit 11/20/17 00:00 11/20/17 07:58 Heparin SQ 5,000 unit Q8HR VENU Administration Isosorbide Mononitrate 30 mg 11/20/17 09:00 11/20/17 07:58 Imdur PO 30 mg QAM VENU Administration Lisinopril 5 mg 11/20/17 09:00 11/20/17 07:58 Zestril PO 5 mg DAILY VENU Administration Loratadine 10 mg 11/19/17 22:25 Claritin PO QAM PRN Allergy Symptoms Metoprolol Tartrate 25 mg 11/19/17 22:30 11/20/17 07:58 Lopressor PO 25 mg BID VENU Administration Multivitamins 1 each 11/20/17 12:00 11/20/17 07:58 Theragran PO 1 each DAILY@1200 VENU Administration Naloxone HCl 0.2 mg 11/19/17 18:43 Narcan IV Q2M PRN Opioid Reversal Nitroglycerin 0.4 mg 11/19/17 22:25 Nitrostat SUBLINGUAL Q5M PRN Chest Pain Intake and Output 11/19/17 11/20/17 11/20/17 22:59 06:59 14:59 Intake Total 300 237 Balance 300 237 Intake: Oral 300 237 Other: Voiding Method Urinal # Voids 1 1 Weight 104.326 kg 106.5 kg 11/19/17 16:50 11/19/17 16:50 Assessment and Plan Assessment: Assessment #1 chest discomfort. The discomfort seems to be atypical for angina. #2 severe underlying coronary artery disease and status post CABG and PCI as described above #3 multiple risk factors like hypertension and dyslipidemia Plan #1 the patient was ruled out for acute coronary event. #2 continue the current medical treatment which included dual antiplatelet therapy #3 I am going to add PPI to the current medical treatment. I'm concerned that the discomfort could be GI related #4 review the last coronary angiogram and assess for PCI of the left circumflex #5 follow-up with the patient.
[2017-11-20] MEDS ORDERED: VERAPAMIL 2.5 MG/ML 2 ML AMP ONE (11:51)
[2017-11-20] MEDS ORDERED: MIDAZOLAM 2 MG/2 ML VIAL ONE (11:51)
[2017-11-20] MEDS ORDERED: HEPARIN SODIUM 1,000 UN/ML (10ML VL) ONE (11:51)
[2017-11-20] MEDS ORDERED: LIDOCAINE 1% INJ 10MG/ML (20 ML MDV) ONE (11:51)
[2017-11-20] MEDS ORDERED: LIDOCAINE 2% SYG (PF) 100 MG/5 ML MISCELLANE ONE ×2 (12:02→12:10)
[2017-11-20] MEDS ORDERED: MIDAZOLAM 2 MG/2 ML VIAL IV ONE (12:04)
[2017-11-20] MEDS ORDERED: SODIUM CHLORIDE 0.9% 1,000 ML IV ONE (12:04)
[2017-11-20] MEDS ORDERED: VERAPAMIL SYRINGE (5 MG/10 ML) INTRAARTER ONE (12:12)
[2017-11-20] MEDS ORDERED: BIVALIRUDIN BOLUS 250 MG/50 ML IV ONE (12:12)
[2017-11-20] MEDS ORDERED: fentaNYL (PF) 50 MCG/ML 2 ML AMP ONE (12:13)
[2017-11-20] MEDS ORDERED: BIVALIRUDIN 250 MG in SODIUM CHLORIDE 0.9% 50 ML IV ONE ×2 (12:13→12:34)
[2017-11-20] MEDS: fentaNYL (PF) 50 MCG/ML 2 ML AMP IV ONE ×2 (12:14→12:39)
[2017-11-20] MEDS: NITROGLYCERIN 1000MCG/10ML SYRINGE INTRACORON ONE ×3 (12:18→12:49)
[2017-11-20] MEDS ORDERED: IOPAMIDOL-370 125ML BTL INJ ONE (12:46)
[2017-11-20] MEDS ORDERED: CLOPIDOGREL 75 MG TAB ONE (12:49)
[2017-11-20] MEDS ORDERED: CLOPIDOGREL 75 MG TAB PO ONE (12:51)
[2017-11-20] MEDS ORDERED: IOPAMIDOL-370 100ML BTL INJ ONE (12:51)
[2017-11-20] MEDS ORDERED: MAG HYDROX/AL HYDROX/SIMETH 30 ML CUP PO PRN (12:56)
[2017-11-20] MEDS ORDERED: RX INFO: IV CONTRAST WAS GIVEN 1 EACH MISC MISCELLANE PRN (12:56)
[2017-11-20] MEDS ORDERED: ATROPINE SULFATE 0.1 MG/ML 10ML SYRINGE IV PRN (12:56)
[2017-11-20] MEDS ORDERED: ZOLPIDEM 5 MG TAB PO PRN (12:56)
[2017-11-20] MEDS ORDERED: NITROGLYCERIN SL TABS 0.4 MG TAB SUBLINGUAL PRN (12:56)
[2017-11-20] MEDS ORDERED: SODIUM CHLORIDE 0.9% 1,000 ML IV SCH (13:00)
[2017-11-20] MEDS ORDERED: FAMOTIDINE 20 MG TAB PO STA (13:46)
[2017-11-20] MEDS ORDERED: ACETAMINOPHEN TAB 325 MG TAB PO PRN (14:08)
--- NOTE | 2017-11-20 18:37 | HP ---
HISTORY AND PHYSICAL DATE OF ADMISSION: 11/19/2017 DATE OF SERVICE: 11/20/2017 PRESENT COMPLAINT: Chest pressure. HISTORY OF PRESENTING COMPLAINT: This is a pleasant 71-year-old patient of Dr. Santos whose chronic stable medical conditions include obesity, hyperlipidemia, osteoarthritis. Patient was sitting down yesterday when he developed chest pressure going across the chest, lasted for a good few hours. Patient took some nitro, did feel better. Patient just felt lousy and terrible all over. There was no shortness of breath. No dizziness. No lightheadedness and finally patient decided to come in. Patient's troponins were negative and patient's EKG was unremarkable. Dr. Madsen took the patient down to the laboratory scientist. I do not have the full report, but that nurse informs me that the patient did have two stents placed in the circumflex. Patient now symptom-free. Patient otherwise rather active. REVIEW OF SYSTEMS: CONSTITUTIONAL: Tired. HEENT: None. RESPIRATORY: None. CARDIOVASCULAR: As above. GASTROINTESTINAL: None. GENITOURINARY: None. MUSCULOSKELETAL: None. DERMATOLOGICAL: None. HEMATOLOGICAL: None. LYMPHATICS: None PSYCHIATRY: None. NEUROLOGICAL: None. PAST MEDICAL HISTORY: Coronary bypass and stent, hyperlipidemia, osteoarthritis. PAST SURGICAL HISTORY: Coronary bypass stent, hernia repair, left inguinal hernia repair, implanted teeth, quadruple bypass. SOCIAL HISTORY: . Has a experience in the [employer] was in [place]. Patient smoked for about 18 years, stopped at the age of 37, smoked about a pack a day, alcohol rarely. FAMILY HISTORY: Father of colon cancer at age of 48. HOME MEDICATIONS: 1. Nitrostat 0.4 sublingual q.5 p.r.n. 2. Lipitor 40 mg q.h.s. 3. Multivitamin 1 tablet p.o. daily. 4. Lopressor 25 p.o. b.i.d. 5. Zestril 5 mg p.o. daily. 6. Imdur ER 30 mg p.o. daily. 7. Plavix 75 mg p.o. daily. 8. Cetirizine 10 mg p.o. daily p.r.n. 9. Aspirin 325 p.o. daily. ALLERGIES: None. PHYSICAL EXAMINATION: Temperature 97.5, pulse 72, respiration 18, blood pressure 97/59, pulse ox 95% on room air. GENERAL APPEARANCE: Well built, BMI 33.7, lying in bed, comfortable. EYES: Pupils normal. HEENT: External appearance of nose and ears normal, oral cavity normal. NECK: JVD not raised. Mass not palpable. RESPIRATORY: Effort normal. Lungs are clear. CARDIOVASCULAR: First and second sounds are normal, no edema. ABDOMEN: Soft, nontender. Liver and spleen not palpable. LYMPHATIC: No lymph node palpable in neck or axillae. PSYCHIATRY: Alert and oriented x3. Mood and affect normal. NEUROLOGICAL: Pupils equal. Cranial nerves grossly intact. Power and sensation grossly intact. EXTREMITIES: Pressure band over the radial artery access site. INVESTIGATIONS: White count 7.4, hemoglobin 14.3, potassium 4.1, BUN of 27, creatinine 1.0, troponin x3 negative. EKG normal sinus rhythm. ASSESSMENT: 1. Unstable angina in a patient with known coronary artery disease. Patient did go for a cardiac catheterization and did get two stents to the circumflex as reported. 2. Coronary artery with prior history of bypass and stent. 3. Hyperlipidemia. 4. Primary osteoarthritis. 5. Obesity, body mass index of 33.7. PLAN: The patient is currently on Lipitor, Plavix, subcu heparin, Zestril, Lopressor. Will increase the patient's Lipitor to 80 mg. Patient also getting IV fluids. Care was discussed with the patient. Patient is seen by Dr. Madsen from Cardiology. JUANITO / HERNANDEZ: [id number] /
[2017-11-20] MEDS ORDERED: ATORVASTATIN 80 MG TAB PO SCH (21:00)
[2017-11-21] MEDS: CLOPIDOGREL 75 MG TAB PO SCH (07:44)
[2017-11-21] MEDS: ISOSORBIDE MONONITRATE ER 30 MG TAB.ER.24H PO SCH (07:44)
[2017-11-21] MEDS: HEPARIN SODIUM,PORCINE 5,000 UNIT/ML 1 ML VIAL SQ SCH (07:44)
[2017-11-21] MEDS: METOPROLOL TARTRATE 25 MG TAB PO SCH (07:44)
[2017-11-21] MEDS: LISINOPRIL 5 MG TAB PO SCH (07:44)
[2017-11-21] MEDS: MULTIVITAMINS, THERA 1 EACH TAB PO SCH (07:45)
[2017-11-21 07:49] VITALS: TEMP 97.6
[2017-11-21] MEDS ORDERED: FAMOTIDINE 20 MG TAB PO SCH (09:00)
[2017-11-21] MEDS ORDERED: ASPIRIN 81 MG PO SCH (09:00)
--- NOTE | 2017-11-21 10:29 | P.PN ---
Subjective Progress Note Date: 11/21/17 Principal diagnosis: Severe coronary artery disease This is a pleasant 71-year-old gentleman who sees Dr. Sher in the office as an outpatient with a known history of coronary artery disease and status post coronary artery bypass grafting as well as coronary artery stenting. The patient underwent coronary artery bypass grafting in December 2016 where the patient received 4 bypasses with BROWN to LAD, SVG to diagonal, SVG to OM, and SVG to RCA and lately he has been experiencing chest discomfort concerning for angina. He underwent a heart catheterization by Dr. Sher in October 2017 and that revealed the occlusion of all vein grafts with only patent BROWN to LAD. At that point the patient underwent successful stenting of the right coronary artery with a good results and without any complication. He is here because of chest discomfort. He was in his usual state of health yesterday when he was at home after he ate his dinner and started experiencing chest discomfort as a dull/a pressure in the mid of the chest without any radiation and without any associated symptoms. On the way to the emergency room he took nitroglycerin with partial relief in his symptoms. When he arrived emergency room he was pain-free and he was admitted to the hospital. He ate his dinner after he was admitted to the hospital yesterday and started experiencing chest discomfort again. The EKG showed sinus rhythm without any ischemic changes. The cardiac enzymes were checked and came in to be unremarkable. The patient underwent yesterday successful stenting of the mid and proximal left circumflex with a good angiographic results and without any complication from the procedure was performed from the right radial artery. On follow-up with the patient today, he denies having any chest pain or chest discomfort. The blood pressure and heart rate are within normal limits. From the cardiac vascular standpoint overview, he can be discharged home. Objective - Vital Signs Vital signs: Vital Signs Temp 97.6 F 11/21/17 07:48 Pulse 70 11/21/17 07:48 Resp 18 11/21/17 07:48 BP 128/74 11/21/17 07:48 Pulse Ox 97 11/21/17 08:17 Intake & Output 11/20/17 11/21/17 11/21/17 18:59 06:59 18:59 Intake Total 966.6 Balance 966.6 Weight 106.2 kg Intake: IV 249.6 Oral 717 Other: Voiding Method Urinal # Voids 2 - Constitutional General appearance: Present: no acute distress - Respiratory Respiratory: bilateral: CTA - Cardiovascular Rhythm: regular Heart sounds: normal: S1, S2 - Labs CBC & Chem 7: 11/19/17 16:50 11/21/17 05:36 Assessment and Plan Assessment: Assessment #1 chest discomfort. The discomfort seems to be atypical for angina. #2 severe underlying coronary artery disease and status post CABG and PCI as described above #3 multiple risk factors like hypertension and dyslipidemia Plan #1 the patient did undergo stenting of the left circumflex as described above using drug-eluting stent #2 he is on dual antiplatelet therapy with high intensity statin #3 from the cardiovascular standpoint overview, he can be discharged home.
[2017-11-21 11:23] VITALS: BP 115/71; PULSE 63
--- NOTE | 2017-11-21 23:11 | DS ---
DISCHARGE SUMMARY DATE OF ADMISSION: November 19, 2017. DATE OF DISCHARGE: November 21, 2017. FINAL DIAGNOSES: 1. Unstable angina, patient known coronary artery disease. Patient getting 2 stents to the circumflex. 2. Coronary artery disease with prior history of bypass and stent. 3. Hyperlipidemia. 4. Primary osteoarthritis. 5. Obesity, BMI 33.7. HOSPITAL COURSE: This patient presented with unstable angina. Cardiac catheterization, had 2 stents to the circumflex. Today patient is up and about. No chest pain or shortness of breath. I discussed with Dr. Madsen. The patient is doing well. Discussed with the patient. Questions were answered. EXAM: Lungs are clear. Cardiovascular: 1st and 2nd sounds normal. Discharge planning more than 35 minutes. DISCHARGE MEDICATIONS: 1. Cetirizine 10 mg p.o. daily p.r.n. 2. Imdur ER 30 mg p.o. daily. 3. Multivitamin 1 tablet p.o. daily. 4. Plavix 75 mg p.o. daily. 5. Zestril 5 mg p.o. daily. 6. Lopressor 25 p.o. b.i.d. 7. Nitrostat 0.4 sublingual q.5 p.r.n. 8. Aspirin 81 mg p.o. b.i.d. 9. Lipitor 80 mg q.h.s. 10.Pepcid 20 mg p.o. b.i.d. Follow up with his printer's devil in 1 week. Follow up with Dr. Santos in [address] Santos. MMODL / IJN: [id number] /
--- NOTE | 2017-11-22 09:24 | PTCA ---
PERCUTANEOUSTRANS CORORONARY ANGIOGRAPHY DATE OF SERVICE: 11/20/2017 PERFORMING PHYSICIAN: Deric Madsen MD, Women'S Soccer Coach. PROCEDURE PERFORMED: 1. Successful stenting of the mid left circumflex using 2.75 x 18 mm Xience AYANNA with good angiographic results. 2. Successful stenting of the ostial/proximal left circumflex using 2.75 x 8 mm Xience AYANNA with good angiographic results. INDICATION: This is a pleasant 71-year-old gentleman with known coronary artery disease and status post coronary artery bypass grafting a year ago, who recently was experiencing chest discomfort and underwent heart catheterization by Dr. Sher where he was found to have the occlusion of all vein grafts with patent BROWN to LAD. The patient at that point, underwent successful stenting of the RCA and he was scheduled on the 16 of this month to undergo successful stenting of the left circumflex. He presented to the hospital with chest discomfort concerning for angina. APPROACH: Right radial artery. COMPLICATION: None. LEVEL OF SEDATION: Moderate with sedation length of 43 minutes. PROCEDURE DESCRIPTION: After obtaining an informed consent, the patient was brought to the cardiac cathodic protection technician. The right radial artery was cannulated using micropuncture technique, the micropuncture wire passed easily, then I placed a 6-Lao sheath in the right radial artery and anticoagulation was initiated using Angiomax. Subsequently, I did engage the left main using JL3.5 guiding catheter. I attempted engaging the left main using an XB 3.5, but I was unable. After that, I did wire the left circumflex using a whisper wire. I did balloon angioplasty of the left circumflex in the midportion using 2.75 x 12 mm balloon. After that, I did wire the left circumflex using a alysha wire with a run- through wire. I attempted advancing the stent over the whisper wire, but I was able to get the stent over the run-through wire to the mid left circumflex where the stent was positioned under fluoroscopy guidance and deployed under 14 atmospheres for 20 seconds with the following angiogram showing good angiographic results. For the ostial left circumflex, I did advance a 2.75 x 8 mm Xience AYANNA as well where the stent again was positioned under fluoroscopy guidance and deployed under its nominal pressure with the following angiogram showed good angiographic results and the procedure was completed without any complication. POSTPROCEDURE MANAGEMENT: 1. Dual anti-platelet therapy. 2. Risk factors modifications. 3. Follow up with the patient. MMSWATI / IJN: [id number] / SUSY
== END 2017-11-21 14:24 | disposition home or self-care (01) | DRG 247 ==
LOC: EC 16:39 → 6SEL 18:48 → OBSVTOIN 11-21 10:29
PROVIDERS: ADMIT Hospitalist; ATTEND Hospitalist
PROC: 027035Z Dilation of Coronary Artery, One Artery with Two Drug-eluting Intraluminal Devices, Percutaneous Approach (ICD-10-PCS; principal; 2017-11-19)
DX: I25.110 Atherosclerotic heart disease of native coronary artery with unstable angina pectoris (principal); E66.9 Obesity, unspecified; E78.5 Hyperlipidemia, unspecified; I10 Essential (primary) hypertension; I25.2 Old myocardial infarction; M19.91 Primary osteoarthritis, unspecified site; Z68.33 Body mass index [BMI] 33.0-33.9, adult; Z79.02 Long term (current) use of antithrombotics/antiplatelets; Z79.82 Long term (current) use of aspirin; Z79.899 Other long term (current) drug therapy; Z95.1 Presence of aortocoronary bypass graft; Z95.5 Presence of coronary angioplasty implant and graft; Z87.891 Personal history of nicotine dependence; Z82.49 Family history of ischemic heart disease and other diseases of the circulatory system; Z80.0 Family history of malignant neoplasm of digestive organs; Z82.3 Family history of stroke; Z82.61 Family history of arthritis; Z84.89 Family history of other specified conditions
CPT/HCPCS: 36415; 71046; 80053; 82550; 82553; 82565; 83735; 84484; 85025; 85610; 85730; 93005; 94760; 96360; 96361; 99285

== ENCOUNTER → 2020-02-14 | Outpatient (CLI) | payer MEDICARE ==
[2020-02-14 07:46] LABS: Appearance,Urine Clear (Clear); Bilirubin,Urine Negative (Negative); Blood,Urine Negative (Negative); Color,Urine Yellow; Glucose,Urine (UA) Negative (Negative); Ketones,Urine Negative (Negative); Leukocyte Esterase,Urine Negative (Negative); Nitrite,Urine Negative (Negative); Protein,Urine Negative (Negative); Specific Gravity,Urine 1.021 (1.001-1.035); Urobilinogen,Urine <2.0 mg/dL (<2.0)
[2020-02-14 07:59] LABS: Albumin 4.1 g/dL (3.5-5.0); Calcium 9.4 mg/dL (8.4-10.2); Potassium 4.2 mmol/L (3.5-5.1); Total Bilirubin 1.1 mg/dL (0.2-1.3); Total Protein 6.9 g/dL (6.3-8.2)
[2020-02-14 08:05] LABS: Basophils % (A) 1 %; Eosinophils # (A) 0.2 k/uL (0-0.7); Eosinophils % (A) 4 %; HCT 42.5 % (39.0-53.0); HGB 13.7 gm/dL (13.0-17.5); Lymphocytes # (A) 1.4 k/uL (1.0-4.8); Lymphocytes % (A) 23 %; MCH 30.7 pg (25.0-35.0); MCHC 32.2 g/dL (31.0-37.0); MCV 95.3 fL (80.0-100.0); Mean Platelet Volume 6.8; Monocytes # (A) 0.4 k/uL (0-1.0); Monocytes % (A) 7 %; Neutrophils % (A) 64 %; Platelet Count 153 k/uL (150-450); RBC 4.46 m/uL (4.30-5.90); RDW 12.9 % (11.5-15.5); WBC 6.2 k/uL (3.8-10.6)
[2020-02-14 08:07] LABS: INR 1.1 (<1.2); Partial Thromboplastin Time 22.9 sec (22.0-30.0); Prothrombin Time 10.9 sec (9.0-12.0)
== END | disposition home or self-care (01) ==
LOC: LABPAT 07:03
PROVIDERS: ATTEND Orthopaedic Surgery
DX: Z01.812 Encounter for preprocedural laboratory examination (principal); M16.12 Unilateral primary osteoarthritis, left hip
CPT/HCPCS: 80053; 81003; 85025; 85610; 85730; 87070

== ENCOUNTER → 2020-02-14 | Outpatient (CLI) | payer MEDICARE ==
[2020-02-14 17:14] LABS: Chol/HDL Ratio 2.78; LDL Cholesterol,Calculated 56.4 mg/dL (0.0-131.0); VLDL Calculation 16.6 mg/dL (5.00-40.00)
== END | disposition home or self-care (01) ==
LOC: LABWHC1 07:05
PROVIDERS: ATTEND Family Medicine
DX: Z01.818 Encounter for other preprocedural examination (principal); E78.5 Hyperlipidemia, unspecified
CPT/HCPCS: 36415; 80061; 82550

== ENCOUNTER 2020-02-26 11:55 | Day surgery (SDC) | payer MEDICARE ==
[2020-02-22 14:20] VITALS: BMI 34.4
[~2020-02-26 11:55] MED LIST changes: +ACETAMINOPHEN TAB 500 MG TAB PO ONE; -ALPRAZolam 0.25 MG TAB PO PRN; -ALPRAZolam 0.5 MG TAB PO PRN; -ASPIRIN 325 MG TAB PO STA; -ATORVASTATIN 80 MG TAB PO STA; +DEXAMETHASONE SOD PHOSPHATE 10 MG/ML 1 ML VIAL IV ONE; +GABAPENTIN 300 MG CAP PO ONE; +HYDROmorphone 0.5 MG/0.5 ML SYRINGE IVP PRN; +MELOXICAM 7.5 MG TAB PO ONE; +MIDAZOLAM 2 MG/2 ML VIAL IV PRN; -NITROGLYCERIN SL TABS 0.4 MG TAB SUBLINGUAL PRN; +ONDANSETRON 4 MG/2 ML VIAL IVP ONE; +SCOPOLAMINE 1.5MG/72HR PATCH TRANSDERM ONE; -SODIUM CHLORIDE 0.9% 1,000 ML in EMPTY BAG 1 BAG IV ONE; +TRANEXAMIC ACID 1,000 MG in SODIUM CHLORIDE 0.9% 100 ML IVPB ONE; +fentaNYL (PF) 50 MCG/ML 2 ML AMP IVP PRN
[2020-02-26] MEDS ORDERED: NALOXONE 0.4 MG/ML 1 ML VIAL IV PRN (12:09)
[2020-02-26] MEDS ORDERED: HYDROmorphone 0.5 MG/0.5 ML SYRINGE IVP PRN ×3 (12:09)
[2020-02-26] MEDS ORDERED: MAGNESIUM HYDROXIDE 2,400 MG/10 ML CUP PO PRN (12:09)
[2020-02-26] MEDS ORDERED: HYDROcodone/APAP 5-325MG 1 EACH TAB PO PRN ×2 (12:09)
[2020-02-26] MEDS ORDERED: ONDANSETRON 4 MG/2 ML VIAL IVP PRN (12:09)
[2020-02-26] MEDS ORDERED: LIDOCAINE 1% (10MG/ML) FOR IV START INTRADERMA ONE (12:32)
[2020-02-26] MEDS: LACTATED RINGERS 1,000 ML IV SCH (12:32)
[2020-02-26] MEDS ORDERED: fentaNYL (PF) 50 MCG/ML 2 ML AMP ONE (13:01)
[2020-02-26] MEDS ORDERED: SODIUM CHLORIDE 0.9% 100 ML BAG ONE (13:01)
[2020-02-26] MEDS ORDERED: SODIUM CHLORIDE 0.9% IRRIG 1,000 ML BTL IRRIGATION ONE (13:01)
[2020-02-26] MEDS ORDERED: PROPOFOL 10 MG/ML 20 ML VIAL IV ONE (13:01)
[2020-02-26] MEDS ORDERED: TRANEXAMIC ACID 1,000 MG/10 ML VIAL ONE (13:01)
[2020-02-26] MEDS ORDERED: MIDAZOLAM 2 MG/2 ML VIAL ONE (13:01)
[2020-02-26] MEDS ORDERED: HEPARIN SODIUM,PORCINE 10,000 UNIT/ML 1 ML VIAL ONE (13:01)
[2020-02-26] MEDS ORDERED: ceFAZolin 3,000 MG in SODIUM CHLORIDE 0.9% IRRIGATIO 3,000 ML IRRIGATION ONE (13:03)
[2020-02-26] MEDS: ROPIVACAINE 246.25 MG, EPINEPHrine 0.5 MG, KETOROLAC 30 MG, cloNIDine HCL/PF 80 MCG, WA... MISCELLANE ONE ×10 (13:35→14:07)
[2020-02-26] MEDS ORDERED: LACTATED RINGERS 1,000 ML IV ONE (14:25)
--- NOTE | 2020-02-26 14:25 | P.OP ---
Date of Procedure: 02/26/20 Preoperative Diagnosis: Severe osteoarthritis left hip Postoperative Diagnosis: Severe osteoarthritis left hip Procedure(s) Performed: Left total hip arthroplasty with a direct anterior approach Implants: Powell and nephew Polarstem size 4 standard Powell & Nephew R3, 3 hole acetabular shell, 52 mm Powell [employer] Nephew reflection 6.5 mm cancellus screw, 20 mm 2 Powell [employer] Nephew R3, XLPE 20 acetabular liner Powell & Nephew Oxinium femoral head 36 m, +0 All components were press-fit. The articulation is Oxinium on polyethylene. Anesthesia: spinal Surgeon: Lucas Florian Early Childhood Teacher #1: Paz Bryant Estimated Blood Loss (ml): 100 Pathology: other (Femoral head) Condition: stable Disposition: PACU Indications for Procedure: After failure of conservative treatment we discussed the surgical and nonsurgical treatment options at length. Patient wishes to proceed with a total hip arthroplasty with a direct anterior approach. Complications specific to this procedure were discussed at length, including but not limited to infection, leg length discrepancy, dislocation, and nerve injury. Covid-19 was also discussed at length with the patient, and they are aware of the current policies and procedures. The patient was given the option of delaying surgery, but they elect to proceed knowing these risks. Patient is aware of all these complications and informed consent was obtained Operative Findings: The operative findings are consistent with severe osteoarthritis of the left hip Description of Procedure: Patient was seen and evaluated in the preoperative area, consent was reviewed, and the surgical site was marked with a skin marker. Patient was then brought to the operating room and given prophylactic antibiotics intravenously. 1 g of Tranexamic acid was also given. A spinal anesthetic was administered by the anesthesia department. The patient was then placed on the Naylor table with the bony prominences well-padded. The hip area was then prepped and draped in usual sterile fashion. A universal timeout was then performed, which confirmed the patient's name, surgical site, ALLERGIES, and procedure being performed. Next the incision site was located at 1 cm distal and 1 cm lateral to the anterior superior iliac spine. The skin and subcutaneous tissues were sharply incised. Incision was carefully dissected down to the fascia overlying the tensor fascia allan muscle. This fascia was then incised in line with the incision. Next, using blunt finger dissection, the tensor fascia allan muscle was dissected off its investing fascia. The muscle was then carefully retracted laterally with a cobra retractor over the lateral neck of the femur. Next, the circumflex vessels were identified and cauterized using the AquaMantis device. The anterior hip capsule was then exposed. The capsule was then opened and an inverted T fashion. Cobra retractors were then placed intracapsularly. The proximal femur was then visualized. The femoral neck was then osteotomized appropriate level above the lesser trochanter. Small amount of traction was placed with the Naylor table. A small wedge of bone was then removed from the remaining femoral head. Next, using a corkscrew femoral head was easily removed from the acetabulum. On gross visual inspection, the femoral head had complete loss of articular cartilage in multiple periarticular osteophytes. Attention was then turned to the acetabulum. the acetabulum was exposed and any remaining labrum was excised. Sequential reaming of the acetabulum was performed using fluoroscopic guidance. When the appropriate size was reached, a trial was then placed. The position and fit of the trial was checked with fluoroscopy. The trial was then removed. Then, using fluoroscopic guidance, the final implant was impacted at 20 of anteversion and 40 of abduction, and fully seated in the acetabulum. 2 screws were then placed in the acetabulum. Again fluoroscopy was used to check pos ition of the screws. Next, the liner was then impacted, with a 20 elevated liner located in the anterior superior quadrant. Component locking was confirmed. Attention was then directed to the femur. With the aid of the Naylor table, the femur was externally rotated to approximately 130, extended, and abducted under the opposite leg. A side hook was then placed under the proximal femur, and the side hook elevator was used to elevate the proximal femur. Retractors were then placed. A capsular release was performed, as well as a release of the conjoined tendon, which afforded excellent visualization of the proximal femur. Next, a box osteotome was used to lateralize the proximal femur. A hand cloth folder was then used to locate the femoral canal. Sequential broaching was then performed with appropriate size which afforded excellent fixation in the proximal femur. A trial was then placed with appropriate head and neck, and the hip was gently reduced with the aid of the Naylor table. Fluoroscopy was then used to check position of the components, as well as to ensure equal leg lengths. The hip was then gently dislocated and the trials were then removed. Final implants were then impacted and the hip was again reduced. Final fluoroscopic x-rays confirmed that the components were in anatomic position, as well as equal leg lengths. The hip was also taken through range of motion, and found to be stable. The hip was then copiously irrigated with antibiotic solution with pulsatile lavage. The hip was then irrigated with Irrisept solution. The soft tissues were then injected with a ropivacaine solution, which consisted of 246.25 mg of ropivacaine, 0.5 mg of epinephrine, 30 mg of Toradol, 80 g of clonidine, and 48.45 mL of sterile water, for a total of 100 mL of fluid injected. A second dose of 1 g of Tranexamic acid was also given. the fascia was then closed with 2-0 strata fix suture. The subcutaneous tissue was closed with 3-0 Vicryl. The subcuticular tissue was closed with 3-0 strata fix suture. The skin was then closed with Dermabond glue and a sterile silver dressing. The patient was then transferred to the recovery room in stable condition. The assistant signal maintainer REYNA Gloria was required due to the complexity of surgery, and the need for skilled surgical services tech for positioning, draping, exposure, retraction, and closure of the wound.
--- NOTE | 2020-02-26 14:56 | FL ---
EXAMINATION TYPE: FL guidance operating room, XR Hip Limited LT DATE OF EXAM: 02/26/2020 CLINICAL HISTORY: Left anterior hip replacement TECHNIQUE: Fluoroscopy. COMPARISON: None. FINDINGS: Fluoroscopic guidance was provided during procedure performed by Dr. Florian. A total of 27 seconds of fluoroscopic time was utilized during the procedure and 2 spot images was acquired. Pl ease see operative report for additional details. IMPRESSION: As Above.
--- NOTE | 2020-02-26 15:10 | XR ---
EXAMINATION TYPE: XR Hip Limited LT DATE OF EXAM: 02/26/2020 CLINICAL HISTORY: Left hip postop hip replacement. TECHNIQUE: Single AP portable view of left hip is obtained immediately postoperatively. COMPARISON: Intraoperative fluoroscopy 02/26/2020 FINDINGS: Metallic hardware from left hip arthroplasty is seen and appears satisfactory in alignment and position. There is evidence of recent surgery with subcutaneous gas noted laterally. No unexpec last radiopaque foreign body. IMPRESSION: Metallic hardware from left hip arthroplasty is satisfactory in position.
[2020-02-26] MEDS ORDERED: FAMOTIDINE 20 MG TAB PO PRN (15:55)
--- NOTE | 2020-02-26 16:56 | P.CONS ---
History of Present Illness - Reason for Consult Consult date: 02/26/20 Medical management - Chief Complaint Left hip pain - History of Present Illness This is a 74-year-old male with past medical history noted below significant for severe osteoarthritis of the left hip was admitted to the hospital for elective total left hip arthroplasty. Patient is postoperative day #0. He does not have any specific concerns or complaints. I was asked to see him for medical ma nagement. His blood pressure is borderline low. Patient denies any complaint at this time. Review of Systems Review of system: 14 points review of systems were obtained and were negative except to what were mentioned in the HPI. Past Medical History Past Medical History: Coronary Artery Disease (CAD), Chest Pain / Angina, GERD/R eflux, Hyperlipidemia, Hypertension, Myocardial Infarction ([place]), Osteoarthritis (OA) Additional Past Medical History / Comment(s): "Recent chest pain, stress test showed some blockage." See Dr Sher's H&P. Last Myocardial Infarction Date:: 12/2016 History of Any Multi-Drug Resistant Organisms: MRSA Year Discovered:: 2015 MDRO Source:: rt leg Past Surgical History: Coronary Bypass/CABG, Heart Catheterization With Stent, Hernia Repair, Tonsillectomy Additional Past Surgical History / Comment(s): L inguinal hernia repair, implanted teeth, colonoscopy-normal, quadruple bypass. PT STATED HE HAS 5 CARDIAC STENTS Past Anesthesia/Blood Transfusion Reactions: No Reported Reaction Date of Last Stent Placement:: 12/09/17 Smoking Status: Former smoker - Past Family History Father Family Medical History: Cancer Additional Family Medical History / Comment(s): Father of colon cancer at the age of 48yrs. Mother Family Medical History: Musculoskeletal Disorder, Neurologic Disorder Additional Family Medical History / Comment(s): Mother of complications related to MS at the age of about 68yrs. Brother(s) Family Medical History: CVA/TIA, Hypertension Additional Family Medical History / Comment(s): He has 4 brothers one of which has had a CVA/hypertension. Sister(s) Family Medical History: No Reported History Son(s) Family Medical History: Osteoarthritis (OA) Medications and Allergies Home Medications Medication Instructions Recorded Confirmed Type Cetirizine HCl 10 mg PO QAM PRN 11/05/17 02/22/20 History Isosorbide Mononitrate [Isosorbide 30 mg PO QAM 11/05/17 02/22/20 History Mononitrate ER] Multivitamins, Thera [Multivitamin 1 tab PO QAM 11/05/17 02/22/20 History (formulary)] Metoprolol Tartrate [Lopressor] 25 mg PO BID #60 tab 11/09/17 02/22/20 Rx Nitroglycerin Sl Tabs [Nitrostat] 0.4 mg SUBLINGUAL Q5M PRN #100 tab 11/09/17 02/22/20 Rx lisinopriL [Zestril] 5 mg PO DAILY #30 tab 11/09/17 02/22/20 Rx Atorvastatin [Lipitor] 80 mg PO HS #30 tab 11/21/17 02/22/20 Rx Aspirin 81 mg PO DAILY 02/22/20 02/22/20 History Famotidine [Pepcid] 20 mg PO DAILY PRN 02/22/20 02/22/20 History Mupirocin 2% Oint [Bactroban 2% 1 applic NASAL DAILY PRN 02/22/20 02/22/20 History Oint] Allergies Allergy/AdvReac Type Severity Reaction Status Date / Time No Known Allergies Allergy Verified 02/26/20 12:23 Physical Exam Vitals: Vital Signs Temp Pulse Pulse Pulse Resp BP BP 02/26/20 15:45 97.5 F L 70 20 100/61 02/26/20 15:31 69 16 99/55 02/26/20 15:15 70 16 112/56 02/26/20 15:01 65 16 103/57 02/26/20 14:45 70 16 105/55 02/26/20 14:36 98.7 F 71 16 101/54 02/26/20 12:33 98.4 F 61 16 121/70 Pulse Ox 02/26/20 15:45 93 L 02/26/20 15:31 92 L 02/26/20 15:15 92 L 02/26/20 15:01 97 02/26/20 14:45 97 02/26/20 14:36 95 02/26/20 12:33 95 Intake and Output 02/26/20 02/26/20 02/26/20 06:59 14:59 22:59 Intake Total 1950 100 Output Total 100 Balance 1851 100 Intake: IV 1951 100 Output: Estimated Blood Loss 100 Other: Weight 111.3 kg General: The patient is awake and alert, in no distress Eye: there is normal conjunctiva bilaterally. Neck: The neck is supple, there is no JVD. Cardiovascular: Normal S1-S2, no S3-S4, no murmurs. Respiratory: Lungs clear to auscultation bilaterally Gastrointestinal: Abdomen is soft, nontender Musculoskeletal: There is no pedal edema. Neurological:. Speech is normal. Skin: Skin is warm and dry Assessment and Plan Assessment: 1. Postoperative day #0 status post total left hip arthroplasty. Postoperative care and pain management per orthopedic recommendations. 2. DVT prophylaxis with full dose aspirin twice daily per orthopedic protocol 3. Essential hypertension: Blood pressure borderline low postoperatively. Hold home dose of lisinopril and monitor closely. 4. History of coronary artery disease: Continue medical management 5. Hyperlipidemia on Lipitor Today, I reviewed his medication list. Continue current regimen. We will check CBC and BMP in the morning. Thank you very much for the consultation. We will continue to follow up on the patient closely with you.
[2020-02-26] MEDS: METOPROLOL TARTRATE 25 MG TAB PO SCH (20:18)
[2020-02-26] MEDS: ASPIRIN 325 MG TAB PO SCH (20:18)
[2020-02-26] MEDS: SODIUM CHLORIDE 0.9% 1,000 ML IV SCH (20:23)
[2020-02-26] MEDS ORDERED: ATORVASTATIN 80 MG TAB PO SCH (21:00)
[2020-02-26] MEDS ORDERED: SENNOSIDES-DOCUSATE SODIUM 1 EACH TAB PO SCH (21:00)
[2020-02-27 01:01] VITALS: PULSE 71
[2020-02-27] MEDS: SODIUM CHLORIDE 0.9% 1,000 ML IV SCH (03:09)
[2020-02-27] MEDS: LACTATED RINGERS 1,000 ML IV SCH (03:09)
[2020-02-27 06:35] LABS: Basophils % (A) 0 %; Eosinophils % (A) 0 %; HCT 35.4 % (39.0-53.0); HGB 11.8 gm/dL (13.0-17.5); Lymphocytes # (A) 0.8 k/uL (1.0-4.8); Lymphocytes % (A) 6 %; MCH 32.6 pg (25.0-35.0); MCHC 33.3 g/dL (31.0-37.0); MCV 98.1 fL (80.0-100.0); Mean Platelet Volume 7.2; Monocytes # (A) 0.6 k/uL (0-1.0); Monocytes % (A) 6 %; Neutrophils # (A) 10.2 k/uL (1.3-7.7); Neutrophils % (A) 88 %; Platelet Count 119 k/uL (150-450); RBC 3.61 m/uL (4.30-5.90); RDW 12.3 % (11.5-15.5); WBC 11.6 k/uL (3.8-10.6)
--- NOTE | 2020-02-27 06:59 | P.DS ---
Providers Expected date of discharge: 02/27/20 Attending physician: Lucas Florian Consults: 02/26/20 12:09 Consult Physician Routine Consulting Provider: Mckenzie Leung Consult Reason/Comments: medical management Do you want consulting provider notified?: Yes Primary care physician: Leonardo Santos - Discharge Diagnosis(es) (1) Osteoarthritis of left hip Current Visit: Yes Status: Acute (2) S/P total hip arthroplasty Current Visit: Yes Status: Acute Hospital Course: This is a 74-year-old male with known history of degenerative arthritis of the left hip. The patient presents for evaluation. After discussion and consideration patient elects to proceed with total hip arthroplasty. The patient is seen preoperatively by Dr. Florian and medically cleared for surgery by their primary care physician. Patient is admitted to [facility] on 02/26/2020 for total hip arthroplasty. The procedures performed without complication or sequelae. The patient is doing well postoperatively. Labs and vital signs are stable on day of discharge. On day of discharge patient's hip incision is healing well. There is minimal erythema. There is no drainage noted at this time. There is minimal soft tissue swelling to the hip and thigh. Patient has full foot and ankle motion without difficulty or pain. Calf is soft and nontender to palpation. Neurovascular status to the left lower extremity is intact. Patient is d ischarged home in good condition. Opioid start talking form is reviewed and signed. Please see med rec for accurate list of home medications. Plan - Discharge Summary Discharge Rx Participant: No New Discharge Prescriptions: New Aspirin 325 mg PO BID #60 tab HYDROcodone/APAP 5-325MG [Gaston 5-325] 1 - 2 tab PO Q6HR PRN #48 tab PRN Reason: Pain Sennosides [Senokot] 2 tab PO DAILY PRN #60 tablet PRN Reason: Constipation No Action Cetirizine HCl 10 mg PO QAM PRN PRN Reason: Allergic Reaction Isosorbide Mononitrate [Isosorbide Mononitrate ER] 30 mg PO QAM Multivitamins, Thera [Multivitamin (formulary)] 1 tab PO QAM lisinopriL [Zestril] 5 mg PO DAILY #30 tab Metoprolol Tartrate [Lopressor] 25 mg PO BID #60 tab Nitroglycerin Sl Tabs [Nitrostat] 0.4 mg SUBLINGUAL Q5M PRN #100 tab PRN Reason: Chest Pain Atorvastatin [Lipitor] 80 mg PO HS #30 tab Aspirin 81 mg PO DAILY Famotidine [Pepcid] 20 mg PO DAILY PRN PRN Reason: acid reflux Mupirocin 2% Oint [Bactroban 2% Oint] 1 applic NASAL DAILY PRN PRN Reason: Skin Irritation Discharge Medication List Cetirizine HCl 10 mg PO QAM PRN 11/05/17 [History] Isosorbide Mononitrate [Isosorbide Mononitrate ER] 30 mg PO QAM 11/05/17 [History] Multivitamins, Thera [Multivitamin (formulary)] 1 tab PO QAM 11/05/17 [History] Metoprolol Tartrate [Lopressor] 25 mg PO BID #60 tab 11/09/17 [Rx] Nitroglycerin Sl Tabs [Nitrostat] 0.4 mg SUBLINGUAL Q5M PRN #100 tab 11/09/17 [Rx] lisinopriL [Zestril] 5 mg PO DAILY #30 tab 11/09/17 [Rx] Atorvastatin [Lipitor] 80 mg PO HS #30 tab 11/21/17 [Rx] Aspirin 81 mg PO DAILY 02/22/20 [History] Famotidine [Pepcid] 20 mg PO DAILY PRN 02/22/20 [History] Mupirocin 2% Oint [Bactroban 2% Oint] 1 applic NASAL DAILY PRN 02/22/20 [History] Aspirin 325 mg PO BID #60 tab 02/27/20 [Rx] HYDROcodone/APAP 5-325MG [Gaston 5-325] 1 - 2 tab PO Q6HR PRN #48 tab 02/27/20 [Rx] Sennosides [Senokot] 2 tab PO DAILY PRN #60 tablet 02/27/20 [Rx] Follow up Appointment(s)/Referral(s): Lucas Florian DO [Doctor of Osteopathic Medicine] - 2 Weeks Activity/Diet/Wound Care/Special Instructions: Weightbearing as tolerated with walker. Leave dressing intact. Dressing may be removed by home care nurse or by patient in 10 days. May shower with dressing on. Please take aspirin 325mg twice daily for 30 days to prevent blood clots. Recommend use of compression stockings daily until follow up to help prevent swelling and blood clots. May remove at night before sleeping. Please follow-up with [facility] in 2 weeks and call with any questions or concerns, . Discharge Disposition: HOME WITH HOME HEALTH SERVICES
[2020-02-27 07:51] VITALS: BP 111/63; RESP 18; TEMP 97.6
[2020-02-27] MEDS: ASPIRIN 325 MG TAB PO SCH (07:55)
[2020-02-27] MEDS: METOPROLOL TARTRATE 25 MG TAB PO SCH (07:56)
[2020-02-27] MEDS ORDERED: MELOXICAM 7.5 MG TAB PO SCH (09:00)
[2020-02-27] MEDS ORDERED: ISOSORBIDE MONONITRATE ER 30 MG TAB.ER.24H PO SCH (09:00)
--- NOTE | 2020-02-27 18:17 | P.PN ---
Subjective Progress Note Date: 02/27/20 (delayed charting seen at 0930) Principal diagnosis: hip pain Patient is a 74 yo CM with a hx of CAD, GERD, HTN, and HLD who presented for elective left total hip. Patient seen and examined at bedside. No chest pain, shortness of breath, no nausea, no vomiting. Doing well. Has issues with GERD at baseline. General: non toxic, no distress, appears at stated age, obese Derm: warm, dry Head: atraumatic, normocephalic, symmetric Eyes: EOMI, no lid lag, anicteric sclera Mouth: no lip lesion, mucus membranes moist Cardiovascular: S1S2 reg, no murmur, positive posterior tibial pulse bilateral, Lungs: CTA bilateral, no rhonchi, no rales , no accessory muscle use Abdominal: soft, nontender to palpation, no guarding, no appreciable organomegaly Ext: no gross muscle atrophy, 1+ left lower extremity edema, no contractures Neuro: CN II-XI grossly intact, no focal neuro deficits Psych: Alert, oriented, appropriate affect S/P L SHANIKA HTN - lopressor - follow bp CAD - lipitor, imdur, asa HLD - statin GERD - pepcid daily while on BID ASA Med rec addressed. Medically optimized for discharge. Objective - Vital Signs Vital signs: Vital Signs Temp 97.6 F 02/27/20 07:00 Pulse 71 02/27/20 07:00 Resp 18 02/27/20 07:00 BP 111/63 02/27/20 07:00 Pulse Ox 94 L 02/27/20 07:00 Intake & Output 02/26/20 02/27/20 02/27/20 18:59 06:59 18:59 Intake Total 2050 Output Total 100 Balance 1950 Weight 111.3 kg Intake: IV 2050 Output: Estimated Blood Loss 100 Other: # Voids 1 - Labs CBC & Chem 7: 02/27/20 05:27 Labs: Abnormal Lab Results - Last 24 Hours (Table) 02/27/20 Range/Units 05:27 WBC 11.6 H (3.8-10.6) k/uL RBC 3.61 L (4.30-5.90) m/uL Hgb 11.8 L (13.0-17.5) gm/dL Hct 35.4 L (39.0-53.0) % Plt Count 119 L (150-450) k/uL Neutrophils # 10.2 H (1.3-7.7) k/uL Lymphocytes # 0.8 L (1.0-4.8) k/uL
== END 2020-02-27 10:32 | disposition home health service (06) ==
LOC: OR 11:55 → 4SSUR 14:32 → OR 02-27 10:32
PROVIDERS: ATTEND Orthopaedic Surgery
DX: M16.12 Unilateral primary osteoarthritis, left hip (principal); M25.752 Osteophyte, left hip; I25.10 Atherosclerotic heart disease of native coronary artery without angina pectoris; I11.9 Hypertensive heart disease without heart failure; E78.5 Hyperlipidemia, unspecified; K21.9 Gastro-esophageal reflux disease without esophagitis; Z95.5 Presence of coronary angioplasty implant and graft; Z97.3 Presence of spectacles and contact lenses; Z87.891 Personal history of nicotine dependence; I25.2 Old myocardial infarction; Z95.1 Presence of aortocoronary bypass graft; L30.9 Dermatitis, unspecified; R79.89 Other specified abnormal findings of blood chemistry; Z82.49 Family history of ischemic heart disease and other diseases of the circulatory system; Z80.0 Family history of malignant neoplasm of digestive organs; Z82.69 Family history of other diseases of the musculoskeletal system and connective tissue; Z79.899 Other long term (current) drug therapy; Z79.82 Long term (current) use of aspirin; Z86.14 Personal history of Methicillin resistant Staphylococcus aureus infection
CPT/HCPCS: 97110; 97161; 97535; 97166; 86891; 85025; 73501; 27130; C1776; J2250; J0171; J1644; J1100; J0690 ×3; J2405; J3010; J1885; J2795; J2704; J0735; J1170; 86850; 86900; 86901; 88300

== ENCOUNTER → 2020-03-05 | Outpatient (CLI) | payer MEDICARE ==
[2020-03-05 14:53] LABS: Basophils % (A) 1 %; Eosinophils # (A) 0.3 k/uL (0-0.7); Eosinophils % (A) 4 %; HCT 38.7 % (39.0-53.0); HGB 12.6 gm/dL (13.0-17.5); Lymphocytes # (A) 1.9 k/uL (1.0-4.8); Lymphocytes % (A) 29 %; MCH 32.3 pg (25.0-35.0); MCHC 32.4 g/dL (31.0-37.0); MCV 99.5 fL (80.0-100.0); Mean Platelet Volume 6.8; Monocytes # (A) 0.4 k/uL (0-1.0); Monocytes % (A) 6 %; Neutrophils # (A) 3.7 k/uL (1.3-7.7); Neutrophils % (A) 57 %; RBC 3.89 m/uL (4.30-5.90); RDW 12.7 % (11.5-15.5); WBC 6.5 k/uL (3.8-10.6)
[2020-03-05 15:11] LABS: Platelet Count 190 k/uL (150-450)
== END | disposition home or self-care (01) ==
LOC: LABWHC1 13:35
PROVIDERS: ATTEND Internal Medicine
DX: D69.6 Thrombocytopenia, unspecified (principal)
CPT/HCPCS: 36415; 85025

== ENCOUNTER 2023-02-15 11:44 | Day surgery (SDC) | payer MEDICARE ==
[~2023-02-15 11:44] MED LIST changes: -ACETAMINOPHEN TAB 500 MG TAB PO ONE; +ALPRAZolam 0.25 MG TAB PO PRN; +ALPRAZolam 0.5 MG TAB PO PRN; +ASPIRIN 325 MG TAB PO ONE; +ATORVASTATIN 80 MG TAB PO ONE; -DEXAMETHASONE SOD PHOSPHATE 10 MG/ML 1 ML VIAL IV ONE; -GABAPENTIN 300 MG CAP PO ONE; +HEPARIN SODIUM,PORCINE (1 ML) 2,500 UNIT in SODIUM CHLORIDE 0.9% 250 ML IRRIGATION PRN; +HEPARIN SODIUM,PORCINE 10,000 UNIT in SODIUM CHLORIDE 0.9% 1,000 ML IRRIGATION PRN; -HYDROmorphone 0.5 MG/0.5 ML SYRINGE IVP PRN; -MELOXICAM 7.5 MG TAB PO ONE; -MIDAZOLAM 2 MG/2 ML VIAL IV PRN; +NITROGLYCERIN SL TABS 0.4 MG TAB SUBLINGUAL PRN; -ONDANSETRON 4 MG/2 ML VIAL IVP ONE; -SCOPOLAMINE 1.5MG/72HR PATCH TRANSDERM ONE; +SODIUM CHLORIDE 0.9% 1,000 ML in EMPTY BAG 1 BAG IV SCH; -TRANEXAMIC ACID 1,000 MG in SODIUM CHLORIDE 0.9% 100 ML IVPB ONE; -fentaNYL (PF) 50 MCG/ML 2 ML AMP IVP PRN
[2023-02-15] MEDS ORDERED: SODIUM CHLORIDE 0.9% 1,000 ML IV ONE (11:55)
[2023-02-15 12:16] VITALS: RESP 16; TEMP 98.5
[2023-02-15] MEDS ORDERED: VERAPAMIL 2.5 MG/ML 2 ML AMP ONE (13:13)
[2023-02-15] MEDS ORDERED: fentaNYL (PF) 50 MCG/ML 2 ML AMP ONE (13:13)
[2023-02-15] MEDS ORDERED: HEPARIN SODIUM 1,000 UN/ML (10ML VL) ONE (13:13)
[2023-02-15] MEDS ORDERED: MIDAZOLAM 2 MG/2 ML VIAL IVP ONE (13:37)
[2023-02-15] MEDS ORDERED: fentaNYL (PF) 50 MCG/ML 2 ML AMP IVP ONE (13:37)
[2023-02-15] MEDS ORDERED: LIDOCAINE 1% INJ 10MG/ML (20 ML MDV) SQ ONE (13:42)
[2023-02-15] MEDS ORDERED: VERAPAMIL SYRINGE (5 MG/10 ML) INTRAARTER ONE (13:43)
[2023-02-15] MEDS ORDERED: HEPARIN SODIUM 1,000 UN/ML (10ML VL) IV ONE (13:48)
[2023-02-15] MEDS ORDERED: IOPAMIDOL-370 100ML BTL INJ ONE (13:59)
--- NOTE | 2023-02-15 14:06 | P.CARDCATH ---
Description of Procedure: PROCEDURES PERFORMED: Left heart catheterization, bilateral coronary angiography, BROWN to LAD angiography, ultrasound guided arterial access INDICATION: Abnormal stress test, known history of CAD status post CABG with only remaining bypass graft BROWN to LAD from heart catheterization 2018 CONSENT:I have discussed the risks, benefits and alternative therapies for the above-mentioned procedure and for both sedation/analgesia as well as necessary blood product administration, if indicated, as they pertain to this patient. The patient has indicated understanding and acceptance of the risks and procedures discussed. PROCEDURE: After the risks, benefits and alternatives of the above mentioned procedure explained in detail with the patient, informed consent was obtained. Patient was taken to the catheterization lab and prepped and draped in usual fashion. Ultrasound guidance was used to assess for arterial access. 1% lidoc anali was used to anesthetize the left radial artery. A 6-Swiss sheath was placed in the left radial artery using modified Seldinger technique and ultrasound guidance. Left coronary angiography was performed with a 5-Swiss JL 4.0 catheter and right coronary angiography was performed with a 5-Swiss JR5 catheter in various views. A BROWN to LAD angiography was performed with a 5- Swiss FR5 catheter. A 5-Swiss FL 4.0 catheter was inserted into the left ventricle and pressure measurements were obtained. The right radial sheath was removed and a TR band was placed with hemostasis achieved. The patient tolerated the procedure well. Patient was transported back to the post catheterization holding area in stable condition. Conscious Sedation: Patient was monitored under the direct supervision of myself for conscious sedation using Versed and fentanyl for a total duration of 14 minutes HEMODYNAMICS: Aorta: 99/52 LV: 95/2, LVEDP 6 SELECTIVE CORONARY ARTERIOGRAPHY: LEFT MAIN: The left main is a large caliber vessel which bifurcates into the LAD and circumflex. There is no significant stenosis. LEFT ANTERIOR DESCENDING CORONARY ARTERY: LAD is a large caliber vessel which wraps around to the apex. There is a proximal LAD 80% stenosis and otherwise mild luminal irregularities LEFT CIRCUMFLEX CORONARY ARTERY: Left circumflex is a moderate caliber vessel with a patent circumflex stent to an obtuse marginal branch with only mild 20- 30% stenoses. RIGHT CORONARY ARTERY: The right coronary artery is a large caliber vessel which gives off a PDA and PLV branch and is the dominant vessel. There is a patent proximal and mid RCA stent with mild 20-30% stenosis and otherwise mild luminal irregularities of the PDA and PLV. Patent proximal PDA stent. BROWN to LAD: BROWN to LAD is widely patent FINAL IMPRESSION: 1. CAD as described above including 80% proximal LAD stenosis and otherwise patent circumflex and RCA/PDA stents 2. Normal left sided filling pressures 3. Patent BROWN to LAD and otherwise occluded prior vein grafts PLAN: 1. Aggressive risk factor modification per most recent ACC/AHA guidelines. 2. Continue with medical therapy with no significant change and coronary anatomy compared to 2018. May consider decreasing antianginal medications if causing significant fatigue.
[2023-02-15] MEDS ORDERED: NITROGLYCERIN SL TABS 0.4 MG TAB SUBLINGUAL PRN (14:20)
[2023-02-15] MEDS ORDERED: FAMOTIDINE 20 MG TAB PO PRN (14:20)
[2023-02-15] MEDS ORDERED: LORATADINE 10 MG TAB PO PRN (14:20)
[2023-02-15] MEDS ORDERED: RX INFO: IV CONTRAST WAS GIVEN 1 EACH MISC MISCELLANE PRN (14:22)
[2023-02-15] MEDS ORDERED: SODIUM CHLORIDE 0.9% 500 ML 500 ML IV ONE (14:30)
[2023-02-15 16:59] VITALS: BP 154/75; PULSE 68
[2023-02-15] MEDS ORDERED: ATORVASTATIN 80 MG TAB PO SCH (21:00)
[2023-02-16] MEDS ORDERED: NON FORMULARY DRUG (Aspirin [Adult Low Dose Aspirin Ec] 81 MG Tablet) PO SCH (09:00)
[2023-02-16] MEDS ORDERED: MULTIVITAMINS, THERA 1 EACH TAB PO SCH (09:00)
[2023-02-16] MEDS ORDERED: lisinopriL 5 MG TAB PO SCH (09:00)
[2023-02-16] MEDS ORDERED: ISOSORBIDE MONONITRATE ER 15 MG TAB PO SCH (09:00)
== END 2023-02-15 17:15 | disposition home or self-care (01) ==
LOC: CATHCVL 11:44
PROVIDERS: ATTEND Internal Medicine
DX: I25.10 Atherosclerotic heart disease of native coronary artery without angina pectoris (principal); I10 Essential (primary) hypertension; E78.5 Hyperlipidemia, unspecified; Z79.82 Long term (current) use of aspirin; Z95.1 Presence of aortocoronary bypass graft; Z79.899 Other long term (current) drug therapy
CPT/HCPCS: 93459; 76937; C1769; C1894; J2250; J2001; J3010; J1644; Q9967

== ENCOUNTER → 2024-05-02 | Outpatient (CLI) | payer MEDICARE ==
[2024-05-02 13:00] LABS: ALT 31 U/L (10-49); AST 23 U/L (14-35); Chol/HDL Ratio 3.14 Ratio; LDL Cholesterol,Calculated 67.7 mg/dL (0.0-131.0); VLDL Calculation 16.82 mg/dL (5.00-40.00)
== END | disposition home or self-care (01) ==
LOC: LABWHC1 07:35
PROVIDERS: ATTEND Internal Medicine
DX: E78.2 Mixed hyperlipidemia (principal)
CPT/HCPCS: 36415; 80061; 84450; 84460